=== PATIENT | female | born 1970 | race Caucasian/White ===

== ENCOUNTER 2018-11-15 11:38 | Inpatient (IN) | payer MEDICAID, MEDICARE ==
[~2018-11-15] VITALS: Ht 177.8 cm; Wt 65.3 kg
[~2018-11-15 11:38] MED LIST: DILANTIN100 MG PO; DURAGESIC1 EAC1 TOP; GABAPENTIN100 MG PO; IMITREX6 MG/0.51 INJ; INDERAL LA120 M1; INDERAL LA120 MG PO; NEXIUM40 MG PO; REMICADE100 MG/VIA; SULFASALAZINE500 MG PO; SUMATRIPTAN SQ; XANAX0.5 MG PO; Z.0.DILANTIN100 MG; Z.0.GABAPENTIN100 MG PO; Z.0.NEXIUM40 MG PO; Z.0.NORCO 10-325 T1 PO; Z.0.OMNICEF300 MG PO; Z.0.XANAX0.5 MG PO
--- OUTSIDE RECORDS SUMMARY | 2018-11-15 11:44 | XMS REPORT ---
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 Allergies, Adverse Reactions, Alerts Allergy Name Allergy Type Status Severity Reaction(s) Onset Date Inactive Date Treating Clinician Comments No Known Drug Allergies DA Active 2018-05-04 00:00:00 meperidine DA Active AR 2018-05-02 00:00:00 meperidine DA Active AR 2018-05-01 00:00:00 meperidine DA Active AR 2018-03-08 00:00:00 meperidine DA Active AR 2016-12-05 00:00:00 Medications This patient has no known medications. Encounters Start Date/Time End Date/Time Encounter Type Admission Type Attending [facility] Care Department Encounter ID 2017-04-04 00:00:00 2017-04-04 00:00:00 Outpatient [facility] [id number] 2016-09-01 00:00:00 2016-09-01 00:00:00 Outpatient [facility] [id number] 2016-08-25 00:00:00 2016-08-25 00:00:00 Outpatient [facility] [id number] 2016-08-24 00:00:00 2016-08-24 00:00:00 Outpatient [facility] [id number] 2016-08-23 00:00:00 2016-08-23 00:00:00 Outpatient [facility] [id number] 2016-08-19 14:09:46 2016-08-19 14:09:46 Outpatient [facility] [id number] 2016-08-09 14:14:11 2016-08-09 14:14:11 Outpatient [facility] [id number] 2016-08-09 13:17:53 2016-08-09 13:17:53 Outpatient [facility] [id number] 2016-08-09 00:00:00 2016-08-09 00:00:00 Outpatient [facility] [id number] 2016-07-28 00:00:00 2016-07-28 00:00:00 Outpatient [facility] [id number] 2016-07-22 13:44:29 2016-07-22 13:44:29 Outpatient [facility] [id number] Results Test Description Test Time Test Comments Text Results Atomic Results Result Comments - XR ABDOMEN AP 1 V 2018-09-07 08:04:00 FAX: Brady Rodriguez MD [phone] Byars: St: [facility] FAX: Dima Lorenzo [phone] FAX: Fernando Beatty [phone] Name: DAVIE CORADO [facility] : 1970 Age/S: 47[facility] [id number] Loc: V.[address] [place] [address] Phys: Fernando Beatty MD Acct: [id number] Dis Date: Status: ADM IN PHONE #: [phone] Exam Date: 09/07/2018726 FAX #: [phone] Reason: ILEUS EXAMS: CPT CODE: [id number] XR ABDOMEN AP 1 V 50359 HISTORY: ILEUS TECHNIQUE: AP abdomen x-ray COMPARISON: Previous day FINDINGS: Nonobstructive bowel gas pattern. Gaseous distention of the distal colon. No intra-abdominal mass effect. No abnormal calcifications are observed. Left epigastric and cholecystectomy clips. Visualized osseous structures are intact. IMPRESSION: Nonobstructive bowel gas pattern. Gaseous di stention of the distal colon. at 0804 Reported and signed by: Karly Peacock D.O. CC: Brady Rodriguez MD; Dima Samaniego; Fernando Beatty MD Technologist: PETRONA CARROLL JR Trnscrd Date/Time/By: 09/07/2018 (0804) : By: [email or web address] Orig Print D/T: S: 09/07/2018 (6607) PAGE 1 Signed Report BASIC METABOLIC PANEL 2018-09-07 05:45:00 SODIUM (test code=NA) 137 mmol/L 136-145 POTASSIUM (test code=K) 4.4 mmol/L 3.5-5.1 CHLORIDE (test code=CL) 104.0 mmol/L 98-107 CARBON DIOXIDE (test code=CO2) 25.0 mmol/L 21-32 ANION GAP (test code=GAP) 12.4 10-20 GLUCOSE (test code=GLU) 134 mg/dL 74-106 BLOOD UREA NITROGEN (test code=BUN) 11 mg/dL 7-18 GLOMERULAR FILTRATION RATE (test code=GFR) > 60 mL/min >=60 Estimated GFR by using Modified MDRD formula.Chronic kidney disease is defined as either kidney damageor GFR <60 mL/min/1.73 m2 for >3 months. CREATININE (test code=CREAT) 0.60 mg/dL 0.55-1.02 Note change in reference range due to change in reagent. BUN/CREATININE RATIO (test code=BUN/CREA) 17.2 10-20 CALCIUM (test code=CA) 9.9 mg/dL 8.5-10.1 CBC W/O [id number] 05:04:00* Test Item Value Reference Range Comments WHITE BLOOD CELL (test code=WBC) 11.5 K/mm3 4.5-12.5 RED BLOOD CELL (test code=RBC) 4.49 mill/mm3 3.7-5.2 HEMOGLOBIN (test code=HGB) 9.8 gram/dL 11.5-15.5 HEMATOCRIT (test code=HCT) 34.5 % 36.0-46.0 MEAN CELL VOLUME (test code=MCV) 76.8 fL 80-98 MEAN CELL HGB (test code=MCH) 21.8 picogram 27.0-33.0 MEAN CELL HGB CONCETRATION (test code=MCHC) 28.4 gram/dL 33.0-36.0 RED CELL DISTRIBUTION WIDTH (test code=RDW) 18.6 % 11.6-16.2 PLATELET COUNT (test code=PLT) 401 K/mm3 150-450 MEAN PLATELET VOLUME (test code=MPV) 10.7 fL 6.7-11.0 - XR ABDOMEN AP 1 [id number] 09:17:00 FAX: Brady Rodriguez MD [phone] Byars: St: ADM FAX: Dima Lorenzo [phone] FAX: Treasure Espinosa [phone] Name: DAVIE CORADO [facility] : 1970 Age/S: 47/F [address] Unit #: [id number] Loc: V.3030 [place] [address] Phys: Treasure Espinosa Acct: [id number] Dis Date: Status: ADM IN [facility] #: [phone] Exam Date: 09/06/2018 08 FAX #: [phone] Reason: sbo vs ileus EXAMS: CPT CODE: [id number] XR ABDOMEN AP 1 V 87863 HISTORY: Small bowel obstruction versus ileus. COMPARISON: CT scan from September 04, 2018. Moderate amount of air noted throughout the colon. No signi ficant small bowel distention is noted. Multiple surgical clips in the lef t upper quadrant. These findings suggest ileus. Continued follow-up. Patient is post cholecystectomy. Phleboliths. IMPRESSION: Extensive colonic gas without significant small bowel obstruction may suggest ileus. This does not suggest an obstructive pattern at this time. at 0917 Reported and signed by: Giovanny Wakefield M.D. CC: Brady Rodriguez MD; Dima Samaniego; Treasure Espinosa Technologist: DONNY KELLY) Trnscrd Eugenio e/Time/By: 09/06/2018 (916) : By: [email or web address] Orig Print D/T: S: 2018 (8220) PAGE 1 Signed Report BASIC METABOLIC [id number] 06:33:00* Test Item Value Reference Range Comments SODIUM (test code=NA) 141 mmol/L 136-145 POTASSIUM (test code=K) 4.6 mmol/L 3.5-5.1 CHLORIDE (test code=CL) 109.0 mmol/L 98-107 CARBON DIOXIDE (test code=CO2) 21.0 mmol/L 21-32 ANION GAP (test code=GAP) 15.6 10-20 GLUCOSE (test code=GLU) 100 mg/dL 74-106 BLOOD UREA NITROGEN (test code=BUN) 5 mg/dL 7-18 GLOMERULAR FILTRATION RATE (test code=GFR) > 60 mL/min >=60 Estimated GFR by using Modified MDRD formula.Chronic kidney disease is defined as either kidney damageor GFR <60 mL/min/1.73 m2 for >3 months. CREATININE (test code=CREAT) 0.60 mg/dL 0.55-1.02 Note change in reference range due to change in reagent. BUN/CREATININE RATIO (test code=BUN/CREA) 8.9 10-20 CALCIUM (test code=CA) 9.6 mg/dL 8.5-10.1 BASIC METABOLIC [id number] 06:22:00* Test Item Value Reference Range Comments SODIUM (test code=NA) 141 mmol/L 136-145 POTASSIUM (test code=K) 4.6 mmol/L 3.5-5.1 CHLORIDE (test code=CL) 109.0 mmol/L 98-107 CARBON DIOXIDE (test code=CO2) mmol/L 21-32 ANION GAP (test code=GAP) 10-20 GLUCOSE (test code=GLU) mg/dL 74-106 BLOOD UREA NITROGEN (test code=BUN) mg/dL 7-18 GLOMERULAR FILTRATION RATE (test code=GFR) mL/min >=60 CREATININE (test code=CREAT) mg/dL 0.55-1.02 BUN/CREATININE RATIO (test code=BUN/CREA) 10-20 CALCIUM (test code=CA) mg/dL 8.5-10.1 CBC W/O [id number] 05:50:00* Test Item Value Reference Range Comments WHITE BLOOD CELL (test code=WBC) 8.7 K/mm3 4.5-12.5 RED BLOOD CELL (test code=RBC) 4.74 mill/mm3 3.7-5.2 HEMOGLOBIN (test code=HGB) 10.1 gram/dL 11.5-15.5 HEMATOCRIT (test code=HCT) 36.0 % 36.0-46.0 MEAN CELL VOLUME (test code=MCV) 75.9 fL 80-98 MEAN CELL HGB (test code=MCH) 21.3 picogram 27.0-33.0 MEAN CELL HGB CONCETRATION (test code=MCHC) 28.1 gram/dL 33.0-36.0 RED CELL DISTRIBUTION WIDTH (test code=RDW) 18.5 % 11.6-16.2 PLATELET COUNT (test code=PLT) 398 K/mm3 150-450 MEAN PLATELET VOLUME (test code=MPV) 10.2 fL 6.7-11.0 CBC W/O [id number] 05:47:00* Test Item Value Reference Range Comments WHITE BLOOD CELL (test code=WBC) K/mm3 4.5-12.5 RED BLOOD CELL (test code=RBC) mill/mm3 3.7-5.2 HEMOGLOBIN (test code=HGB) gram/dL 11.5-15.5 HEMATOCRIT (test code=HCT) 36.0 % 36.0-46.0 MEAN CELL VOLUME (test code=MCV) fL 80-98 MEAN CELL HGB (test code=MCH) picogram 27.0-33.0 MEAN CELL HGB CONCETRATION (test code=MCHC) gram/dL 33.0-36.0 RED CELL DISTRIBUTION WIDTH (test code=RDW) % 11.6-16.2 PLATELET COUNT (test code=PLT) K/mm3 150-450 MEAN PLATELET VOLUME (test code=MPV) fL 6.7-11.0 BASIC METABOLIC [id number] 06:46:00* Test Item Value Reference Range Comments SODIUM (test code=NA) 138 mmol/L 136-145 POTASSIUM (test code=K) 3.8 mmol/L 3.5-5.1 CHLORIDE (test code=CL) 106.0 mmol/L 98-107 CARBON DIOXIDE (test code=CO2) 26.0 mmol/L 21-32 ANION GAP (test code=GAP) 9.8 10-20 GLUCOSE (test code=GLU) 96 mg/dL 74-106 BLOOD UREA NITROGEN (test code=BUN) 8 mg/dL 7-18 GLOMERULAR FILTRATION RATE (test code=GFR) > 60 mL/min >=60 Estimated GFR by using Modified MDRD formula.Chronic kidney disease is defined as either kidney damageor GFR <60 mL/min/1.73 m2 for >3 months. CREATININE (test code=CREAT) 0.70 mg/dL 0.55-1.02 Note change in reference range due to change in reagent. BUN/CREATININE RATIO (test code=BUN/CREA) 12.1 10-20 CALCIUM (test code=CA) 9.6 mg/dL 8.5-10.1 BASIC METABOLIC [id number] 06:45:00* Test Item Value Reference Range Comments SODIUM (test code=NA) 138 mmol/L 136-145 POTASSIUM (test code=K) 3.8 mmol/L 3.5-5.1 CHLORIDE (test code=CL) 106.0 mmol/L 98-107 CARBON DIOXIDE (test code=CO2) mmol/L 21-32 ANION GAP (test code=GAP) 10-20 GLUCOSE (test code=GLU) mg/dL 74-106 BLOOD UREA NITROGEN (test code=BUN) mg/dL 7-18 GLOMERULAR FILTRATION RATE (test code=GFR) mL/min >=60 CREATININE (test code=CREAT) mg/dL 0.55-1.02 BUN/CREATININE RATIO (test code=BUN/CREA) 10-20 CALCIUM (test code=CA) 9.6 mg/dL 8.5-10.1 CBC W/O [id number] 06:15:00* Test Item Value Reference Range Comments WHITE BLOOD CELL (test code=WBC) 6.5 K/mm3 4.5-12.5 RED BLOOD CELL (test code=RBC) 4.75 mill/mm3 3.7-5.2 HEMOGLOBIN (test code=HGB) 10.3 gram/dL 11.5-15.5 HEMATOCRIT (test code=HCT) 34.7 % 36.0-46.0 MEAN CELL VOLUME (test code=MCV) 73.1 fL 80-98 MEAN CELL HGB (test code=MCH) 21.7 picogram 27.0-33.0 MEAN CELL HGB CONCETRATION (test code=MCHC) 29.7 gram/dL 33.0-36.0 RED CELL DISTRIBUTION WIDTH (test code=RDW) 18.6 % 11.6-16.2 PLATELET COUNT (test code=PLT) 435 K/mm3 150-450 RESULT VERIFIED BY REPEAT ANALYSIS MEAN PLATELET VOLUME (test code=MPV) 10.0 fL 6.7-11.0 URINALYSIS [id number] 16:41:00* Test Item Value Reference Range Comments UA COLOR (test code=COLU) Light-Yellow YELLOW UA APPEARANCE (test code=APPU) Cloudy CLEAR UA GLUCOSE DIPSTICK (test code=DGLUU) NEGATIVE mg/dL NEGATIVE UA BILIRUBIN DIPSTICK (test code=BILU) NEGATIVE mg/dL NEGATIVE UA KETONE DIPSTICK (test code=KETU) NEGATIVE mg/dL NEGATIVE UA SPECIFIC GRAVITY (test code=SGU) 1.024 1.001-1.035 UA BLOOD DIPSTICK (test code=WILBER) Negative mg/dL NEGATIVE UA PH DIPSTICK (test code=MARCELLO) 8.0 5.0-8.0 UA PROTEIN DIPSTICK (test code=PROU) NEGATIVE mg/dL NEGATIVE UA UROBILINIOGEN DIPSTICK (test code=URO) Normal mg/dL NEGATIVE UA NITRITE DIPSTICK (test code=LANDON) NEGATIVE NEGATIVE UA LEUKOCYTE ESTERASE W REFLEX (test code=LEUUR) 75 Sergio/uL (1+) Sergio/uL NEGATIVE UA WBC (test code=WBCU) 0-5 per HPF 0-5 UA RBC (test code=RBCU) 6-10 #/HPF 0-5 UA EPITHELIAL CELLS (test code=EPIU) MOD per HPF FEW UA BACTERIA (test code=BACU) FEW #/HPF NONE UA MUCUS (test code=MUCU) FEW #/LPF FEW UA YEAST (test code=YEASTU) FEW #/HPF NONE Urine Source? Clean CatchDRUGS OF ABUSE SCREEN [id number] 16:41:00* Test Item Value Reference Range Comments URN COCAINE (test code=COCAURN) NEGATIVE <300 ng/mL URN CANNABINOIDS (test code=CANNABURN) NEGATIVE <50 ng/mL URN AMPHETAMINE (test code=AMPHETURN) POSITIVE <1000 ng/mL This test provides only a preliminary test result. A morespecific alternate chemical method must be used in order toobtain a confirmed analytical result. Gas chromatography/mass spectrometry (GC/MS) is thepreferred confirmatory method. Other chemical confirmationmethods are available. Clinical consideration and professional judgment should be applied to any drug of abusetest result, particularly when preliminary positive resultsare used.Unconfirmed screening results must not be used fornon-medical purposes (e.g., employment testing, legaltesting). URN BARBITURATE (test code=BARBITURN) NEGATIVE <200 ng/mL URN BENZODIAZEPINE (test code=BENZOURN) NEGATIVE <200 ng/mL URN OPIATES (test code=OPIATURN) POSITIVE <300 ng/mL This test provides only a preliminary test result. A morespecific alternate chemical method must be used in order toobtain a confirmed analytical result. Gas chromatography/mass spectrometry (GC/MS) is thepreferred confirmatory method. Other chemical confirmationmethods are available. Clinical consideration and professional judgment should be applied to any drug of abusetest result, particularly when preliminary positive resultsare used.Unconfirmed screening results must not be used fornon-medical purposes (e.g., employment testing, legaltesting). URN PHENCYCLIDINE (PCP) (test code=PHENCURN) NEGATIVE <25 ng/mL URN METHADONE (test code=METHAURN) NEGATIVE <300 ng/mL Urine Source? Clean CatchURINALYSIS [id number] 16:30:00* Test Item Value Reference Range Comments UA COLOR (test code=COLU) YELLOW UA APPEARANCE (test code=APPU) CLEAR UA BILIRUBIN DIPSTICK (test code=BILU) NEGATIVE UA SPECIFIC GRAVITY (test code=SGU) 1.001-1.035 UA PH DIPSTICK (test code=MARCELLO) 5.0-8.0 UA UROBILINIOGEN DIPSTICK (test code=URO) mg/dL 0.0-0.2 UA NITRITE DIPSTICK (test code=LANDON) NEGATIVE UA LEUKOCYTE ESTERASE W REFLEX (test code=LEUUR) NEGATIVE UA WBC (test code=WBCU) per HPF 0-5 UA RBC (test code=RBCU) per HPF 0-5 UA EPITHELIAL CELLS (test code=EPIU) per HPF Few UA BACTERIA (test code=BACU) per HPF NONE Urine Source? Clean CatchDRUGS OF ABUSE SCREEN [id number] 16:30:00* Test Item Value Reference Range Comments URN COCAINE (test code=COCAURN) NEGATIVE <300 ng/mL URN CANNABINOIDS (test code=CANNABURN) NEGATIVE <50 ng/mL URN AMPHETAMINE (test code=AMPHETURN) POSITIVE <1000 ng/mL This test provides only a preliminary test result. A morespecific alternate chemical method must be used in order toobtain a confirmed analytical result. Gas chromatography/mass spectrometry (GC/MS) is thepreferred confirmatory method. Other chemical confirmationmethods are available. Clinical consideration and professional judgment should be applied to any drug of abusetest result, particularly when preliminary positive resultsare used.Unconfirmed screening results must not be used fornon-medical purposes (e.g., employment testing, legaltesting). URN BARBITURATE (test code=BARBITURN) NEGATIVE <200 ng/mL URN BENZODIAZEPINE (test code=BENZOURN) NEGATIVE <200 ng/mL URN OPIATES (test code=OPIATURN) POSITIVE <300 ng/mL This test provides only a preliminary test result. A morespecific alternate chemical method must be used in order toobtain a confirmed analytical result. Gas chromatography/mass spectrometry (GC/MS) is thepreferred confirmatory method. Other chemical confirmationmethods are available. Clinical consideration and professional judgment should be applied to any drug of abusetest result, particularly when preliminary positive resultsare used.Unconfirmed screening results must not be used fornon-medical purposes (e.g., employment testing, legaltesting). URN PHENCYCLIDINE (PCP) (test code=PHENCURN) NEGATIVE <25 ng/mL URN METHADONE (test code=METHAURN) NEGATIVE <300 ng/mL Urine Source? Clean Catch- CT ABD PELVIS [id number] 14:39:00 Name: DAVIE CORADO [facility] : 1970 Age/S: 47 / F [address] Unit #: [id number] Loc: [place] [address] Phys: Walker Lock MD Acct: [id number] Di s Date: Status: REG ER PHONE #: [phone] Exam Date: 09/04/2018 1420 FAX #: [phone] Reason: seizure EXAMS: CPT CODE: [id number] CT ABD PELVIS W/CONT 58375 REASON FOR EXAM: seizure EXAM ORDER DATE: 09/04/2018 11:19 AM Ordering M.D.: William Lock MD PROCEDURE: - CT ABD PELVIS W/CONT contrast- enhanced axial CT images were acquired through the abdomen/pelvis at 5 mm intervals. Sagittal and coronal reformatted images were generated. Autom ated exposure control was utilized for this reduction. Phase s of contrast: Venous COMPARISON: CT of the abdomen and pelvis Apr FINDINGS: Images are slightly degraded by motion from patient respiration Visualized thorax: Normal Hepatobiliary system: Hepatomegaly and cholecystectomy are unchanged from the previous exam. Pancreas: Grossly normal. Spleen: Upper limits of normal in size. No focal lesions. Adrenal glands: Normal Genitourinary system: Normal Gastrointestinal tract and appendix: Postsurgical changes involving the stomach appear to be from gastric bypass. There are a few loops of small bowel in the left hemiabdomen that are distended up to 3.9 m in diameter. Postsurgical jenkins es involving the small bowel the left abdomen () are also likely relat ed to gastric bypass. There is a short segment of small bowel with mural thickening in the midline of the abdomen (). These with distention of the bowel proximally and normal caliber of the bowel distally which may represent a stricture from the patient's Crohn's disease as reported in the history. There is stool and gas seen throughout the colon. A bdominal vascular structures: Scattered atherosclerotic disease in the abd ominal aorta and iliac arteries. PAGE 1 Rosy d Report (CONTINUED) Name: DAVIE CORADO [facility] : 1970 Age/S: 47 / F [address] Unit #: [id number] Loc: [facility] [place] [address] Phys: Linda Lock MD Acct: [id number] Dis Date: Status: REG ER PHONE #: [phone] Exam Date: 09/04/2018 1420 FAX #: [phone] Reason: seizure EXAMS: CPT CODE: [id number] CT ABD PELVIS W/CONT 59283 <Continued> Peritoneum and retroperitoneum: No free fluid or free air. No omental or mesenteric masses. No abnormal lymph nodes. Musculoskeletal structures and abdominal wall: There is disc degeneration at L5-S1. IMPRESSION: Distention of the proximal small bowel with decompression of the distal small bowel may represent localized ileus versus partial small bowel obstruction. There is also a focal segment of mural thickening as described in the body of this report which may represent a stricture from the patient's Crohn's disease. Surgical changes involving the stomach and small bowel are suspected be from a gastric bypass. at 143 Reported and signed by: Hector Middleton MD CC: Dima Samaniego; Linda Lock MD Technologist:Radha Coreas,RT(R),CT CTDI: DLP: Trnscb Date/Time: 09/04/2018 (4666) [email or web address].RR31 Orig Print D/T: S: 09/04/2018 (8173) PAGE 2 Signed Report - CT HEAD/BRAIN W/O [id number] 14:29:00 Name: DAVIE CORADO [facility] : 1970 Age/S: 47 / F [address] Unit #: [id number] Loc: [place] [address] Phys: Walker Lock MD Acct: [id number] Di s Date: Status: REG ER PHONE #: Exam Date: 09/04/2018 1420 FAX #: Reason: LLQ ttp, h/o crohn dz EXAMS: CPT CODE: [id number] CT HEAD/BRAIN W/O CONT 47349 HISTORY: LLQ ttp, h/o cr ohn dz TECHNIQUE: Noncontrast 2.[address] of the head. Examina tion acquired within 24 hours of arrival. Automated exposure control for dose reduction. COMPARISON: Noncontrast CT brain November 28, 2016 FINDINGS: No acute hemorrhage. No intracranial mass, mass effect, or midline shift. No CT evidence of acute infarct. Aragon -white matter differentiation is preserved. No hydrocephalus. No extra-axi al fluid collection. Visualized paranasal sinuses are clear . Mastoid air cells and middle ear cavities are clear. There is cerumen in the bilateral external auditory canals. Orbital contents are unremarkable. Calvarium and skull base are intact. IMPRESSION: Negative CT head. at 1429 Reported and signed by: Hector Middleton MD CC: Dima Samaniego Jessica D MD Technologist:RT Shelly(R),CT CTDI: DLP: Trnscb Date/Time: 09/04/2018 (4642) [email or web address].RR31 Orig Print D/T: S: 09/04/2018 (8192) PAGE 1 Signed Report BASIC METABOLIC [id number] 13:46:00* Test Item Value Reference Range Comments SODIUM (test code=NA) 137 mmol/L 136-145 POTASSIUM (test code=K) 3.8 mmol/L 3.5-5.1 CHLORIDE (test code=CL) 102.0 mmol/L 98-107 CARBON DIOXIDE (test code=CO2) 28.0 mmol/L 21-32 ANION GAP (test code=GAP) 10.8 10-20 GLUCOSE (test code=GLU) 104 mg/dL 74-106 BLOOD UREA NITROGEN (test code=BUN) 7 mg/dL 7-18 GLOMERULAR FILTRATION RATE (test code=GFR) > 60 mL/min >=60 Estimated GFR by using Modified MDRD formula.Chronic kidney disease is defined as either kidney damageor GFR <60 mL/min/1.73 m2 for >3 months. CREATININE (test code=CREAT) 0.70 mg/dL 0.55-1.02 Note change in reference range due to change in reagent. BUN/CREATININE RATIO (test code=BUN/CREA) 10.1 10-20 CALCIUM (test code=CA) 11.1 mg/dL 8.5-10.1 HEPATIC FUNCTION [id number] 13:46:00* Test Item Value Reference Range Comments TOTAL PROTEIN (test code=PROT) 10.6 gram/dL 6.4-8.2 ALBUMIN (test code=ALB) 4.2 g/dL 3.4-5.0 GLOBULIN (test code=GLOB) 6.4 gram/dL 2.7-4.2 ALBUMIN/GLOBULIN RATIO (test code=A/G) 0.7 0.75-1.50 BILIRUBIN TOTAL (test code=BILT) 0.60 mg/dL 0.0-1.0 BILIRUBIN DIRECT (test code=BILD) 0.17 mg/dL 0.0-0.20 SGOT/AST (test code=AST) 30 IUnit/L 15-37 SGPT/ALT (test code=ALT) 30 IUnit/L 12-78 ALKALINE PHOSPHATASE TOTAL (test code=ALKP) 231 IUnit/L 45-117 Note change in reference range due to change in reagent. CREATINE KINASE (CK)2018-09-04 13:46:00* Test Item Value Reference Range Comments CREATINE KINASE (CK) (test code=CK) 25 IUnit/L 26-208 [id number] 13:46:00* Test Item Value Reference Range Comments LIPASE (test code=LIP) 287 U/L 73.0-393.0 HCG SERUM [id number] 13:46:00* Test Item Value Reference Range Comments HCG SERUM QUAL (test code=HCGQL) NEGATIVE NEGATIVE This HCGQL test is NOT applicable for MALE patients.Check with nurse about probable order error.If Tumor Marker Test needed, nurse should order test "HCGTU"(Test #550.89339) DILANTIN (PHENYTOIN)2018-09-04 13:46:00* Test Item Value Reference Range Comments DILANTIN (PHENYTOIN) (test code=DIL) 1.0 ug/mL 10.0-20.0 [id number] 13:46:00* Test Item Value Reference Range Comments ALCOHOL (test code=ALC) < 3 mg/dL 0.0-3.0 INTERPRETIVE DATA NOTE: POSITIVE SCREENING RESULTS SHOULD BE CONSIDERED PRESUMPTIVE.WHEN COLLECTED FOR MEDICAL PURPOSES ONLY. SPECIMEN WILL NOTBE COLLECTED BY CHAIN OF CUSTODY.IF A CONFIRMATION OF POSITIVE RESULTS IS DESIRED, ACONFIRMATION TEST MUST BE REQUESTED BY THE PHYSICIAN AT ANADDITIONAL CHARGE TO THE PATIENT. PROTHROMBIN [id number] 13:37:00* Test Item Value Reference Range Comments PROTHROMBIN TIME PATIENT (test code=PTP) 12.6 seconds 9.0-14.0 INTERNATIONAL NORMAL RATIO (test code=INR) 1.1 0.8-1.2 The therapeutic range for oral anticoagulant therapy formost indications is an international normalized ratio (INR)of between 2.0 and 3.0. The recommended therapeutic INRrange for various clinical situations is listed below: Clinical Situation INR range Pulmonary e mbolism treatment (2.0-3.0)Venous thrombosis treatmentVenous thrombosis prophylaxis (high risk surgery)Prevention of systemic embolism from: Acute myocardial infarction Valvular heart disease Atrial fibrillation Mechanical prosthetic heart valves (2.5-3.5) IS PATIENT ON ANTICOAGULANTS? NTHROMBOPLASTIN TIME [id number] 13:37:00* Test Item Value Reference Range Comments THROMBOPLASTIN TIME PARTIAL (test code=PTT) 41.7 seconds 25.0-36.5 IS PATIENT ON ANTICOAGULANTS? NBASIC METABOLIC [id number] 13:28:00* Test Item Value Reference Range Comments SODIUM (test code=NA) 137 mmol/L 136-145 POTASSIUM (test code=K) 3.8 mmol/L 3.5-5.1 CHLORIDE (test code=CL) 102.0 mmol/L 98-107 CARBON DIOXIDE (test code=CO2) mmol/L 21-32 ANION GAP (test code=GAP) 10-20 GLUCOSE (test code=GLU) mg/dL 74-106 BLOOD UREA NITROGEN (test code=BUN) mg/dL 7-18 GLOMERULAR FILTRATION RATE (test code=GFR) mL/min >=60 CREATININE (test code=CREAT) mg/dL 0.55-1.02 BUN/CREATININE RATIO (test code=BUN/CREA) 10-20 CALCIUM (test code=CA) mg/dL 8.5-10.1 HEPATIC FUNCTION [id number] 13:28:00* Test Item Value Reference Range Comments TOTAL PROTEIN (test code=PROT) gram/dL 6.4-8.2 ALBUMIN (test code=ALB) g/dL 3.4-5.0 GLOBULIN (test code=GLOB) gram/dL 2.7-4.2 ALBUMIN/GLOBULIN RATIO (test code=A/G) 0.75-1.50 BILIRUBIN TOTAL (test code=BILT) mg/dL 0.0-1.0 BILIRUBIN DIRECT (test code=BILD) mg/dL 0.0-0.20 SGOT/AST (test code=AST) IUnit/L 15-37 SGPT/ALT (test code=ALT) IUnit/L 12-78 ALKALINE PHOSPHATASE TOTAL (test code=ALKP) IUnit/L 45-117 CREATINE KINASE (CK)2018-09-04 13:28:00* Test Item Value Reference Range Comments CREATINE KINASE (CK) (test code=CK) IUnit/L 26-208 [id number] 13:28:00* Test Item Value Reference Range Comments LIPASE (test code=LIP) U/L 73.0-393.0 HCG SERUM [id number] 13:28:00* Test Item Value Reference Range Comments HCG SERUM QUAL (test code=HCGQL) NEGATIVE DILANTIN (PHENYTOIN)2018-09-04 13:28:00* Test Item Value Reference Range Comments DILANTIN (PHENYTOIN) (test code=DIL) ug/mL 10.0-20.0 [id number] 13:28:00* Test Item Value Reference Range Comments ALCOHOL (test code=ALC) mg/dL 0-3 BASIC METABOLIC [id number] 13:28:00* Test Item Value Reference Range Comments SODIUM (test code=NA) 137 mmol/L 136-145 POTASSIUM (test code=K) 3.8 mmol/L 3.5-5.1 CHLORIDE (test code=CL) 102.0 mmol/L 98-107 CARBON DIOXIDE (test code=CO2) mmol/L 21-32 ANION GAP (test code=GAP) 10-20 GLUCOSE (test code=GLU) mg/dL 74-106 BLOOD UREA NITROGEN (test code=BUN) mg/dL 7-18 GLOMERULAR FILTRATION RATE (test code=GFR) mL/min >=60 CREATININE (test code=CREAT) mg/dL 0.55-1.02 BUN/CREATININE RATIO (test code=BUN/CREA) 10-20 CALCIUM (test code=CA) mg/dL 8.5-10.1 HEPATIC FUNCTION [id number] 13:28:00* Test Item Value Reference Range Comments TOTAL PROTEIN (test code=PROT) gram/dL 6.4-8.2 ALBUMIN (test code=ALB) g/dL 3.4-5.0 GLOBULIN (test code=GLOB) gram/dL 2.7-4.2 ALBUMIN/GLOBULIN RATIO (test code=A/G) 0.75-1.50 BILIRUBIN TOTAL (test code=BILT) mg/dL 0.0-1.0 BILIRUBIN DIRECT (test code=BILD) mg/dL 0.0-0.20 SGOT/AST (test code=AST) IUnit/L 15-37 SGPT/ALT (test code=ALT) IUnit/L 12-78 ALKALINE PHOSPHATASE TOTAL (test code=ALKP) IUnit/L 45-117 CREATINE KINASE (CK)2018-09-04 13:28:00* Test Item Value Reference Range Comments CREATINE KINASE (CK) (test code=CK) IUnit/L 26-208 [id number] 13:28:00* Test Item Value Reference Range Comments LIPASE (test code=LIP) U/L 73.0-393.0 HCG SERUM [id number] 13:28:00* Test Item Value Reference Range Comments HCG SERUM QUAL (test code=HCGQL) NEGATIVE NEGATIVE This HCGQL test is NOT applicable for MALE patients.Check with nurse about probable order error.If Tumor Marker Test needed, nurse should order test "HCGTU"(Test #550.91860) DILANTIN (PHENYTOIN)2018-09-04 13:28:00* Test Item Value Reference Range Comments DILANTIN (PHENYTOIN) (test code=DIL) ug/mL 10.0-20.0 [id number] 13:28:00* Test Item Value Reference Range Comments ALCOHOL (test code=ALC) mg/dL 0-3 LACTIC [id number] 13:25:00* Test Item Value Reference Range Comments LACTIC ACID (test code=LACT) 1.9 mmol/L 0.4-1.9 CBC W/O [id number] 13:24:00* Test Item Value Reference Range Comments WHITE BLOOD CELL (test code=WBC) 11.1 K/mm3 4.5-12.5 RED BLOOD CELL (test code=RBC) 5.39 mill/mm3 3.7-5.2 HEMOGLOBIN (test code=HGB) 11.7 gram/dL 11.5-15.5 HEMATOCRIT (test code=HCT) 38.7 % 36.0-46.0 MEAN CELL VOLUME (test code=MCV) 71.8 fL 80-98 MEAN CELL HGB (test code=MCH) 21.7 picogram 27.0-33.0 MEAN CELL HGB CONCETRATION (test code=MCHC) 30.2 gram/dL 33.0-36.0 RED CELL DISTRIBUTION WIDTH (test code=RDW) 18.7 % 11.6-16.2 PLATELET COUNT (test code=PLT) 595 K/mm3 150-450 MEAN PLATELET VOLUME (test code=MPV) 9.4 fL 6.7-11.0 CBC W/O [id number] 13:20:00* Test Item Value Reference Range Comments WHITE BLOOD CELL (test code=WBC) K/mm3 4.5-12.5 RED BLOOD CELL (test code=RBC) mill/mm3 3.7-5.2 HEMOGLOBIN (test code=HGB) 11.7 gram/dL 11.5-15.5 HEMATOCRIT (test code=HCT) 38.7 % 36.0-46.0 MEAN CELL VOLUME (test code=MCV) fL 80-98 MEAN CELL HGB (test code=MCH) picogram 27.0-33.0 MEAN CELL HGB CONCETRATION (test code=MCHC) gram/dL 33.0-36.0 RED CELL DISTRIBUTION WIDTH (test code=RDW) % 11.6-16.2 PLATELET COUNT (test code=PLT) K/mm3 150-450 MEAN PLATELET VOLUME (test code=MPV) fL 6.7-11.0 GASTRIC,[id number] 14:35:00 RUN DATE: 05/10/18 [facility] PAGE 1 RUN TIME: 1435 Specimen Inqui ry RUN USER: INTERFACE PATIENT: DAVIE CORADO ACCT #: [id number] LOC: V.3SOBS U #: [id number] AGE/SX: 47/F ROOM: [facility] RE05/05/18KIT DR: Liliana Barry : 66 BED: A DIS: 05/10/18 STATUS: DIS IN TLOC: SPEC #: [id number] RECD: 05/09/18 STATUS: CAMILO HALL #: [id number] ANA: 05/09/18- SUBM DR: Christine Laureano MD ENTERED: 05/09/18-125 SP TYPE: GASTRIC BX OTHR DR: James Baxter i, MD, Maurice S MD [place], Milton E DOORDERED: GROSS COPIES TO: James Rivera MD [address] [place] [address] Theron Eden MD [address] [place] [address] Dima Samaniego DO [address] [place] [address] Christine Laureano MD [address] [place] [address] PROCEDURES: GROSS (05/10-1143) TISSUES: 1. GASTRIC CORPUS - BX 2. RIGHT COLON - BX 3. LEFT COLON - BX CLINICAL HISTORY COLLECTION DATE: 05/10/19 ANEMIA, BLOODY DIARRHEA, CROHN'S POST-OP DIAGNOSIS: KELLY ESOPHAGIT IS, GASTRITIS, ANASTOMOSIS FROM PREVIOUS GI SURGERY, POOR PREP, POSSIBLE COLIT IS CONTINUED ON NEXT PAGE R UN DATE: 05/10/18 [place] - Lab PAGE 2 RUN TIME: 1435 Specimen Inquiry RUN USER: INTERFACE SPEC #: [id number] PATIENT: DAVIE CORADO #[id number] (Continued) FINAL DIAGNOSIS Gastric biopsy: PATCHY MILD CHRONIC INFLAMMATION, GASTRIC MUCOSA NO INTEST INAL METAPLASIA SEEN NEGATIVE FOR HELICOBACTER PYLORI NEGATIVE FOR MALIGNANCY Right colon, biopsy: COLONIC MUCOSA, NO PATHOLOGIC ALTERATION Left colon, biopsy: COLONIC MUCOSA, NO PATHOLOGIC AL TERATION ALEKSEYW/matt D [id number], [id number] MACROSCOPIC The first specimen is received in formalin, labeled with the patient's name, ident ified as "gastric bx", and consists of three portions of ravi-pink biopsy tissu e measuring 0.3, 0.4 and 0.5 cm, submitted as (1) for H E and Giemsa stains. The second specimen is received in formalin, labeled with the patient's nam e, identified as "right colon bx", and consists of two ravi-pink biopsy tissue measuring 0.4 and 0.6 cm, submitted as (2). The third specimen is receiv ed in formalin, labeled with the patient's name, identified as "left colon", a nd consists of multiple portions of ravi-pink biopsy tissue measuring 0.2 to 0. 5 cm, submitted as (3). GROSS PERFORMED AT [facility] [address], [place] [address] (p)[phone] MICROSCOPIC All of the stains, including any c ontrols performed, stain appropriately. MICROSCOPIC PERFORMED AT [facility] [address] [place] [address] CONTINUED ON NEXT PAGE --------- ---RUN DATE: 05/10/18 [facility] PAGE 3 RUN TIME: 1435 Specimen Inquiry RUN USER: INTERFACE SPEC #: [id number] PATIENT: DAVIE CORADO #[id number] (Continued) MICROSCOPIC (Continued) (P)[phone] PERFORMING SITE Diagnosis performed at: [facility], [place] [address] [place] [address] Signed SIGNATURE ON FILE Rylee Forrester MD 05/10/18 2060 END OF REPORT BASIC METABOLIC [id number] 10:19:00* Test Item Value Reference Range Comments SODIUM (test code=NA) 138 mmol/L 136-145 POTASSIUM (test code=K) 5.1 mmol/L 3.5-5.1 CHLORIDE (test code=CL) 101.0 mmol/L 98-107 CARBON DIOXIDE (test code=CO2) 26.0 mmol/L 21-32 ANION GAP (test code=GAP) 16.1 10-20 GLUCOSE (test code=GLU) 81 mg/dL 74-106 BLOOD UREA NITROGEN (test code=BUN) 14 mg/dL 7-18 GLOMERULAR FILTRATION RATE (test code=GFR) > 60 mL/min >=60 Estimated GFR by using Modified MDRD formula.Chronic kidney disease is defined as either kidney damageor GFR <60 mL/min/1.73 m2 for >3 months. CREATININE (test code=CREAT) 0.50 mg/dL 0.55-1.02 Note change in reference range due to change in reagent. BUN/CREATININE RATIO (test code=BUN/CREA) 28.0 10-20 CALCIUM (test code=CA) 8.4 mg/dL 8.5-10.1 1 [facility] [id number] 10:09:00* Test Item Value Reference Range Comments SODIUM (test code=NA) 138 mmol/L 136-145 POTASSIUM (test code=K) 5.1 mmol/L 3.5-5.1 CHLORIDE (test code=CL) 101.0 mmol/L 98-107 CARBON DIOXIDE (test code=CO2) mmol/L 21-32 ANION GAP (test code=GAP) 10-20 GLUCOSE (test code=GLU) mg/dL 74-106 BLOOD UREA NITROGEN (test code=BUN) mg/dL 7-18 GLOMERULAR FILTRATION RATE (test code=GFR) mL/min >=60 CREATININE (test code=CREAT) mg/dL 0.55-1.02 BUN/CREATININE RATIO (test code=BUN/CREA) 10-20 CALCIUM (test code=CA) mg/dL 8.5-10.1 1 05/09/18 0655CB W/O [id number] 08:47:00* Test Item Value Reference Range Comments WHITE BLOOD CELL (test code=WBC) 7.5 K/mm3 4.5-12.5 RED BLOOD CELL (test code=RBC) 4.70 mill/mm3 3.7-5.2 HEMOGLOBIN (test code=HGB) 9.6 gram/dL 11.5-15.5 HEMATOCRIT (test code=HCT) 36.0 % 36.0-46.0 MEAN CELL VOLUME (test code=MCV) 76.6 fL 80-98 MEAN CELL HGB (test code=MCH) 20.4 picogram 27.0-33.0 MEAN CELL HGB CONCETRATION (test code=MCHC) 26.7 gram/dL 33.0-36.0 RED CELL DISTRIBUTION WIDTH (test code=RDW) 19.4 % 11.6-16.2 PLATELET COUNT (test code=PLT) 245 K/mm3 150-450 RESULT VERIFIED BY REPEAT ANALYSIS MEAN PLATELET VOLUME (test code=MPV) 10.8 fL 6.7-11.0 SEE NOTE ;H101 V.LAB.SS1 05/09/18 0656CBC W/O [id number] 16:49:00* Test Item Value Reference Range Comments WHITE BLOOD CELL (test code=WBC) 9.1 K/mm3 4.5-12.5 RED BLOOD CELL (test code=RBC) 4.55 mill/mm3 3.7-5.2 HEMOGLOBIN (test code=HGB) 9.4 gram/dL 11.5-15.5 HEMATOCRIT (test code=HCT) 35.2 % 36.0-46.0 MEAN CELL VOLUME (test code=MCV) 77.4 fL 80-98 MEAN CELL HGB (test code=MCH) 20.7 picogram 27.0-33.0 MEAN CELL HGB CONCETRATION (test code=MCHC) 26.7 gram/dL 33.0-36.0 RED CELL DISTRIBUTION WIDTH (test code=RDW) 19.3 % 11.6-16.2 PLATELET COUNT (test code=PLT) 147 K/mm3 150-450 MEAN PLATELET VOLUME (test code=MPV) 10.4 fL 6.7-11.0 1 05/08/18 0848BASIC METABOLIC [id number] 04:56:00* Test Item Value Reference Range Comments SODIUM (test code=NA) 143 mmol/L 136-145 POTASSIUM (test code=K) 3.6 mmol/L 3.5-5.1 CHLORIDE (test code=CL) 107.0 mmol/L 98-107 CARBON DIOXIDE (test code=CO2) 30.0 mmol/L 21-32 ANION GAP (test code=GAP) 9.6 10-20 GLUCOSE (test code=GLU) 108 mg/dL 74-106 BLOOD UREA NITROGEN (test code=BUN) 3 mg/dL 7-18 GLOMERULAR FILTRATION RATE (test code=GFR) > 60 mL/min >=60 Estimated GFR by using Modified MDRD formula.Chronic kidney disease is defined as either kidney damageor GFR <60 mL/min/1.73 m2 for >3 months. CREATININE (test code=CREAT) 0.50 mg/dL 0.55-1.02 Note change in reference range due to change in reagent. BUN/CREATININE RATIO (test code=BUN/CREA) 6.0 10-20 CALCIUM (test code=CA) 8.6 mg/dL 8.5-10.1 CBC W/AUTO [id number] 04:48:00* Test Item Value Reference Range Comments WHITE BLOOD CELL (test code=WBC) 6.8 K/mm3 4.5-12.5 RED BLOOD CELL (test code=RBC) 4.33 mill/mm3 3.7-5.2 HEMOGLOBIN (test code=HGB) 9.1 gram/dL 11.5-15.5 HEMATOCRIT (test code=HCT) 33.1 % 36.0-46.0 MEAN CELL VOLUME (test code=MCV) 76.4 fL 80-98 MEAN CELL HGB (test code=MCH) 21.0 picogram 27.0-33.0 MEAN CELL HGB CONCETRATION (test code=MCHC) 27.5 gram/dL 33.0-36.0 RED CELL DISTRIBUTION WIDTH (test code=RDW) 19.2 % 11.6-16.2 RED CELL DISTRIBUTION WIDTH SD (test code=RDW-SD) 52.4 fL 37.0-51.0 PLATELET COUNT (test code=PLT) 338 K/mm3 150-450 MEAN PLATELET VOLUME (test code=MPV) 10.2 fL 6.7-11.0 NEUTROPHIL % (test code=NT%) 75.7 % 39.0-69.0 IMMATURE GRANULOCYTE % (test code=IG%) 0.7 % 0.0-5.0 LYMPHOCYTE % (test code=LY%) 17.4 % 25.0-55.0 MONOCYTE % (test code=MO%) 5.9 % 0.0-10.0 EOSINOPHIL % (test code=EO%) 0.0 % 0.0-5.0 BASOPHIL % (test code=BA%) 0.3 % 0.0-1.0 NUCLEATED RBC % (test code=NRBC%) 0.0 % 0-0 NEUTROPHIL # (test code=NT#) 5.12 K/mm3 1.8-7.7 IMMATURE GRANULOCYTE # (test code=IG#) 0.05 x10 3/uL 0-0.03 LYMPHOCYTE # (test code=LY#) 1.18 K/mm3 1.0-5.0 MONOCYTE # (test code=MO#) 0.40 K/mm3 0-0.8 EOSINOPHIL # (test code=EO#) 0.00 K/mm3 0.0-0.5 BASOPHIL # (test code=BA#) 0.02 K/mm3 0.0-0.2 NUCLEATED RBC # (test code=NRBC#) 0.00 K/mm3 0.0-0.1 MANUAL DIFF REQUIRED (test code=MDIFF) NO, ONLY SCAN NEEDED DIFFERENTIAL [id number] 04:48:00* Test Item Value Reference Range Comments STAIN ACCEPTABILITY (test code=STN ACCEPTABLE) STAIN ACCEPTABLE POIKILOCYTOSIS (test code=POIK) 1+ PLATELET ESTIMATE (test code=PLTEST) ADEQUATE PLATELET MORPHOLOGY (test code=PLTMORPH) NORMAL BASIC METABOLIC [id number] 04:41:00* Test Item Value Reference Range Comments SODIUM (test code=NA) 143 mmol/L 136-145 POTASSIUM (test code=K) 3.6 mmol/L 3.5-5.1 CHLORIDE (test code=CL) 107.0 mmol/L 98-107 CARBON DIOXIDE (test code=CO2) mmol/L 21-32 ANION GAP (test code=GAP) 10-20 GLUCOSE (test code=GLU) mg/dL 74-106 BLOOD UREA NITROGEN (test code=BUN) mg/dL 7-18 GLOMERULAR FILTRATION RATE (test code=GFR) mL/min >=60 CREATININE (test code=CREAT) mg/dL 0.55-1.02 BUN/CREATININE RATIO (test code=BUN/CREA) 10-20 CALCIUM (test code=CA) mg/dL 8.5-10.1 CBC W/AUTO [id number] 04:35:00* Test Item Value Reference Range Comments WHITE BLOOD CELL (test code=WBC) 6.8 K/mm3 4.5-12.5 RED BLOOD CELL (test code=RBC) 4.33 mill/mm3 3.7-5.2 HEMOGLOBIN (test code=HGB) 9.1 gram/dL 11.5-15.5 HEMATOCRIT (test code=HCT) 33.1 % 36.0-46.0 MEAN CELL VOLUME (test code=MCV) 76.4 fL 80-98 MEAN CELL HGB (test code=MCH) 21.0 picogram 27.0-33.0 MEAN CELL HGB CONCETRATION (test code=MCHC) 27.5 gram/dL 33.0-36.0 RED CELL DISTRIBUTION WIDTH (test code=RDW) 19.2 % 11.6-16.2 RED CELL DISTRIBUTION WIDTH SD (test code=RDW-SD) 52.4 fL 37.0-51.0 PLATELET COUNT (test code=PLT) 338 K/mm3 150-450 MEAN PLATELET VOLUME (test code=MPV) 10.2 fL 6.7-11.0 NEUTROPHIL % (test code=NT%) 75.7 % 39.0-69.0 IMMATURE GRANULOCYTE % (test code=IG%) 0.7 % 0.0-5.0 LYMPHOCYTE % (test code=LY%) 17.4 % 25.0-55.0 MONOCYTE % (test code=MO%) 5.9 % 0.0-10.0 EOSINOPHIL % (test code=EO%) 0.0 % 0.0-5.0 BASOPHIL % (test code=BA%) 0.3 % 0.0-1.0 NUCLEATED RBC % (test code=NRBC%) 0.0 % 0-0 NEUTROPHIL # (test code=NT#) 5.12 K/mm3 1.8-7.7 IMMATURE GRANULOCYTE # (test code=IG#) 0.05 x10 3/uL 0-0.03 LYMPHOCYTE # (test code=LY#) 1.18 K/mm3 1.0-5.0 MONOCYTE # (test code=MO#) 0.40 K/mm3 0-0.8 EOSINOPHIL # (test code=EO#) 0.00 K/mm3 0.0-0.5 BASOPHIL # (test code=BA#) 0.02 K/mm3 0.0-0.2 NUCLEATED RBC # (test code=NRBC#) 0.00 K/mm3 0.0-0.1 MANUAL DIFF REQUIRED (test code=MDIFF) NO, ONLY SCAN NEEDED DIFFERENTIAL [id number] 04:35:00* Test Item Value Reference Range Comments STAIN ACCEPTABILITY (test code=STN ACCEPTABLE) CABOT RINGS (test code=CAB) MORPHOLOGY COMMENT (test code=MOC) PLATELET ESTIMATE (test code=PLTEST) PLATELET MORPHOLOGY (test code=PLTMORPH) CBC W/AUTO [id number] 04:35:00* Test Item Value Reference Range Comments WHITE BLOOD CELL (test code=WBC) 6.8 K/mm3 4.5-12.5 RED BLOOD CELL (test code=RBC) 4.33 mill/mm3 3.7-5.2 HEMOGLOBIN (test code=HGB) 9.1 gram/dL 11.5-15.5 HEMATOCRIT (test code=HCT) 33.1 % 36.0-46.0 MEAN CELL VOLUME (test code=MCV) 76.4 fL 80-98 MEAN CELL HGB (test code=MCH) 21.0 picogram 27.0-33.0 MEAN CELL HGB CONCETRATION (test code=MCHC) 27.5 gram/dL 33.0-36.0 RED CELL DISTRIBUTION WIDTH (test code=RDW) 19.2 % 11.6-16.2 RED CELL DISTRIBUTION WIDTH SD (test code=RDW-SD) 52.4 fL 37.0-51.0 PLATELET COUNT (test code=PLT) 338 K/mm3 150-450 MEAN PLATELET VOLUME (test code=MPV) 10.2 fL 6.7-11.0 NEUTROPHIL % (test code=NT%) 75.7 % 39.0-69.0 IMMATURE GRANULOCYTE % (test code=IG%) 0.7 % 0.0-5.0 LYMPHOCYTE % (test code=LY%) 17.4 % 25.0-55.0 MONOCYTE % (test code=MO%) 5.9 % 0.0-10.0 EOSINOPHIL % (test code=EO%) 0.0 % 0.0-5.0 BASOPHIL % (test code=BA%) 0.3 % 0.0-1.0 NUCLEATED RBC % (test code=NRBC%) 0.0 % 0-0 NEUTROPHIL # (test code=NT#) 5.12 K/mm3 1.8-7.7 IMMATURE GRANULOCYTE # (test code=IG#) 0.05 x10 3/uL 0-0.03 LYMPHOCYTE # (test code=LY#) 1.18 K/mm3 1.0-5.0 MONOCYTE # (test code=MO#) 0.40 K/mm3 0-0.8 EOSINOPHIL # (test code=EO#) 0.00 K/mm3 0.0-0.5 BASOPHIL # (test code=BA#) 0.02 K/mm3 0.0-0.2 NUCLEATED RBC # (test code=NRBC#) 0.00 K/mm3 0.0-0.1 MANUAL DIFF REQUIRED (test code=MDIFF) NO, ONLY SCAN NEEDED DIFFERENTIAL [id number] 04:35:00* Test Item Value Reference Range Comments STAIN ACCEPTABILITY (test code=STN ACCEPTABLE) MORPHOLOGY COMMENT (test code=MOC) PLATELET ESTIMATE (test code=PLTEST) PLATELET MORPHOLOGY (test code=PLTMORPH) CBC W/AUTO [id number] 04:34:00* Test Item Value Reference Range Comments WHITE BLOOD CELL (test code=WBC) 6.8 K/mm3 4.5-12.5 RED BLOOD CELL (test code=RBC) 4.33 mill/mm3 3.7-5.2 HEMOGLOBIN (test code=HGB) 9.1 gram/dL 11.5-15.5 HEMATOCRIT (test code=HCT) 33.1 % 36.0-46.0 MEAN CELL VOLUME (test code=MCV) 76.4 fL 80-98 MEAN CELL HGB (test code=MCH) 21.0 picogram 27.0-33.0 MEAN CELL HGB CONCETRATION (test code=MCHC) 27.5 gram/dL 33.0-36.0 RED CELL DISTRIBUTION WIDTH (test code=RDW) 19.2 % 11.6-16.2 RED CELL DISTRIBUTION WIDTH SD (test code=RDW-SD) 52.4 fL 37.0-51.0 PLATELET COUNT (test code=PLT) 338 K/mm3 150-450 MEAN PLATELET VOLUME (test code=MPV) 10.2 fL 6.7-11.0 NEUTROPHIL % (test code=NT%) 75.7 % 39.0-69.0 IMMATURE GRANULOCYTE % (test code=IG%) 0.7 % 0.0-5.0 LYMPHOCYTE % (test code=LY%) 17.4 % 25.0-55.0 MONOCYTE % (test code=MO%) 5.9 % 0.0-10.0 EOSINOPHIL % (test code=EO%) 0.0 % 0.0-5.0 BASOPHIL % (test code=BA%) 0.3 % 0.0-1.0 NUCLEATED RBC % (test code=NRBC%) 0.0 % 0-0 NEUTROPHIL # (test code=NT#) 5.12 K/mm3 1.8-7.7 IMMATURE GRANULOCYTE # (test code=IG#) 0.05 x10 3/uL 0-0.03 LYMPHOCYTE # (test code=LY#) 1.18 K/mm3 1.0-5.0 MONOCYTE # (test code=MO#) 0.40 K/mm3 0-0.8 EOSINOPHIL # (test code=EO#) 0.00 K/mm3 0.0-0.5 BASOPHIL # (test code=BA#) 0.02 K/mm3 0.0-0.2 NUCLEATED RBC # (test code=NRBC#) 0.00 K/mm3 0.0-0.1 MANUAL DIFF REQUIRED (test code=MDIFF) NO, ONLY SCAN NEEDED DIFFERENTIAL [id number] 04:34:00* Test Item Value Reference Range Comments STAIN ACCEPTABILITY (test code=STN ACCEPTABLE) CABOT RINGS (test code=CAB) MORPHOLOGY COMMENT (test code=MOC) PLATELET ESTIMATE (test code=PLTEST) PLATELET MORPHOLOGY (test code=PLTMORPH) CBC W/AUTO [id number] 04:34:00* Test Item Value Reference Range Comments WHITE BLOOD CELL (test code=WBC) 6.8 K/mm3 4.5-12.5 RED BLOOD CELL (test code=RBC) 4.33 mill/mm3 3.7-5.2 HEMOGLOBIN (test code=HGB) 9.1 gram/dL 11.5-15.5 HEMATOCRIT (test code=HCT) 33.1 % 36.0-46.0 MEAN CELL VOLUME (test code=MCV) 76.4 fL 80-98 MEAN CELL HGB (test code=MCH) 21.0 picogram 27.0-33.0 MEAN CELL HGB CONCETRATION (test code=MCHC) 27.5 gram/dL 33.0-36.0 RED CELL DISTRIBUTION WIDTH (test code=RDW) 19.2 % 11.6-16.2 RED CELL DISTRIBUTION WIDTH SD (test code=RDW-SD) 52.4 fL 37.0-51.0 PLATELET COUNT (test code=PLT) 338 K/mm3 150-450 MEAN PLATELET VOLUME (test code=MPV) 10.2 fL 6.7-11.0 NEUTROPHIL % (test code=NT%) 75.7 % 39.0-69.0 IMMATURE GRANULOCYTE % (test code=IG%) 0.7 % 0.0-5.0 LYMPHOCYTE % (test code=LY%) 17.4 % 25.0-55.0 MONOCYTE % (test code=MO%) 5.9 % 0.0-10.0 EOSINOPHIL % (test code=EO%) 0.0 % 0.0-5.0 BASOPHIL % (test code=BA%) 0.3 % 0.0-1.0 NUCLEATED RBC % (test code=NRBC%) 0.0 % 0-0 NEUTROPHIL # (test code=NT#) 5.12 K/mm3 1.8-7.7 IMMATURE GRANULOCYTE # (test code=IG#) 0.05 x10 3/uL 0-0.03 LYMPHOCYTE # (test code=LY#) 1.18 K/mm3 1.0-5.0 MONOCYTE # (test code=MO#) 0.40 K/mm3 0-0.8 EOSINOPHIL # (test code=EO#) 0.00 K/mm3 0.0-0.5 BASOPHIL # (test code=BA#) 0.02 K/mm3 0.0-0.2 NUCLEATED RBC # (test code=NRBC#) 0.00 K/mm3 0.0-0.1 MANUAL DIFF REQUIRED (test code=MDIFF) NO, ONLY SCAN NEEDED DIFFERENTIAL [id number] 04:34:00* Test Item Value Reference Range Comments STAIN ACCEPTABILITY (test code=STN ACCEPTABLE) CABOT RINGS (test code=CAB) MORPHOLOGY COMMENT (test code=MOC) PLATELET ESTIMATE (test code=PLTEST) PLATELET MORPHOLOGY (test code=PLTMORPH) CBC W/AUTO [id number] 16:22:00* Test Item Value Reference Range Comments WHITE BLOOD CELL (test code=WBC) 7.0 K/mm3 4.5-12.5 RED BLOOD CELL (test code=RBC) 4.23 mill/mm3 3.7-5.2 HEMOGLOBIN (test code=HGB) 9.0 gram/dL 11.5-15.5 HEMATOCRIT (test code=HCT) 31.2 % 36.0-46.0 MEAN CELL VOLUME (test code=MCV) 73.8 fL 80-98 MEAN CELL HGB (test code=MCH) 21.3 picogram 27.0-33.0 MEAN CELL HGB CONCETRATION (test code=MCHC) 28.8 gram/dL 33.0-36.0 RED CELL DISTRIBUTION WIDTH (test code=RDW) 19.1 % 11.6-16.2 RED CELL DISTRIBUTION WIDTH SD (test code=RDW-SD) 49.5 fL 37.0-51.0 PLATELET COUNT (test code=PLT) 371 K/mm3 150-450 MEAN PLATELET VOLUME (test code=MPV) 9.8 fL 6.7-11.0 NEUTROPHIL % (test code=NT%) 75.6 % 39.0-69.0 IMMATURE GRANULOCYTE % (test code=IG%) 0.7 % 0.0-5.0 LYMPHOCYTE % (test code=LY%) 15.9 % 25.0-55.0 MONOCYTE % (test code=MO%) 7.7 % 0.0-10.0 EOSINOPHIL % (test code=EO%) 0.0 % 0.0-5.0 BASOPHIL % (test code=BA%) 0.1 % 0.0-1.0 NUCLEATED RBC % (test code=NRBC%) 0.0 % 0-0 NEUTROPHIL # (test code=NT#) 5.26 K/mm3 1.8-7.7 IMMATURE GRANULOCYTE # (test code=IG#) 0.05 x10 3/uL 0-0.03 LYMPHOCYTE # (test code=LY#) 1.11 K/mm3 1.0-5.0 MONOCYTE # (test code=MO#) 0.54 K/mm3 0-0.8 EOSINOPHIL # (test code=EO#) 0.00 K/mm3 0.0-0.5 BASOPHIL # (test code=BA#) 0.01 K/mm3 0.0-0.2 NUCLEATED RBC # (test code=NRBC#) 0.00 K/mm3 0.0-0.1 MANUAL DIFF REQUIRED (test code=MDIFF) NO, ONLY SCAN NEEDED CLOTTED.REDRAWDIFFERENTIAL [id number] 16:22:00* Test Item Value Reference Range Comments STAIN ACCEPTABILITY (test code=STN ACCEPTABLE) STAIN ACCEPTABLE POLYCHROMASIA (test code=POLC) 1+ PLATELET ESTIMATE (test code=PLTEST) ADEQUATE PLATELET MORPHOLOGY (test code=PLTMORPH) NORMAL CLOTTED.REDRAWCBC W/AUTO [id number] 15:26:00* Test Item Value Reference Range Comments WHITE BLOOD CELL (test code=WBC) 7.0 K/mm3 4.5-12.5 RED BLOOD CELL (test code=RBC) 4.23 mill/mm3 3.7-5.2 HEMOGLOBIN (test code=HGB) 9.0 gram/dL 11.5-15.5 HEMATOCRIT (test code=HCT) 31.2 % 36.0-46.0 MEAN CELL VOLUME (test code=MCV) 73.8 fL 80-98 MEAN CELL HGB (test code=MCH) 21.3 picogram 27.0-33.0 MEAN CELL HGB CONCETRATION (test code=MCHC) 28.8 gram/dL 33.0-36.0 RED CELL DISTRIBUTION WIDTH (test code=RDW) 19.1 % 11.6-16.2 RED CELL DISTRIBUTION WIDTH SD (test code=RDW-SD) 49.5 fL 37.0-51.0 PLATELET COUNT (test code=PLT) 371 K/mm3 150-450 MEAN PLATELET VOLUME (test code=MPV) 9.8 fL 6.7-11.0 NEUTROPHIL % (test code=NT%) 75.6 % 39.0-69.0 IMMATURE GRANULOCYTE % (test code=IG%) 0.7 % 0.0-5.0 LYMPHOCYTE % (test code=LY%) 15.9 % 25.0-55.0 MONOCYTE % (test code=MO%) 7.7 % 0.0-10.0 EOSINOPHIL % (test code=EO%) 0.0 % 0.0-5.0 BASOPHIL % (test code=BA%) 0.1 % 0.0-1.0 NUCLEATED RBC % (test code=NRBC%) 0.0 % 0-0 NEUTROPHIL # (test code=NT#) 5.26 K/mm3 1.8-7.7 IMMATURE GRANULOCYTE # (test code=IG#) 0.05 x10 3/uL 0-0.03 LYMPHOCYTE # (test code=LY#) 1.11 K/mm3 1.0-5.0 MONOCYTE # (test code=MO#) 0.54 K/mm3 0-0.8 EOSINOPHIL # (test code=EO#) 0.00 K/mm3 0.0-0.5 BASOPHIL # (test code=BA#) 0.01 K/mm3 0.0-0.2 NUCLEATED RBC # (test code=NRBC#) 0.00 K/mm3 0.0-0.1 MANUAL DIFF REQUIRED (test code=MDIFF) NO, ONLY SCAN NEEDED CLOTTED.REDRAWDIFFERENTIAL [id number] 15:26:00* Test Item Value Reference Range Comments STAIN ACCEPTABILITY (test code=STN ACCEPTABLE) CABOT RINGS (test code=CAB) MORPHOLOGY COMMENT (test code=MOC) PLATELET ESTIMATE (test code=PLTEST) PLATELET MORPHOLOGY (test code=PLTMORPH) CLOTTED.REDRAWCBC W/AUTO [id number] 15:26:00* Test Item Value Reference Range Comments WHITE BLOOD CELL (test code=WBC) 7.0 K/mm3 4.5-12.5 RED BLOOD CELL (test code=RBC) 4.23 mill/mm3 3.7-5.2 HEMOGLOBIN (test code=HGB) 9.0 gram/dL 11.5-15.5 HEMATOCRIT (test code=HCT) 31.2 % 36.0-46.0 MEAN CELL VOLUME (test code=MCV) 73.8 fL 80-98 MEAN CELL HGB (test code=MCH) 21.3 picogram 27.0-33.0 MEAN CELL HGB CONCETRATION (test code=MCHC) 28.8 gram/dL 33.0-36.0 RED CELL DISTRIBUTION WIDTH (test code=RDW) 19.1 % 11.6-16.2 RED CELL DISTRIBUTION WIDTH SD (test code=RDW-SD) 49.5 fL 37.0-51.0 PLATELET COUNT (test code=PLT) 371 K/mm3 150-450 MEAN PLATELET VOLUME (test code=MPV) 9.8 fL 6.7-11.0 NEUTROPHIL % (test code=NT%) 75.6 % 39.0-69.0 IMMATURE GRANULOCYTE % (test code=IG%) 0.7 % 0.0-5.0 LYMPHOCYTE % (test code=LY%) 15.9 % 25.0-55.0 MONOCYTE % (test code=MO%) 7.7 % 0.0-10.0 EOSINOPHIL % (test code=EO%) 0.0 % 0.0-5.0 BASOPHIL % (test code=BA%) 0.1 % 0.0-1.0 NUCLEATED RBC % (test code=NRBC%) 0.0 % 0-0 NEUTROPHIL # (test code=NT#) 5.26 K/mm3 1.8-7.7 IMMATURE GRANULOCYTE # (test code=IG#) 0.05 x10 3/uL 0-0.03 LYMPHOCYTE # (test code=LY#) 1.11 K/mm3 1.0-5.0 MONOCYTE # (test code=MO#) 0.54 K/mm3 0-0.8 EOSINOPHIL # (test code=EO#) 0.00 K/mm3 0.0-0.5 BASOPHIL # (test code=BA#) 0.01 K/mm3 0.0-0.2 NUCLEATED RBC # (test code=NRBC#) 0.00 K/mm3 0.0-0.1 MANUAL DIFF REQUIRED (test code=MDIFF) NO, ONLY SCAN NEEDED CLOTTED.REDRAWDIFFERENTIAL [id number] 15:26:00* Test Item Value Reference Range Comments STAIN ACCEPTABILITY (test code=STN ACCEPTABLE) MORPHOLOGY COMMENT (test code=MOC) PLATELET ESTIMATE (test code=PLTEST) PLATELET MORPHOLOGY (test code=PLTMORPH) CLOTTED.REDRAWCBC W/AUTO [id number] 15:25:00* Test Item Value Reference Range Comments WHITE BLOOD CELL (test code=WBC) 7.0 K/mm3 4.5-12.5 RED BLOOD CELL (test code=RBC) 4.23 mill/mm3 3.7-5.2 HEMOGLOBIN (test code=HGB) 9.0 gram/dL 11.5-15.5 HEMATOCRIT (test code=HCT) 31.2 % 36.0-46.0 MEAN CELL VOLUME (test code=MCV) 73.8 fL 80-98 MEAN CELL HGB (test code=MCH) 21.3 picogram 27.0-33.0 MEAN CELL HGB CONCETRATION (test code=MCHC) 28.8 gram/dL 33.0-36.0 RED CELL DISTRIBUTION WIDTH (test code=RDW) 19.1 % 11.6-16.2 RED CELL DISTRIBUTION WIDTH SD (test code=RDW-SD) 49.5 fL 37.0-51.0 PLATELET COUNT (test code=PLT) 371 K/mm3 150-450 MEAN PLATELET VOLUME (test code=MPV) 9.8 fL 6.7-11.0 NEUTROPHIL % (test code=NT%) 75.6 % 39.0-69.0 IMMATURE GRANULOCYTE % (test code=IG%) 0.7 % 0.0-5.0 LYMPHOCYTE % (test code=LY%) 15.9 % 25.0-55.0 MONOCYTE % (test code=MO%) 7.7 % 0.0-10.0 EOSINOPHIL % (test code=EO%) 0.0 % 0.0-5.0 BASOPHIL % (test code=BA%) 0.1 % 0.0-1.0 NUCLEATED RBC % (test code=NRBC%) 0.0 % 0-0 NEUTROPHIL # (test code=NT#) 5.26 K/mm3 1.8-7.7 IMMATURE GRANULOCYTE # (test code=IG#) 0.05 x10 3/uL 0-0.03 LYMPHOCYTE # (test code=LY#) 1.11 K/mm3 1.0-5.0 MONOCYTE # (test code=MO#) 0.54 K/mm3 0-0.8 EOSINOPHIL # (test code=EO#) 0.00 K/mm3 0.0-0.5 BASOPHIL # (test code=BA#) 0.01 K/mm3 0.0-0.2 NUCLEATED RBC # (test code=NRBC#) 0.00 K/mm3 0.0-0.1 MANUAL DIFF REQUIRED (test code=MDIFF) NO, ONLY SCAN NEEDED CLOTTED.REDRAWDIFFERENTIAL [id number] 15:25:00* Test Item Value Reference Range Comments STAIN ACCEPTABILITY (test code=STN ACCEPTABLE) CABOT RINGS (test code=CAB) MORPHOLOGY COMMENT (test code=MOC) PLATELET ESTIMATE (test code=PLTEST) PLATELET MORPHOLOGY (test code=PLTMORPH) CLOTTED.REDRAWCBC W/AUTO [id number] 15:25:00* Test Item Value Reference Range Comments WHITE BLOOD CELL (test code=WBC) 7.0 K/mm3 4.5-12.5 RED BLOOD CELL (test code=RBC) 4.23 mill/mm3 3.7-5.2 HEMOGLOBIN (test code=HGB) 9.0 gram/dL 11.5-15.5 HEMATOCRIT (test code=HCT) 31.2 % 36.0-46.0 MEAN CELL VOLUME (test code=MCV) 73.8 fL 80-98 MEAN CELL HGB (test code=MCH) 21.3 picogram 27.0-33.0 MEAN CELL HGB CONCETRATION (test code=MCHC) 28.8 gram/dL 33.0-36.0 RED CELL DISTRIBUTION WIDTH (test code=RDW) 19.1 % 11.6-16.2 RED CELL DISTRIBUTION WIDTH SD (test code=RDW-SD) 49.5 fL 37.0-51.0 PLATELET COUNT (test code=PLT) 371 K/mm3 150-450 MEAN PLATELET VOLUME (test code=MPV) 9.8 fL 6.7-11.0 NEUTROPHIL % (test code=NT%) 75.6 % 39.0-69.0 IMMATURE GRANULOCYTE % (test code=IG%) 0.7 % 0.0-5.0 LYMPHOCYTE % (test code=LY%) 15.9 % 25.0-55.0 MONOCYTE % (test code=MO%) 7.7 % 0.0-10.0 EOSINOPHIL % (test code=EO%) 0.0 % 0.0-5.0 BASOPHIL % (test code=BA%) 0.1 % 0.0-1.0 NUCLEATED RBC % (test code=NRBC%) 0.0 % 0-0 NEUTROPHIL # (test code=NT#) 5.26 K/mm3 1.8-7.7 IMMATURE GRANULOCYTE # (test code=IG#) 0.05 x10 3/uL 0-0.03 LYMPHOCYTE # (test code=LY#) 1.11 K/mm3 1.0-5.0 MONOCYTE # (test code=MO#) 0.54 K/mm3 0-0.8 EOSINOPHIL # (test code=EO#) 0.00 K/mm3 0.0-0.5 BASOPHIL # (test code=BA#) 0.01 K/mm3 0.0-0.2 NUCLEATED RBC # (test code=NRBC#) 0.00 K/mm3 0.0-0.1 MANUAL DIFF REQUIRED (test code=MDIFF) NO, ONLY SCAN NEEDED CLOTTED.REDRAWDIFFERENTIAL [id number] 15:25:00* Test Item Value Reference Range Comments STAIN ACCEPTABILITY (test code=STN ACCEPTABLE) CABOT RINGS (test code=CAB) MORPHOLOGY COMMENT (test code=MOC) PLATELET ESTIMATE (test code=PLTEST) PLATELET MORPHOLOGY (test code=PLTMORPH) CLOTTED.REDRAWURINALYSIS [id number] 03:17:00* Test Item Value Reference Range Comments UA COLOR (test code=COLU) LIGHT YELLOW YELLOW UA APPEARANCE (test code=APPU) CLEAR CLEAR UA GLUCOSE DIPSTICK (test code=DGLUU) NEGATIVE mg/dL NEGATIVE UA BILIRUBIN DIPSTICK (test code=BILU) NEGATIVE mg/dL NEGATIVE UA KETONE DIPSTICK (test code=KETU) Negative mg/dL NEGATIVE UA SPECIFIC GRAVITY (test code=SGU) 1.011 1.001-1.035 UA BLOOD DIPSTICK (test code=WILBER) Negative NEGATIVE UA PH DIPSTICK (test code=MARCELLO) 6.0 5.0-8.0 UA PROTEIN DIPSTICK (test code=PROU) Negative mg/dL NEGATIVE UA UROBILINIOGEN DIPSTICK (test code=URO) NEGATIVE mg/dL NEGATIVE UA NITRITE DIPSTICK (test code=LANDON) NEGATIVE NEGATIVE UA LEUKOCYTE ESTERASE W REFLEX (test code=LEUUR) TRACE NEGATIVE UA WBC (test code=WBCU) 6-10 #/HPF 0-5 UA RBC (test code=RBCU) 0-2 #/HPF 0-5 UA EPITHELIAL CELLS (test code=EPIU) FEW per HPF FEW UA BACTERIA (test code=BACU) FEW #/HPF NONE UA MUCUS (test code=MUCU) FEW #/LPF FEW Urine Source? Clean CatchBASIC METABOLIC [id number] 01:35:00* Test Item Value Reference Range Comments SODIUM (test code=NA) 139 mmol/L 136-145 POTASSIUM (test code=K) 3.0 mmol/L 3.5-5.1 CHLORIDE (test code=CL) 107.0 mmol/L 98-107 CARBON DIOXIDE (test code=CO2) 25.0 mmol/L 21-32 ANION GAP (test code=GAP) 10.0 10-20 GLUCOSE (test code=GLU) 109 mg/dL 74-106 BLOOD UREA NITROGEN (test code=BUN) 13 mg/dL 7-18 GLOMERULAR FILTRATION RATE (test code=GFR) > 60 mL/min >=60 Estimated GFR by using Modified MDRD formula.Chronic kidney disease is defined as either kidney damageor GFR <60 mL/min/1.73 m2 for >3 months. CREATININE (test code=CREAT) 0.60 mg/dL 0.55-1.02 Note change in reference range due to change in reagent. BUN/CREATININE RATIO (test code=BUN/CREA) 23.6 10-20 CALCIUM (test code=CA) 8.7 mg/dL 8.5-10.1 HEPATIC FUNCTION [id number] 01:35:00* Test Item Value Reference Range Comments TOTAL PROTEIN (test code=PROT) 7.6 gram/dL 6.4-8.2 ALBUMIN (test code=ALB) 3.4 g/dL 3.4-5.0 GLOBULIN (test code=GLOB) 4.2 gram/dL 2.7-4.2 ALBUMIN/GLOBULIN RATIO (test code=A/G) 0.8 0.75-1.50 BILIRUBIN TOTAL (test code=BILT) 0.30 mg/dL 0.0-1.0 BILIRUBIN DIRECT (test code=BILD) 0.06 mg/dL 0.0-0.20 SGOT/AST (test code=AST) 66 IUnit/L 15-37 SGPT/ALT (test code=ALT) 86 IUnit/L 12-78 ALKALINE PHOSPHATASE TOTAL (test code=ALKP) 200 IUnit/L 45-117 Note change in reference range due to change in reagent. [id number] 01:35:00* Test Item Value Reference Range Comments LIPASE (test code=LIP) 389 U/L 73.0-393.0 HCG SERUM [id number] 01:35:00* Test Item Value Reference Range Comments HCG SERUM QUAL (test code=HCGQL) NEGATIVE NEGATIVE This HCGQL test is NOT applicable for MALE patients.Check with nurse about probable order error.If Tumor Marker Test needed, nurse should order test "HCGTU"(Test #550.15799) BASIC METABOLIC [id number] 01:26:00* Test Item Value Reference Range Comments SODIUM (test code=NA) 139 mmol/L 136-145 POTASSIUM (test code=K) 3.0 mmol/L 3.5-5.1 CHLORIDE (test code=CL) 107.0 mmol/L 98-107 CARBON DIOXIDE (test code=CO2) mmol/L 21-32 ANION GAP (test code=GAP) 10-20 GLUCOSE (test code=GLU) mg/dL 74-106 BLOOD UREA NITROGEN (test code=BUN) mg/dL 7-18 GLOMERULAR FILTRATION RATE (test code=GFR) mL/min >=60 CREATININE (test code=CREAT) mg/dL 0.55-1.02 BUN/CREATININE RATIO (test code=BUN/CREA) 10-20 CALCIUM (test code=CA) mg/dL 8.5-10.1 HEPATIC FUNCTION [id number] 01:26:00* Test Item Value Reference Range Comments TOTAL PROTEIN (test code=PROT) gram/dL 6.4-8.2 ALBUMIN (test code=ALB) g/dL 3.4-5.0 GLOBULIN (test code=GLOB) gram/dL 2.7-4.2 ALBUMIN/GLOBULIN RATIO (test code=A/G) 0.75-1.50 BILIRUBIN TOTAL (test code=BILT) mg/dL 0.0-1.0 BILIRUBIN DIRECT (test code=BILD) mg/dL 0.0-0.20 SGOT/AST (test code=AST) IUnit/L 15-37 SGPT/ALT (test code=ALT) IUnit/L 12-78 ALKALINE PHOSPHATASE TOTAL (test code=ALKP) IUnit/L 45-117 [id number] 01:26:00* Test Item Value Reference Range Comments LIPASE (test code=LIP) U/L 73.0-393.0 HCG SERUM [id number] 01:26:00* Test Item Value Reference Range Comments HCG SERUM QUAL (test code=HCGQL) NEGATIVE NEGATIVE This HCGQL test is NOT applicable for MALE patients.Check with nurse about probable order error.If Tumor Marker Test needed, nurse should order test "HCGTU"(Test #550.50576) BASIC METABOLIC [id number] 01:24:00* Test Item Value Reference Range Comments SODIUM (test code=NA) 139 mmol/L 136-145 POTASSIUM (test code=K) 3.0 mmol/L 3.5-5.1 CHLORIDE (test code=CL) 107.0 mmol/L 98-107 CARBON DIOXIDE (test code=CO2) mmol/L 21-32 ANION GAP (test code=GAP) 10-20 GLUCOSE (test code=GLU) mg/dL 74-106 BLOOD UREA NITROGEN (test code=BUN) mg/dL 7-18 GLOMERULAR FILTRATION RATE (test code=GFR) mL/min >=60 CREATININE (test code=CREAT) mg/dL 0.55-1.02 BUN/CREATININE RATIO (test code=BUN/CREA) 10-20 CALCIUM (test code=CA) mg/dL 8.5-10.1 HEPATIC FUNCTION [id number] 01:24:00* Test Item Value Reference Range Comments TOTAL PROTEIN (test code=PROT) gram/dL 6.4-8.2 ALBUMIN (test code=ALB) g/dL 3.4-5.0 GLOBULIN (test code=GLOB) gram/dL 2.7-4.2 ALBUMIN/GLOBULIN RATIO (test code=A/G) 0.75-1.50 BILIRUBIN TOTAL (test code=BILT) mg/dL 0.0-1.0 BILIRUBIN DIRECT (test code=BILD) mg/dL 0.0-0.20 SGOT/AST (test code=AST) IUnit/L 15-37 SGPT/ALT (test code=ALT) IUnit/L 12-78 ALKALINE PHOSPHATASE TOTAL (test code=ALKP) IUnit/L 45-117 [id number] 01:24:00* Test Item Value Reference Range Comments LIPASE (test code=LIP) U/L 73.0-393.0 HCG SERUM [id number] 01:24:00* Test Item Value Reference Range Comments HCG SERUM QUAL (test code=HCGQL) NEGATIVE CBC W/O [id number] 01:18:00* Test Item Value Reference Range Comments WHITE BLOOD CELL (test code=WBC) 8.4 K/mm3 4.5-12.5 RED BLOOD CELL (test code=RBC) 4.60 mill/mm3 3.7-5.2 HEMOGLOBIN (test code=HGB) 9.7 gram/dL 11.5-15.5 HEMATOCRIT (test code=HCT) 34.6 % 36.0-46.0 MEAN CELL VOLUME (test code=MCV) 75.2 fL 80-98 MEAN CELL HGB (test code=MCH) 21.1 picogram 27.0-33.0 MEAN CELL HGB CONCETRATION (test code=MCHC) 28.0 gram/dL 33.0-36.0 RED CELL DISTRIBUTION WIDTH (test code=RDW) 20.0 % 11.6-16.2 PLATELET COUNT (test code=PLT) 389 K/mm3 150-450 RESULT VERIFIED BY REPEAT ANALYSIS MEAN PLATELET VOLUME (test code=MPV) 9.5 fL 6.7-11.0 DILANTIN (PHENYTOIN)2018-05-02 19:20:00* Test Item Value Reference Range Comments DILANTIN (PHENYTOIN) (test code=DIL) 0.5 ug/mL 10.0-20.0 C REACTIVE [id number] 18:57:00* Test Item Value Reference Range Comments C REACTIVE PROTEIN (test code=CRP) <0.29 mg/dL 0-0.3 BASIC METABOLIC [id number] 18:57:00* Test Item Value Reference Range Comments SODIUM (test code=NA) 141 mmol/L 136-145 POTASSIUM (test code=K) 3.3 mmol/L 3.5-5.1 CHLORIDE (test code=CL) 105.0 mmol/L 98-107 CARBON DIOXIDE (test code=CO2) 24.0 mmol/L 21-32 ANION GAP (test code=GAP) 15.3 10-20 GLUCOSE (test code=GLU) 95 mg/dL 74-106 BLOOD UREA NITROGEN (test code=BUN) 11 mg/dL 7-18 GLOMERULAR FILTRATION RATE (test code=GFR) > 60 mL/min >=60 Estimated GFR by using Modified MDRD formula.Chronic kidney disease is defined as either kidney damageor GFR <60 mL/min/1.73 m2 for >3 months. CREATININE (test code=CREAT) 0.70 mg/dL 0.55-1.02 Note change in reference range due to change in reagent. BUN/CREATININE RATIO (test code=BUN/CREA) 16.7 10-20 CALCIUM (test code=CA) 8.5 mg/dL 8.5-10.1 HEPATIC FUNCTION [id number] 18:57:00* Test Item Value Reference Range Comments TOTAL PROTEIN (test code=PROT) 7.2 gram/dL 6.4-8.2 ALBUMIN (test code=ALB) 3.6 g/dL 3.4-5.0 GLOBULIN (test code=GLOB) 3.6 gram/dL 2.7-4.2 ALBUMIN/GLOBULIN RATIO (test code=A/G) 1.0 0.75-1.50 BILIRUBIN TOTAL (test code=BILT) 0.30 mg/dL 0.0-1.0 BILIRUBIN DIRECT (test code=BILD) 0.08 mg/dL 0.0-0.20 SGOT/AST (test code=AST) 56 IUnit/L 15-37 SGPT/ALT (test code=ALT) 85 IUnit/L 12-78 ALKALINE PHOSPHATASE TOTAL (test code=ALKP) 210 IUnit/L 45-117 Note change in reference range due to change in reagent. [id number] 18:57:00* Test Item Value Reference Range Comments LIPASE (test code=LIP) 318 U/L 73.0-393.0 HCG SERUM [id number] 18:57:00* Test Item Value Reference Range Comments HCG SERUM QUAL (test code=HCGQL) NEGATIVE NEGATIVE This HCGQL test is NOT applicable for MALE patients.Check with nurse about probable order error.If Tumor Marker Test needed, nurse should order test "HCGTU"(Test #550.11802) [id number] 18:57:00* Test Item Value Reference Range Comments TROPONIN-I (test code=TROPI) <0.015 ng/mL 0-0.045 BASIC METABOLIC [id number] 18:38:00* Test Item Value Reference Range Comments SODIUM (test code=NA) mmol/L 136-145 POTASSIUM (test code=K) mmol/L 3.5-5.1 CHLORIDE (test code=CL) mmol/L 98-107 CARBON DIOXIDE (test code=CO2) mmol/L 21-32 ANION GAP (test code=GAP) 10-20 GLUCOSE (test code=GLU) mg/dL 74-106 BLOOD UREA NITROGEN (test code=BUN) mg/dL 7-18 GLOMERULAR FILTRATION RATE (test code=GFR) mL/min >=60 CREATININE (test code=CREAT) mg/dL 0.55-1.02 BUN/CREATININE RATIO (test code=BUN/CREA) 10-20 CALCIUM (test code=CA) mg/dL 8.5-10.1 HEPATIC FUNCTION [id number] 18:38:00* Test Item Value Reference Range Comments TOTAL PROTEIN (test code=PROT) gram/dL 6.4-8.2 ALBUMIN (test code=ALB) g/dL 3.4-5.0 GLOBULIN (test code=GLOB) gram/dL 2.7-4.2 ALBUMIN/GLOBULIN RATIO (test code=A/G) 0.75-1.50 BILIRUBIN TOTAL (test code=BILT) mg/dL 0.0-1.0 BILIRUBIN DIRECT (test code=BILD) mg/dL 0.0-0.20 SGOT/AST (test code=AST) IUnit/L 15-37 SGPT/ALT (test code=ALT) IUnit/L 12-78 ALKALINE PHOSPHATASE TOTAL (test code=ALKP) IUnit/L 45-117 [id number] 18:38:00* Test Item Value Reference Range Comments LIPASE (test code=LIP) U/L 73.0-393.0 HCG SERUM [id number] 18:38:00* Test Item Value Reference Range Comments HCG SERUM QUAL (test code=HCGQL) NEGATIVE NEGATIVE This HCGQL test is NOT applicable for MALE patients.Check with nurse about probable order error.If Tumor Marker Test needed, nurse should order test "HCGTU"(Test #550.05379) [id number] 18:38:00* Test Item Value Reference Range Comments TROPONIN-I (test code=TROPI) ng/mL 0-0.045 BASIC METABOLIC [id number] 18:38:00* Test Item Value Reference Range Comments SODIUM (test code=NA) 141 mmol/L 136-145 POTASSIUM (test code=K) 3.3 mmol/L 3.5-5.1 CHLORIDE (test code=CL) 105.0 mmol/L 98-107 CARBON DIOXIDE (test code=CO2) mmol/L 21-32 ANION GAP (test code=GAP) 10-20 GLUCOSE (test code=GLU) mg/dL 74-106 BLOOD UREA NITROGEN (test code=BUN) mg/dL 7-18 GLOMERULAR FILTRATION RATE (test code=GFR) mL/min >=60 CREATININE (test code=CREAT) mg/dL 0.55-1.02 BUN/CREATININE RATIO (test code=BUN/CREA) 10-20 CALCIUM (test code=CA) mg/dL 8.5-10.1 HEPATIC FUNCTION [id number] 18:38:00* Test Item Value Reference Range Comments TOTAL PROTEIN (test code=PROT) gram/dL 6.4-8.2 ALBUMIN (test code=ALB) g/dL 3.4-5.0 GLOBULIN (test code=GLOB) gram/dL 2.7-4.2 ALBUMIN/GLOBULIN RATIO (test code=A/G) 0.75-1.50 BILIRUBIN TOTAL (test code=BILT) mg/dL 0.0-1.0 BILIRUBIN DIRECT (test code=BILD) mg/dL 0.0-0.20 SGOT/AST (test code=AST) IUnit/L 15-37 SGPT/ALT (test code=ALT) IUnit/L 12-78 ALKALINE PHOSPHATASE TOTAL (test code=ALKP) IUnit/L 45-117 [id number] 18:38:00* Test Item Value Reference Range Comments LIPASE (test code=LIP) U/L 73.0-393.0 HCG SERUM [id number] 18:38:00* Test Item Value Reference Range Comments HCG SERUM QUAL (test code=HCGQL) NEGATIVE NEGATIVE This HCGQL test is NOT applicable for MALE patients.Check with nurse about probable order error.If Tumor Marker Test needed, nurse should order test "HCGTU"(Test #550.47436) [id number] 18:38:00* Test Item Value Reference Range Comments TROPONIN-I (test code=TROPI) ng/mL 0-0.045 CBC W/O [id number] 17:54:00* Test Item Value Reference Range Comments WHITE BLOOD CELL (test code=WBC) 9.4 K/mm3 4.5-12.5 RED BLOOD CELL (test code=RBC) 4.76 mill/mm3 3.7-5.2 HEMOGLOBIN (test code=HGB) 10.1 gram/dL 11.5-15.5 HEMATOCRIT (test code=HCT) 34.6 % 36.0-46.0 MEAN CELL VOLUME (test code=MCV) 72.7 fL 80-98 MEAN CELL HGB (test code=MCH) 21.2 picogram 27.0-33.0 MEAN CELL HGB CONCETRATION (test code=MCHC) 29.2 gram/dL 33.0-36.0 RED CELL DISTRIBUTION WIDTH (test code=RDW) 20.4 % 11.6-16.2 PLATELET COUNT (test code=PLT) 275 K/mm3 150-450 RESULT VERIFIED BY REPEAT ANALYSIS MEAN PLATELET VOLUME (test code=MPV) 9.8 fL 6.7-11.0 - CT ABD PELVIS [id number] 15:09:00 Name: DAVIE CORADO [facility] : 1970 Age/S: 47 / F [address] Unit #: [id number] Loc: [place] [address] Phys: CASANDRA COLORADO MD Acct: [id number] Dis Date: Status: REG ER PHONE #: [phone] Exam Date: 05/01/2018 1420 FAX #: [phone] Reason: abdominal pain, crohn's disease EXAMS: CPT CODE: [id number] CT ABD PELVIS W/CONT 37540 EXAM: CT of the abdomen and pelvis with contrast; INFORMATION: Abdominal pain, history of Crohn's disease; TECHNIQUE: CT dose reduction protocol; 5 mm cuts were obtained through the abdomen and pelvis during and after intravenous infusion of contrast material. FINDINGS: The liver is enlarged but shows homogeneous parenchyma enhancement; no focal lesions. Spleen and pancreas are of normal size and shape; they show homogeneous enhancement without focal lesions. Status post cholecystectomy; no biliary dilatation. Adrenal glands and kidneys are unremarkable; no e vidence of adenopathy; No evidence of appendicitis or other acute burke wel abnormalities. A surgical staple line is seen in the left mid abdomina l region consistent with partial status post small bowel resection. No pelvic mass lesions. No abnormal fluid collections. There is stra nding within subcutaneous tissues of the right lower anterior abdominal wa ll, probably secondary to subcutaneous injections. Scans through the lung bases are clear except for minimal dependent atelectasis on the righ t. IMPRESSION: 1. No evidence of acute abdominal or pelvic abnormalities. 2. No evidence of active Crohn's dis ease. 3. Hepatomegaly. Electronically Sig andra by Geraldine Franz on 05/01/2018 at 1502 Reported and signed by: Ralf Franz M.D. PAGE 1 Signed Report (CONTINU ED) Name: DAVIE CORADO [facility] : 1970 Age/S: 47 / F [address] Unit #: [id number] Loc: [facility] [place] [address] Phys: CASANDRA COLORADO MD Acct: [id number] Dis Date: Status: REG ER PHONE #: [phone] Exam Date: 05/01/2018 1420 FAX #: [phone] Reason: abdominal pain, crohn's disease EXAMS: CPT CODE: [id number] CT ABD PE LVIS W/CONT 17201 <Continued> CC: Dima Samaniego; CASANDRA COLORADO MD Technologist:Umu Jordan RT(R),CT; CTDI: DLP: Trnscb Date/Time: 05/01/2018 (150) Shakira Orig Print D/T: S: 05/01/2018 (0370) CTDI: DLP: PAGE 2 Signed Report BASIC METABOLIC [id number] 11:09:00* Test Item Value Reference Range Comments SODIUM (test code=NA) 138 mmol/L 136-145 POTASSIUM (test code=K) 3.1 mmol/L 3.5-5.1 CHLORIDE (test code=CL) 102.0 mmol/L 98-107 CARBON DIOXIDE (test code=CO2) 28.0 mmol/L 21-32 ANION GAP (test code=GAP) 11.1 10-20 GLUCOSE (test code=GLU) 121 mg/dL 74-106 BLOOD UREA NITROGEN (test code=BUN) 9 mg/dL 7-18 GLOMERULAR FILTRATION RATE (test code=GFR) > 60 mL/min >=60 Estimated GFR by using Modified MDRD formula.Chronic kidney disease is defined as either kidney damageor GFR <60 mL/min/1.73 m2 for >3 months. CREATININE (test code=CREAT) 0.50 mg/dL 0.55-1.02 Note change in reference range due to change in reagent. BUN/CREATININE RATIO (test code=BUN/CREA) 16.6 10-20 CALCIUM (test code=CA) 9.7 mg/dL 8.5-10.1 HEPATIC FUNCTION [id number] 11:09:00* Test Item Value Reference Range Comments TOTAL PROTEIN (test code=PROT) 8.6 gram/dL 6.4-8.2 ALBUMIN (test code=ALB) 4.2 g/dL 3.4-5.0 GLOBULIN (test code=GLOB) 4.4 gram/dL 2.7-4.2 ALBUMIN/GLOBULIN RATIO (test code=A/G) 1.0 0.75-1.50 BILIRUBIN TOTAL (test code=BILT) 0.40 mg/dL 0.0-1.0 BILIRUBIN DIRECT (test code=BILD) 0.09 mg/dL 0.0-0.20 SGOT/AST (test code=AST) 76 IUnit/L 15-37 SGPT/ALT (test code=ALT) 106 IUnit/L 12-78 ALKALINE PHOSPHATASE TOTAL (test code=ALKP) 286 IUnit/L 45-117 Note change in reference range due to change in reagent. [id number] 11:09:00* Test Item Value Reference Range Comments LIPASE (test code=LIP) 389 U/L 73.0-393.0 HCG SERUM [id number] 11:09:00* Test Item Value Reference Range Comments HCG SERUM QUAL (test code=HCGQL) NEGATIVE NEGATIVE This HCGQL test is NOT applicable for MALE patients.Check with nurse about probable order error.If Tumor Marker Test needed, nurse should order test "HCGTU"(Test #[id number]) BASIC METABOLIC [id number] 11:06:00* Test Item Value Reference Range Comments SODIUM (test code=NA) 138 mmol/L 136-145 POTASSIUM (test code=K) 3.1 mmol/L 3.5-5.1 CHLORIDE (test code=CL) 102.0 mmol/L 98-107 CARBON DIOXIDE (test code=CO2) 28.0 mmol/L 21-32 ANION GAP (test code=GAP) 11.1 10-20 GLUCOSE (test code=GLU) 121 mg/dL 74-106 BLOOD UREA NITROGEN (test code=BUN) 9 mg/dL 7-18 GLOMERULAR FILTRATION RATE (test code=GFR) > 60 mL/min >=60 Estimated GFR by using Modified MDRD formula.Chronic kidney disease is defined as either kidney damageor GFR <60 mL/min/1.73 m2 for >3 months. CREATININE (test code=CREAT) 0.50 mg/dL 0.55-1.02 Note change in reference range due to change in reagent. BUN/CREATININE RATIO (test code=BUN/CREA) 16.6 10-20 CALCIUM (test code=CA) 9.7 mg/dL 8.5-10.1 HEPATIC FUNCTION [id number] 11:06:00* Test Item Value Reference Range Comments TOTAL PROTEIN (test code=PROT) 8.6 gram/dL 6.4-8.2 ALBUMIN (test code=ALB) 4.2 g/dL 3.4-5.0 GLOBULIN (test code=GLOB) 4.4 gram/dL 2.7-4.2 ALBUMIN/GLOBULIN RATIO (test code=A/G) 1.0 0.75-1.50 BILIRUBIN TOTAL (test code=BILT) 0.40 mg/dL 0.0-1.0 BILIRUBIN DIRECT (test code=BILD) 0.09 mg/dL 0.0-0.20 SGOT/AST (test code=AST) 76 IUnit/L 15-37 SGPT/ALT (test code=ALT) 106 IUnit/L 12-78 ALKALINE PHOSPHATASE TOTAL (test code=ALKP) 286 IUnit/L 45-117 Note change in reference range due to change in reagent. [id number] 11:06:00* Test Item Value Reference Range Comments LIPASE (test code=LIP) 389 U/L 73.0-393.0 HCG SERUM [id number] 11:06:00* Test Item Value Reference Range Comments HCG SERUM QUAL (test code=HCGQL) NEGATIVE [id number] 11:06:00* Test Item Value Reference Range Comments TROPONIN-I (test code=TROPI) <0.015 ng/mL 0-0.045 C REACTIVE [id number] 11:06:00* Test Item Value Reference Range Comments C REACTIVE PROTEIN (test code=CRP) <0.29 mg/dL 0-0.3 BASIC METABOLIC [id number] 10:59:00* Test Item Value Reference Range Comments SODIUM (test code=NA) 138 mmol/L 136-145 POTASSIUM (test code=K) 3.1 mmol/L 3.5-5.1 CHLORIDE (test code=CL) 102.0 mmol/L 98-107 CARBON DIOXIDE (test code=CO2) mmol/L 21-32 ANION GAP (test code=GAP) 10-20 GLUCOSE (test code=GLU) mg/dL 74-106 BLOOD UREA NITROGEN (test code=BUN) mg/dL 7-18 GLOMERULAR FILTRATION RATE (test code=GFR) mL/min >=60 CREATININE (test code=CREAT) mg/dL 0.55-1.02 BUN/CREATININE RATIO (test code=BUN/CREA) 10-20 CALCIUM (test code=CA) mg/dL 8.5-10.1 HEPATIC FUNCTION [id number] 10:59:00* Test Item Value Reference Range Comments TOTAL PROTEIN (test code=PROT) gram/dL 6.4-8.2 ALBUMIN (test code=ALB) g/dL 3.4-5.0 GLOBULIN (test code=GLOB) gram/dL 2.7-4.2 ALBUMIN/GLOBULIN RATIO (test code=A/G) 0.75-1.50 BILIRUBIN TOTAL (test code=BILT) mg/dL 0.0-1.0 BILIRUBIN DIRECT (test code=BILD) mg/dL 0.0-0.20 SGOT/AST (test code=AST) IUnit/L 15-37 SGPT/ALT (test code=ALT) IUnit/L 12-78 ALKALINE PHOSPHATASE TOTAL (test code=ALKP) IUnit/L 45-117 [id number] 10:59:00* Test Item Value Reference Range Comments LIPASE (test code=LIP) U/L 73.0-393.0 HCG SERUM [id number] 10:59:00* Test Item Value Reference Range Comments HCG SERUM QUAL (test code=HCGQL) NEGATIVE CBC W/O [id number] 10:38:00* Test Item Value Reference Range Comments WHITE BLOOD CELL (test code=WBC) K/mm3 4.5-12.5 RED BLOOD CELL (test code=RBC) mill/mm3 3.7-5.2 HEMOGLOBIN (test code=HGB) 11.5 gram/dL 11.5-15.5 HEMATOCRIT (test code=HCT) 41.1 % 36.0-46.0 MEAN CELL VOLUME (test code=MCV) fL 80-98 MEAN CELL HGB (test code=MCH) picogram 27.0-33.0 MEAN CELL HGB CONCETRATION (test code=MCHC) gram/dL 33.0-36.0 RED CELL DISTRIBUTION WIDTH (test code=RDW) % 11.6-16.2 PLATELET COUNT (test code=PLT) K/mm3 150-450 MEAN PLATELET VOLUME (test code=MPV) fL 6.7-11.0 CBC W/O [id number] 10:38:00* Test Item Value Reference Range Comments WHITE BLOOD CELL (test code=WBC) 9.9 K/mm3 4.5-12.5 RED BLOOD CELL (test code=RBC) 5.59 mill/mm3 3.7-5.2 HEMOGLOBIN (test code=HGB) 11.5 gram/dL 11.5-15.5 HEMATOCRIT (test code=HCT) 41.1 % 36.0-46.0 MEAN CELL VOLUME (test code=MCV) 73.5 fL 80-98 MEAN CELL HGB (test code=MCH) 20.6 picogram 27.0-33.0 MEAN CELL HGB CONCETRATION (test code=MCHC) 28.0 gram/dL 33.0-36.0 RED CELL DISTRIBUTION WIDTH (test code=RDW) 20.9 % 11.6-16.2 PLATELET COUNT (test code=PLT) 492 K/mm3 150-450 MEAN PLATELET VOLUME (test code=MPV) 9.2 fL 6.7-11.0 CBC W/O [id number] 16:18:00* Test Item Value Reference Range Comments WHITE BLOOD CELL (test code=WBC) 11.1 K/mm3 4.5-12.5 RED BLOOD CELL (test code=RBC) 4.23 mill/mm3 3.7-5.2 HEMOGLOBIN (test code=HGB) 8.5 gram/dL 11.5-15.5 HEMATOCRIT (test code=HCT) 31.2 % 36.0-46.0 MEAN CELL VOLUME (test code=MCV) 73.8 fL 80-98 MEAN CELL HGB (test code=MCH) 20.1 picogram 27.0-33.0 MEAN CELL HGB CONCETRATION (test code=MCHC) 27.2 gram/dL 33.0-36.0 RED CELL DISTRIBUTION WIDTH (test code=RDW) 18.4 % 11.6-16.2 PLATELET COUNT (test code=PLT) 339 K/mm3 150-450 MEAN PLATELET VOLUME (test code=MPV) 8.9 fL 6.7-11.0 1511- CT ABD PELVIS [id number] 15:38:00 Name: MAKDAVIEAndrade JAIME [facility] : 1970 Age/S: 47 / F [address] Unit #: [id number] Loc: [place] [address] Phys: Shiloh Mendez MD Acct: [id number] Dis Date: Status: REG ER PHONE #: [phone] Exam Date: 03/08/2018 5563 FAX #: [phone] Reason: abd pain, crohns EXAMS: CPT CODE: [id number] CT ABD PELVIS W/CONT [id number] EXAM: CT of the abdomen and pelvis with contrast; INFORMATION: Abdominal pain, history of Crohn's disease; TECHNIQUE AND FINDINGS: CT dose reduction protocol; 5 mm cuts through the abdomen and pelvis during and after intravenous infusion of contrast material. Liver and spleen are moderately enlarged but show homogeneous enhancement; no focal lesions. Prominent but widely patent portal vein. Status post cholecystectomy; that the prominent extrahepatic bile ducts without evidence of obstructing lesion. The pancreas is unremarkable. Normal adrenal glands; kidneys are of normal size and shape; normal parenchymal enhancement. There is evidence of status post bowel surgery but there is no evidence of inflammatory c hanges, bowel obstruction or other acute bowel abnormalities. No pel silvia mass lesions. Scans through the lower chest show mild dependent atelec tasis in both lower lobes. IMPRESSION: 1. No evid ence of acute abdominal or pelvic abnormalities. No evidence of active Crohn's disease. 2. Mild hepatosplenomegaly. Elect ronically Signed by Geraldine Franz on 03/08/19 19 at 1538 Reported and signed by: Ralf lu M.D. CC: Shiloh Mendez MD; Dima Samaniego Technologist:EVITA GRANT RT(R) CTDI: DLP: Trnscb Date/Time: 03/08/2018 (1538) [email or web address] Orig Print D/T: S: 03/08/2018 (9165) CTDI: DLP: PAGE 1 Signed Report BASIC METABOLIC [id number] 13:31:00* Test Item Value Reference Range Comments SODIUM (test code=NA) 134 mmol/L 136-145 POTASSIUM (test code=K) 4.0 mmol/L 3.5-5.1 CHLORIDE (test code=CL) 100.0 mmol/L 98-107 CARBON DIOXIDE (test code=CO2) 27.0 mmol/L 21-32 ANION GAP (test code=GAP) 11.0 10-20 GLUCOSE (test code=GLU) 109 mg/dL 74-106 BLOOD UREA NITROGEN (test code=BUN) 10 mg/dL 7-18 GLOMERULAR FILTRATION RATE (test code=GFR) > 60 mL/min >=60 Estimated GFR by using Modified MDRD formula.Chronic kidney disease is defined as either kidney damageor GFR <60 mL/min/1.73 m2 for >3 months. CREATININE (test code=CREAT) 0.60 mg/dL 0.55-1.02 Note change in reference range due to change in reagent. BUN/CREATININE RATIO (test code=BUN/CREA) 16.5 10-20 CALCIUM (test code=CA) 9.6 mg/dL 8.5-10.1 HEPATIC FUNCTION [id number] 13:31:00* Test Item Value Reference Range Comments TOTAL PROTEIN (test code=PROT) 9.0 gram/dL 6.4-8.2 ALBUMIN (test code=ALB) 3.4 g/dL 3.4-5.0 GLOBULIN (test code=GLOB) 5.6 gram/dL 2.7-4.2 ALBUMIN/GLOBULIN RATIO (test code=A/G) 0.6 0.75-1.50 BILIRUBIN TOTAL (test code=BILT) 0.40 mg/dL 0.0-1.0 BILIRUBIN DIRECT (test code=BILD) 0.06 mg/dL 0.0-0.20 SGOT/AST (test code=AST) 132 IUnit/L 15-37 SGPT/ALT (test code=ALT) 186 IUnit/L 12-78 ALKALINE PHOSPHATASE TOTAL (test code=ALKP) 522 IUnit/L 45-117 Note change in reference range due to change in reagent. [id number] 13:31:00* Test Item Value Reference Range Comments LIPASE (test code=LIP) 94 U/L 73.0-393.0 HCG SERUM [id number] 13:31:00* Test Item Value Reference Range Comments HCG SERUM QUAL (test code=HCGQL) NEGATIVE NEGATIVE This HCGQL test is NOT applicable for MALE patients.Check with nurse about probable order error.If Tumor Marker Test needed, nurse should order test "HCGTU"(Test #[id number]) BASIC METABOLIC [id number] 13:26:00* Test Item Value Reference Range Comments SODIUM (test code=NA) 134 mmol/L 136-145 POTASSIUM (test code=K) 4.0 mmol/L 3.5-5.1 CHLORIDE (test code=CL) 100.0 mmol/L 98-107 CARBON DIOXIDE (test code=CO2) mmol/L 21-32 ANION GAP (test code=GAP) 10-20 GLUCOSE (test code=GLU) mg/dL 74-106 BLOOD UREA NITROGEN (test code=BUN) mg/dL 7-18 GLOMERULAR FILTRATION RATE (test code=GFR) mL/min >=60 CREATININE (test code=CREAT) mg/dL 0.55-1.02 BUN/CREATININE RATIO (test code=BUN/CREA) 10-20 CALCIUM (test code=CA) mg/dL 8.5-10.1 HEPATIC FUNCTION [id number] 13:26:00* Test Item Value Reference Range Comments TOTAL PROTEIN (test code=PROT) gram/dL 6.4-8.2 ALBUMIN (test code=ALB) g/dL 3.4-5.0 GLOBULIN (test code=GLOB) gram/dL 2.7-4.2 ALBUMIN/GLOBULIN RATIO (test code=A/G) 0.75-1.50 BILIRUBIN TOTAL (test code=BILT) mg/dL 0.0-1.0 BILIRUBIN DIRECT (test code=BILD) mg/dL 0.0-0.20 SGOT/AST (test code=AST) IUnit/L 15-37 SGPT/ALT (test code=ALT) IUnit/L 12-78 ALKALINE PHOSPHATASE TOTAL (test code=ALKP) IUnit/L 45-117 [id number] 13:26:00* Test Item Value Reference Range Comments LIPASE (test code=LIP) U/L 73.0-393.0 HCG SERUM [id number] 13:26:00* Test Item Value Reference Range Comments HCG SERUM QUAL (test code=HCGQL) NEGATIVE NEGATIVE This HCGQL test is NOT applicable for MALE patients.Check with nurse about probable order error.If Tumor Marker Test needed, nurse should order test "HCGTU"(Test #[id number]) BASIC METABOLIC [id number] 13:21:00* Test Item Value Reference Range Comments SODIUM (test code=NA) 134 mmol/L 136-145 POTASSIUM (test code=K) 4.0 mmol/L 3.5-5.1 CHLORIDE (test code=CL) 100.0 mmol/L 98-107 CARBON DIOXIDE (test code=CO2) mmol/L 21-32 ANION GAP (test code=GAP) 10-20 GLUCOSE (test code=GLU) mg/dL 74-106 BLOOD UREA NITROGEN (test code=BUN) mg/dL 7-18 GLOMERULAR FILTRATION RATE (test code=GFR) mL/min >=60 CREATININE (test code=CREAT) mg/dL 0.55-1.02 BUN/CREATININE RATIO (test code=BUN/CREA) 10-20 CALCIUM (test code=CA) mg/dL 8.5-10.1 HEPATIC FUNCTION [id number] 13:21:00* Test Item Value Reference Range Comments TOTAL PROTEIN (test code=PROT) gram/dL 6.4-8.2 ALBUMIN (test code=ALB) g/dL 3.4-5.0 GLOBULIN (test code=GLOB) gram/dL 2.7-4.2 ALBUMIN/GLOBULIN RATIO (test code=A/G) 0.75-1.50 BILIRUBIN TOTAL (test code=BILT) mg/dL 0.0-1.0 BILIRUBIN DIRECT (test code=BILD) mg/dL 0.0-0.20 SGOT/AST (test code=AST) IUnit/L 15-37 SGPT/ALT (test code=ALT) IUnit/L 12-78 ALKALINE PHOSPHATASE TOTAL (test code=ALKP) IUnit/L 45-117 [id number] 13:21:00* Test Item Value Reference Range Comments LIPASE (test code=LIP) U/L 73.0-393.0 HCG SERUM [id number] 13:21:00* Test Item Value Reference Range Comments HCG SERUM QUAL (test code=HCGQL) NEGATIVE
[2018-11-15] MEDS ORDERED: SODIUM CHLORIDE 0.9% 1000ML 1,000 ML IV STA (11:45)
[2018-11-15] MEDS ORDERED: ONDANSETRON HCL INJ 2MG/ML 2ML 2 MG/ML VIAL IV ONE (12:00)
[2018-11-15 12:20] LABS: BILIRUBIN,URINE NEGATIVE (NEGATIVE); CLARITY,URINE CLEAR (CLEAR); COLOR,URINE YELLOW (YELLOW); KETONES,URINE NEGATIVE (NEGATIVE); LEUKOCYTE ESTERASE ,URINE SMALL (NEGATIVE); NITRITE,URINE POSITIVE (NEGATIVE); PROTEIN,URINE DIPSTICK NEGATIVE (NEGATIVE); URINE UROBILINOGEN 0.2 mg/dL (0.2 - 1)
[2018-11-15] MEDS ORDERED: PIPER-TAZ 3.375 GM 50 ML IV ONE (12:30)
[2018-11-15] MEDS ORDERED: VANCOMYCIN 1GM/NS 250 ML 250 ML IV ONE (12:30)
[2018-11-15] MEDS ORDERED: MORPHINE SULFATE INJ 4 MG/ML INJ 1ML IV ONE (12:30)
[2018-11-15 12:38] LABS: BACTERIA,URINE FEW /HPF; EPITHELIAL CELLS,URINE FEW /LPF
[2018-11-15 13:02] LABS: BASOPHILS % 0.2 % (0.0-1.0); EOSINOPHILS # (AUTO) 0.1 (0.0-0.4); EOSINOPHILS % 0.8 % (0.0-6.0); HEMATOCRIT 29.6 % (34.2-44.1); HEMOGLOBIN 8.8 g/dL (12.0-16.0); LYMPHOCYTES # (AUTO) 1.9 (1.0-3.2); LYMPHOCYTES % 11.9 % (18.0-39.1); MEAN CORPUSCULAR HEMOGLOBIN 20.9 pg (28-32); MEAN CORPUSCULAR HGB CONC 29.7 g/dL (31-35); MEAN CORPUSCULAR VOLUME 70.3 fL (81-99); MONOCYTES # (AUTO) 0.9 (0.2-0.8); MONOCYTES % 5.8 % (4.4-11.3); NEUTROPHILS # (AUTO) 12.9 (2.1-6.9); NEUTROPHILS % 80.7 % (38.7-80.0); PLATELET COUNT 451 x10e3/uL (140-360); RED BLOOD COUNT 4.21 x10e6/uL (3.6-5.1); RED CELL DISTRIBUTION WIDTH 17.3 % (11.7-14.4)
[2018-11-15 13:12] LABS: INR 0.88; PROTHROMBIN TIME 12.4 seconds (11.9-14.5)
[2018-11-15 13:13] LABS: PARTIAL THROMBOPLASTIN TIME 41.3 seconds (23.8-35.5)
--- NOTE | 2018-11-15 13:13 | NUR ---
INFORMED SCOTT DEVINE THAT PT IS C/O EXCRUTINATING PAIN "MORE THAN A 10, STATES I'M DYING", RECEVIED VERBAL ORDERS FOR 1MG DILAUDID IVP ONCE NOW. WILL MEDICATE AND WILL CONTINUE TO MONITOR PT.
[2018-11-15 13:27] LABS: ALANINE AMINOTRANSFERASE 92 IU/L (0-55); ALBUMIN 2.9 g/dL (3.5-5.0); ALBUMIN/GLOBULIN RATIO 0.7 (0.8-2.0); ALKALINE PHOSPHATASE 322 IU/L (40-150); AMYLASE 12 U/L (25-125); ANION GAP 11.9 mmol/L (8-16); BLOOD UREA NITROGEN 12 mg/dL (7-26); BUN/CREATININE RATIO 22 (6-25); CALCIUM 10.4 mg/dL (8.4-10.2); CARBON DIOXIDE 28 mmol/L (22-29); CHLORIDE 97 mmol/L (98-107); CREATININE, SERUM 0.55 mg/dL (0.57-1.11); EST GLOMERULAR FILTRATION RATE > 60 ML/MIN (60-); GLUCOSE 92 mg/dL (74-118); LIPASE 10 U/L (8-78); POTASSIUM 3.9 mmol/L (3.5-5.1); SODIUM 133 mmol/L (136-145)
[2018-11-15] MEDS ORDERED: HYDROMORPHONE 1MG/1ML INJ IV ONE (13:30)
[2018-11-15] MEDS ORDERED: IOPAMIDOL 370 MG/ML 200 ML INFUS..BTL INJ ONE (14:51)
[2018-11-15] MEDS ORDERED: SODIUM CHLORIDE 0.9% 50ML 50 ML ONE (14:51)
[2018-11-15] MEDS ORDERED: HYDROMORPHONE 1MG/1ML INJ IV STA (15:02)
--- NOTE | 2018-11-15 15:08 | NUR ---
PT SCREAMING "NURSE, NURSE, "I'M IN PAIN", INFORMED OF PENDING ORDERS AND INTENT TO MEDICATE IF SAFE, VERBALIZED UNDERSTANDING.
--- NOTE | 2018-11-15 15:12 | Diagnostic Imaging Report ---
CT of the abdomen and pelvis, with contrast, 11/15/2018. History: Abdominal pain, history of Crohn's. Comparison: None available. Technique: Multidetector CT scanning of the abdomen and pelvis was performed from the level of the lung bases to the inferior pubic rami after intravenous administration of contrast. Coronal and sagittal multiplanar reformations were obtained. RADIATION DOSE: Total DLP: 313 mGy*cm Dose modulation, iterative reconstruction, and/or weight based adjustment of the mA/kV was utilized to reduce the radiation dose to as low as reasonably achievable. Discussion: LUNG BASES: There is bibasilar atelectasis. ABDOMEN: Cholecystectomy clips are present. The liver is enlarged measuring over 20 cm in length, without focal hepatic abnormality. The spleen is enlarged measuring over 14 cm in length. The main portal vein is dilated measuring seen mm in diameter. The hepatic vein, portal vein, and splenic vein are patent. The pancreas, adrenal glands, and kidneys are normal. The abdominal aorta is within normal limits for size. Post surgical changes are present involving the stomach and proximal small bowel. There is no bowel dilatation. Bowel is underdistended, limiting evaluation. There is no evidence of adenopathy or free fluid. Soft tissue stranding is present throughout the anterior abdominal wall with a small focus of air in the left upper quadrant, possibly secondary to subcutaneous injection. PELVIS: The bladder, uterus, and adnexa are unremarkable. There is no evidence of free fluid or adenopathy. Calcified phleboliths are present bilaterally. BONES AND SOFT TISSUES: Degenerative changes are present throughout the lumbar spine without evidence of lytic or sclerotic lesion. IMPRESSION: 1. Hepatosplenomegaly with portal vein enlargement, but no focal hepatic abnormality or ascites. 2. Status post post cholecystectomy and probable gastric bypass surgery. Otherwise unremarkable CT of the abdomen and pelvis. Signed by: Dilshad Carpenter on 11/15/2018 3:08 PM
--- NOTE | 2018-11-15 15:24 | NUR ---
PT VERY ANXIOUS AND IN PAIN, ASKING FOR PAIN MEDICATIONS BUT PT IS HYPOTENSIVE, INFORMED THAT IT IS NOT SAFE TO MEDICATE AT THIS TIME HER BP IS 97/35; INFORMED DR. JOHNS.
--- NOTE | 2018-11-15 16:07 | NUR ---
AT BEDSIDE WITH CHARGE NURSE CINDY KELLER AND DR. JOHNS TO DISCUSS CONCERNS FOR PT SAFETY BEFORE MEDICATING WITH NARCOTICS PT CURRENTLY HYPOTENSIVE; PT AND MOTHER VERBALIZED UNDERSTANDING OF APPROPRIATE PARAMATERS FOR BLOOD PRESSURE TO RECEIVE PAIN MEDICATION. UPDATED ON CURRENT PLAN OF CARE BY DR. JOHNS. PT ANXIOUS AND FAMILY CONCERNED, MOTHER IS VERBALLY AGRESSIVE AND ARGUMENTATIVE TOWARDS STAFF, ER MD MADE AWARE.
[2018-11-15] MEDS: SODIUM CHLORIDE 0.9% 1000ML 1,000 ML IV SCH ×2 (16:24→23:15)
[2018-11-15] MEDS: ONDANSETRON HCL INJ 2MG/ML 2ML 2 MG/ML VIAL IV PRN (19:32)
[2018-11-15] MEDS: HYDROMORPHONE 1MG/1ML INJ IV PRN (19:34)
[2018-11-15] MEDS ORDERED: PIPER-TAZ 3.375 GM 50 ML IV SCH (22:00)
--- NOTE | 2018-11-15 23:00 | NUR ---
Patient received via stretcher accompanied by sister from ER. Patient had no complaints of pain. Respirations even and non-labored. Admission history obtained. Initial physical assessment performed. Left side of the abdomen erythematous with an opening in the skin . Patient oriented to room, call light and plan of care. Fall precautions implemented. IVF infusing at 125 cc / hr. Patient instructed to call for assistance when needed. Call light within reach.
[2018-11-16] VITALS (7 sets, daily range): BP systolic 92–118; BP diastolic 62–76
[2018-11-16] MEDS: HYDROMORPHONE 1MG/1ML INJ IV PRN ×2 (00:20→04:14)
--- NOTE | 2018-11-16 00:30 | NUR ---
Patient complained that her pain medication Dilaudid 1 mg was not potent enough. Patient stated Dilaudid 2 mg works better for her pain. Rayna Vann (RINKMAN) for Dr. Oritz notified . Rayna stated that patient's dosage would not be changed from 1 mg.
[2018-11-16] MEDS ORDERED: PANTOPRAZOLE SO40 MG PO (05:04)
[2018-11-16 05:35] LABS: BASOPHILS % 0.2 % (0.0-1.0); EOSINOPHILS # (AUTO) 0.2 (0.0-0.4); EOSINOPHILS % 1.4 % (0.0-6.0); HEMATOCRIT 28.5 % (34.2-44.1); HEMOGLOBIN 8.2 g/dL (12.0-16.0); LYMPHOCYTES # (AUTO) 1.7 (1.0-3.2); LYMPHOCYTES % 14.3 % (18.0-39.1); MEAN CORPUSCULAR HEMOGLOBIN 20.3 pg (28-32); MEAN CORPUSCULAR HGB CONC 28.8 g/dL (31-35); MEAN CORPUSCULAR VOLUME 70.7 fL (81-99); MONOCYTES # (AUTO) 0.6 (0.2-0.8); NEUTROPHILS # (AUTO) 9.5 (2.1-6.9); NEUTROPHILS % 78.3 % (38.7-80.0); PLATELET COUNT 437 x10e3/uL (140-360); RED BLOOD COUNT 4.03 x10e6/uL (3.6-5.1); RED CELL DISTRIBUTION WIDTH 17.2 % (11.7-14.4)
[2018-11-16] MEDS ORDERED: HYDROMORPHONE 1MG/1ML INJ IV ONE (05:45)
[2018-11-16 05:46] LABS: ALANINE AMINOTRANSFERASE 63 IU/L (0-55); ALBUMIN 2.6 g/dL (3.5-5.0); ALBUMIN/GLOBULIN RATIO 0.7 (0.8-2.0); ALKALINE PHOSPHATASE 269 IU/L (40-150); ANION GAP 12.5 mmol/L (8-16); BLOOD UREA NITROGEN 8 mg/dL (7-26); BUN/CREATININE RATIO 15 (6-25); CALCIUM 9.7 mg/dL (8.4-10.2); CARBON DIOXIDE 27 mmol/L (22-29); CHLORIDE 101 mmol/L (98-107); CREATININE, SERUM 0.55 mg/dL (0.57-1.11); EST GLOMERULAR FILTRATION RATE > 60 ML/MIN (60-); GLUCOSE 93 mg/dL (74-118); POTASSIUM 3.5 mmol/L (3.5-5.1); SODIUM 137 mmol/L (136-145)
[2018-11-16] MEDS ORDERED: CIPROFLOXACIN 400 MG/D5W 200ML 200 ML IV SCH (06:00)
[2018-11-16] MEDS: METRONIDAZOLE 500MG/NS 100ML 100 ML IV SCH ×3 (06:17→22:15)
--- NOTE | 2018-11-16 06:37 | NUR ---
New order received from Hany CASTELLANOS) for PICC line placement. Reason: Difficulty obtaining peripheral IV.
--- NOTE | 2018-11-16 07:00 | NUR ---
RCD PT AT BED PT IS ALERT AND ORIENTED AND PT RESTING ON BED NO IV ACCESS FOR THE PATENT FAMILY AT BED SIDE BED LOW AND LOCKED CALL LIGHT IN REACH
--- NOTE | 2018-11-16 07:10 | NUR ---
GOT THE REPORT FROM NIGHT PT C/O PAIN 08/22 AND NO IV ACCESS THERE IS AN ORDER FOR PICC LINE PLACEMENT
[2018-11-16] MEDS: PANTOPRAZOLE SOD 40 MG TABEC PO SCH ×2 (07:30→13:00)
--- NOTE | 2018-11-16 07:30 | NUR ---
GOT THE CONSENT FOR PICC LINE FROM PT AND NOTIFIED TO THE RADIOLOGY THEY SAID THEY WILL INFORM PICC TEAM
--- NOTE | 2018-11-16 08:00 | NUR ---
NOTIFIED THE CHARGE NURSE PT HAVE NO IV ACCESS AND SHE REQUESTING PAIN MEDS SHE SAID SHE WILL TRY THE IV LINE
--- NOTE | 2018-11-16 08:30 | NUR ---
ATTEMPTED IV START UNSUCCESSFUL, PATIENT VERY ANXIOUS THAT SHE IS NOT ABLE TO GET PAIN MED
[2018-11-16] MEDS ORDERED: PANTOPRAZOLE SOD 40 MG TABEC PO SCH (09:00)
[2018-11-16] MEDS ORDERED: VANCOMYCIN 1GM/NS 250 ML 250 ML IV SCH (09:00)
--- NOTE | 2018-11-16 09:30 | NUR ---
DR MORGAN CAME TO SEE THE PATIENT AND ORDERED PAIN MEDS AND ALSO PAIN PATCH FENTANYL 50
--- NOTE | 2018-11-16 09:30 | NUR ---
PT TALKED THE MANAGER [employer] AND CHARGE NURSE REGARDING PICC LINE
[2018-11-16 09:36] LABS: ANISOCYTOSIS SLIGHT; HYPOCHROMASIA SLIGHT; MICROCYTOSIS SLIGHT; PLATELET ESTIMATE SLIGHTLY INCREASED; PLATELET MORPHOLOGY COMMENT NORMAL; RBC MORPHOLOGY COMMENT NORMAL
[2018-11-16 10:19] LABS: FERRITIN 98.24 ng/mL (4.63-204.00)
[2018-11-16 10:39] LABS: FOLATE 14.6 ng/mL (7.0-15.4)
[2018-11-16] MEDS: FENTANYL 50 MCG/HR PATCH TOP SCH (11:00)
--- NOTE | 2018-11-16 11:00 | NUR ---
APPLIED PAIN PATCH FENTANYL 50 ON THE LEFT UPPER SHOULDER
--- NOTE | 2018-11-16 11:08 | NUR ---
ATTEMPTED TO PERFORM NEW PT ASSESSMENT, PT SAYS IN PAIN, PLEASE RETURN LATER
--- NOTE | 2018-11-16 11:30 | NUR ---
ER NURSE CAME AND STARTED IV LINE AFTER I GAVE IV DILAUDID 2 MG IV
[2018-11-16] MEDS: ONDANSETRON HCL INJ 2MG/ML 2ML 2 MG/ML VIAL IV PRN ×2 (12:00→17:00)
[2018-11-16] MEDS: SODIUM CHLORIDE 0.9% 1000ML 1,000 ML IV SCH ×3 (12:00→23:19)
[2018-11-16] MEDS: HYDROMORPHONE 2MG/ML 2 MG/ML ML IV PRN ×2 (12:00→17:00)
[2018-11-16] MEDS: PIPER-TAZ 3.375 GM 50 ML IV SCH ×2 (12:00→18:00)
--- NOTE | 2018-11-16 12:00 | NUR ---
AFTER PAIN MEDS CONNECTED IV FLUIDS AND IV ANTIBIOTICS
--- NOTE | 2018-11-16 12:00 | NUR ---
ER STAFF SUCCESSFUL IN STARTING IV AND NURSE ADMINISTERED MEDICATION, PATIENT IN BED SITTING UP AND EATING STATED SHE "FINALLY RECEIVED SOME RELIEF" AT THAT TIME
[2018-11-16] MEDS ORDERED: HYDROMORPHONE 1MG/1ML INJ IV PRN (12:15)
--- NOTE | 2018-11-16 12:16 | NUR ---
PT REQUESTED TO EAT SOMETHING PAGED DR HARDIN TO NOTIFY THAT
[2018-11-16] MEDS: ALPRAZOLAM 0.5 MG TAB PO SCH ×2 (13:00→17:00)
[2018-11-16] MEDS: SULFASALAZINE 500 MG TAB PO SCH ×3 (13:00→21:29)
[2018-11-16] MEDS: PHENYTOIN SODIUM EXT REL 100 MG CAP PO SCH (13:00)
[2018-11-16] MEDS: PROPRANOLOL HCL 60 MG ER CAP PO SCH (13:00)
[2018-11-16] MEDS: CEFEPIME 1GM/NS 0.9% 50 ML 50 ML IV SCH ×2 (13:54→21:28)
[2018-11-16] MEDS: METHYLPREDNISOLONE SOD SUCC 40 MG/ML VIAL 1ML IV SCH ×2 (13:55→21:28)
--- NOTE | 2018-11-16 14:16 | Consultation ---
DATE OF CONSULTATION: 11/16/2018 HISTORY OF PRESENT ILLNESS: The patient is a 48-year-old female with history of Crohn's disease, admitted to the hospital with complaints of abdominal pain with drainage from her abscess in the left upper abdomen. She says she developed sore over the last few days and started to have drainage yesterday. She has had some associated nausea. She has not had any fever. Apparently, she has had fistulas in the past and this was consistent with a fistula. She complains of diffuse abdominal pain. She has some nausea. She is having diarrhea. The patient has had several surgeries for Crohn disease with partial gastrectomy and also resection of small bowel and large bowel, although not for some time. PAST MEDICAL HISTORY: Significant for anxiety disorder, seizure disorders, migraine headaches, hypertension, as well as Crohn disease. PAST SURGICAL HISTORY: As stated above. Other surgeries include back surgery and surgery on her left arm. ALLERGIES: DEMEROL AND ULTRAM. FAMILY HISTORY: Noncontributory. SOCIAL HISTORY: The patient does not smoke cigarettes or drink alcohol. REVIEW OF SYSTEMS: As stated above. She has not had any fever. No chest pain. No shortness of breath. No weight loss. PHYSICAL EXAMINATION: GENERAL: The patient is awake and alert. VITAL SIGNS: Normal. She is not tachycardic. She is afebrile. HEENT: Reveals no scleral icterus. NECK: Has no masses. LUNGS: Equal breath sounds. Clear bilaterally. CARDIAC: Regular rate and rhythm. ABDOMEN: No distention. There is a healed midline wound in the left upper quadrant. There is erythema. The central area with purulent drainage. There are some other areas in the abdominal wall with some erythema and mild induration. No drainage. There is no mass palpable. EXTREMITIES: No edema. NEUROLOGIC: Intact. LABORATORY DATA: White blood cell count is 12.1 with 16,000 on admission, hemoglobin 8, hematocrit 28.5. Chemistries reveal a mildly abnormal liver function tests. Normal bilirubin. CT of the abdomen and pelvis was done, which does not reveal any abnormalities of the bowel. ASSESSMENT: A 48-year-old female with abdominal wall abscesses draining spontaneously with concern for fistula. There are no findings that would warrant surgical intervention at this time. I will defer to Gastroenterology as far as management of her underlying Crohn disease. There are no signs of acute surgical abdomen. Thank you for asking me to see Ms. Henry. MD PAIGE Davis/DODIE /[id number]
--- NOTE | 2018-11-16 14:30 | NUR ---
SHE C/O IV INFILTRATION STOPPED IV FLIUD AND NOTIFIED THE CHARGE NURSE
--- NOTE | 2018-11-16 16:49 | NUR ---
RADIOLOGY NURSE ATTEMPTED IV SUCCESSFULLY WITH ULTRASOUND, THE PATIENT IS WAITING FOR PICC LINE
--- NOTE | 2018-11-16 17:00 | NUR ---
STARTED NEW IV LINE AND PAIN MEDICATION GIVEN
--- NOTE | 2018-11-16 17:04 | NUR ---
PATIENT RECEIVED DILAUDID 2MG VIA IV STARTED BY RADIOLOGY NURSE 15 MINUTES PRIOR, IV INFILTRATED, PATIENT STATED SHE HAS NOT FELT RELIEF
--- NOTE | 2018-11-16 17:15 | NUR ---
PT C/O HER IV SITE IS NOT GOOD THEN STOPPED IV AND NOTIFIED THE CHARGE NURSE SHE TALKED AGAIN TO THE RADIOLOGY REGARDING PICC LINE
--- NOTE | 2018-11-16 18:00 | NUR ---
INSERTED PICC LINE AFTER THAT SHE SAID SHE NEED ANOTHER DOSE IF IV DILAUDID ITS ONLY ONE HR ,PAGED AND TALKED DR MORGAN HE SAID NO MORE IV MEDS NOW HE STARTED METHADONE 10 MG BID I TALKED TO THE PT REGARDING PO PAIN MED SHE SAID SHE NEED TO TALK THE CHARGE NURSE
--- NOTE | 2018-11-16 18:07 | NUR ---
PT REQUESTED ONE MORE DOSE OF PAIN MED PAGED AND NOTIFIED DR MORGAN HE SAID NO GOT THE ORDER TO METHADONE PO
--- NOTE | 2018-11-16 18:12 | Diagnostic Imaging Report ---
EXAMINATION: CHEST XRAY LINE PLACEMENT INDICATION: LINE PLACEMENT COMPARISON: None FINDINGS: TUBES and LINES: Right upper extremity PICC with distal tip projected on the cavoatrial junction. LUNGS: Lungs are well inflated. There are bibasilar atelectasis. There is no evidence of pneumonia or pulmonary edema. PLEURA: No pleural effusion or pneumothorax. HEART AND MEDIASTINUM: The cardiomediastinal silhouette is unremarkable. BONES AND SOFT TISSUES: No acute osseous lesion. Soft tissues are unremarkable. UPPER ABDOMEN: No free air under the diaphragm. IMPRESSION: Right upper extremity PICC with distal tip projected on the cavoatrial junction. Signed by: Dr. Leslie Madrigal M.D. on 11/16/2018 6:09 PM
--- NOTE | 2018-11-16 18:50 | NUR ---
SPOKE WITH DR. MORGAN ABOUT THE PATIENT AND HER PAIN. THIS IS THE SECOND CALL TO HIM REGARDING THE PATIENTS PAIN. THE PATIENT IS ADAMANT THAT SHE HAS HAD NO PAIN RELIEF ALL SINCE MIDNIGHT AND ASKED ME TO EXPLAIN THIS TO THE DOCTOR. I RELAYED THIS TO THE DOCTOR AND HE STATED THAT HE DOES NOT WANT HER TO GET ANY IV PAIN MEDICATION ANY LONGER AND ORDERED PO DILAUDID. THE PATIENT WAS INFORMED OF THE DOCTORS DECISION AND SHE APPEARED TO UNDERSTAND WHILE ROCKING BACK AND FORTH ON THE DAYBED. WHEN THIS PATIENT ASKED ME TO TALK TO HER AND BEGAN TO STATE " I HAVE BEEN PATIENT ALL DAY LETTING YALL DO WHAT YOU HAD TO DO. I COULD HAVE CALLED MY MOTHER , MY SISTER, MY DOCTOR UNCLE, TO SEE IF THEY THOUGHT THIS WAS THE RIGHT PLACE FOR ME OR SHOULD I BE TRANSFERRED TO ANOTHER PLACE,BUT I DIDNT, I LET YOU GUYS DO YOUR JOB." AT THIS POINT I DID SAY TO THE PATIENT THAT I WILL CALL DR. MORGAN AND EXPLAIN EXACTLY WHAT SHE TOLD ME, WHICH I DID. THE PATIENT IS NOW ON PO DILAUDID AND METHADONE.
[2018-11-16] MEDS: HYDROMORPHONE HCL 2 MG TAB PO PRN (19:21)
--- NOTE | 2018-11-16 19:21 | NUR ---
RECEIVED PT RESTING IN BED.PT C/O PAIN 11/22 TO ABDOMEN.REQUESTED PAIN MEDICATION.PRN PAIN MEDICATION DILAUDID PO ADMINISTERED PER APR.PT REQUESTED SNACK AND SOMETHING TO DRINK.SNACKS AND JUICE PROVIDED.INSTRUCTED PT TO CALL FOR ASSISTANCE NEEDED BY PRESSING CALL LIGHT.PT VERBALIZED UNDERSTANDING.CALL LIGHT WITHIN EASY REACH.
--- NOTE | 2018-11-16 19:25 | NUR ---
PT RESTING ON BED BED SIDE REPORT GIVEN TO ONCOMING NURSE
--- NOTE | 2018-11-16 20:19 | Consultation ---
DATE OF CONSULTATION: REASON FOR CONSULTATION: Flare-up of Crohn's disease. HISTORY OF PRESENT ILLNESS: This patient, who is a very pleasant, unfortunate 48-year-old, has history of Crohn's disease since age 35, followed by Dr. Theron Eden, comes in with a flare up. She did have several surgeries before, she lost part of her intestine and part of her stomach and colon. According to her, multiple surgeries. She is coming with fever, chills, drainage. She also had skin rash. The patient is admitted. Infectious Disease was asked to see the patient. The patient is currently on Zosyn, metronidazole, and I was asked to see her. LABORATORY DATA: White count is 16.0. Her sodium is 137, potassium 3.5, and creatinine 0.55. PHYSICAL EXAMINATION: GENERAL: She is currently alert, oriented, does not seem to be in acute distress. VITAL SIGNS: Stable. Currently afebrile. HEENT: She is not icteric. NECK: Supple. CHEST: Few crackles. COR: S1 and S2. No S3, S4, or murmur. ABDOMEN: Soft. She has induration and redness with some drainage noted on the left upper quadrant of her abdomen. Remaining of the abdomen is soft. DIAGNOSTIC DATA: She had a CT of the abdomen and pelvis showed hepatosplenomegaly with portal vein enlargement, status post cholecystectomy, probable gastric bypass surgery, otherwise unremarkable CT. IMPRESSION AND PLAN: Fever, chills, drainage from the abdomen. We will put her on cefepime and Flagyl. We will put her on steroid. We will consult Dr. Eden. We will follow with you. MD JOHN Graves/DODIE /[id number]
[2018-11-16] MEDS: METHADONE HCL 10 MG TAB PO SCH (21:29)
--- NOTE | 2018-11-16 22:25 | NUR ---
PT RESTING IN BED WITH NO S/S OF DISTRESS.RESPIRATIONS EVEN/NON LABORED.PT'S SISTER AT THE BEDSIDE.BED IN LOWEST/LOCKED POSITION.CALL LIGHT WITHIN EASY REACH.
[2018-11-17] VITALS (8 sets, daily range): BP systolic 101–135; BP diastolic 60–86
[2018-11-17] MEDS: PIPER-TAZ 3.375 GM 50 ML IV SCH ×2 (00:45→05:55)
--- NOTE | 2018-11-17 01:20 | NUR ---
DR Eliot PRADO IN UNIT SAW PT.N/O'S NOTED.
[2018-11-17] MEDS: CEFEPIME 1GM/NS 0.9% 50 ML 50 ML IV SCH ×3 (05:02→21:00)
[2018-11-17] MEDS: HYDROMORPHONE HCL 2 MG TAB PO PRN ×4 (05:02→22:44)
[2018-11-17 05:49] LABS: BASOPHILS % 0.1 % (0.0-1.0); HEMATOCRIT 25.4 % (34.2-44.1); HEMOGLOBIN 7.4 g/dL (12.0-16.0); LYMPHOCYTES # (AUTO) 0.9 (1.0-3.2); LYMPHOCYTES % 9.2 % (18.0-39.1); MEAN CORPUSCULAR HEMOGLOBIN 20.8 pg (28-32); MEAN CORPUSCULAR HGB CONC 29.1 g/dL (31-35); MEAN CORPUSCULAR VOLUME 71.3 fL (81-99); MONOCYTES # (AUTO) 0.2 (0.2-0.8); MONOCYTES % 1.6 % (4.4-11.3); NEUTROPHILS # (AUTO) 8.4 (2.1-6.9); NEUTROPHILS % 86.4 % (38.7-80.0); PLATELET COUNT 415 x10e3/uL (140-360); RED BLOOD COUNT 3.56 x10e6/uL (3.6-5.1); RED CELL DISTRIBUTION WIDTH 17.1 % (11.7-14.4)
[2018-11-17 06:04] LABS: ALANINE AMINOTRANSFERASE 46 IU/L (0-55); ALBUMIN 2.7 g/dL (3.5-5.0); ALKALINE PHOSPHATASE 219 IU/L (40-150); ANION GAP 12.4 mmol/L (8-16); BILIRUBIN,DIRECT 0.1 mg/dL (0.0-0.5); BLOOD UREA NITROGEN 7 mg/dL (7-26); BUN/CREATININE RATIO 13 (6-25); CARBON DIOXIDE 29 mmol/L (22-29); CHLORIDE 104 mmol/L (98-107); CREATININE, SERUM 0.56 mg/dL (0.57-1.11); EST GLOMERULAR FILTRATION RATE > 60 ML/MIN (60-); GLUCOSE 127 mg/dL (74-118); POTASSIUM 4.4 mmol/L (3.5-5.1); SODIUM 141 mmol/L (136-145)
[2018-11-17] MEDS: METRONIDAZOLE 500MG/NS 100ML 100 ML IV SCH ×3 (06:30→21:30)
--- NOTE | 2018-11-17 06:59 | NUR ---
BEDSIDE SHIFT REPORT GIVEN TO ONCOMING NURSE.PT RESTING IN BED WITH NO S/S OF DISTRESS.
--- NOTE | 2018-11-17 07:05 | NUR ---
RCD PT AT BED PT IS ALERT AND ORIENTED AND PT RESTING ON BED IV PATENT BY SALINE FLUSH PATENT BED LOW AND LOCKED CALL LIGHT IN REACH
[2018-11-17] MEDS ORDERED: HYDROMORPHONE 2MG/ML 2 MG/ML ML IV STA (07:21)
[2018-11-17] MEDS: PANTOPRAZOLE SOD 40 MG TABEC PO SCH (07:30)
[2018-11-17] MEDS: IRON SUCROSE 100 MG in SODIUM CHLORIDE 0.9% 100 ML 100 ML IV SCH (08:00)
[2018-11-17 08:09] LABS: ANISOCYTOSIS SLIG; HYPOCHROMASIA MODERATE; MICROCYTOSIS MODE; POIKILOCYTOSIS SLIGHT; SCHISTOCYTES FEW
[2018-11-17 08:11] LABS: PLATELET ESTIMATE SLIGHTLY INCREASED; PLATELET MORPHOLOGY COMMENT NORMAL
--- NOTE | 2018-11-17 08:15 | NUR ---
PAGED DR AREVALO TO NOTIFY THE MRSA ON THE WOUND
[2018-11-17] MEDS: PROPRANOLOL HCL 60 MG ER CAP PO SCH (09:00)
[2018-11-17] MEDS: ALPRAZOLAM 0.5 MG TAB PO SCH ×2 (09:00→17:00)
[2018-11-17] MEDS: SULFASALAZINE 500 MG TAB PO SCH ×3 (09:00→20:47)
[2018-11-17] MEDS: METHYLPREDNISOLONE SOD SUCC 40 MG/ML VIAL 1ML IV SCH ×2 (09:00→20:47)
[2018-11-17] MEDS: PHENYTOIN SODIUM EXT REL 100 MG CAP PO SCH (09:00)
[2018-11-17] MEDS: METHADONE HCL 10 MG TAB PO SCH ×2 (09:00→20:48)
[2018-11-17] MEDS: VANCOMYCIN 1GM/NS 250 ML 250 ML IV SCH ×2 (10:00→22:44)
--- NOTE | 2018-11-17 10:00 | NUR ---
PT IS COMFORTABLE RESTING ON BED FAMILY AT BED SIDE
[2018-11-17 10:49] LABS: THYROID STIMULATING HORMONE 0.174 uIU/mL (0.350-4.940)
--- NOTE | 2018-11-17 16:25 | NUR ---
Nutrition Screen Note RD Recommendation for Physician: 1.Recommend continue with current diet as ordered 2.Recommend addition of Ensure Enlive TID for additional nutrition Plan of Care: RD following, monitoring for tolerance and adequacy Nutrition reason for involvement: Nutrition Risk Trigger Primary Diagnose(s): Crohns Flare up and infections PMH:Crohns disease, anxiety, HTN Ht: 70in Wt: 144lbs BMI: 20.65kg/m2 IBW:150lbs +/- 10% RD Assessment: (11/17) Chart reviewed. Labs and meds reviewed. 48 y/o F with history of Crohns disease admitted for recent flare up. Patient reports not feeling well during time of visit and provided short history due to patient current medical status. Per pt, has a history of multiple surgeries to her GI tract, currently following a diet as tolerated. Reported ongoing nausea and vomiting with last episode of vomiting being yesterday. Intake and appetite have been fair, reported mostly having 1 good meal a day. Possible weight loss due to chronic disease, reports loosing ~10 lbs over past 6 months with a UBW of 150lbs. PTC showed 25-75% meal intake. Pt agreeable to ONS and requested strawberry and vanilla Ensure to help with additional caloric and nutritional intake. Will continue to monitor and follow as needed. Current Diet: Regular Diet Malnutrition Evaluation (11/17) The patient does not meet criteria for a specified degree of malnutrition at this time. Will re-evaluate at follow-up as appropriate. Diet Education Needs Assessment: Diet education not indicated. Nutrition Care Level: MODERATE Signed: Anisa Courtney, MS, RDN, LD
--- NOTE | 2018-11-17 18:39 | NUR ---
PT RESTING ON BED BED SIDE REPORT GIVEN TO ONCOMING NURSE
[2018-11-17] MEDS: ONDANSETRON HCL INJ 2MG/ML 2ML 2 MG/ML VIAL IV PRN (19:17)
[2018-11-18] VITALS (7 sets, daily range): BP systolic 90–121; BP diastolic 57–75
--- NOTE | 2018-11-18 00:54 | NUR ---
DR Eliot PRADO IN UNIT SAW PT,N/O'S RECEIVED AND ENTERED.
[2018-11-18] MEDS: HYDROMORPHONE HCL 2 MG TAB PO PRN ×4 (02:44→18:14)
[2018-11-18 04:44] LABS: BASOPHILS % 0.3 % (0.0-1.0); EOSINOPHILS % 0.1 % (0.0-6.0); HEMATOCRIT 25.2 % (34.2-44.1); HEMOGLOBIN 7.4 g/dL (12.0-16.0); LYMPHOCYTES # (AUTO) 1.4 (1.0-3.2); LYMPHOCYTES % 12.3 % (18.0-39.1); MEAN CORPUSCULAR HEMOGLOBIN 20.9 pg (28-32); MEAN CORPUSCULAR HGB CONC 29.4 g/dL (31-35); MEAN CORPUSCULAR VOLUME 71.2 fL (81-99); MONOCYTES # (AUTO) 0.7 (0.2-0.8); MONOCYTES % 5.9 % (4.4-11.3); NEUTROPHILS # (AUTO) 8.3 (2.1-6.9); NEUTROPHILS % 71.8 % (38.7-80.0); PLATELET COUNT 412 x10e3/uL (140-360); RED BLOOD COUNT 3.54 x10e6/uL (3.6-5.1); RED CELL DISTRIBUTION WIDTH 17.2 % (11.7-14.4)
[2018-11-18] MEDS: METOCLOPRAMIDE HCL 10 MG/2ML VIAL IV SCH ×3 (05:09→17:15)
[2018-11-18] MEDS: CEFEPIME 1GM/NS 0.9% 50 ML 50 ML IV SCH ×3 (05:10→21:00)
[2018-11-18 05:11] LABS: ANION GAP 14.3 mmol/L (8-16); BLOOD UREA NITROGEN 8 mg/dL (7-26); BUN/CREATININE RATIO 15 (6-25); CALCIUM 9.9 mg/dL (8.4-10.2); CARBON DIOXIDE 32 mmol/L (22-29); CHLORIDE 98 mmol/L (98-107); CREATININE, SERUM 0.53 mg/dL (0.57-1.11); EST GLOMERULAR FILTRATION RATE > 60 ML/MIN (60-); GLUCOSE 109 mg/dL (74-118); POTASSIUM 4.3 mmol/L (3.5-5.1); SODIUM 140 mmol/L (136-145)
[2018-11-18] MEDS: METRONIDAZOLE 500MG/NS 100ML 100 ML IV SCH ×3 (06:19→21:30)
[2018-11-18] MEDS ORDERED: HYDROMORPHONE 1MG/1ML INJ IV ONE (06:40)
--- NOTE | 2018-11-18 07:15 | NUR ---
BEDSIDE SHIFT REPORT GIVEN TO ONCOMING NURSE.PT RESTING IN BED WITH NO S/S OF DISTRESS.
[2018-11-18] MEDS: PANTOPRAZOLE SOD 40 MG TABEC PO SCH ×2 (07:30→12:04)
--- NOTE | 2018-11-18 07:30 | NUR ---
RCD PT AT BED PT IS ALERT AND ORIENTED AND PT RESTING ON BED NO IV ACCESS FOR THE PATENT FAMILY AT BED SIDE BED LOW AND LOCKED CALL LIGHT IN REACH Addendum: 11/18/18 at 1535 by Gale Garrett RN WRONG PT
[2018-11-18] MEDS ORDERED: BISACODYL 10 MG SUPP PR ONE (08:00)
[2018-11-18] MEDS: IRON SUCROSE 100 MG in SODIUM CHLORIDE 0.9% 100 ML 100 ML IV SCH (08:00)
--- NOTE | 2018-11-18 08:00 | NUR ---
PT REFUSED HALF AMOUNT OF IRON TRANSFUSION
[2018-11-18] MEDS: METHADONE HCL 10 MG TAB PO SCH ×2 (09:00→20:25)
[2018-11-18] MEDS: METHYLPREDNISOLONE SOD SUCC 40 MG/ML VIAL 1ML IV SCH ×2 (09:00→20:25)
[2018-11-18] MEDS: SULFASALAZINE 500 MG TAB PO SCH ×3 (09:00→20:25)
[2018-11-18] MEDS: ALPRAZOLAM 0.5 MG TAB PO SCH ×2 (09:00→17:00)
[2018-11-18] MEDS: PHENYTOIN SODIUM EXT REL 100 MG CAP PO SCH (09:00)
[2018-11-18] MEDS: PROPRANOLOL HCL 60 MG ER CAP PO SCH (09:00)
[2018-11-18] MEDS: VANCOMYCIN 1GM/NS 250 ML 250 ML IV SCH ×2 (10:00→22:57)
--- NOTE | 2018-11-18 11:30 | NUR ---
PT C/O SEVER PAIN ON ABDOMEN 11/[address] MORGAN GOT NEW ORDERS
[2018-11-18] MEDS: HYDROMORPHONE 1MG/1ML INJ IV PRN ×3 (11:50→23:02)
[2018-11-18] MEDS: FENTANYL 50 MCG/HR PATCH TOP SCH (13:00)
--- NOTE | 2018-11-18 19:15 | NUR ---
PT RESTING ON BED BED SIDE REPORT GIVEN TO ONCOMING NURSE
--- NOTE | 2018-11-18 23:05 | NUR ---
PT C/O PAIN TO ABDOMEN,PT REFUSED DILAUDID 2 MG PO TAB,PT REQUESTED DILAUDID 1 MG IV,PRN DILAUDID 1 MG IV GIVEN PER APR.RETURNED DILAUDID 2 MG TABLET WITH FABIOLA WHITE.
[2018-11-19] MEDS: METOCLOPRAMIDE HCL 10 MG/2ML VIAL IV SCH ×3 (00:26→12:48)
[2018-11-19 00:30] VITALS: BP 92/61
--- NOTE | 2018-11-19 00:38 | NUR ---
DR Eliot PRADO IN UNIT SAW PT.N/O RECEIVED TO CHANGE PT'S DIET TO FULL LIQUIDS.
[2018-11-19] MEDS: HYDROMORPHONE 1MG/1ML INJ IV PRN ×2 (03:24→07:40)
[2018-11-19 03:37] LABS: BASOPHILS % 0.2 % (0.0-1.0); EOSINOPHILS % 0.1 % (0.0-6.0); HEMATOCRIT 29.5 % (34.2-44.1); HEMOGLOBIN 8.7 g/dL (12.0-16.0); LYMPHOCYTES # (AUTO) 1.8 (1.0-3.2); MEAN CORPUSCULAR HEMOGLOBIN 20.9 pg (28-32); MEAN CORPUSCULAR HGB CONC 29.5 g/dL (31-35); MEAN CORPUSCULAR VOLUME 70.9 fL (81-99); MONOCYTES # (AUTO) 0.7 (0.2-0.8); MONOCYTES % 5.4 % (4.4-11.3); NEUTROPHILS # (AUTO) 8.8 (2.1-6.9); NEUTROPHILS % 69.8 % (38.7-80.0); PLATELET COUNT 452 x10e3/uL (140-360); RED BLOOD COUNT 4.16 x10e6/uL (3.6-5.1); RED CELL DISTRIBUTION WIDTH 17.5 % (11.7-14.4)
[2018-11-19 03:45] VITALS: BP 98/70
[2018-11-19 03:52] LABS: ANION GAP 13.3 mmol/L (8-16); BLOOD UREA NITROGEN 12 mg/dL (7-26); BUN/CREATININE RATIO 20 (6-25); CALCIUM 9.9 mg/dL (8.4-10.2); CARBON DIOXIDE 33 mmol/L (22-29); CHLORIDE 96 mmol/L (98-107); CREATININE, SERUM 0.61 mg/dL (0.57-1.11); EST GLOMERULAR FILTRATION RATE > 60 ML/MIN (60-); GLUCOSE 106 mg/dL (74-118); POTASSIUM 4.3 mmol/L (3.5-5.1); SODIUM 138 mmol/L (136-145)
[2018-11-19] MEDS: CEFEPIME 1GM/NS 0.9% 50 ML 50 ML IV SCH (05:33)
[2018-11-19] MEDS: METRONIDAZOLE 500MG/NS 100ML 100 ML IV SCH (06:25)
[2018-11-19 06:56] LABS: RBC MORPHOLOGY COMMENT NORMAL
--- NOTE | 2018-11-19 07:17 | NUR ---
REPORT GIVEN TO ONCOMING NURSE.WALKING ROUNDS MADE.PT RESTING IN BED WITH NO S/S OF DISTRESS.
[2018-11-19] MEDS: SULFASALAZINE 500 MG TAB PO SCH (08:42)
[2018-11-19] MEDS: METHADONE HCL 10 MG TAB PO SCH (08:42)
[2018-11-19] MEDS: METHYLPREDNISOLONE SOD SUCC 40 MG/ML VIAL 1ML IV SCH (08:42)
[2018-11-19] MEDS: PHENYTOIN SODIUM EXT REL 100 MG CAP PO SCH (08:42)
[2018-11-19] MEDS: PROPRANOLOL HCL 60 MG ER CAP PO SCH (08:42)
[2018-11-19] MEDS: ALPRAZOLAM 0.5 MG TAB PO SCH (08:43)
[2018-11-19 08:45] VITALS: BP 102/60
[2018-11-19 09:00] VITALS: BP 102/60
[2018-11-19] MEDS: VANCOMYCIN 1GM/NS 250 ML 250 ML IV SCH (10:20)
[2018-11-19 12:25] VITALS: BP 109/74
[2018-11-19] MEDS: IRON SUCROSE 100 MG in SODIUM CHLORIDE 0.9% 100 ML 100 ML IV SCH (12:30)
--- NOTE | 2018-11-19 14:15 | NUR ---
Rayna Vann, GERMÁN called and said she spoke to GI doctor and they have no additional plan at this time for the patient and is OK For patient to dc and f/u outpatient with PCP, pain management doc, and GI. Prescription for PO antibiotics are on the chart for discharge, written by ID.
--- NOTE | 2018-11-19 15:35 | NUR ---
manager test to the floor to give dc instructions and prescriptions to the patient and PICC line was removed.
--- NOTE | 2018-11-19 18:13 | NUR ---
Patient left the floor , she is discharged home
== END 2018-11-19 18:09 | disposition home or self-care (01) | DRG 387 ==
LOC: ER 11:38 → ERHOLD 15:37 → MED/SURG2 23:41
PROVIDERS: ADMIT Internal Medicine; ATTEND Internal Medicine
PROC: 02HV33Z Insertion of Infusion Device into Superior Vena Cava, Percutaneous Approach (ICD-10-PCS; principal; 2018-11-16)
DX: K50.913 Crohn's disease, unspecified, with fistula (principal); I48.91 Unspecified atrial fibrillation; Z79.01 Long term (current) use of anticoagulants; K21.9 Gastro-esophageal reflux disease without esophagitis; F41.9 Anxiety disorder, unspecified; F32.9 Major depressive disorder, single episode, unspecified; G40.909 Epilepsy, unspecified, not intractable, without status epilepticus
CPT/HCPCS: 36415; 36569; 71045; 74177; 80048; 80053; 80076; 80202; 81001; 82105; 82150; 82607; 82728; 82746; 83036; 83540; 83690; 84443; 84466; 85025; 85045; 85610; 85651; 85730; 86039; 86140; 86256; 86671; 86850; 86900; 87040; 87071; 87086; 87186; 87205; 93005; 99284; J0692; J1170; J1756; J2270; J2405; J2543; J2765; J2920; J3370; J7030; Q9967

== ENCOUNTER 2019-04-22 19:36 | Inpatient (IN) | payer SELFPAY ==
[~2019-04-22] VITALS: Ht 177.8 cm; Wt 65.3 kg
[~2019-04-22 19:36] MED LIST changes: +PANTOPRAZOLE SO40 MG PO
--- NOTE | 2019-04-22 22:12 | Diagnostic Imaging Report ---
Exam: Left hand radiographs-3 views History: Infection. Comparison: None. Findings/Impression: No evidence of acute fracture or malalignment. Soft tissue edema in the hand, most pronounced in the thenar eminence and index finger. No radiographic evidence of osteomyelitis. Signed by: Dr. Jessica Griffith MD on 04/22/2019 10:09 PM
[2019-04-22] MEDS ORDERED: VANCOMYCIN 1GM/NS 250 ML 250 ML IV STA (23:08)
[2019-04-22] MEDS ORDERED: ONDANSETRON HCL INJ 2MG/ML 2ML 2 MG/ML VIAL IV STA (23:08)
[2019-04-22] MEDS ORDERED: MORPHINE SULFATE INJ 4 MG/ML INJ 1ML IV ONE (23:15)
[2019-04-22 23:19] LABS: BASOPHILS % 0.3 % (0.0-1.0); EOSINOPHILS # (AUTO) 0.1 (0.0-0.4); EOSINOPHILS % 0.8 % (0.0-6.0); HEMATOCRIT 33.4 % (34.2-44.1); HEMOGLOBIN 10.4 g/dL (12.0-16.0); LYMPHOCYTES # (AUTO) 1.4 (1.0-3.2); LYMPHOCYTES % 11.4 % (18.0-39.1); MEAN CORPUSCULAR HEMOGLOBIN 23.5 pg (28-32); MEAN CORPUSCULAR HGB CONC 31.1 g/dL (31-35); MEAN CORPUSCULAR VOLUME 75.4 fL (81-99); MONOCYTES # (AUTO) 0.7 (0.2-0.8); MONOCYTES % 5.9 % (4.4-11.3); NEUTROPHILS # (AUTO) 9.5 (2.1-6.9); NEUTROPHILS % 80.3 % (38.7-80.0); PLATELET COUNT 397 x10e3/uL (140-360); RED BLOOD COUNT 4.43 x10e6/uL (3.6-5.1); RED CELL DISTRIBUTION WIDTH 17.5 % (11.7-14.4)
[2019-04-22] MEDS ORDERED: MORPHINE SULFATE 2 MG/ML SYR 1ML ONE (23:24)
[2019-04-22] MEDS ORDERED: MORPHINE SULFATE INJ 4 MG/ML INJ 1ML ONE (23:24)
[2019-04-22] MEDS ORDERED: CEFEPIME 1GM/NS 0.9% 50 ML 50 ML IV ONE (23:25)
[2019-04-22 23:33] LABS: ALANINE AMINOTRANSFERASE 50 IU/L (0-55); ALBUMIN/GLOBULIN RATIO 0.7 (0.8-2.0); ALKALINE PHOSPHATASE 184 IU/L (40-150); ANION GAP 12.5 mmol/L (8-16); BLOOD UREA NITROGEN 13 mg/dL (7-26); BUN/CREATININE RATIO 25 (6-25); CALCIUM 9.6 mg/dL (8.4-10.2); CARBON DIOXIDE 29 mmol/L (22-29); CHLORIDE 99 mmol/L (98-107); CREATININE, SERUM 0.53 mg/dL (0.57-1.11); EST GLOMERULAR FILTRATION RATE > 60 ML/MIN (60-); GLUCOSE 100 mg/dL (74-118); POTASSIUM 3.5 mmol/L (3.5-5.1); SODIUM 137 mmol/L (136-145)
[2019-04-23] MEDS: CEFEPIME 1GM/ SOD CHL 50 ML BAG IV SCH ×3 (00:30→22:40)
[2019-04-23 03:43] LABS: AMPHETAMINES SCREEN,URINE NEGATIVE (NEGATIVE); BENZODIAZEPINES SCREEN,URINE NEGATIVE (NEGATIVE); PHENCYCLIDINE SCREEN,URINE NEGATIVE (NEGATIVE)
[2019-04-23] MEDS ORDERED: ONDANSETRON HCL INJ 2MG/ML 2ML 2 MG/ML VIAL IV STA (03:59)
[2019-04-23] MEDS ORDERED: MORPHINE SULFATE INJ 4 MG/ML INJ 1ML IV PRN (04:00)
[2019-04-23] MEDS ORDERED: MORPHINE SULFATE INJ 4 MG/ML INJ 1ML ONE (04:07)
[2019-04-23] MEDS ORDERED: ONDANSETRON HCL INJ 2MG/ML 2ML 2 MG/ML VIAL ONE (04:08)
[2019-04-23] MEDS ORDERED: ACETAMINOPHEN 325 MG TAB ONE (04:12)
[2019-04-23] MEDS ORDERED: ACETAMINOPHEN 325 MG TAB PO PRN (04:15)
[2019-04-23] MEDS ORDERED: HYDROCODONE/APAP 7.5MG-325MG 1 EA TAB PO PRN (07:30)
--- NOTE | 2019-04-23 08:39 | NUR ---
Pt lying in bed comfortably. RR even and unlabored. NAD noted at the present time.Pt remains on NIBP and pulse ox. Bed locked in lowest position. Call light remains in reach. Will continue to monitor.
[2019-04-23] MEDS: MORPHINE SULFATE 2 MG/ML SYR 1ML IV PRN ×2 (10:36→13:55)
--- NOTE | 2019-04-23 12:08 | NUR ---
Report and care hand off given to CINDY Martinez.
--- NOTE | 2019-04-23 14:20 | NUR ---
patient arrived to unit. complains of pain 10/10 to finger. attending physician paged.
[2019-04-23] MEDS ORDERED: HYDRALAZINE HCL 20 MG/ML VIAL IV PRN (14:45)
[2019-04-23] MEDS ORDERED: ONDANSETRON HCL INJ 2MG/ML 2ML 2 MG/ML VIAL IV PRN (14:45)
[2019-04-23] MEDS ORDERED: KCL 20MEQ/.9 SOD CHL 1,000 ML IV ONE (15:45)
[2019-04-23] MEDS: HYDROMORPHONE 1MG/1ML INJ IV PRN (15:54)
--- NOTE | 2019-04-23 15:54 | NUR ---
.5 mg of dialudid given to patient, as ordered. patient immediately stating that she will need more dialudid to get relief. dr. yury DUNLAP paged.
--- NOTE | 2019-04-23 16:00 | NUR ---
LAB NURSE for Dr. Saab on unit. Explained ordered pain regimen and he will see the patient and adjust if appropriate.
--- NOTE | 2019-04-23 16:20 | NUR ---
GERMÁN Cornell returned page. No changes to ordered pain medication. He stated to utilize all ordered oral medications.
[2019-04-23] MEDS ORDERED: FAMOTIDINE 20 MG TAB PO SCH (16:30)
[2019-04-23] MEDS: DOCUSATE SODIUM 100 MG CAP PO SCH (17:00)
--- NOTE | 2019-04-23 17:15 | Diagnostic Imaging Report ---
EXAMINATION: CHEST SINGLE (PORTABLE) COMPARISON: Chest x-ray 11/16/2018 INDICATION: ^20 pack yr hx smoking, visit baseline, +hx RLL PNA ^[id number] ^1645 ^Y DISCUSSION: Frontal view of the chest obtained at 1648 hours. HEART AND MEDIASTINUM: The cardiomediastinal silhouette is unremarkable. LINES: None. LUNGS: Mild eventration of the right diaphragm is stable. The lungs are well-inflated. No pneumonia or pulmonary edema. PLEURA: No pleural effusion or pneumothorax. BONES AND SOFT TISSUES: No focal osseous lesion. The soft tissues are normal. IMPRESSION: No acute cardiopulmonary disease. Signed by: Dr. Porfirio Luong MD on 04/23/2019 5:12 PM
[2019-04-23] MEDS: ACETAMINOPHEN/CODEINE 300MG - 30MG TAB PO PRN ×2 (17:28→21:40)
[2019-04-23] MEDS: MAGNESIUM OXIDE 400 MG TAB PO SCH (17:29)
[2019-04-23] MEDS: ASCORBIC ACID 500 MG TAB PO SCH (17:30)
[2019-04-23] MEDS: ZINC SULFATE 220 MG CAP PO SCH (17:30)
[2019-04-23] MEDS: PANTOPRAZOLE SOD 40 MG TABEC PO SCH (18:00)
[2019-04-23] MEDS: HYDROCODONE/APAP 10MG-325MG TAB PO PRN (18:28)
[2019-04-23] MEDS: ALPRAZOLAM 0.5 MG TAB PO SCH (18:53)
--- NOTE | 2019-04-23 19:00 | NUR ---
Home dose of norco, tylenol 3 and ordered dialudid given to patient through out shift with times that all medications are available again, if needed, are on her whiteboard. patient aware that no changes were ordered to her pain regimen by buyer liaison NURSE STAFF [facility].
--- NOTE | 2019-04-23 19:20 | NUR ---
BEDSIDE SHIFT REPORT RECEIVED. PATIENT IS RESTING IN BED, RESP EVEN AND UNLABORED. NO ACUTE DISTRESS NOTED. LEFT INDEX FINGER CELLULITIS NOTED, OPEN TO AIR. EDUCATED PT ABOUT FALL PRECAUTIONS. PT VERBALIZED UNDERSTANDING. CALL LIGHT WITH IN EASY REACH. INSTRUCTED PT TO USE CALL LIGHT FOR ALL THE NEEDS. BED IS LOW AND LOCKED. SIDE RAILS X2. PT DENIES NEEDS AT THIS TIME. CONTINUE TO MONITOR CLOSELY
[2019-04-23 20:00] VITALS: BP 117/77
--- NOTE | 2019-04-23 20:30 | NUR ---
PROVIDED PATIENT HS SNACK AND JUICE.
[2019-04-23] MEDS: SULFASALAZINE 500 MG TAB PO SCH ×2 (21:00→21:37)
[2019-04-23 21:26] VITALS: BP 117/77
[2019-04-23] MEDS: OYST-CAL-D 500MG TABLET PO SCH (21:37)
[2019-04-23] MEDS: VANCOMYCIN 1GM/NS 250 ML 250 ML IV SCH (21:37)
[2019-04-23] MEDS: MUPIROCIN 2% OINT 22 GM TUBE TOP SCH (21:44)
[2019-04-24] VITALS (7 sets, daily range): BP systolic 109–141; BP diastolic 65–80
[2019-04-24] MEDS: HYDROCODONE/APAP 10MG-325MG TAB PO PRN ×3 (03:53→16:38)
[2019-04-24] MEDS: HYDROMORPHONE 1MG/1ML INJ IV PRN ×5 (06:20→20:00)
[2019-04-24 07:12] LABS: BASOPHILS % 0.3 % (0.0-1.0); EOSINOPHILS # (AUTO) 0.1 (0.0-0.4); EOSINOPHILS % 0.7 % (0.0-6.0); HEMATOCRIT 30.1 % (34.2-44.1); HEMOGLOBIN 9.2 g/dL (12.0-16.0); LYMPHOCYTES # (AUTO) 1.7 (1.0-3.2); LYMPHOCYTES % 17.3 % (18.0-39.1); MEAN CORPUSCULAR HEMOGLOBIN 23.2 pg (28-32); MEAN CORPUSCULAR HGB CONC 30.6 g/dL (31-35); MEAN CORPUSCULAR VOLUME 75.8 fL (81-99); MONOCYTES # (AUTO) 0.6 (0.2-0.8); MONOCYTES % 5.7 % (4.4-11.3); NEUTROPHILS # (AUTO) 7.2 (2.1-6.9); NEUTROPHILS % 73.7 % (38.7-80.0); PLATELET COUNT 352 x10e3/uL (140-360); RED BLOOD COUNT 3.97 x10e6/uL (3.6-5.1); RED CELL DISTRIBUTION WIDTH 17.6 % (11.7-14.4)
[2019-04-24 07:31] LABS: ANION GAP 6.7 mmol/L (8-16); BLOOD UREA NITROGEN 9 mg/dL (7-26); BUN/CREATININE RATIO 17 (6-25); CALCIUM 9.1 mg/dL (8.4-10.2); CARBON DIOXIDE 30 mmol/L (22-29); CHLORIDE 108 mmol/L (98-107); CREATININE, SERUM 0.52 mg/dL (0.57-1.11); EST GLOMERULAR FILTRATION RATE > 60 ML/MIN (60-); GLUCOSE 113 mg/dL (74-118); MAGNESIUM 1.9 MG/DL (1.3-2.1); PHOSPHORUS 2.4 MG/DL (2.3-4.7); POTASSIUM 3.7 mmol/L (3.5-5.1); SODIUM 141 mmol/L (136-145)
[2019-04-24] MEDS: PANTOPRAZOLE SOD 40 MG TABEC PO SCH ×2 (08:08→16:38)
[2019-04-24] MEDS: SULFASALAZINE 500 MG TAB PO SCH ×3 (08:08→19:53)
[2019-04-24] MEDS: DOCUSATE SODIUM 100 MG CAP PO SCH ×2 (08:08→16:38)
[2019-04-24] MEDS: PHENYTOIN SODIUM EXT REL 100 MG CAP PO SCH (08:08)
[2019-04-24] MEDS: ALPRAZOLAM 0.5 MG TAB PO SCH ×2 (08:09→19:53)
[2019-04-24] MEDS: ZINC SULFATE 220 MG CAP PO SCH ×2 (08:09→16:38)
[2019-04-24] MEDS: MAGNESIUM OXIDE 400 MG TAB PO SCH ×2 (08:09→16:38)
[2019-04-24] MEDS: PROPRANOLOL HCL 60 MG ER CAP PO SCH (08:09)
[2019-04-24] MEDS: MULTIVITAMINS/MINERALS TAB PO SCH (08:09)
[2019-04-24] MEDS: OYST-CAL-D 500MG TABLET PO SCH ×3 (08:09→19:53)
[2019-04-24] MEDS: ASCORBIC ACID 500 MG TAB PO SCH ×2 (08:09→16:38)
[2019-04-24] MEDS: ACETAMINOPHEN/CODEINE 300MG - 30MG TAB PO PRN ×2 (08:10→13:09)
[2019-04-24] MEDS: MUPIROCIN 2% OINT 22 GM TUBE TOP SCH ×2 (08:10→19:53)
[2019-04-24] MEDS ORDERED: PROPRANOLOL HCL 120 MG PO SCH (09:00)
[2019-04-24] MEDS ORDERED: HYDROMORPHONE 20MG/ NS 100ML IV PRN (09:45)
[2019-04-24 09:55] LABS: EOSINOPHILS % (MANUAL) 2 % (0-7); LYMPHOCYTES % (MANUAL) 22 % (19-48); MONOCYTES % (MANUAL) 7 % (3.4-9.0); NEUTROPHILS % (MANUAL) 69 % (40-74); PLATELET ESTIMATE ADEQUATE; PLATELET MORPHOLOGY COMMENT NORMAL; RBC MORPHOLOGY COMMENT NORMAL
[2019-04-24] MEDS ORDERED: HYDROMORPHONE 1MG/1ML INJ IV PRN (10:30)
[2019-04-24] MEDS ORDERED: ONDANSETRON HCL 4 MG ORAL DISINTEGRATING TAB PO PRN (10:30)
[2019-04-24] MEDS: CEFEPIME 1GM/ SOD CHL 50 ML BAG IV SCH (11:32)
--- NOTE | 2019-04-24 15:18 | NUR ---
Nutrition Screen Note RD Recommendation for Physician: -Continue current diet per MD. Plan of Care: RD following, monitoring for tolerance and adequacy Nutrition reason for involvement: MST-3 Primary Diagnose(s): Cellulitis PMH: Hypertension Seizure Disorder Migraines Anxiety GERD Crohn's Ht: 70 in Wt: 144lb BMI: 20.7 kg/m2 IBW [address] Assessment: (04/23) 48 YOF admitted for cellulitis with PMH listed above. The pt was seen resting in bed, she reports her appetite is good and she denied any recent weight loss. She reported a little N/V. Denied C/chewing or swallowing issues as well as any food allergies. She did state some diarrhea (LBM: 04/23) Pt had no other questions or concerns. Chart reviewed. Labs and meds reviewed. Pt has been consuming 100% of her meals so far. Per EMR, pt was 144 lbs in Nov 2018 suggesting no weight loss. Will continue to monitor. Current Diet: cardiac diet Malnutrition Evaluation (04/23) The patient does not meet criteria for a specified degree of malnutrition at this time. Will re-evaluate at follow-up as appropriate. Diet Education Needs Assessment: Diet education not indicated at this time. Diet Adequacy: Meeting calorie needs, Meeting protein needs Nutrition Care Level: low Signed: Melvi Robbins RD, LD
[2019-04-24] MEDS ORDERED: HYDROCODONE/APAP 10MG-325MG TAB PO PRN (19:00)
[2019-04-24] MEDS ORDERED: SODIUM HYPOCHLORITE 0.25% 480 ML SOLN IR ONE (19:30)
[2019-04-24] MEDS: VANCOMYCIN 1GM/NS 250 ML 250 ML IV SCH (19:53)
[2019-04-24] MEDS: FLUCONAZOLE 100 MG TAB PO SCH (19:53)
[2019-04-25] VITALS (7 sets, daily range): BP systolic 100–119; BP diastolic 53–84
--- NOTE | 2019-04-25 01:00 | Consultation ---
DATE OF CONSULTATION: 04/24/2019 Wound Consultation HISTORY OF PRESENT ILLNESS: A 48-year-old female patient with history of Crohn's, admitted with multiple ulcers to the extremities, face, ear. Wound consult was called. The patient has been constantly scratching. She has chronic paronychia with scratching and ulcers to both left index and 3rd fingers and multiple impetigo seen to the extremities. PAST MEDICAL HISTORY: Crohn disease, migraine, seizure disorder, hypertension, and hemiplegic migraine. SOCIAL HISTORY: Smoked 2-pack a day for 10 years. PHYSICAL EXAMINATION: VITAL SIGNS: Blood pressure 115/65, height 5 feet 10 inches, pulse is 86, temperature is 96.5, weight 144 pounds. HEENT: The patient has multiple sores to the forehead, right ear from chronic scratching. LUNGS: Clear. CVS: Normal. ABDOMEN: Soft. Bowel sounds normal. EXTREMITIES: Lower extremities, no edema. SKIN: The patient has impetigo lesions to the extremities and factitious dermatitis of the face. 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 PLAN: We will treat the impetigo and also put on diflucan for paronychia of the left index finger and wound care. Clean wound with Dakin's. The patient also applying peroxide, which could further worsen the ulcer, advised to avoid peroxide. Thank you for consultation. We will follow up. MD MIGUEL Fernandez/DODIE /[id number]
[2019-04-25] MEDS: HYDROMORPHONE 1MG/1ML INJ IV PRN ×3 (01:44→10:53)
[2019-04-25] MEDS: CEFEPIME 1GM/ SOD CHL 50 ML BAG IV SCH ×2 (01:49→10:53)
--- NOTE | 2019-04-25 04:50 | Consultation ---
DATE OF CONSULTATION: 04/24/2019 HISTORY OF PRESENT ILLNESS: Ms. Henry who is 48-year-old, who has history of Crohn disease, diffuse dermatitis, chronic pain. She said every time she gets the flare up of Crohn's, she gets skin lesion all over. She had skin lesion on her finger. She put hydrogen peroxide. She woke up the next day, it was a lot worse, the patient came here. The patient is currently lying in bed comfortably. PAST MEDICAL HISTORY: As above. PAST SURGICAL HISTORY: As above. PHYSICAL EXAMINATION: SKIN: Multiple skin lesions noted all over. Ulcers are superficial. The finger seems to be swollen and red. IMPRESSION: Multiple skin ulcers, dermatitis, probably infected. She grew strep. RECOMMENDATIONS: Clindamycin 600 mg IV piggyback q.8. I am concerned that there is a component of dermatitis, allergic from using peroxide for 3 days or so. Discussed with Internal Medicine. MD JOHN Graves/DODIE /[id number]
--- NOTE | 2019-04-25 07:05 | NUR ---
RCD PT AT BED PT IS ALERT AND ORIENTED PT RESTING ON BED IV PATENT BY SALINE FLUSH BED LOW AND LOCKED CALL LIGHT IN REACH
[2019-04-25] MEDS: PANTOPRAZOLE SOD 40 MG TABEC PO SCH ×2 (07:30→16:30)
[2019-04-25] MEDS: DOCUSATE SODIUM 100 MG CAP PO SCH ×2 (09:00→17:00)
[2019-04-25] MEDS: MUPIROCIN 2% OINT 22 GM TUBE TOP SCH (09:00)
[2019-04-25] MEDS: OYST-CAL-D 500MG TABLET PO SCH ×2 (09:00→15:00)
[2019-04-25] MEDS: ASCORBIC ACID 500 MG TAB PO SCH ×2 (09:00→17:00)
[2019-04-25] MEDS: ZINC SULFATE 220 MG CAP PO SCH ×2 (09:00→17:00)
[2019-04-25] MEDS: PROPRANOLOL HCL 60 MG ER CAP PO SCH (09:00)
[2019-04-25] MEDS: MAGNESIUM OXIDE 400 MG TAB PO SCH ×2 (09:00→17:00)
[2019-04-25] MEDS: MULTIVITAMINS/MINERALS TAB PO SCH (09:00)
[2019-04-25] MEDS: ALPRAZOLAM 0.5 MG TAB PO SCH (09:00)
[2019-04-25] MEDS: PHENYTOIN SODIUM EXT REL 100 MG CAP PO SCH (09:00)
[2019-04-25] MEDS: FLUCONAZOLE 100 MG TAB PO SCH (09:00)
[2019-04-25] MEDS: SULFASALAZINE 500 MG TAB PO SCH ×2 (09:00→15:00)
--- NOTE | 2019-04-25 10:49 | NUR ---
WOUND CARE CONSULT FOR BREAST FOLD IRRITATION PATIENT USING REMEDY ANTIFUNGAL AND LINEN BARRIER BETWEEN SKIN FOLD REPORTS HEALING AND COMFORT Addendum: 04/25/19 at 1050 by Tano Barbosa RN Amended: Links added.
[2019-04-25 11:33] LABS: BASOPHILS % 0.3 % (0.0-1.0); EOSINOPHILS # (AUTO) 0.1 (0.0-0.4); EOSINOPHILS % 1.3 % (0.0-6.0); HEMATOCRIT 30.4 % (34.2-44.1); HEMOGLOBIN 9.2 g/dL (12.0-16.0); LYMPHOCYTES # (AUTO) 1.6 (1.0-3.2); LYMPHOCYTES % 23.2 % (18.0-39.1); MEAN CORPUSCULAR HEMOGLOBIN 23.4 pg (28-32); MEAN CORPUSCULAR HGB CONC 30.3 g/dL (31-35); MEAN CORPUSCULAR VOLUME 77.4 fL (81-99); MONOCYTES # (AUTO) 0.4 (0.2-0.8); MONOCYTES % 5.8 % (4.4-11.3); NEUTROPHILS # (AUTO) 4.4 (2.1-6.9); NEUTROPHILS % 65.8 % (38.7-80.0); PLATELET COUNT 304 x10e3/uL (140-360); RED BLOOD COUNT 3.93 x10e6/uL (3.6-5.1); RED CELL DISTRIBUTION WIDTH 17.4 % (11.7-14.4)
[2019-04-25 11:56] LABS: ANION GAP 9.9 mmol/L (8-16); BLOOD UREA NITROGEN 6 mg/dL (7-26); BUN/CREATININE RATIO 12 (6-25); CALCIUM 9.3 mg/dL (8.4-10.2); CARBON DIOXIDE 29 mmol/L (22-29); CHLORIDE 105 mmol/L (98-107); EST GLOMERULAR FILTRATION RATE > 60 ML/MIN (60-); GLUCOSE 88 mg/dL (74-118); POTASSIUM 3.9 mmol/L (3.5-5.1); SODIUM 140 mmol/L (136-145)
--- NOTE | 2019-04-25 12:00 | NUR ---
PAGED AND NOTIFIED DR AREVALO THE PT IN MRSA POSITIVE HE SAID ITS OK PT CAN GO HOME WITH DOXYCYCLINE
--- NOTE | 2019-04-25 12:02 | NUR ---
GAVE PACKET OF INFORMATION WITH [facility] FOR ASSISTANCE WITH LOW TO NO INCOME TO PATIENT. RESOURCES THAT PATIENT MAY BE ABLE TO FOLLOW UP UPON DISCHARGE. PT EDUCATED ON EACH RESOURCE AND UNDERSTANDING HOW TO FOLLOW UP TO SEE IF QUALIFIED FOR EACH RESOURCE.
--- NOTE | 2019-04-25 12:15 | NUR ---
AC TO DR AREVALO PT CAN GO HOME WITH PO ANTIBIOTIC PAGED DR ZALDIVAR AND LEFT THE MESSAGE
--- NOTE | 2019-04-25 14:30 | NUR ---
WENT TO THE ROOM TO DRESSING CHANGE BEFORE THE ONE TIME RUTID SHE REFUSED SHE SAD NOT NOW
[2019-04-25] MEDS ORDERED: HYDROMORPHONE 1MG/1ML INJ IV STA (14:40)
--- NOTE | 2019-04-25 17:00 | NUR ---
AGAIN WENT TO THE PTS ROOM TO DO THE DRESSING SHE REFUSED
[2019-04-25] MEDS ORDERED: ASCORBIC ACID500 MG PO (17:52)
[2019-04-25] MEDS ORDERED: Calcium Carbonate PO (17:52)
[2019-04-25] MEDS ORDERED: DIFLUCAN100 MG PO (17:52)
[2019-04-25] MEDS ORDERED: Multivitamins/Minerals PO (17:52)
[2019-04-25] MEDS ORDERED: ZINC SULFATE220 M1 PO (17:52)
[2019-04-25] MEDS ORDERED: MAG-OXIDE400 MG PO (17:52)
--- NOTE | 2019-04-25 17:54 | NUR ---
PT ASKING ONE MOER DOSE OF IV PAIN MEDS PAGED GIORGI ANESTHESIOLOGIST PHYSICIAN TO NOTIFY THAT
[2019-04-25] MEDS ORDERED: DOXYCYCLINE HY100 MG PO (18:15)
[2019-04-25] MEDS ORDERED: DAKIN'S480 ML TOP (18:31)
--- NOTE | 2019-04-25 18:58 | NUR ---
PT WENT HOME IN SAFE CONDITION WITH HER MOTHER SHE REFUSED WHEEL CHAIR WHILE DISCHARGE
--- NOTE | 2019-04-26 08:46 | Discharge Summary ---
CHIEF COMPLAINT: Left index finger wound. PRIMARY CARE PHYSICIAN: Johny Samaniego DO. NEUROLOGIST: Aj Rivero MD. OUTPATIENT MACHINING MANAGER: Dr. Henao. HISTORY OF PRESENT ILLNESS: Ms. Henry is a 48-year-old female admitted to the emergency department with complaints of open wound to the left index finger for two days prior to admission with swelling and sloughing began the night prior to admission after applying hydrogen peroxide to the affected area. The patient reported fever of 101.1 at home. She took one Tylenol No.4 tablet. She stated that she saw a brown recluse spider the week prior to admission when she was cleaning her house. She was seen in the emergency department by the physician and I subsequently saw her in room #206. PAST MEDICAL HISTORY: Crohn disease, hemiplegic migraine with seizure disorder that was diagnosed by Neurology prior to admission, hypertension, stroke with right-sided hemiparesis, right lower lobe pneumonia, and hepatosplenomegaly with portal vein enlargement. PAST SURGICAL HISTORY: Cholecystectomy, 04/16 stomach removed for Crohn's, and two C-sections. FAMILY HISTORY: Father has hypertension and Crohn disease. Maternal grandfather had hypertension, Crohn disease. Mother had hypertension and grandparents had hypertension. SOCIAL HISTORY: The patient smoked two pack per day for 10 years for a total of 20-pack years. She quit 10 years ago. She denies use of alcohol or illicit drugs. ALLERGIES: ALLERGIC TO DEMEROL AND TRAMADOL. ADMITTING DIAGNOSES: 1. Cellulitis of the left index finger, possible brown recluse spider bite. 2. Crohn's flare with abdominal pain, nausea, vomiting with multiple open wounds. 3. Controlled hypertension. 4. History of smoking 20-pack years, history of right lower lobe pneumonia. 5. Mild acute hypokalemia. 6. Possible drug-seeking behavior per request, for Dilaudid 6 mg IV. 7. Transaminitis. DISCHARGE DIAGNOSES: 1. Chronic paronychia of the left index finger with acute cellulitis infection with Streptococcus pyogenes, group A and contact dermatitis caused by hydrogen peroxide, leukocytosis (all POA, present on arrival). 2. Multiple impetigo lesions (from scratching) at face, left ear, abdomen, groin, arms, legs, (all POA, present on arrival). 3. Crohn's flare with abdominal pain, nausea, and vomiting. 4. Controlled hypertension. 5. Addiction to prescription pain medications. 6. Mild acute hypokalemia, improved. 7. History of smoking 20-pack years, history of right lower lobe pneumonia. 8. Methicillin-resistant Staphylococcus aureus of the nares. 9. History of stroke with right-sided hemiparesis. 10. Transaminitis. HOSPITAL COURSE: On admission WBCs 11.8, hemoglobin 10.4, hematocrit 33.4, and platelets 397. Potassium 3.5, BUN 13, and creatinine 0.53. EGFR greater than 60. Total bilirubin 0.2, AST 47, ALT 50, alkaline phosphatase 184, total protein 7.3, and albumin 3.0. On April 22, urine drug screen was positive for urine opiates. Blood cultures x2 were collected on April 21 and showed no growth after 48 hours. The left index finger Gram stain, culture and sensitivity collected on April 22 showed Streptococcus pyogenes group A, colony count was many. MRSA screen of the nares was positive for MRSA. X-ray of the left hand, 3-view showed no evidence of acute fracture or malalignment. Soft tissue edema noted in hand, most pronounced in the thenar eminence and index finger. No radiographic evidence of osteomyelitis. Chest x-ray was done on April 22, no acute cardiopulmonary disease. Consultations included Dr. Ledy Pompa, Dr. See with Pain Management, and Dr. Sierra with Wound Care. Per consultation note with Dr. Sierra, Kash[place]irl[place]an recommended for paronychia of the left index finger and wound care. Clean wound with Dakin's. It was advised to the patient that hydrogen peroxide could worsen the ulcer and was advised to avoid hydrogen peroxide. Per Dr. Pompa's note, he was concerned that there was a component of allergic dermatitis from using peroxide for three days or so prior to arrival. The skin lesions noted in various areas of the body are superficial. The patient is to follow up with the wound care physician. Continue topical Dakin solution. Her nausea and vomiting improved during her stay. Initially, she had requested 6 mg of Dilaudid, which is an excessive amount. She was put on Dilaudid 0.5 mg IV q.6 hours for pain level 7 to 10, [place] 2 tablets q.6 hours p.r.n. for pain level 4 to 6, and Tylenol No.3 one tablet q.4 hours p.r.n. for pain level 1 to 3. This was later changed to Dilaudid 1 mg IV q.4 hours for pain level 7 to 10, [place] 1 tablet p.o. q.6 hours p.r.n. for pain level 4 to 6, and the Tylenol 3 was continued. The patient was seen by Pain Management today April 24 and per the consultation note by ABIGAIL [facility]-certified [facility], verification showed no controlled substances or prescribed since 2018. However, the patient is known to see painting contractor on an outpatient basis already and takes Dilaudid 4 mg orally every 6 hours as needed as well as [place] 10/325 mg p.o. one tablet every 4 hours p.r.n. at home. She has a followup appointment with her outpatient painting contractor, Dr. Henao on April 28. The case was discussed further with Kandi, who spoke directly with Dr. See, her supervising physician. Prescription was sent for outpatient use for [place] 10 mg p.o. one tablet every 6 hours p.r.n. for pain for 5 days per pharmacy. I went to the bedside and spoke with the patient and her mother in the room with Marielle, and with Case Management. The patient was upset, emotional, and crying, wanting to stay another night. I agreed to give her one additional dose of IV Dilaudid 1 mg once, which was administered by our nurse, Gale. The patient understood that she could not be discharged immediately after the Dilaudid. Thus, after the Dilaudid was administered, there were several hours that passed and the patient was discharged and actually left around 7 p.m. in the evening. The patient is to remain on cardiac diet. Activity level as tolerated. Vital signs today; temperature 96.1, heart rate 83, blood pressure 110/82, respirations 22, and oxygen saturation 98%. On April 23, sodium 141, potassium 3.7, chloride 108, CO2 of 30, BUN 9, and creatinine 0.52. EGFR greater than 60. WBCs 9.77, hemoglobin 9.2, hematocrit 30.1, and platelets 352. She has been afebrile for 48 hours. The patient was instructed to follow up with wound care MD as directed. Follow up with PCP, Dr. Johny Samaniego in 1-2 weeks. Follow up with her painting contractor as soon as possible. The patient was seen by wound care during her stay. Dictated by Kraig Peres NP Fernando Ortiz MD HWP/MODL /[id number]
== END 2019-04-25 18:58 | disposition home or self-care (01) | DRG 603 ==
LOC: ER 19:36 → ERHOLD 04-23 03:54 → MED/SURG2 04-23 13:36
PROVIDERS: ADMIT Internal Medicine; ATTEND Internal Medicine
DX: L03.012 Cellulitis of left finger (principal); K50.918 Crohn's disease, unspecified, with other complication; F68.10 Factitious disorder imposed on self, unspecified; F11.20 Opioid dependence, uncomplicated; T63.331A Toxic effect of venom of brown recluse spider, accidental (unintentional), initial encounter; I10 Essential (primary) hypertension; F17.200 Nicotine dependence, unspecified, uncomplicated; E87.6 Hypokalemia; Z76.5 Malingerer [conscious simulation]; L01.09 Other impetigo; L29.8 Other pruritus; L98.1 Factitial dermatitis; G89.29 Other chronic pain; B95.0 Streptococcus, group A, as the cause of diseases classified elsewhere; L98.499 Non-pressure chronic ulcer of skin of other sites with unspecified severity; D50.9 Iron deficiency anemia, unspecified
CPT/HCPCS: 36415; 71045; 80048; 80053; 80307; 83735; 84100; 85025; 87040; 87071; 87081; 87186; 87205; 96365; 99284; J0692; J1170; J2270; J2405; J3370

== ENCOUNTER 2019-12-30 17:34 | Inpatient (IN) | payer SELFPAY ==
[~2019-12-30] VITALS: Ht 177.8 cm; Wt 65.3 kg
[~2019-12-30 17:34] MED LIST changes: +ASCORBIC ACID500 MG PO; +Calcium Carbonate PO; +DAKIN'S480 ML TOP; +DIFLUCAN100 MG PO; +DOXYCYCLINE HY100 MG PO; +MAG-OXIDE400 MG PO; +Multivitamins/Minerals PO; +ZINC SULFATE220 M1 PO
[2019-12-30] MEDS ORDERED: VANCOMYCIN 1GM/NS 250 ML 250 ML IV ONE (17:45)
[2019-12-30] MEDS ORDERED: PIPER-TAZ 3.375 GM 50 ML IV ONE (17:45)
[2019-12-30] MEDS ORDERED: SODIUM CHLORIDE 0.9% 1000ML 1,000 ML IV STA (17:45)
--- OUTSIDE RECORDS SUMMARY | 2019-12-30 18:15 | XMS REPORT | Clinical Summary ---
Author Author [facility] Organization [facility] Address Unknown Phone Unavailable Care Team Providers Care Demand Planning Manager Name Role Phone PCP Unavailable Allergies Comments Active Allergy Reactions Severity Noted Date Meperidine (Pf) Rash, Runny 07/22/2016 Nose, Hallucination s, Palpitations Medications End Date Status Medication Sig Dispensed Refills Start Date Active lisinopril (PRINIVIL, Take 1 tablet 90 tablet 3 ZESTRIL) 40 mg by mouth 7 tabletIndications: daily. Medication refill, HTN, goal below 140/90 Active phenytoin sodium Take 1 270 capsule 3 (DILANTIN) 100 mg capsule by 7 extended release mouth 3 times capsuleIndications: daily. Medication refill, Seizure Active SUMAtriptan (IMITREX) 6 Inject 0.5 mL 4 mL 5 mg/0.5 mL under the 7 injectionIndications: skin daily as Medication refill, needed for Complicated migraine Other (migraine MALIK) Max one over 24 hours. Active sucralfate (CARAFATE) 100 Take 10 mL by 420 mL 3 mg/mL oral mouth 4 times 7 suspensionIndications: daily (before Crohn's disease with meals and other complication nightly). Active hydrOXYzine (ATARAX) 25 Take 1 tablet 60 tablet 3 mg tabletIndications: by mouth 7 PTSD (post-traumatic every 6 hours stress disorder) as needed for Anxiety. Active sertraline (ZOLOFT) 50 mg Take 1 tablet 90 tablet 3 tabletIndications: PTSD by mouth 7 (post-traumatic stress daily. disorder) Active HYDROcodone-acetaminophen Take 1 tablet 60 tablet 0 (NORCO) 10-325 mg by mouth 7 tabletIndications: every 6 hours Medication refill, as needed for Crohn's disease with abdominal other complication Pain Active SUMAtriptan (IMITREX Inject 0.5 mL 4 mL 5 STATDOSE) 6 mg/0.5 mL under the 7 syringe skin daily as needed for Other (migraine MALIK) Max one ml over 24 hours. Active propranolol (INDERAL) 60 Take 1 tablet 180 tablet 3 mg tabletIndications: by mouth 2 7 Medication refill, times daily. Complicated migraine Active dexlansoprazole Take 1 90 capsule 3 (DEXILANT) 60 mg delayed capsule by 7 release mouth daily. capsuleIndications: Medication refill, Crohn's disease with other complication Active Problems Problem Noted Date HTN, goal below 140/90 07/22/2016 Complicated migraine 07/22/2016 Seizure 07/22/2016 Crohn's disease 07/22/2016 PTSD (post-traumatic stress disorder) 07/22/2016 H/O: CVA (cerebrovascular accident) 07/22/2016 Chronic Pain 01/18/2006 Immunizations Name Administration Dates Next Due Tdap Tetanus, diphtheria, 08/19/2016 (Deferred: Tuyet ent Refused) acellular pertussis Vaccine Family History Medical History Relation Name Comments Other Brother Heart Maternal Grandfather Hypertension Maternal Grandmother Hypertension Mother Other Sister Relation Name Status Comments Brother Father Maternal Grandfather Maternal Grandmother Alive Mother Alive Sister Social History Date Tobacco Use Types Packs/Day Years Used Never Smoker Smokeless Tobacco: Never Used Drinks/Week oz/Week Comments Alcohol Use No Food Insecurity Answer Date Recorded Within the past 12 months, you worried that your Often venkata e 07/22/2016 food would run out before you got money to buy more. Within the past 12 months, the food you bought Sometimes t rue 07/22/2016 just didn't last and you didn't have mo louis to get more. Sex Assigned at Date Recorded Not on file Industry Job Start Date Occupation Not on file Not on file Not on file Travel End Travel History Travel Start No recent travel history available. Last Filed Vital Signs Not on file Plan of Treatment Health Maintenance Due Date Last Done Comments HPV Cervical Cancer Scrn 1998 Breast Cancer Scrn 2008 (Yearly) Colorectal Cancer Scrn 2018 Annual (FIT/FOBT) Age 50 to 75 IMM Influenza Seasonal 11/14/2019Nov to April (>/= 19 yrs) Pap Cervical Cancer Scrn 07/22/2020 07/23/2015 (Previously completed - External) Results Not on fileafter 12/29/2018
--- OUTSIDE RECORDS SUMMARY | 2019-12-30 18:16 | XMS REPORT | Continuity of Care Document ---
Author Author [facility] t Organization [facility] Address [address] [place] [address] Phone Unavailable Care Team Providers Care Back Filler Operator Name Role Phone Roberta SAMANIEGO DO PCP ANGELICA ZALDIVAR Atttruongs Unavailable ANGELICA ZALDIVAR Admjud Unavailable Payers Payer Name Policy Type Policy Number Effective Date Expiration Date S [facility] [place] Pending [facility] Problems Condition Name Condition Details Condition Category Status Onset Date Resolution Date Last Treatment Date Treating Clinician Comments Source HTN, goal below 140/90 HTN, goal below 140/90 Disease Active 2016-07-22 00:00:00 [facility] Complicated migraine Complicated migraine Disease Active 00:00:00 [facility] Seizure Seizure Disease Active 2016-07-22 00:00:00 [facility] Crohn's disease Crohn's disease Disease Active 2016-07-22 00:00:00 [facility] PTSD (post-traumatic stress disorder) PTSD (post-traumatic s tress disorder) Disease Active 2016-07-22 00:00:00 [facility] H/O: CVA (cerebrovascular accident) H/O: CVA (cerebrovascular ac cident) Disease Active 2016-07-22 00:00:00 [facility] Chronic Pain Chronic Pain Disease Active 2006-01-18 00:00:00 [facility] Cellulitis Cellulitis Problem Active C [facility] Allergies, Adverse Reactions, Alerts Allergy Name Allergy Type Status Severity Reaction(s) Onset Date Inacti ve Date Treating Clinician Comments Source meperidine DA Active U 2019-10-23 00:00:00 [facility] meperidine DA Active U 2019-06-22 00:00:00 [facility] meperidine DA Active U 2019-02-25 00:00:00 [facility] No Known Drug Allergies DA Active U 2018-05-04 00:00:00 [facility] meperidine DA Active [place] 2018-05-02 00:00:00 [facility] meperidine DA Active [place] 2018-05-01 00:00:00 [facility] meperidine DA Active [place] 2018-03-08 00:00:00 [facility] meperidine DA Active [place] 2016-12-05 00:00:00 [facility] Meperidine (Pf) Propensity to adverse reactions to drug Active Rash, Runny Nose, Hallucinations, Palpitations 2016-07-22 00:00:00 [facility] Meperidine Allergy to Substance Active Mild 2015-10-02 00:00:00 [facility] Tramadol Allergy to Substance Active 2013-09-09 00:00:00 [facility] Family History Family Member Diagnosis Comments Start Date Stop Date Source Natural brother Other Marcell Pimentel al[facility] Maternal grandfather [facility] Maternal grandmother Hypertension [facility] Natural mother Hypertension Marcell Alarcon [facility] Natural sister Other Marcell Mckeon [facility] Social History Social Habit Start Date Stop Date Quantity Comments Source Sex Assigned At [facility] Alcohol intake 2018-07-18 00:00:00 2018-07-18 00:00:00 Current non-drinker of alcohol (finding) [facility] SDOH Food Worry 2016-07-22 00:00:00 2016-07-22 00:00:00 3 [facility] SDOH Food Scarcity 2016-07-22 00:00:00 2016-07-22 00:00:00 2 [facility] Smoking Status Start Date Stop Date Source Never smoker [facility] Medications Ordered Medication Name Filled Medication Name Start Date Stop Da te Current Medication? Ordering Clinician Indication Dosage Frequency Signature (SIG) Comments Components Source Ascorbic Acid 500 Mg Tablet Ascorbic Acid 500 Mg Tablet 2019-04-25 00:00:00 Yes Giorgi [employer]res [employer] 500 Twice A Day [facility] Calcium Carbonate 500 Mg Tab Calcium Carbonate 500 Mg Tab 2019-04-14 2 00:00:00 Yes Giorgi Peres [employer] 500 Three Times A Day [facility] Doxycycline Hyclate 100 Mg Capsule Doxycycline Hyclate 100 M g Capsule 2019-04-25 00:00:00 Yes Giorgi Peres [employer] 100 Every 12 Hours [facility] Fluconazole (Diflucan) 100 Mg Tablet Fluconazole (Diflucan) 100 Mg Tablet 2019-04-25 00:00:00 Yes Giorgi Peres [employer] 100 Daily [facility] Magnesium Oxide (Mag-Oxide) 400 Mg Tablet Magnesium Ox chris (Mag-Oxide) 400 Mg Tablet 2019-04-25 00:00:00 Yes Giorgi Caldwelle [employer] 400 Twice A Day [facility] Multivitamins/Minerals 1 Tab Multivitamins/Minerals 1 Tab 2019-04-14 2 00:00:00 Yes Giorgi Patterson Ja [employer] 1 Daily [facility] Sodium Hypochlorite (Dakin's) 480 Ml Soln Sodium Hypoc hlorite (Dakin's) 480 Ml Soln 2019-04-25 00:00:00 Yes Giorgi Caldwelle [employer] 1 Twice A Day [facility] Zinc Sulfate 220 Mg Capsule Zinc Sulfate 220 Mg Capsule 2019-04-25 00:00:00 Yes Giorgi Peres [employer] 220 Twice A Day [facility] propranolol (INDERAL) 60 mg tablet 2016-08-18 00:00:00 Yes Complicated migraine 60mg Q.5D Take 1 tablet by mouth 2 times daily. [facility] dexlansoprazole (DEXILANT) 60 mg delayed release capsule 2016-08-18 00:00:00 Yes Crohn's disease with other complication 60mg QD Take 1 capsule by mouth daily. [facility] SUMAtriptan (IMITREX STATDOSE) 6 mg/0.5 mL syringe 2016-07 00:00:00 Yes Inject 0.5 mL un bari the skin daily as needed for Other (migraine DICKSON) Max one ml over 24 hours. [facility] HYDROcodone-acetaminophen (NORCO) 10-325 mg tablet 2016-07 00:00:00 Yes Crohn's disease with other complication 1{tbl} Take 1 tablet by mouth every 6 hours as needed for abdominal Pain [facility] lisinopril (PRINIVIL, ZESTRIL) 40 mg tablet 2016-07-22 00:00 :00 Yes HTN, goal below 140/90 40mg QD Take 1 tablet by mouth daily. [facility] phenytoin sodium (DILANTIN) 100 mg extended release capsule 2016-07-22 00:00:00 Yes Seizure 100mg Take 1 capsule by mouth 3 ti mes daily. [facility] SUMAtriptan (IMITREX) 6 mg/0.5 mL injection 2016-07-22 00:00 :00 Yes Complicated migraine 6mg Inject 0.5 mL under the skin daily as needed for Other (migraine DICKSON) Max one over 24 hours. [facility] sucralfate (CARAFATE) 100 mg/mL oral suspension 2016-07-22 0 0:00:00 Yes Crohn's disease with other complication 1000mg Take 10 mL by mouth 4 times daily (before meals and nightly). [facility] hydrOXYzine (ATARAX) 25 mg tablet 2016-07-22 00:00:00 Yes PTSD (post- traumatic stress disorder) 25mg Take 1 tablet by mouth every 6 hours as needed for Anxiety. [facility] sertraline (ZOLOFT) 50 mg tablet 2016-07-22 00:00:00 Yes PTSD (post- traumatic stress disorder) 50mg QD Take 1 tablet by mouth daily. [facility] Alprazolam (Xanax) 0.5 Mg Tablet Alprazolam (Xanax) 0.5 Mg Tablet Yes .5 Twice A Day [facility] Esomeprazole Magnesium (Nexium) 40 Mg Capsule.dr Guerra prazole Magnesium (Nexium) 40 Mg Capsule.dr Wei 40 Twice A Day [facility] Hydrocodone Bit/Acetaminophen ([place] 10-325 Tablet) 1 Each Tablet Hydrocodone Bit/Acetaminophen ([place] 10-325 Tablet) 1 Each Tablet Yes 2 Every 6 Hours as needed for Abdominal Pain [facility] Pantoprazole Sodium (Protonix) 40 Mg Tablet. Pantopr azole Sodium (Protonix) 40 Mg Tablet.dr Wei 40 Twice A Day [facility] Phenytoin Sodium Extended (Dilantin) 100 Mg Capsule Ph enytoin Sodium Extended (Dilantin) 100 Mg Capsule Yes 300 Daily [facility] Propranolol Hcl (Inderal La) 120 Mg Cap.sa.24h Propran olol Hcl (Inderal La) 120 Mg Cap.sa.24h Yes 120 Daily [facility] Sulfasalazine 500 Mg Tab Sulfasalazine 500 Mg Tab Yes 500 Three Times A Day [facility] Sumatriptan Succinate (Imitrex) 6 Mg/0.5 Ml Inj, 6 Mg Injection Sumatriptan Succinate (Imitrex) 6 Mg/0.5 Ml Inj, 6 Mg Injection 2018-11-16 00:0 0:00 No 6 As Needed for Migraine [facility] Alprazolam (Xanax) 0.5 Mg Tablet, 0.5 Mg Oral Alprazol am (Xanax) 0.5 Mg Tablet, 0.5 Mg Oral 2016-01-06 00:00:00 No .5 Twice A Day [facility] Esomeprazole Mag Trihydrate (Nexium) 40 Mg Capsule., 40 Mg Oral Esomeprazole Mag Trihydrate (Nexium) 40 Mg Capsule., 40 Mg Oral 2016-01-06 00: 00:00 No 40 Daily [facility] Hydrocodone Bit/Acetaminophen ([place] 10-325 Tablet) 1 Each Tablet, 1 Each Oral Hydrocodone Bit/Acetaminophen ([place] 10-325 Tablet) 1 Each Tablet, 1 Each Oral 2016-01-06 00:00:00 No 1 As Needed [facility] Infliximab (Remicade) 100 Mg/Vial Vial, Infliximab (Remicade ) 100 Mg/Vial Vial, 2016-01-06 00:00:00 No Every 6 Weeks [facility] Phenytoin Sodium Extended (Dilantin) 100 Mg Capsule, P henytoin Sodium Extended (Dilantin) 100 Mg Capsule, 2016-01-06 00:00:00 No [facility] Propranolol Hcl (Inderal La) 120 Mg Cap.sa.24h, Mg Pr opranolol Hcl (Inderal La) 120 Mg Cap.sa.24h, Mg 2016-01-06 00:00:00 No D aily as needed [facility] Sumatriptan Succinate (Imitrex) 6 Mg/0.5 Ml Pen.ij.kit , 6 Mg Sub-Q Sumatriptan Succinate (Imitrex) 6 Mg/0.5 Ml Pen.ij.kit, 6 Mg Sub-Q 2015-12-16 3 00:00:00 No 6 As Needed [facility] Cefdinir (Omnicef) 300 Mg Capsule, 300 Mg Oral Cefdini r (Omnicef) 300 Mg Capsule, 300 Mg Oral 2015-10-02 00:00:00 No 300 Twi ce A Day [facility] Fentanyl (Duragesic) 1 Each Patch.td72, 1 Patch Topica lly Fentanyl (Duragesic) 1 Each Patch.td72, 1 Patch Topically 2015-10-02 00:00:00 No 1 Q48hrs Prn 100MCG [facility] Gabapentin 100 Mg Capsule, 100 Mg Oral Gabapentin 100 Mg Capsule , 100 Mg Oral 2015-10-02 00:00:00 No 100 Three Times A Day [facility] Gabapentin 100 Mg Capsule, 100 Mg Oral Gabapentin 100 Mg Capsule , 100 Mg Oral 2015-10-02 00:00:00 No 100 Every Evening [facility] Procedures Procedure Date / Time Performed Performing Clinician [facility] e INSERTION OF INFUSION DEV INTO SUP VENA CAVA, PERC APPROACH 2018-11-16 00:00:00 DANN MADRIGAL [facility] Computed tomography of abdomen and pelvis with contrast 2018 00:00:00 NILSON ARMENTA [facility] Plan of Care Planned Activity Planned Date Details Comments Source Future Scheduled Test 2020-07-22 00:00:00 Screening for charity gnant neoplasm of cervix (procedure) [code = 247098809] [facility] Scheduled Test 2019-11-14 00:00:00 IMM Influenza Seas onal Nov to April (>/= 19 yrs) [code = IMM Influenza Seasonal Nov to April (>/= 19 yrs)] [facility] Scheduled Test 2018 00:00:00 Screening for charity gnant neoplasm of colon (procedure) [code = 870937715] [facility] Scheduled Test 2008 00:00:00 Breast Cancer Scrn (Yearly) [code = Breast Cancer Scrn (Yearly)] [facility] Scheduled Test 1998 00:00:00 Screening for charity gnant neoplasm of cervix (procedure) [code = 888117784] [facility] Encounters Start Date/Time End Date/Time Encounter Type Admission Type [facility] Care Department Encounter ID Source 2019-04-23 03:54:00 2019-04-25 18:58:00 Discharged Inpatient 1 ANGELICA ZALDIVAR [facility] [id number] [facility] 2018-11-15 15:37:00 2018-11-19 18:09:00 Discharged Inpatient 1 ANGELICA ZALDIVAR [facility] [id number] [facility] 2017-04-04 00:00:00 2017-04-04 00:00:00 Outpatient [facility] [id number] [facility] 2016-09-01 00:00:00 2016-09-01 00:00:00 Outpatient [facility] [id number] [facility] 2016-08-25 00:00:00 2016-08-25 00:00:00 Outpatient [facility] [id number] [facility] 2016-08-24 00:00:00 2016-08-24 00:00:00 Outpatient [facility] [id number] [facility] 2016-08-23 00:00:00 2016-08-23 00:00:00 Outpatient [facility] [id number] [facility] 2016-08-19 14:09:46 2016-08-19 14:09:46 Outpatient [facility] [id number] [facility] 2016-08-09 14:14:11 2016-08-09 14:14:11 Outpatient [facility] [id number] [facility] 2016-08-09 13:17:53 2016-08-09 13:17:53 Outpatient [facility] [id number] [facility] 2016-08-09 00:00:00 2016-08-09 00:00:00 Outpatient [facility] [id number] [facility] 2016-07-28 00:00:00 2016-07-28 00:00:00 Outpatient [facility] [id number] [facility] 2016-07-22 13:44:29 2016-07-22 13:44:29 Outpatient [facility] [id number] [facility] Results Test Description Test Time Test Comments Results Result Comments Source BASIC METABOLIC PANEL 2019-12-06 16:41:00 Test Item SODIUM (test code = NA) 139 mmol/L 136-145 N POTASSIUM (test code = K) 4.2 mmol/L 3.5-5.1 N CHLORIDE (test code = CL) 102.0 mmol/L 98-107 N CARBON DIOXIDE (test code = CO2) 33.0 mmol/L 21-32 H ANION GAP (test code = GAP) 8.2 10-20 L GLUCOSE (test code = GLU) 92 mg/dL 74-106 N BLOOD UREA NITROGEN (test code = BUN) 12 mg/dL 7-18 N GLOMERULAR FILTRATION RATE (test code = GFR) > 60 mL/min >=60 Estimated GFR by using Modified MDRD formula.Chronic kidney disease is defined as either kidney damageor GFR <60 mL/min/1.73 m2 for >3 months. CREATININE (test code = CREAT) 0.40 mg/dL 0.55-1.02 L Note change in reference range due to change in reagent. BUN/CREATININE RATIO (test code = BUN/CREA) 30.0 10-20 H CALCIUM (test code = CA) 9.1 mg/dL 8.5-10.1 N HEPATIC FUNCTION [id number] 16:41:00* Test Item Value Reference Range Interpretation Comments TOTAL PROTEIN (test code = PROT) 7.5 gram/dL 6.4-8.2 N ALBUMIN (test code = ALB) 2.8 g/dL 3.4-5.0 L GLOBULIN (test code = GLOB) 4.7 gram/dL 2.7-4.2 H ALBUMIN/GLOBULIN RATIO (test code = A/G) 0.6 0.75-1.50 L BILIRUBIN TOTAL (test code = BILT) 0.10 mg/dL 0.0-1.0 N BILIRUBIN DIRECT (test code = BILD) < 0.05 mg/dL 0.0-0.20 N SGOT/AST (test code = AST) 49 IUnit/L 15-37 H SGPT/ALT (test code = ALT) 56 IUnit/L 12-78 N ALKALINE PHOSPHATASE TOTAL (test code = ALKP) 219 IUnit/L 45-117 H Note change in reference range due to change in reagent. [id number] 16:41:00* Test Item Value Reference Range Interpretation Comments LIPASE (test code = LIP) 43 U/L 73.0-393.0 L HCG SERUM [id number] 16:41:00* Test Item Value Reference Range Interpretation Comments HCG SERUM QUAL (test code = HCGQL) NEGATIVE NEGATIVE This HCGQL test is NOT applicable for MALE patients.Check with nurse about probable order error.If Tumor Marker Test needed, nurse should order test "HCGTU"(Test #550.37945) BASIC METABOLIC [id number] 16:22:00* Test Item Value Reference Range Interpretation Comments SODIUM (test code = NA) 139 mmol/L 136-145 N POTASSIUM (test code = K) 4.2 mmol/L 3.5-5.1 N CHLORIDE (test code = CL) 102.0 mmol/L 98-107 N CARBON DIOXIDE (test code = CO2) mmol/L 21-32 ANION GAP (test code = GAP) 10-20 GLUCOSE (test code = GLU) mg/dL 74-106 BLOOD UREA NITROGEN (test code = BUN) mg/dL 7-18 GLOMERULAR FILTRATION RATE (test code = GFR) mL/min >=60 CREATININE (test code = CREAT) mg/dL 0.55-1.02 BUN/CREATININE RATIO (test code = BUN/CREA) 10-20 CALCIUM (test code = CA) mg/dL 8.5-10.1 HEPATIC FUNCTION [id number] 16:22:00* Test Item Value Reference Range Interpretation Comments TOTAL PROTEIN (test code = PROT) gram/dL 6.4-8.2 ALBUMIN (test code = ALB) g/dL 3.4-5.0 GLOBULIN (test code = GLOB) gram/dL 2.7-4.2 ALBUMIN/GLOBULIN RATIO (test code = A/G) 0.75-1.50 BILIRUBIN TOTAL (test code = BILT) mg/dL 0.0-1.0 BILIRUBIN DIRECT (test code = BILD) mg/dL 0.0-0.20 SGOT/AST (test code = AST) IUnit/L 15-37 SGPT/ALT (test code = ALT) IUnit/L 12-78 ALKALINE PHOSPHATASE TOTAL (test code = ALKP) IUnit/L 45-117 [id number] 16:22:00* Test Item Value Reference Range Interpretation Comments LIPASE (test code = LIP) U/L 73.0-393.0 HCG SERUM [id number] 16:22:00* Test Item Value Reference Range Interpretation Comments HCG SERUM QUAL (test code = HCGQL) NEGATIVE NEGATIVE This HCGQL test is NOT applicable for MALE patients.Check with nurse about probable order error.If Tumor Marker Test needed, nurse should order test "HCGTU"(Test #550.33931) BASIC METABOLIC [id number] 16:20:00* Test Item Value Reference Range Interpretation Comments SODIUM (test code = NA) 139 mmol/L 136-145 N POTASSIUM (test code = K) 4.2 mmol/L 3.5-5.1 N CHLORIDE (test code = CL) 102.0 mmol/L 98-107 N CARBON DIOXIDE (test code = CO2) mmol/L 21-32 ANION GAP (test code = GAP) 10-20 GLUCOSE (test code = GLU) mg/dL 74-106 BLOOD UREA NITROGEN (test code = BUN) mg/dL 7-18 GLOMERULAR FILTRATION RATE (test code = GFR) mL/min >=60 CREATININE (test code = CREAT) mg/dL 0.55-1.02 BUN/CREATININE RATIO (test code = BUN/CREA) 10-20 CALCIUM (test code = CA) mg/dL 8.5-10.1 HEPATIC FUNCTION [id number] 16:20:00* Test Item Value Reference Range Interpretation Comments TOTAL PROTEIN (test code = PROT) gram/dL 6.4-8.2 ALBUMIN (test code = ALB) g/dL 3.4-5.0 GLOBULIN (test code = GLOB) gram/dL 2.7-4.2 ALBUMIN/GLOBULIN RATIO (test code = A/G) 0.75-1.50 BILIRUBIN TOTAL (test code = BILT) mg/dL 0.0-1.0 BILIRUBIN DIRECT (test code = BILD) mg/dL 0.0-0.20 SGOT/AST (test code = AST) IUnit/L 15-37 SGPT/ALT (test code = ALT) IUnit/L 12-78 ALKALINE PHOSPHATASE TOTAL (test code = ALKP) IUnit/L 45-117 [id number] 16:20:00* Test Item Value Reference Range Interpretation Comments LIPASE (test code = LIP) U/L 73.0-393.0 HCG SERUM [id number] 16:20:00* Test Item Value Reference Range Interpretation Comments HCG SERUM QUAL (test code = HCGQL) NEGATIVE CBC W/O [id number] 16:12:00* Test Item Value Reference Range Interpretation Comments WHITE BLOOD CELL (test code = WBC) 11.0 K/mm3 4.5-12.5 N RED BLOOD CELL (test code = RBC) 4.20 mill/mm3 3.7-5.2 N HEMOGLOBIN (test code = HGB) 9.9 gram/dL 11.5-15.5 L HEMATOCRIT (test code = HCT) 33.1 % 36.0-46.0 L MEAN CELL VOLUME (test code = MCV) 78.8 fL 80-98 L MEAN CELL HGB (test code = MCH) 23.6 picogram 27.0-33.0 L MEAN CELL HGB CONCETRATION (test code = MCHC) 29.9 gram/dL 33.0-36. 0 L RED CELL DISTRIBUTION WIDTH (test code = RDW) 18.1 % 11.6-16. 2 H PLATELET COUNT (test code = PLT) 293 K/mm3 150-450 N MEAN PLATELET VOLUME (test code = MPV) 9.5 fL 6.7-11.0 N BASIC METABOLIC [id number] 05:29:00* Test Item Value Reference Range Interpretation Comments SODIUM (test code = NA) 140 mmol/L 136-145 N POTASSIUM (test code = K) 4.1 mmol/L 3.5-5.1 N CHLORIDE (test code = CL) 107.0 mmol/L 98-107 N CARBON DIOXIDE (test code = CO2) 28.0 mmol/L 21-32 N ANION GAP (test code = GAP) 9.1 10-20 L GLUCOSE (test code = GLU) 107 mg/dL 74-106 H BLOOD UREA NITROGEN (test code = BUN) 4 mg/dL 7-18 L GLOMERULAR FILTRATION RATE (test code = GFR) > 60 mL/min >=60 Estimated GFR by using Modified MDRD formula.Chronic kidney disease is defined as either kidney damageor GFR <60 mL/min/1.73 m2 for >3 months. CREATININE (test code = CREAT) 0.50 mg/dL 0.55-1.02 L Note change in reference range due to change in reagent. BUN/CREATININE RATIO (test code = BUN/CREA) 8.0 10-20 L CALCIUM (test code = CA) 8.9 mg/dL 8.5-10.1 N BASIC METABOLIC [id number] 05:25:00* Test Item Value Reference Range Interpretation Comments SODIUM (test code = NA) 140 mmol/L 136-145 N POTASSIUM (test code = K) 4.1 mmol/L 3.5-5.1 N CHLORIDE (test code = CL) 107.0 mmol/L 98-107 N CARBON DIOXIDE (test code = CO2) mmol/L 21-32 ANION GAP (test code = GAP) 10-20 GLUCOSE (test code = GLU) mg/dL 74-106 BLOOD UREA NITROGEN (test code = BUN) mg/dL 7-18 GLOMERULAR FILTRATION RATE (test code = GFR) mL/min >=60 CREATININE (test code = CREAT) mg/dL 0.55-1.02 BUN/CREATININE RATIO (test code = BUN/CREA) 10-20 CALCIUM (test code = CA) 8.9 mg/dL 8.5-10.1 N CBC W/AUTO [id number] 05:23:00* Test Item Value Reference Range Interpretation Comments WHITE BLOOD CELL (test code = WBC) 7.3 K/mm3 4.5-12.5 N RED BLOOD CELL (test code = RBC) 4.11 mill/mm3 3.7-5.2 N HEMOGLOBIN (test code = HGB) 9.3 gram/dL 11.5-15.5 L HEMATOCRIT (test code = HCT) 31.4 % 36.0-46.0 L MEAN CELL VOLUME (test code = MCV) 76.4 fL 80-98 L MEAN CELL HGB (test code = MCH) 22.6 picogram 27.0-33.0 L MEAN CELL HGB CONCETRATION (test code = MCHC) 29.6 gram/dL 33.0-36. 0 L RED CELL DISTRIBUTION WIDTH (test code = RDW) 17.6 % 11.6-16. 2 H RED CELL DISTRIBUTION WIDTH SD (test code = RDW-SD) 47.5 fL 37 .0-51.0 N PLATELET COUNT (test code = PLT) 332 K/mm3 150-450 N MEAN PLATELET VOLUME (test code = MPV) 9.6 fL 6.7-11.0 N NEUTROPHIL % (test code = NT%) 64.4 % 39.0-69.0 N IMMATURE GRANULOCYTE % (test code = IG%) 1.0 % 0.0-5.0 N LYMPHOCYTE % (test code = LY%) 23.3 % 25.0-55.0 L MONOCYTE % (test code = MO%) 8.1 % 0.0-10.0 N EOSINOPHIL % (test code = EO%) 2.8 % 0.0-5.0 N BASOPHIL % (test code = BA%) 0.4 % 0.0-1.0 N NUCLEATED RBC % (test code = NRBC%) 0.0 % 0-0 N NEUTROPHIL # (test code = NT#) 4.67 K/mm3 1.8-7.7 N IMMATURE GRANULOCYTE # (test code = IG#) 0.07 x10 3/uL 0-0.03 H LYMPHOCYTE # (test code = LY#) 1.69 K/mm3 1.0-5.0 N MONOCYTE # (test code = MO#) 0.59 K/mm3 0-0.8 N EOSINOPHIL # (test code = EO#) 0.20 K/mm3 0.0-0.5 N BASOPHIL # (test code = BA#) 0.03 K/mm3 0.0-0.2 N NUCLEATED RBC # (test code = NRBC#) 0.00 K/mm3 0.0-0.1 N MANUAL DIFF REQUIRED (test code = MDIFF) NO, ONLY SCAN NEEDED DIFFERENTIAL [id number] 05:23:00* Test Item Value Reference Range Interpretation Comments STAIN ACCEPTABILITY (test code = STN ACCEPTABLE) STAIN ACCEPTABLE POLYCHROMASIA (test code = POLC) 1+ POIKILOCYTOSIS (test code = POIK) 1+ ANISOCYTOSIS (test code = ANISO) 1+ MICROCYTOSIS (test code = MICR) 1+ OVALOCYTES (test code = OVAL) 1+ MORPHOLOGY COMMENT (test code = MOC) TEST NOT PERFORMED PLATELET ESTIMATE (test code = PLTEST) ADEQUATE PLATELET MORPHOLOGY (test code = PLTMORPH) NORMAL CBC W/AUTO [id number] 04:56:00* Test Item Value Reference Range Interpretation Comments WHITE BLOOD CELL (test code = WBC) 7.3 K/mm3 4.5-12.5 N RED BLOOD CELL (test code = RBC) 4.11 mill/mm3 3.7-5.2 N HEMOGLOBIN (test code = HGB) 9.3 gram/dL 11.5-15.5 L HEMATOCRIT (test code = HCT) 31.4 % 36.0-46.0 L MEAN CELL VOLUME (test code = MCV) 76.4 fL 80-98 L MEAN CELL HGB (test code = MCH) 22.6 picogram 27.0-33.0 L MEAN CELL HGB CONCETRATION (test code = MCHC) 29.6 gram/dL 33.0-36. 0 L RED CELL DISTRIBUTION WIDTH (test code = RDW) 17.6 % 11.6-16. 2 H RED CELL DISTRIBUTION WIDTH SD (test code = RDW-SD) 47.5 fL 37 .0-51.0 N PLATELET COUNT (test code = PLT) 332 K/mm3 150-450 N MEAN PLATELET VOLUME (test code = MPV) 9.6 fL 6.7-11.0 N NEUTROPHIL % (test code = NT%) 64.4 % 39.0-69.0 N IMMATURE GRANULOCYTE % (test code = IG%) 1.0 % 0.0-5.0 N LYMPHOCYTE % (test code = LY%) 23.3 % 25.0-55.0 L MONOCYTE % (test code = MO%) 8.1 % 0.0-10.0 N EOSINOPHIL % (test code = EO%) 2.8 % 0.0-5.0 N BASOPHIL % (test code = BA%) 0.4 % 0.0-1.0 N NUCLEATED RBC % (test code = NRBC%) 0.0 % 0-0 N NEUTROPHIL # (test code = NT#) 4.67 K/mm3 1.8-7.7 N IMMATURE GRANULOCYTE # (test code = IG#) 0.07 x10 3/uL 0-0.03 H LYMPHOCYTE # (test code = LY#) 1.69 K/mm3 1.0-5.0 N MONOCYTE # (test code = MO#) 0.59 K/mm3 0-0.8 N EOSINOPHIL # (test code = EO#) 0.20 K/mm3 0.0-0.5 N BASOPHIL # (test code = BA#) 0.03 K/mm3 0.0-0.2 N NUCLEATED RBC # (test code = NRBC#) 0.00 K/mm3 0.0-0.1 N MANUAL DIFF REQUIRED (test code = MDIFF) NO, ONLY SCAN NEEDED DIFFERENTIAL [id number] 04:56:00* Test Item Value Reference Range Interpretation Comments STAIN ACCEPTABILITY (test code = STN ACCEPTABLE) CABOT RINGS (test code = CAB) MORPHOLOGY COMMENT (test code = MOC) PLATELET ESTIMATE (test code = PLTEST) PLATELET MORPHOLOGY (test code = PLTMORPH) CBC W/AUTO [id number] 04:56:00* Test Item Value Reference Range Interpretation Comments WHITE BLOOD CELL (test code = WBC) 7.3 K/mm3 4.5-12.5 N RED BLOOD CELL (test code = RBC) 4.11 mill/mm3 3.7-5.2 N HEMOGLOBIN (test code = HGB) 9.3 gram/dL 11.5-15.5 L HEMATOCRIT (test code = HCT) 31.4 % 36.0-46.0 L MEAN CELL VOLUME (test code = MCV) 76.4 fL 80-98 L MEAN CELL HGB (test code = MCH) 22.6 picogram 27.0-33.0 L MEAN CELL HGB CONCETRATION (test code = MCHC) 29.6 gram/dL 33.0-36. 0 L RED CELL DISTRIBUTION WIDTH (test code = RDW) 17.6 % 11.6-16. 2 H RED CELL DISTRIBUTION WIDTH SD (test code = RDW-SD) 47.5 fL 37 .0-51.0 N PLATELET COUNT (test code = PLT) 332 K/mm3 150-450 N MEAN PLATELET VOLUME (test code = MPV) 9.6 fL 6.7-11.0 N NEUTROPHIL % (test code = NT%) 64.4 % 39.0-69.0 N IMMATURE GRANULOCYTE % (test code = IG%) 1.0 % 0.0-5.0 N LYMPHOCYTE % (test code = LY%) 23.3 % 25.0-55.0 L MONOCYTE % (test code = MO%) 8.1 % 0.0-10.0 N EOSINOPHIL % (test code = EO%) 2.8 % 0.0-5.0 N BASOPHIL % (test code = BA%) 0.4 % 0.0-1.0 N NUCLEATED RBC % (test code = NRBC%) 0.0 % 0-0 N NEUTROPHIL # (test code = NT#) 4.67 K/mm3 1.8-7.7 N IMMATURE GRANULOCYTE # (test code = IG#) 0.07 x10 3/uL 0-0.03 H LYMPHOCYTE # (test code = LY#) 1.69 K/mm3 1.0-5.0 N MONOCYTE # (test code = MO#) 0.59 K/mm3 0-0.8 N EOSINOPHIL # (test code = EO#) 0.20 K/mm3 0.0-0.5 N BASOPHIL # (test code = BA#) 0.03 K/mm3 0.0-0.2 N NUCLEATED RBC # (test code = NRBC#) 0.00 K/mm3 0.0-0.1 N MANUAL DIFF REQUIRED (test code = MDIFF) NO, ONLY SCAN NEEDED DIFFERENTIAL [id number] 04:56:00* Test Item Value Reference Range Interpretation Comments STAIN ACCEPTABILITY (test code = STN ACCEPTABLE) MORPHOLOGY COMMENT (test code = MOC) PLATELET ESTIMATE (test code = PLTEST) PLATELET MORPHOLOGY (test code = PLTMORPH) CBC W/AUTO [id number] 04:55:00* Test Item Value Reference Range Interpretation Comments WHITE BLOOD CELL (test code = WBC) 7.3 K/mm3 4.5-12.5 N RED BLOOD CELL (test code = RBC) 4.11 mill/mm3 3.7-5.2 N HEMOGLOBIN (test code = HGB) 9.3 gram/dL 11.5-15.5 L HEMATOCRIT (test code = HCT) 31.4 % 36.0-46.0 L MEAN CELL VOLUME (test code = MCV) 76.4 fL 80-98 L MEAN CELL HGB (test code = MCH) 22.6 picogram 27.0-33.0 L MEAN CELL HGB CONCETRATION (test code = MCHC) 29.6 gram/dL 33.0-36. 0 L RED CELL DISTRIBUTION WIDTH (test code = RDW) 17.6 % 11.6-16. 2 H RED CELL DISTRIBUTION WIDTH SD (test code = RDW-SD) 47.5 fL 37 .0-51.0 N PLATELET COUNT (test code = PLT) 332 K/mm3 150-450 N MEAN PLATELET VOLUME (test code = MPV) 9.6 fL 6.7-11.0 N NEUTROPHIL % (test code = NT%) 64.4 % 39.0-69.0 N IMMATURE GRANULOCYTE % (test code = IG%) 1.0 % 0.0-5.0 N LYMPHOCYTE % (test code = LY%) 23.3 % 25.0-55.0 L MONOCYTE % (test code = MO%) 8.1 % 0.0-10.0 N EOSINOPHIL % (test code = EO%) 2.8 % 0.0-5.0 N BASOPHIL % (test code = BA%) 0.4 % 0.0-1.0 N NUCLEATED RBC % (test code = NRBC%) 0.0 % 0-0 N NEUTROPHIL # (test code = NT#) 4.67 K/mm3 1.8-7.7 N IMMATURE GRANULOCYTE # (test code = IG#) 0.07 x10 3/uL 0-0.03 H LYMPHOCYTE # (test code = LY#) 1.69 K/mm3 1.0-5.0 N MONOCYTE # (test code = MO#) 0.59 K/mm3 0-0.8 N EOSINOPHIL # (test code = EO#) 0.20 K/mm3 0.0-0.5 N BASOPHIL # (test code = BA#) 0.03 K/mm3 0.0-0.2 N NUCLEATED RBC # (test code = NRBC#) 0.00 K/mm3 0.0-0.1 N MANUAL DIFF REQUIRED (test code = MDIFF) NO, ONLY SCAN NEEDED DIFFERENTIAL [id number] 04:55:00* Test Item Value Reference Range Interpretation Comments STAIN ACCEPTABILITY (test code = STN ACCEPTABLE) CABOT RINGS (test code = CAB) MORPHOLOGY COMMENT (test code = MOC) PLATELET ESTIMATE (test code = PLTEST) PLATELET MORPHOLOGY (test code = PLTMORPH) CBC W/AUTO [id number] 04:55:00* Test Item Value Reference Range Interpretation Comments WHITE BLOOD CELL (test code = WBC) 7.3 K/mm3 4.5-12.5 N RED BLOOD CELL (test code = RBC) 4.11 mill/mm3 3.7-5.2 N HEMOGLOBIN (test code = HGB) 9.3 gram/dL 11.5-15.5 L HEMATOCRIT (test code = HCT) 31.4 % 36.0-46.0 L MEAN CELL VOLUME (test code = MCV) 76.4 fL 80-98 L MEAN CELL HGB (test code = MCH) 22.6 picogram 27.0-33.0 L MEAN CELL HGB CONCETRATION (test code = MCHC) 29.6 gram/dL 33.0-36. 0 L RED CELL DISTRIBUTION WIDTH (test code = RDW) 17.6 % 11.6-16. 2 H RED CELL DISTRIBUTION WIDTH SD (test code = RDW-SD) 47.5 fL 37 .0-51.0 N PLATELET COUNT (test code = PLT) 332 K/mm3 150-450 N MEAN PLATELET VOLUME (test code = MPV) 9.6 fL 6.7-11.0 N NEUTROPHIL % (test code = NT%) 64.4 % 39.0-69.0 N IMMATURE GRANULOCYTE % (test code = IG%) 1.0 % 0.0-5.0 N LYMPHOCYTE % (test code = LY%) 23.3 % 25.0-55.0 L MONOCYTE % (test code = MO%) 8.1 % 0.0-10.0 N EOSINOPHIL % (test code = EO%) 2.8 % 0.0-5.0 N BASOPHIL % (test code = BA%) 0.4 % 0.0-1.0 N NUCLEATED RBC % (test code = NRBC%) 0.0 % 0-0 N NEUTROPHIL # (test code = NT#) 4.67 K/mm3 1.8-7.7 N IMMATURE GRANULOCYTE # (test code = IG#) 0.07 x10 3/uL 0-0.03 H LYMPHOCYTE # (test code = LY#) 1.69 K/mm3 1.0-5.0 N MONOCYTE # (test code = MO#) 0.59 K/mm3 0-0.8 N EOSINOPHIL # (test code = EO#) 0.20 K/mm3 0.0-0.5 N BASOPHIL # (test code = BA#) 0.03 K/mm3 0.0-0.2 N NUCLEATED RBC # (test code = NRBC#) 0.00 K/mm3 0.0-0.1 N MANUAL DIFF REQUIRED (test code = MDIFF) NO, ONLY SCAN NEEDED DIFFERENTIAL [id number] 04:55:00* Test Item Value Reference Range Interpretation Comments STAIN ACCEPTABILITY (test code = STN ACCEPTABLE) CABOT RINGS (test code = CAB) MORPHOLOGY COMMENT (test code = MOC) PLATELET ESTIMATE (test code = PLTEST) PLATELET MORPHOLOGY (test code = PLTMORPH) FE W/TOTAL IRON BINDING CAP.2019-10-27 14:08:00* Test Item Value Reference Range Interpretation Comments SERUM IRON (test code = IRON) 34 ug/dL 50-175 L TOTAL IRON BINDING CAPACITY (test code = TIBC) 419 mcg/dL 250-450 N IRON SATURATION (test code = FESAT) 8.11 % 13-45 L [id number] 14:08:00* Test Item Value Reference Range Interpretation Comments TRANSFERRRIN (test code = TRANSF) 322 mg/dL 192-364 Performed At: [facility] [id number] Eduardo MD Ph:[phone] DILANTIN (PHENYTOIN)2019-10-27 05:42:00* Test Item Value Reference Range Interpretation Comments DILANTIN (PHENYTOIN) (test code = DIL) 8.2 ug/mL 10.0-20.0 L C REACTIVE [id number] 05:40:00* Test Item Value Reference Range Interpretation Comments C REACTIVE PROTEIN (test code = CRP) <0.29 mg/dL 0-0.3 N BASIC METABOLIC [id number] 05:56:00* Test Item Value Reference Range Interpretation Comments SODIUM (test code = NA) 139 mmol/L 136-145 N POTASSIUM (test code = K) 3.7 mmol/L 3.5-5.1 N CHLORIDE (test code = CL) 110.0 mmol/L 98-107 H CARBON DIOXIDE (test code = CO2) 22.0 mmol/L 21-32 N ANION GAP (test code = GAP) 10.7 10-20 N GLUCOSE (test code = GLU) 92 mg/dL 74-106 N BLOOD UREA NITROGEN (test code = BUN) < 1 mg/dL 7-18 L GLOMERULAR FILTRATION RATE (test code = GFR) > 60 mL/min >=60 Estimated GFR by using Modified MDRD formula.Chronic kidney disease is defined as either kidney damageor GFR <60 mL/min/1.73 m2 for >3 months. CREATININE (test code = CREAT) 0.50 mg/dL 0.55-1.02 L Note change in reference range due to change in reagent. BUN/CREATININE RATIO (test code = BUN/CREA) 2.0 10-20 L CALCIUM (test code = CA) 8.6 mg/dL 8.5-10.1 N DILANTIN (PHENYTOIN)2019-10-26 05:56:00* Test Item Value Reference Range Interpretation Comments DILANTIN (PHENYTOIN) (test code = DIL) 5.7 ug/mL 10.0-20.0 L BASIC METABOLIC [id number] 05:45:00* Test Item Value Reference Range Interpretation Comments SODIUM (test code = NA) 139 mmol/L 136-145 N POTASSIUM (test code = K) 3.7 mmol/L 3.5-5.1 N CHLORIDE (test code = CL) 110.0 mmol/L 98-107 H CARBON DIOXIDE (test code = CO2) mmol/L 21-32 ANION GAP (test code = GAP) 10-20 GLUCOSE (test code = GLU) mg/dL 74-106 BLOOD UREA NITROGEN (test code = BUN) mg/dL 7-18 GLOMERULAR FILTRATION RATE (test code = GFR) mL/min >=60 CREATININE (test code = CREAT) mg/dL 0.55-1.02 BUN/CREATININE RATIO (test code = BUN/CREA) 10-20 CALCIUM (test code = CA) mg/dL 8.5-10.1 DILANTIN (PHENYTOIN)2019-10-26 05:45:00* Test Item Value Reference Range Interpretation Comments DILANTIN (PHENYTOIN) (test code = DIL) ug/mL 10.0-20.0 VITAMIN [id number] 07:21:00* Test Item Value Reference Range Interpretation Comments VITAMIN B12 (test code = VITB12) 341 pg/mL 193-986 N FOLIC [id number] 07:21:00* Test Item Value Reference Range Interpretation Comments FOLIC ACID (test code = FOL) 12.6 ng/mL 3.10-17.50 N FE W/TOTAL IRON BINDING CAP.2019-10-25 05:35:00* Test Item Value Reference Range Interpretation Comments SERUM IRON (test code = IRON) 34 ug/dL 50-175 L TOTAL IRON BINDING CAPACITY (test code = TIBC) 419 mcg/dL 250-450 N IRON SATURATION (test code = FESAT) 8.11 % 13-45 L [id number] 05:35:00* Test Item Value Reference Range Interpretation Comments TRANSFERRRIN (test code = TRANSF) mg/dL 200-370 BASIC METABOLIC [id number] 05:34:00* Test Item Value Reference Range Interpretation Comments SODIUM (test code = NA) 142 mmol/L 136-145 N POTASSIUM (test code = K) 3.3 mmol/L 3.5-5.1 L CHLORIDE (test code = CL) 107.0 mmol/L 98-107 N CARBON DIOXIDE (test code = CO2) 28.0 mmol/L 21-32 N ANION GAP (test code = GAP) 10.3 10-20 N GLUCOSE (test code = GLU) 107 mg/dL 74-106 H BLOOD UREA NITROGEN (test code = BUN) 1 mg/dL 7-18 L GLOMERULAR FILTRATION RATE (test code = GFR) > 60 mL/min >=60 Estimated GFR by using Modified MDRD formula.Chronic kidney disease is defined as either kidney damageor GFR <60 mL/min/1.73 m2 for >3 months. CREATININE (test code = CREAT) 0.50 mg/dL 0.55-1.02 L Note change in reference range due to change in reagent. BUN/CREATININE RATIO (test code = BUN/CREA) 2.2 10-20 L CALCIUM (test code = CA) 8.9 mg/dL 8.5-10.1 N DILANTIN (PHENYTOIN)2019-10-25 05:34:00* Test Item Value Reference Range Interpretation Comments DILANTIN (PHENYTOIN) (test code = DIL) 5.3 ug/mL 10.0-20.0 L RETICULOCYTE [id number] 04:29:00* Test Item Value Reference Range Interpretation Comments RETICULOCYTE COUNT (test code = RETICT) 2.12 % 0.5-2.0 H RETIC COUNT ABSOLUTE (test code = RET#) 0.089 mill/mm3 0.016-0.095 N IMMATURE RETICULOCYTE FRACTION (test code = IRF) 19.6 % 3.0-1 5.9 H Values above normal range indicate an increase in RBCcellular response from bone marrow. RETICULOCYTE HGB EQUIVALENT (test code = RETHE) 24.0 pg 28.2-3 5.7 L RET-He is a direct estimate of recent functionalavailability of iron in the cell, therefore, decreasedRET-He is indicative of iron deficiency. CBC W/AUTO [id number] 06:51:00* Test Item Value Reference Range Interpretation Comments WHITE BLOOD CELL (test code = WBC) 8.2 K/mm3 4.5-12.5 N RED BLOOD CELL (test code = RBC) 4.24 mill/mm3 3.7-5.2 N HEMOGLOBIN (test code = HGB) 9.5 gram/dL 11.5-15.5 L HEMATOCRIT (test code = HCT) 32.3 % 36.0-46.0 L MEAN CELL VOLUME (test code = MCV) 76.2 fL 80-98 L MEAN CELL HGB (test code = MCH) 22.4 picogram 27.0-33.0 L MEAN CELL HGB CONCETRATION (test code = MCHC) 29.4 gram/dL 33.0-36. 0 L RED CELL DISTRIBUTION WIDTH (test code = RDW) 17.3 % 11.6-16. 2 H RED CELL DISTRIBUTION WIDTH SD (test code = RDW-SD) 47.4 fL 37 .0-51.0 N PLATELET COUNT (test code = PLT) 354 K/mm3 150-450 N MEAN PLATELET VOLUME (test code = MPV) 10.1 fL 6.7-11.0 N NEUTROPHIL % (test code = NT%) 71.0 % 39.0-69.0 H IMMATURE GRANULOCYTE % (test code = IG%) 0.6 % 0.0-5.0 N LYMPHOCYTE % (test code = LY%) 22.0 % 25.0-55.0 L MONOCYTE % (test code = MO%) 6.0 % 0.0-10.0 N EOSINOPHIL % (test code = EO%) 0.0 % 0.0-5.0 N BASOPHIL % (test code = BA%) 0.4 % 0.0-1.0 N NUCLEATED RBC % (test code = NRBC%) 0.0 % 0-0 N NEUTROPHIL # (test code = NT#) 5.83 K/mm3 1.8-7.7 N IMMATURE GRANULOCYTE # (test code = IG#) 0.05 x10 3/uL 0-0.03 H LYMPHOCYTE # (test code = LY#) 1.81 K/mm3 1.0-5.0 N MONOCYTE # (test code = MO#) 0.49 K/mm3 0-0.8 N EOSINOPHIL # (test code = EO#) 0.00 K/mm3 0.0-0.5 N BASOPHIL # (test code = BA#) 0.03 K/mm3 0.0-0.2 N NUCLEATED RBC # (test code = NRBC#) 0.00 K/mm3 0.0-0.1 N MANUAL DIFF REQUIRED (test code = MDIFF) NO, ONLY SCAN NEEDED DIFFERENTIAL [id number] 06:51:00* Test Item Value Reference Range Interpretation Comments STAIN ACCEPTABILITY (test code = STN ACCEPTABLE) STAIN ACCEPTABLE POLYCHROMASIA (test code = POLC) 1+ POIKILOCYTOSIS (test code = POIK) 2+ ANISOCYTOSIS (test code = ANISO) 2+ SONIA CELLS (test code = SONIA) 1+ NONE OVALOCYTES (test code = OVAL) 1+ MORPHOLOGY COMMENT (test code = MOC) TEST NOT PERFORMED PLATELET ESTIMATE (test code = PLTEST) ADEQUATE PLATELET MORPHOLOGY (test code = PLTMORPH) NORMAL BASIC METABOLIC [id number] 06:07:00* Test Item Value Reference Range Interpretation Comments SODIUM (test code = NA) 142 mmol/L 136-145 N POTASSIUM (test code = K) 3.6 mmol/L 3.5-5.1 N CHLORIDE (test code = CL) 109.0 mmol/L 98-107 H CARBON DIOXIDE (test code = CO2) 25.0 mmol/L 21-32 N ANION GAP (test code = GAP) 11.6 10-20 N GLUCOSE (test code = GLU) 94 mg/dL 74-106 N BLOOD UREA NITROGEN (test code = BUN) 5 mg/dL 7-18 L GLOMERULAR FILTRATION RATE (test code = GFR) > 60 mL/min >=60 Estimated GFR by using Modified MDRD formula.Chronic kidney disease is defined as either kidney damageor GFR <60 mL/min/1.73 m2 for >3 months. CREATININE (test code = CREAT) 0.50 mg/dL 0.55-1.02 L Note change in reference range due to change in reagent. BUN/CREATININE RATIO (test code = BUN/CREA) 10.9 10-20 N CALCIUM (test code = CA) 9.1 mg/dL 8.5-10.1 N DILANTIN (PHENYTOIN)2019-10-24 06:07:00* Test Item Value Reference Range Interpretation Comments DILANTIN (PHENYTOIN) (test code = DIL) 4.8 ug/mL 10.0-20.0 L CBC W/AUTO [id number] 05:51:00* Test Item Value Reference Range Interpretation Comments WHITE BLOOD CELL (test code = WBC) 8.2 K/mm3 4.5-12.5 N RED BLOOD CELL (test code = RBC) 4.24 mill/mm3 3.7-5.2 N HEMOGLOBIN (test code = HGB) 9.5 gram/dL 11.5-15.5 L HEMATOCRIT (test code = HCT) 32.3 % 36.0-46.0 L MEAN CELL VOLUME (test code = MCV) 76.2 fL 80-98 L MEAN CELL HGB (test code = MCH) 22.4 picogram 27.0-33.0 L MEAN CELL HGB CONCETRATION (test code = MCHC) 29.4 gram/dL 33.0-36. 0 L RED CELL DISTRIBUTION WIDTH (test code = RDW) 17.3 % 11.6-16. 2 H RED CELL DISTRIBUTION WIDTH SD (test code = RDW-SD) 47.4 fL 37 .0-51.0 N PLATELET COUNT (test code = PLT) 354 K/mm3 150-450 N MEAN PLATELET VOLUME (test code = MPV) 10.1 fL 6.7-11.0 N NEUTROPHIL % (test code = NT%) 71.0 % 39.0-69.0 H IMMATURE GRANULOCYTE % (test code = IG%) 0.6 % 0.0-5.0 N LYMPHOCYTE % (test code = LY%) 22.0 % 25.0-55.0 L MONOCYTE % (test code = MO%) 6.0 % 0.0-10.0 N EOSINOPHIL % (test code = EO%) 0.0 % 0.0-5.0 N BASOPHIL % (test code = BA%) 0.4 % 0.0-1.0 N NUCLEATED RBC % (test code = NRBC%) 0.0 % 0-0 N NEUTROPHIL # (test code = NT#) 5.83 K/mm3 1.8-7.7 N IMMATURE GRANULOCYTE # (test code = IG#) 0.05 x10 3/uL 0-0.03 H LYMPHOCYTE # (test code = LY#) 1.81 K/mm3 1.0-5.0 N MONOCYTE # (test code = MO#) 0.49 K/mm3 0-0.8 N EOSINOPHIL # (test code = EO#) 0.00 K/mm3 0.0-0.5 N BASOPHIL # (test code = BA#) 0.03 K/mm3 0.0-0.2 N NUCLEATED RBC # (test code = NRBC#) 0.00 K/mm3 0.0-0.1 N MANUAL DIFF REQUIRED (test code = MDIFF) NO, ONLY SCAN NEEDED DIFFERENTIAL [id number] 05:51:00* Test Item Value Reference Range Interpretation Comments STAIN ACCEPTABILITY (test code = STN ACCEPTABLE) CABOT RINGS (test code = CAB) MORPHOLOGY COMMENT (test code = MOC) PLATELET ESTIMATE (test code = PLTEST) PLATELET MORPHOLOGY (test code = PLTMORPH) CBC W/AUTO [id number] 05:51:00* Test Item Value Reference Range Interpretation Comments WHITE BLOOD CELL (test code = WBC) 8.2 K/mm3 4.5-12.5 N RED BLOOD CELL (test code = RBC) 4.24 mill/mm3 3.7-5.2 N HEMOGLOBIN (test code = HGB) 9.5 gram/dL 11.5-15.5 L HEMATOCRIT (test code = HCT) 32.3 % 36.0-46.0 L MEAN CELL VOLUME (test code = MCV) 76.2 fL 80-98 L MEAN CELL HGB (test code = MCH) 22.4 picogram 27.0-33.0 L MEAN CELL HGB CONCETRATION (test code = MCHC) 29.4 gram/dL 33.0-36. 0 L RED CELL DISTRIBUTION WIDTH (test code = RDW) 17.3 % 11.6-16. 2 H RED CELL DISTRIBUTION WIDTH SD (test code = RDW-SD) 47.4 fL 37 .0-51.0 N PLATELET COUNT (test code = PLT) 354 K/mm3 150-450 N MEAN PLATELET VOLUME (test code = MPV) 10.1 fL 6.7-11.0 N NEUTROPHIL % (test code = NT%) 71.0 % 39.0-69.0 H IMMATURE GRANULOCYTE % (test code = IG%) 0.6 % 0.0-5.0 N LYMPHOCYTE % (test code = LY%) 22.0 % 25.0-55.0 L MONOCYTE % (test code = MO%) 6.0 % 0.0-10.0 N EOSINOPHIL % (test code = EO%) 0.0 % 0.0-5.0 N BASOPHIL % (test code = BA%) 0.4 % 0.0-1.0 N NUCLEATED RBC % (test code = NRBC%) 0.0 % 0-0 N NEUTROPHIL # (test code = NT#) 5.83 K/mm3 1.8-7.7 N IMMATURE GRANULOCYTE # (test code = IG#) 0.05 x10 3/uL 0-0.03 H LYMPHOCYTE # (test code = LY#) 1.81 K/mm3 1.0-5.0 N MONOCYTE # (test code = MO#) 0.49 K/mm3 0-0.8 N EOSINOPHIL # (test code = EO#) 0.00 K/mm3 0.0-0.5 N BASOPHIL # (test code = BA#) 0.03 K/mm3 0.0-0.2 N NUCLEATED RBC # (test code = NRBC#) 0.00 K/mm3 0.0-0.1 N MANUAL DIFF REQUIRED (test code = MDIFF) NO, ONLY SCAN NEEDED DIFFERENTIAL [id number] 05:51:00* Test Item Value Reference Range Interpretation Comments STAIN ACCEPTABILITY (test code = STN ACCEPTABLE) CABOT RINGS (test code = CAB) MORPHOLOGY COMMENT (test code = MOC) PLATELET ESTIMATE (test code = PLTEST) PLATELET MORPHOLOGY (test code = PLTMORPH) CBC W/AUTO [id number] 05:51:00* Test Item Value Reference Range Interpretation Comments WHITE BLOOD CELL (test code = WBC) 8.2 K/mm3 4.5-12.5 N RED BLOOD CELL (test code = RBC) 4.24 mill/mm3 3.7-5.2 N HEMOGLOBIN (test code = HGB) 9.5 gram/dL 11.5-15.5 L HEMATOCRIT (test code = HCT) 32.3 % 36.0-46.0 L MEAN CELL VOLUME (test code = MCV) 76.2 fL 80-98 L MEAN CELL HGB (test code = MCH) 22.4 picogram 27.0-33.0 L MEAN CELL HGB CONCETRATION (test code = MCHC) 29.4 gram/dL 33.0-36. 0 L RED CELL DISTRIBUTION WIDTH (test code = RDW) 17.3 % 11.6-16. 2 H RED CELL DISTRIBUTION WIDTH SD (test code = RDW-SD) 47.4 fL 37 .0-51.0 N PLATELET COUNT (test code = PLT) 354 K/mm3 150-450 N MEAN PLATELET VOLUME (test code = MPV) 10.1 fL 6.7-11.0 N NEUTROPHIL % (test code = NT%) 71.0 % 39.0-69.0 H IMMATURE GRANULOCYTE % (test code = IG%) 0.6 % 0.0-5.0 N LYMPHOCYTE % (test code = LY%) 22.0 % 25.0-55.0 L MONOCYTE % (test code = MO%) 6.0 % 0.0-10.0 N EOSINOPHIL % (test code = EO%) 0.0 % 0.0-5.0 N BASOPHIL % (test code = BA%) 0.4 % 0.0-1.0 N NUCLEATED RBC % (test code = NRBC%) 0.0 % 0-0 N NEUTROPHIL # (test code = NT#) 5.83 K/mm3 1.8-7.7 N IMMATURE GRANULOCYTE # (test code = IG#) 0.05 x10 3/uL 0-0.03 H LYMPHOCYTE # (test code = LY#) 1.81 K/mm3 1.0-5.0 N MONOCYTE # (test code = MO#) 0.49 K/mm3 0-0.8 N EOSINOPHIL # (test code = EO#) 0.00 K/mm3 0.0-0.5 N BASOPHIL # (test code = BA#) 0.03 K/mm3 0.0-0.2 N NUCLEATED RBC # (test code = NRBC#) 0.00 K/mm3 0.0-0.1 N MANUAL DIFF REQUIRED (test code = MDIFF) NO, ONLY SCAN NEEDED DIFFERENTIAL [id number] 05:51:00* Test Item Value Reference Range Interpretation Comments STAIN ACCEPTABILITY (test code = STN ACCEPTABLE) MORPHOLOGY COMMENT (test code = MOC) PLATELET ESTIMATE (test code = PLTEST) PLATELET MORPHOLOGY (test code = PLTMORPH) CBC W/AUTO [id number] 05:51:00* Test Item Value Reference Range Interpretation Comments WHITE BLOOD CELL (test code = WBC) 8.2 K/mm3 4.5-12.5 N RED BLOOD CELL (test code = RBC) 4.24 mill/mm3 3.7-5.2 N HEMOGLOBIN (test code = HGB) 9.5 gram/dL 11.5-15.5 L HEMATOCRIT (test code = HCT) 32.3 % 36.0-46.0 L MEAN CELL VOLUME (test code = MCV) 76.2 fL 80-98 L MEAN CELL HGB (test code = MCH) 22.4 picogram 27.0-33.0 L MEAN CELL HGB CONCETRATION (test code = MCHC) 29.4 gram/dL 33.0-36. 0 L RED CELL DISTRIBUTION WIDTH (test code = RDW) 17.3 % 11.6-16. 2 H RED CELL DISTRIBUTION WIDTH SD (test code = RDW-SD) 47.4 fL 37 .0-51.0 N PLATELET COUNT (test code = PLT) 354 K/mm3 150-450 N MEAN PLATELET VOLUME (test code = MPV) 10.1 fL 6.7-11.0 N NEUTROPHIL % (test code = NT%) 71.0 % 39.0-69.0 H IMMATURE GRANULOCYTE % (test code = IG%) 0.6 % 0.0-5.0 N LYMPHOCYTE % (test code = LY%) 22.0 % 25.0-55.0 L MONOCYTE % (test code = MO%) 6.0 % 0.0-10.0 N EOSINOPHIL % (test code = EO%) 0.0 % 0.0-5.0 N BASOPHIL % (test code = BA%) 0.4 % 0.0-1.0 N NUCLEATED RBC % (test code = NRBC%) 0.0 % 0-0 N NEUTROPHIL # (test code = NT#) 5.83 K/mm3 1.8-7.7 N IMMATURE GRANULOCYTE # (test code = IG#) 0.05 x10 3/uL 0-0.03 H LYMPHOCYTE # (test code = LY#) 1.81 K/mm3 1.0-5.0 N MONOCYTE # (test code = MO#) 0.49 K/mm3 0-0.8 N EOSINOPHIL # (test code = EO#) 0.00 K/mm3 0.0-0.5 N BASOPHIL # (test code = BA#) 0.03 K/mm3 0.0-0.2 N NUCLEATED RBC # (test code = NRBC#) 0.00 K/mm3 0.0-0.1 N MANUAL DIFF REQUIRED (test code = MDIFF) NO, ONLY SCAN NEEDED DIFFERENTIAL [id number] 05:51:00* Test Item Value Reference Range Interpretation Comments STAIN ACCEPTABILITY (test code = STN ACCEPTABLE) CABOT RINGS (test code = CAB) MORPHOLOGY COMMENT (test code = MOC) PLATELET ESTIMATE (test code = PLTEST) PLATELET MORPHOLOGY (test code = PLTMORPH) BASIC METABOLIC [id number] 05:47:00* Test Item Value Reference Range Interpretation Comments SODIUM (test code = NA) 142 mmol/L 136-145 N POTASSIUM (test code = K) 3.6 mmol/L 3.5-5.1 N CHLORIDE (test code = CL) 109.0 mmol/L 98-107 H CARBON DIOXIDE (test code = CO2) mmol/L 21-32 ANION GAP (test code = GAP) 10-20 GLUCOSE (test code = GLU) mg/dL 74-106 BLOOD UREA NITROGEN (test code = BUN) mg/dL 7-18 GLOMERULAR FILTRATION RATE (test code = GFR) mL/min >=60 CREATININE (test code = CREAT) mg/dL 0.55-1.02 BUN/CREATININE RATIO (test code = BUN/CREA) 10-20 CALCIUM (test code = CA) mg/dL 8.5-10.1 DILANTIN (PHENYTOIN)2019-10-24 05:47:00* Test Item Value Reference Range Interpretation Comments DILANTIN (PHENYTOIN) (test code = DIL) ug/mL 10.0-20.0 BASIC METABOLIC [id number] 05:30:00* Test Item Value Reference Range Interpretation Comments SODIUM (test code = NA) 142 mmol/L 136-145 N POTASSIUM (test code = K) 3.2 mmol/L 3.5-5.1 L CHLORIDE (test code = CL) 109.0 mmol/L 98-107 H CARBON DIOXIDE (test code = CO2) 27.0 mmol/L 21-32 N ANION GAP (test code = GAP) 9.2 10-20 L GLUCOSE (test code = GLU) 106 mg/dL 74-106 N BLOOD UREA NITROGEN (test code = BUN) 11 mg/dL 7-18 N GLOMERULAR FILTRATION RATE (test code = GFR) > 60 mL/min >=60 Estimated GFR by using Modified MDRD formula.Chronic kidney disease is defined as either kidney damageor GFR <60 mL/min/1.73 m2 for >3 months. CREATININE (test code = CREAT) 0.40 mg/dL 0.55-1.02 L Note change in reference range due to change in reagent. BUN/CREATININE RATIO (test code = BUN/CREA) 30.2 10-20 H CALCIUM (test code = CA) 9.2 mg/dL 8.5-10.1 N HEPATIC FUNCTION [id number] 05:30:00* Test Item Value Reference Range Interpretation Comments TOTAL PROTEIN (test code = PROT) 7.6 gram/dL 6.4-8.2 N ALBUMIN (test code = ALB) 3.0 g/dL 3.4-5.0 L GLOBULIN (test code = GLOB) 4.6 gram/dL 2.7-4.2 H ALBUMIN/GLOBULIN RATIO (test code = A/G) 0.7 0.75-1.50 L BILIRUBIN TOTAL (test code = BILT) 0.10 mg/dL 0.0-1.0 N BILIRUBIN DIRECT (test code = BILD) 0.06 mg/dL 0.0-0.20 N SGOT/AST (test code = AST) 53 IUnit/L 15-37 H SGPT/ALT (test code = ALT) 56 IUnit/L 12-78 N ALKALINE PHOSPHATASE TOTAL (test code = ALKP) 191 IUnit/L 45-117 H Note change in reference range due to change in reagent. [id number] 05:30:00* Test Item Value Reference Range Interpretation Comments LIPASE (test code = LIP) 222 U/L 73.0-393.0 N HCG SERUM [id number] 05:30:00* Test Item Value Reference Range Interpretation Comments HCG SERUM QUAL (test code = HCGQL) NEGATIVE NEGATIVE This HCGQL test is NOT applicable for MALE patients.Check with nurse about probable order error.If Tumor Marker Test needed, nurse should order test "HCGTU"(Test #[id number]) [id number] 05:30:00* Test Item Value Reference Range Interpretation Comments TROPONIN-I (test code = TROPI) <0.015 ng/mL 0-0.045 N DILANTIN (PHENYTOIN)2019-10-23 05:30:00* Test Item Value Reference Range Interpretation Comments DILANTIN (PHENYTOIN) (test code = DIL) 0.5 ug/mL 10.0-20.0 L [id number] 05:30:00* Test Item Value Reference Range Interpretation Comments ALCOHOL (test code = ALC) < 3 mg/dL 0-3 N IN TERPRETATION: ETHYL ALCOHOL VALUES 50 MG/DL - NOT INTOXICATED 100 MG/DL - INTOXICATED 350-450 MG/DL- SEVERELY INTOXICATED >= 550 MG/DL - FATAL INTOXICATION - CT ABD PELVIS W/O [id number] 05:17:00 Name: DAVIE CORADO Fuller Hospital : 1970 Age/S: 48 / F [address] Unit #: [id number] Loc: [facility] [place] [address] Phys: Linda Lock MD Acct: [id number] Dis Date: Status: REG ER PHONE #: [phone] Exam Date: 10/23/2019 0450 FAX #: [phone] Reason: abd pain, vomiting EXAMS: CPT CODE: [id number] CT ABD PELVIS W/O CONT 78771 CT abdomen and pelvis without IV contrast. Indication: Abdominal pain and vomiting Location: R16 Comparison: June 2019 Technique: CT images of the abdomen and pelvis were obtained from the diaphragm to the pubic symphysis without the administration of intravenous contrast contrast. Coronal reformats are provided. One or more of the following dose reduction techniques were used: Automated exposure control, adjustment of the mA and/or kV according to patient size, and/or utilization of iterative reconstruction technique. Findings: Lungs bases: Unremarkable. Upper GI: Nonspecific surgical changes are noted at the GE junction., Evaluation of which is very limited the absence of oral contrast. Liver: Noncontrast appearance is unremarkable. Gallbladder: The gallbladder is surgically absent. Pancreas: Noncontrast appearance is unremarkable. Spleen: Noncontrast appearance is unremarkable. Adrenal glands: Noncontrast appearance is unremarkable. Kidneys: Noncontrast appearance is unremarkable. Bowel: No bowel obstruction. The appendix is nonvisualized. Fluid-filled distention of the small bowel is noted with nonspecific colonic wall thickening seen to the level of the sigmoid Peritoneum: No ascites. No free air Additional findings as detailed above Skeletal: No acute fracture.. Nonspecific induration seen within the soft tissues of the anterior abdomen is significantly improved when compared to prior examination. Impression: Exam findings very limited the absence of oral and IV contrast severely limit evaluation of the patient's gastric surgery is limited. Fluid- filled distention of the small bowel is noted with nonspecific colonic wall thickening seen to the level of the sigmoid. These PAGE 1 Signed Report (CONTINUED) Name: DAVIE CORADO [facility] : 1970 Age/S: 48 / F [address] Unit #: [id number] Loc: [facility] [place] [address] Phys: Linda Lock MD Acct: [id number] Dis Date: Status: REG ER PHONE #: [phone] Exam Date: 10/23/2019 0450 FAX #: [phone] Reason: abd pain, vomiting EXAMS: CPT CODE: [id number] CT ABD PELVIS W/O CONT 65280 <Continued> findings could represent an possible enterocolitis. Interval improvement of previously seen anterior abdominal soft tissue densities at 0517 Reported and signed by: Sherri Peters M.D. CC: Linda Lock MD Technologist:ROLAND EARL RT CTDI: DLP: Trnscb Date/Time: 10/23/2019 (05) Alonzo.SR31 PAGE 2 Signed Report BASIC METABOLIC [id number] 04:33:00* Test Item Value Reference Range Interpretation Comments SODIUM (test code = NA) 142 mmol/L 136-145 N POTASSIUM (test code = K) 3.2 mmol/L 3.5-5.1 L CHLORIDE (test code = CL) 109.0 mmol/L 98-107 H CARBON DIOXIDE (test code = CO2) 27.0 mmol/L 21-32 N ANION GAP (test code = GAP) 9.2 10-20 L GLUCOSE (test code = GLU) 106 mg/dL 74-106 N BLOOD UREA NITROGEN (test code = BUN) 11 mg/dL 7-18 N GLOMERULAR FILTRATION RATE (test code = GFR) > 60 mL/min >=60 Estimated GFR by using Modified MDRD formula.Chronic kidney disease is defined as either kidney damageor GFR <60 mL/min/1.73 m2 for >3 months. CREATININE (test code = CREAT) 0.40 mg/dL 0.55-1.02 L Note change in reference range due to change in reagent. BUN/CREATININE RATIO (test code = BUN/CREA) 30.2 10-20 H CALCIUM (test code = CA) 9.2 mg/dL 8.5-10.1 N HEPATIC FUNCTION [id number] 04:33:00* Test Item Value Reference Range Interpretation Comments TOTAL PROTEIN (test code = PROT) 7.6 gram/dL 6.4-8.2 N ALBUMIN (test code = ALB) 3.0 g/dL 3.4-5.0 L GLOBULIN (test code = GLOB) 4.6 gram/dL 2.7-4.2 H ALBUMIN/GLOBULIN RATIO (test code = A/G) 0.7 0.75-1.50 L BILIRUBIN TOTAL (test code = BILT) 0.10 mg/dL 0.0-1.0 N BILIRUBIN DIRECT (test code = BILD) 0.06 mg/dL 0.0-0.20 N SGOT/AST (test code = AST) 53 IUnit/L 15-37 H SGPT/ALT (test code = ALT) 56 IUnit/L 12-78 N ALKALINE PHOSPHATASE TOTAL (test code = ALKP) 191 IUnit/L 45-117 H Note change in reference range due to change in reagent. [id number] 04:33:00* Test Item Value Reference Range Interpretation Comments LIPASE (test code = LIP) 222 U/L 73.0-393.0 N HCG SERUM [id number] 04:33:00* Test Item Value Reference Range Interpretation Comments HCG SERUM QUAL (test code = HCGQL) NEGATIVE NEGATIVE This HCGQL test is NOT applicable for MALE patients.Check with nurse about probable order error.If Tumor Marker Test needed, nurse should order test "HCGTU"(Test #550.16378) [id number] 04:33:00* Test Item Value Reference Range Interpretation Comments TROPONIN-I (test code = TROPI) <0.015 ng/mL 0-0.045 N DILANTIN (PHENYTOIN)2019-10-23 04:33:00* Test Item Value Reference Range Interpretation Comments DILANTIN (PHENYTOIN) (test code = DIL) 0.5 ug/mL 10.0-20.0 L [id number] 04:33:00* Test Item Value Reference Range Interpretation Comments ALCOHOL (test code = ALC) mg/dL 0-3 BASIC METABOLIC [id number] 04:31:00* Test Item Value Reference Range Interpretation Comments SODIUM (test code = NA) 142 mmol/L 136-145 N POTASSIUM (test code = K) 3.2 mmol/L 3.5-5.1 L CHLORIDE (test code = CL) 109.0 mmol/L 98-107 H CARBON DIOXIDE (test code = CO2) mmol/L 21-32 ANION GAP (test code = GAP) 10-20 GLUCOSE (test code = GLU) mg/dL 74-106 BLOOD UREA NITROGEN (test code = BUN) mg/dL 7-18 GLOMERULAR FILTRATION RATE (test code = GFR) mL/min >=60 CREATININE (test code = CREAT) mg/dL 0.55-1.02 BUN/CREATININE RATIO (test code = BUN/CREA) 10-20 CALCIUM (test code = CA) mg/dL 8.5-10.1 HEPATIC FUNCTION [id number] 04:31:00* Test Item Value Reference Range Interpretation Comments TOTAL PROTEIN (test code = PROT) gram/dL 6.4-8.2 ALBUMIN (test code = ALB) g/dL 3.4-5.0 GLOBULIN (test code = GLOB) gram/dL 2.7-4.2 ALBUMIN/GLOBULIN RATIO (test code = A/G) 0.75-1.50 BILIRUBIN TOTAL (test code = BILT) mg/dL 0.0-1.0 BILIRUBIN DIRECT (test code = BILD) mg/dL 0.0-0.20 SGOT/AST (test code = AST) IUnit/L 15-37 SGPT/ALT (test code = ALT) IUnit/L 12-78 ALKALINE PHOSPHATASE TOTAL (test code = ALKP) IUnit/L 45-117 [id number] 04:31:00* Test Item Value Reference Range Interpretation Comments LIPASE (test code = LIP) U/L 73.0-393.0 HCG SERUM [id number] 04:31:00* Test Item Value Reference Range Interpretation Comments HCG SERUM QUAL (test code = HCGQL) NEGATIVE NEGATIVE This HCGQL test is NOT applicable for MALE patients.Check with nurse about probable order error.If Tumor Marker Test needed, nurse should order test "HCGTU"(Test #550.98030) [id number] 04:31:00* Test Item Value Reference Range Interpretation Comments TROPONIN-I (test code = TROPI) ng/mL 0-0.045 DILANTIN (PHENYTOIN)2019-10-23 04:31:00* Test Item Value Reference Range Interpretation Comments DILANTIN (PHENYTOIN) (test code = DIL) ug/mL 10.0-20.0 [id number] 04:31:00* Test Item Value Reference Range Interpretation Comments ALCOHOL (test code = ALC) mg/dL 0-3 BASIC METABOLIC [id number] 04:22:00* Test Item Value Reference Range Interpretation Comments SODIUM (test code = NA) 142 mmol/L 136-145 N POTASSIUM (test code = K) 3.2 mmol/L 3.5-5.1 L CHLORIDE (test code = CL) 109.0 mmol/L 98-107 H CARBON DIOXIDE (test code = CO2) mmol/L 21-32 ANION GAP (test code = GAP) 10-20 GLUCOSE (test code = GLU) mg/dL 74-106 BLOOD UREA NITROGEN (test code = BUN) mg/dL 7-18 GLOMERULAR FILTRATION RATE (test code = GFR) mL/min >=60 CREATININE (test code = CREAT) mg/dL 0.55-1.02 BUN/CREATININE RATIO (test code = BUN/CREA) 10-20 CALCIUM (test code = CA) mg/dL 8.5-10.1 HEPATIC FUNCTION [id number] 04:22:00* Test Item Value Reference Range Interpretation Comments TOTAL PROTEIN (test code = PROT) gram/dL 6.4-8.2 ALBUMIN (test code = ALB) g/dL 3.4-5.0 GLOBULIN (test code = GLOB) gram/dL 2.7-4.2 ALBUMIN/GLOBULIN RATIO (test code = A/G) 0.75-1.50 BILIRUBIN TOTAL (test code = BILT) mg/dL 0.0-1.0 BILIRUBIN DIRECT (test code = BILD) mg/dL 0.0-0.20 SGOT/AST (test code = AST) IUnit/L 15-37 SGPT/ALT (test code = ALT) IUnit/L 12-78 ALKALINE PHOSPHATASE TOTAL (test code = ALKP) IUnit/L 45-117 [id number] 04:22:00* Test Item Value Reference Range Interpretation Comments LIPASE (test code = LIP) U/L 73.0-393.0 HCG SERUM [id number] 04:22:00* Test Item Value Reference Range Interpretation Comments HCG SERUM QUAL (test code = HCGQL) NEGATIVE [id number] 04:22:00* Test Item Value Reference Range Interpretation Comments TROPONIN-I (test code = TROPI) ng/mL 0-0.045 DILANTIN (PHENYTOIN)2019-10-23 04:22:00* Test Item Value Reference Range Interpretation Comments DILANTIN (PHENYTOIN) (test code = DIL) ug/mL 10.0-20.0 [id number] 04:22:00* Test Item Value Reference Range Interpretation Comments ALCOHOL (test code = ALC) mg/dL 0-3 CBC W/O [id number] 03:45:00* Test Item Value Reference Range Interpretation Comments WHITE BLOOD CELL (test code = WBC) 10.8 K/mm3 4.5-12.5 N RED BLOOD CELL (test code = RBC) 4.18 mill/mm3 3.7-5.2 N HEMOGLOBIN (test code = HGB) 9.4 gram/dL 11.5-15.5 L HEMATOCRIT (test code = HCT) 30.6 % 36.0-46.0 L MEAN CELL VOLUME (test code = MCV) 73.2 fL 80-98 L MEAN CELL HGB (test code = MCH) 22.5 picogram 27.0-33.0 L MEAN CELL HGB CONCETRATION (test code = MCHC) 30.7 gram/dL 33.0-36. 0 L RED CELL DISTRIBUTION WIDTH (test code = RDW) 16.9 % 11.6-16. 2 H PLATELET COUNT (test code = PLT) 341 K/mm3 150-450 N MEAN PLATELET VOLUME (test code = MPV) 9.9 fL 6.7-11.0 N - XR CHEST 1 [id number] 03:42:00 FAX: Linda Cao [phone] [place]: B St: REG Name: DAVIE CHOWDHURY [facility] : [birth year] Age/S: 48/F [address] [facility] Unit #: [id number] Loc: [place] [address] Phys: Linda Lock MD Acct: [id number] Dis Date: Status: REG ER PHONE #: [phone] Exam Date: 10/23/2019 0248 FAX #: [phone] Reason: Seizure EXAMS: CPT CODE: [id number] XR CHEST 1 V 06262 EXAM: - XR CHEST 1 V HISTORY: Seizure. COMPARISON: August 31, 2017. FINDI NGS: Single AP view of the chest is provided. Heart size and vascularity are within normal limits. There is no evidence of a focal co nsolidation. There is no pleural effusion or pneumothorax. There is no definite acute osseous abnormality. IMPRESSION: No radiographic evidence of acute cardiopulmonary process. Elect ronically Signed by Jareth Martinez MD on 10/23/2019 at 0342 Reported and signed by: Jareth Martinez MD CC: Linda Lock MD Technologist: ROLAND EARL, RT Trnscrd Date/Time/By: 10/23/2019 (034) : B y: [email or web address] Orig Print D/T: S: 10/23/2019 (7820) PAGE 1 Signed Report [id number] 03:11:00* Test Item Value Reference Range Interpretation Comments GLUBED (test code = GLUBED) 96 mg/dL 74-106 N Performed by certified chisel mortiser operator at [facility] CBC W/AUTO [id number] 05:48:00* Test Item Value Reference Range Interpretation Comments WHITE BLOOD CELL (test code = WBC) 12.0 K/mm3 4.5-12.5 N RED BLOOD CELL (test code = RBC) 3.99 mill/mm3 3.7-5.2 N HEMOGLOBIN (test code = HGB) 9.2 gram/dL 11.5-15.5 L HEMATOCRIT (test code = HCT) 30.0 % 36.0-46.0 L MEAN CELL VOLUME (test code = MCV) 75.2 fL 80-98 L MEAN CELL HGB (test code = MCH) 23.1 picogram 27.0-33.0 L MEAN CELL HGB CONCETRATION (test code = MCHC) 30.7 gram/dL 33.0-36. 0 L RED CELL DISTRIBUTION WIDTH (test code = RDW) 16.1 % 11.6-16. 2 N RED CELL DISTRIBUTION WIDTH SD (test code = RDW-SD) 44.0 fL 37 .0-51.0 N PLATELET COUNT (test code = PLT) 509 K/mm3 150-450 H RESULT VERIFIED BY REPEAT ANALYSIS MEAN PLATELET VOLUME (test code = MPV) 9.3 fL 6.7-11.0 N NEUTROPHIL % (test code = NT%) 75.9 % 39.0-69.0 H IMMATURE GRANULOCYTE % (test code = IG%) 2.8 % 0.0-5.0 N LYMPHOCYTE % (test code = LY%) 14.5 % 25.0-55.0 L MONOCYTE % (test code = MO%) 6.1 % 0.0-10.0 N EOSINOPHIL % (test code = EO%) 0.3 % 0.0-5.0 N BASOPHIL % (test code = BA%) 0.4 % 0.0-1.0 N NUCLEATED RBC % (test code = NRBC%) 0.0 % 0-0 N NEUTROPHIL # (test code = NT#) 9.12 K/mm3 1.8-7.7 H IMMATURE GRANULOCYTE # (test code = IG#) 0.34 x10 3/uL 0-0.03 H LYMPHOCYTE # (test code = LY#) 1.74 K/mm3 1.0-5.0 N MONOCYTE # (test code = MO#) 0.73 K/mm3 0-0.8 N EOSINOPHIL # (test code = EO#) 0.04 K/mm3 0.0-0.5 N BASOPHIL # (test code = BA#) 0.05 K/mm3 0.0-0.2 N NUCLEATED RBC # (test code = NRBC#) 0.00 K/mm3 0.0-0.1 N BASIC METABOLIC [id number] 05:47:00* Test Item Value Reference Range Interpretation Comments SODIUM (test code = NA) 142 mmol/L 136-145 RESU LT VERIFIED BY REPEAT ANALYSIS POTASSIUM (test code = K) 4.7 mmol/L 3.5-5.1 N CHLORIDE (test code = CL) 106.0 mmol/L 98-107 N CARBON DIOXIDE (test code = CO2) 29.0 mmol/L 21-32 N ANION GAP (test code = GAP) 11.7 10-20 N GLUCOSE (test code = GLU) 107 mg/dL 74-106 H BLOOD UREA NITROGEN (test code = BUN) 14 mg/dL 7-18 N GLOMERULAR FILTRATION RATE (test code = GFR) > 60 mL/min >=60 Estimated GFR by using Modified MDRD formula.Chronic kidney disease is defined as either kidney damageor GFR <60 mL/min/1.73 m2 for >3 months. CREATININE (test code = CREAT) 0.40 mg/dL 0.55-1.02 L Note change in reference range due to change in reagent. BUN/CREATININE RATIO (test code = BUN/CREA) 35.0 10-20 H CALCIUM (test code = CA) 9.1 mg/dL 8.5-10.[address] [facility] [id number] 07:36:00* Test Item Value Reference Range Interpretation Comments Coronavirus 2019 [facility] Bedside (test code = COVNONPUIBED) Negative CBC W/AUTO [id number] 07:24:00* Test Item Value Reference Range Interpretation Comments WHITE BLOOD CELL (test code = WBC) 15.5 K/mm3 4.5-12.5 H RED BLOOD CELL (test code = RBC) 3.96 mill/mm3 3.7-5.2 N HEMOGLOBIN (test code = HGB) 9.4 gram/dL 11.5-15.5 L HEMATOCRIT (test code = HCT) 29.5 % 36.0-46.0 L MEAN CELL VOLUME (test code = MCV) 74.5 fL 80-98 L MEAN CELL HGB (test code = MCH) 23.7 picogram 27.0-33.0 L MEAN CELL HGB CONCETRATION (test code = MCHC) 31.9 gram/dL 33.0-36. 0 L RED CELL DISTRIBUTION WIDTH (test code = RDW) 15.9 % 11.6-16. 2 N RED CELL DISTRIBUTION WIDTH SD (test code = RDW-SD) 42.9 fL 37 .0-51.0 N PLATELET COUNT (test code = PLT) 432 K/mm3 150-450 RESULT VERIFIED BY REPEAT ANALYSIS MEAN PLATELET VOLUME (test code = MPV) 9.3 fL 6.7-11.0 N NEUTROPHIL % (test code = NT%) 84.9 % 39.0-69.0 H IMMATURE GRANULOCYTE % (test code = IG%) 1.1 % 0.0-5.0 N LYMPHOCYTE % (test code = LY%) 9.5 % 25.0-55.0 L MONOCYTE % (test code = MO%) 3.6 % 0.0-10.0 N EOSINOPHIL % (test code = EO%) 0.6 % 0.0-5.0 N BASOPHIL % (test code = BA%) 0.3 % 0.0-1.0 N NUCLEATED RBC % (test code = NRBC%) 0.0 % 0-0 N NEUTROPHIL # (test code = NT#) 13.10 K/mm3 1.8-7.7 H IMMATURE GRANULOCYTE # (test code = IG#) 0.17 x10 3/uL 0-0.03 H LYMPHOCYTE # (test code = LY#) 1.47 K/mm3 1.0-5.0 N MONOCYTE # (test code = MO#) 0.56 K/mm3 0-0.8 N EOSINOPHIL # (test code = EO#) 0.10 K/mm3 0.0-0.5 N BASOPHIL # (test code = BA#) 0.05 K/mm3 0.0-0.2 N NUCLEATED RBC # (test code = NRBC#) 0.00 K/mm3 0.0-0.1 N MANUAL DIFF REQUIRED (test code = MDIFF) NO BASIC METABOLIC [id number] 07:24:00* Test Item Value Reference Range Interpretation Comments SODIUM (test code = NA) 136 mmol/L 136-145 N POTASSIUM (test code = K) 4.3 mmol/L 3.5-5.1 N CHLORIDE (test code = CL) 101.0 mmol/L 98-107 N CARBON DIOXIDE (test code = CO2) 25.0 mmol/L 21-32 N ANION GAP (test code = GAP) 14.3 10-20 N GLUCOSE (test code = GLU) 123 mg/dL 74-106 H BLOOD UREA NITROGEN (test code = BUN) 10 mg/dL 7-18 N GLOMERULAR FILTRATION RATE (test code = GFR) > 60 mL/min >=60 Estimated GFR by using Modified MDRD formula.Chronic kidney disease is defined as either kidney damageor GFR <60 mL/min/1.73 m2 for >3 months. CREATININE (test code = CREAT) 0.40 mg/dL 0.55-1.02 L Note change in reference range due to change in reagent. BUN/CREATININE RATIO (test code = BUN/CREA) 25.0 10-20 H CALCIUM (test code = CA) 9.0 mg/dL 8.5-10.1 N BASIC METABOLIC [id number] 07:17:00* Test Item Value Reference Range Interpretation Comments SODIUM (test code = NA) 136 mmol/L 136-145 N POTASSIUM (test code = K) 4.3 mmol/L 3.5-5.1 N CHLORIDE (test code = CL) 101.0 mmol/L 98-107 N CARBON DIOXIDE (test code = CO2) mmol/L 21-32 ANION GAP (test code = GAP) 10-20 GLUCOSE (test code = GLU) mg/dL 74-106 BLOOD UREA NITROGEN (test code = BUN) mg/dL 7-18 GLOMERULAR FILTRATION RATE (test code = GFR) mL/min >=60 CREATININE (test code = CREAT) mg/dL 0.55-1.02 BUN/CREATININE RATIO (test code = BUN/CREA) 10-20 CALCIUM (test code = CA) mg/dL 8.5-10.1 - CT ABD PELVIS [id number] 22:31:00 Name: DAVIE CORADO [facility] : 1970 Age/S: 48 / F [address] [facility] Unit #: [id number] Loc: [facility] [place] [address] Phys: Sindi Vieira NP Acct: [id number] Dis Date: Status: REG ER PHONE #: [phone] Exam Date: 06/22/2019 4266 FAX #: [phone] Reason: large abscess to lower abd wall extending to george EXAMS: CPT CODE: [id number] CT ABD PELVIS W/CONT 20855 HISTORY: large abscess to lower abd wall extending to suprapubic TECHNIQUE: Immediate and delayed [address] images were obtained through the abdomen and pelvis after IV administration of 100 mL of Isovue-370 contrast. Sagittal and coronal reformatted images were generated. Automated exposure reduction (Auto mA/Smart mA) was utilized in compliance with ACR [employer] with DLP of 840 mGy-cm. COMPARISON: 02/25/19 FINDINGS: THORACIC: Mild bibasilar subsegmental atelectasis. HEPATOBILIARY: Hepatomegaly. Cholecystectomy. Mild biliary dilation, not uncommon postoperatively. PANCREAS: Atrophic. SPLEEN: Enlarged. ADRENALS: Normal. GASTROINTESTINAL: Limited evaluation without oral contrast. Partial gastrectomy with gastrojejunostomy. Small and large bowel are grossly unremarkable. Appendix is nonvisualized. GENITOURINARY: Kidneys are normal. No hydronephrosis. Urinary bladder is collapsed and not well evaluated. Hysterectomy. VASCULAR: No evidence of aortic aneurysm or di ssection. LYMPHATICS: No enlarged lymph nodes by CT size criteria. PERITONEUM/OTHER: No intraperitoneal free air. No intraperitoneal free flu id. BONES/SOFT TISSUES: Left lower abdominal subcutaneous fluid ana ection, measuring 3.7 x 9.9 x 10.7 cm (AP x TV x CC). Associated skin thic kening and subcutaneous stranding. IMPRESSION: Left lower abdominal 10.7 cm subcutaneous fluid collection. No acute intra-abdominal process. L OCATION: LP PAGE 1 Signed Report (CONTINUED) Name: DAVIE CORADO [facility] : 1970 Age/S: 48 / F [address] [facility] Unit #: [id number] Loc: [place] [address] Phys: Sindi Vieira NP Acct: [id number] Dis Date: Status: REG ER PHONE #: [phone] Exam Date: 06/22/20192204 FAX #: [phone] Reason: large abscess to lower abd wall extending to george EXAMS: CPT CODE: [id number] CT ABD PELVIS W/CONT 58695 < Continued> at 2231 Reported and signed by: Karly Peacock D.O. CC: Sindi Vieira NP Technologist:Chaim Carver RT(R) CTDI: DLP: Trnscb Date/Time: 06/22/2019 (2230) OralLDP1 Orig Print D/T: S: 06/22/2019 (2360) PAGE 2 Signed Report LACTIC [id number] 22:00:00* Test Item Value Reference Range Interpretation Comments LACTIC ACID (test code = LACT) 0.8 mmol/L 0.4-1.9 N COMPREHENSIVE METABOLIC [id number] 21:46:00* Test Item Value Reference Range Interpretation Comments SODIUM (test code = NA) 134 mmol/L 136-145 L POTASSIUM (test code = K) 3.8 mmol/L 3.5-5.1 N CHLORIDE (test code = CL) 99.0 mmol/L 98-107 N CARBON DIOXIDE (test code = CO2) 30.0 mmol/L 21-32 N ANION GAP (test code = GAP) 8.8 10-20 L GLUCOSE (test code = GLU) 98 mg/dL 74-106 N BLOOD UREA NITROGEN (test code = BUN) 15 mg/dL 7-18 N GLOMERULAR FILTRATION RATE (test code = GFR) > 60 mL/min >=60 Estimated GFR by using Modified MDRD formula.Chronic kidney disease is defined as either kidney damageor GFR <60 mL/min/1.73 m2 for >3 months. CREATININE (test code = CREAT) 0.50 mg/dL 0.55-1.02 L Note change in reference range due to change in reagent. BUN/CREATININE RATIO (test code = BUN/CREA) 30.0 10-20 H TOTAL PROTEIN (test code = PROT) 9.2 gram/dL 6.4-8.2 H ALBUMIN (test code = ALB) 3.2 g/dL 3.4-5.0 L GLOBULIN (test code = GLOB) 6.0 gram/dL 2.7-4.2 H ALBUMIN/GLOBULIN RATIO (test code = A/G) 0.5 0.75-1.50 L CALCIUM (test code = CA) 10.2 mg/dL 8.5-10.1 H BILIRUBIN TOTAL (test code = BILT) 0.20 mg/dL 0.0-1.0 N SGOT/AST (test code = AST) 36 IUnit/L 15-37 N SGPT/ALT (test code = ALT) 58 IUnit/L 12-78 N ALKALINE PHOSPHATASE TOTAL (test code = ALKP) 290 IUnit/L 45-117 H Note change in reference range due to change in reagent. HCG SERUM [id number] 21:46:00* Test Item Value Reference Range Interpretation Comments HCG SERUM QUAL (test code = HCGQL) NEGATIVE NEGATIVE This HCGQL test is NOT applicable for MALE patients.Check with nurse about probable order error.If Tumor Marker Test needed, nurse should order test "HCGTU"(Test #550.80514) COMPREHENSIVE METABOLIC [id number] 21:38:00* Test Item Value Reference Range Interpretation Comments SODIUM (test code = NA) 134 mmol/L 136-145 L POTASSIUM (test code = K) 3.8 mmol/L 3.5-5.1 N CHLORIDE (test code = CL) 99.0 mmol/L 98-107 N CARBON DIOXIDE (test code = CO2) mmol/L 21-32 ANION GAP (test code = GAP) 10-20 GLUCOSE (test code = GLU) mg/dL 74-106 BLOOD UREA NITROGEN (test code = BUN) mg/dL 7-18 GLOMERULAR FILTRATION RATE (test code = GFR) mL/min >=60 CREATININE (test code = CREAT) mg/dL 0.55-1.02 BUN/CREATININE RATIO (test code = BUN/CREA) 10-20 TOTAL PROTEIN (test code = PROT) gram/dL 6.4-8.2 ALBUMIN (test code = ALB) g/dL 3.4-5.0 GLOBULIN (test code = GLOB) gram/dL 2.7-4.2 ALBUMIN/GLOBULIN RATIO (test code = A/G) 0.75-1.50 CALCIUM (test code = CA) mg/dL 8.5-10.1 BILIRUBIN TOTAL (test code = BILT) mg/dL 0.0-1.0 SGOT/AST (test code = AST) IUnit/L 15-37 SGPT/ALT (test code = ALT) IUnit/L 12-78 ALKALINE PHOSPHATASE TOTAL (test code = ALKP) IUnit/L 45-117 HCG SERUM [id number] 21:38:00* Test Item Value Reference Range Interpretation Comments HCG SERUM QUAL (test code = HCGQL) NEGATIVE NEGATIVE This HCGQL test is NOT applicable for MALE patients.Check with nurse about probable order error.If Tumor Marker Test needed, nurse should order test "HCGTU"(Test #[id number]) COMPREHENSIVE METABOLIC [id number] 21:37:00* Test Item Value Reference Range Interpretation Comments SODIUM (test code = NA) 134 mmol/L 136-145 L POTASSIUM (test code = K) 3.8 mmol/L 3.5-5.1 N CHLORIDE (test code = CL) 99.0 mmol/L 98-107 N CARBON DIOXIDE (test code = CO2) mmol/L 21-32 ANION GAP (test code = GAP) 10-20 GLUCOSE (test code = GLU) mg/dL 74-106 BLOOD UREA NITROGEN (test code = BUN) mg/dL 7-18 GLOMERULAR FILTRATION RATE (test code = GFR) mL/min >=60 CREATININE (test code = CREAT) mg/dL 0.55-1.02 BUN/CREATININE RATIO (test code = BUN/CREA) 10-20 TOTAL PROTEIN (test code = PROT) gram/dL 6.4-8.2 ALBUMIN (test code = ALB) g/dL 3.4-5.0 GLOBULIN (test code = GLOB) gram/dL 2.7-4.2 ALBUMIN/GLOBULIN RATIO (test code = A/G) 0.75-1.50 CALCIUM (test code = CA) mg/dL 8.5-10.1 BILIRUBIN TOTAL (test code = BILT) mg/dL 0.0-1.0 SGOT/AST (test code = AST) IUnit/L 15-37 SGPT/ALT (test code = ALT) IUnit/L 12-78 ALKALINE PHOSPHATASE TOTAL (test code = ALKP) IUnit/L 45-117 HCG SERUM [id number] 21:37:00* Test Item Value Reference Range Interpretation Comments HCG SERUM QUAL (test code = HCGQL) NEGATIVE CBC W/AUTO [id number] 21:27:00* Test Item Value Reference Range Interpretation Comments WHITE BLOOD CELL (test code = WBC) 18.8 K/mm3 4.5-12.5 H RED BLOOD CELL (test code = RBC) 4.76 mill/mm3 3.7-5.2 N HEMOGLOBIN (test code = HGB) 11.1 gram/dL 11.5-15.5 L HEMATOCRIT (test code = HCT) 36.2 % 36.0-46.0 N MEAN CELL VOLUME (test code = MCV) 76.1 fL 80-98 L MEAN CELL HGB (test code = MCH) 23.3 picogram 27.0-33.0 L MEAN CELL HGB CONCETRATION (test code = MCHC) 30.7 gram/dL 33.0-36. 0 L RED CELL DISTRIBUTION WIDTH (test code = RDW) 15.9 % 11.6-16. 2 N RED CELL DISTRIBUTION WIDTH SD (test code = RDW-SD) 44.1 fL 37 .0-51.0 N PLATELET COUNT (test code = PLT) 561 K/mm3 150-450 H MEAN PLATELET VOLUME (test code = MPV) 9.2 fL 6.7-11.0 N NEUTROPHIL % (test code = NT%) 87.2 % 39.0-69.0 H IMMATURE GRANULOCYTE % (test code = IG%) 0.9 % 0.0-5.0 N LYMPHOCYTE % (test code = LY%) 7.0 % 25.0-55.0 L MONOCYTE % (test code = MO%) 4.2 % 0.0-10.0 N EOSINOPHIL % (test code = EO%) 0.4 % 0.0-5.0 N BASOPHIL % (test code = BA%) 0.3 % 0.0-1.0 N NUCLEATED RBC % (test code = NRBC%) 0.0 % 0-0 N NEUTROPHIL # (test code = NT#) 16.43 K/mm3 1.8-7.7 H IMMATURE GRANULOCYTE # (test code = IG#) 0.17 x10 3/uL 0-0.03 H LYMPHOCYTE # (test code = LY#) 1.31 K/mm3 1.0-5.0 N MONOCYTE # (test code = MO#) 0.79 K/mm3 0-0.8 N EOSINOPHIL # (test code = EO#) 0.07 K/mm3 0.0-0.5 N BASOPHIL # (test code = BA#) 0.05 K/mm3 0.0-0.2 N NUCLEATED RBC # (test code = NRBC#) 0.00 K/mm3 0.0-0.1 N MANUAL DIFF REQUIRED (test code = MDIFF) NO CBC W/AUTO [id number] 21:26:00* Test Item Value Reference Range Interpretation Comments WHITE BLOOD CELL (test code = WBC) K/mm3 4.5-12.5 RED BLOOD CELL (test code = RBC) mill/mm3 3.7-5.2 HEMOGLOBIN (test code = HGB) gram/dL 11.5-15.5 HEMATOCRIT (test code = HCT) 36.2 % 36.0-46.0 N MEAN CELL VOLUME (test code = MCV) fL 80-98 MEAN CELL HGB (test code = MCH) picogram 27.0-33.0 MEAN CELL HGB CONCETRATION (test code = MCHC) gram/dL 33.0-36. 0 RED CELL DISTRIBUTION WIDTH (test code = RDW) % 11.6-16. 2 RED CELL DISTRIBUTION WIDTH SD (test code = RDW-SD) fL 37 .0-51.0 PLATELET COUNT (test code = PLT) K/mm3 150-450 MEAN PLATELET VOLUME (test code = MPV) fL 6.7-11.0 NEUTROPHIL % (test code = NT%) % 39.0-69.0 IMMATURE GRANULOCYTE % (test code = IG%) % 0.0-5.0 LYMPHOCYTE % (test code = LY%) % 25.0-55.0 MONOCYTE % (test code = MO%) % 0.0-10.0 EOSINOPHIL % (test code = EO%) % 0.0-5.0 BASOPHIL % (test code = BA%) % 0.0-1.0 NEUTROPHIL # (test code = NT#) K/mm3 1.8-7.7 LYMPHOCYTE # (test code = LY#) K/mm3 1.0-5.0 MONOCYTE # (test code = MO#) K/mm3 0-0.8 EOSINOPHIL # (test code = EO#) K/mm3 0.0-0.5 BASOPHIL # (test code = BA#) K/mm3 0.0-0.2 Sodium Beabb4160-15-62 11:57:00* Test Item Value Reference Range Interpretation Comments Sodium Level (test code = 2951-2) 140 136-145 [facility]assium Bgtqk8579-01-42 11:57:00* Test Item Value Reference Range Interpretation Comments Potassium Level (test code = 2823-3) 3.9 3.5-5.1 [facility] PasoChloride Mzpxv9989-20-62 11:57:00* Test Item Value Reference Range Interpretation Comments Chloride Level (test code = 2075-0) 105 98-107 [facility] PasoCarbon Dioxide Rhojm3216-67-46 11:57:00* Test Item Value Reference Range Interpretation Comments Carbon Dioxide Level (test code = 2028-9) 29 22-29 [facility] PasoAnion Suw6696-97-16 11:57:00* Test Item Value Reference Range Interpretation Comments Anion Gap (test code = 85783-6) 9.9 8-16 [facility] PasoBlood Urea Sizczzrt8709-42-57 11:57:00* Test Item Value Reference Range Interpretation Comments Blood Urea Nitrogen (test code = 3094-0) 6 7-26 L [facility] PasoCreatinine2020-03-12 11:57:00* Test Item Value Reference Range Interpretation Comments Creatinine (test code = 2160-0) 0.50 0.57-1.11 L [facility] PasoBUN/Creatinine Tlczj6767-07-56 11:57:00* Test Item Value Reference Range Interpretation Comments BUN/Creatinine Ratio (test code = 3097-3) 12 6-25 [facility] PasoEstimat Glomerular Filtration Rate 2019-04-25 11:57:00* Test Item Value Reference Range Interpretation Comments Estimat Glomerular Filtration Rate (test code = 184905814) > 60 >60 Ranges were taken from the National Kidney Disease Education Program and the [facility] Foundation literature.Reference ranges:60 or greater: Igkwgs38-67 ( for 3 consecutive months): Chronic kidney disease 15 or less: Kidney failureUniversity Medical Center of El PasoGlucose Higir7400-99-32 11:57:00* Test Item Value Reference Range Interpretation Comments Glucose Level (test code = VDR6684) 88 74-118 [facility] PasoCalcium Qgirf0856-67-85 11:57:00* Test Item Value Reference Range Interpretation Comments Calcium Level (test code = 30012-3) 9.3 8.4-10.2 [facility] PasoWhite Blood Zwzpj7690-56-28 11:34:00* Test Item Value Reference Range Interpretation Comments White Blood Count (test code = 6690-2) 6.71 4.8-10.8 [facility] PasoRed Blood Qjzkg5542-21-19 11:34:00* Test Item Value Reference Range Interpretation Comments Red Blood Count (test code = 789-8) 3.93 3.6-5.1 [facility] PasoHemoglobin2020-03-12 11:34:00* Test Item Value Reference Range Interpretation Comments Hemoglobin (test code = 32270-4) 9.2 12.0-16.0 L [facility] PasoHematocrit2020-03-12 11:34:00* Test Item Value Reference Range Interpretation Comments Hematocrit (test code = 4544-3) 30.4 34.2-44.1 L [facility] PasoMean Corpuscular Uhbezz6164-36-62 11:34:00* Test Item Value Reference Range Interpretation Comments Mean Corpuscular Volume (test code = 787-2) 77.4 81-99 L [facility] PasoMean Corpuscular Vkcfvzgfpe6420-26-10 11:34:00* Test Item Value Reference Range Interpretation Comments Mean Corpuscular Hemoglobin (test code = 785-6) 23.4 28-32 L [facility] PasoMe Corpuscular Hemoglobin Concent 2019-04-25 11:34:00* Test Item Value Reference Range Interpretation Comments Mean Corpuscular Hemoglobin Concent (test code = 786-4) 30.3 31-35 L [facility] PasoRed Cell Distribution Bemtl9991-84-40 11:34:00* Test Item Value Reference Range Interpretation Comments Red Cell Distribution Width (test code = 22212-8) 17.4 11.7 -14.4 H [facility] PasoPlatelet Hufrf9893-79-48 11:34:00* Test Item Value Reference Range Interpretation Comments Platelet Count (test code = 777-3) 304 140-360 [facility] PasoNeutrophils (%) (Auto)2019-04-25 11:34:00 * Test Item Value Reference Range Interpretation Comments Neutrophils (%) (Auto) (test code = 07295-9) 65.8 38.7-80.0 [facility] PasoLymphocytes (%) (Auto)2019-04-25 11:34:00 * Test Item Value Reference Range Interpretation Comments Lymphocytes (%) (Auto) (test code = 736-9) 23.2 18.0-39.1 [facility] PasoMonocytes (%) (Auto)2019-04-25 11:34:00* Test Item Value Reference Range Interpretation Comments Monocytes (%) (Auto) (test code = 5905-5) 5.8 4.4-11.3 [facility] PasoEosinophils (%) (Auto)2019-04-25 11:34:00 * Test Item Value Reference Range Interpretation Comments Eosinophils (%) (Auto) (test code = 713-8) 1.3 0.0-6.0 [facility] PasoBasophils (%) (Auto)2019-04-25 11:34:00* Test Item Value Reference Range Interpretation Comments Basophils (%) (Auto) (test code = 706-2) 0.3 0.0-1.0 [facility] PasoIM GRANULOCYTES %2019-04-25 11:34:00* Test Item Value Reference Range Interpretation Comments IM GRANULOCYTES % (test code = IM GRANULOCYTES %) 3.6 0.0- 1.0 H [facility] PasoNeutrophils # (Auto)2019-04-25 11:34:00* Test Item Value Reference Range Interpretation Comments Neutrophils # (Auto) (test code = 751-8) 4.4 2.1-6.9 [facility] PasoLymphocytes # (Auto)2019-04-25 11:34:00* Test Item Value Reference Range Interpretation Comments Lymphocytes # (Auto) (test code = 12018-3) 1.6 1.0-3.2 [facility] PasoMonocytes # (Auto)2019-04-25 11:34:00* Test Item Value Reference Range Interpretation Comments Monocytes # (Auto) (test code = 742-7) 0.4 0.2-0.8 [facility] PasoEosinophils # (Auto)2019-04-25 11:34:00* Test Item Value Reference Range Interpretation Comments Eosinophils # (Auto) (test code = 711-2) 0.1 0.0-0.4 [facility] PasoBasophils # (Auto)2019-04-25 11:34:00* Test Item Value Reference Range Interpretation Comments Basophils # (Auto) (test code = 704-7) 0.0 0.0-0.1 [facility] PasoAbsolute Immature Granulocyte (auto 2019-04-25 11:34:00* Test Item Value Reference Range Interpretation Comments Absolute Immature Granulocyte (auto (isabelle t code = Absolute Immature Granulocyte (auto) 0.24 0-0.1 H [facility] PasoMRSA Tonkdf9973-87-34 11:34:00* Test Item Value Reference Range Interpretation Comments MRSA Screen (test code = 75961-6) No Result Data Provided [facility] PasoWound Vggoxpt5849-61-44 09:54:00* Test Item Value Reference Range Interpretation Comments Wound Culture (test code = 6462-6) No Result Data Provided [facility] PasoBlood Yqjpudv9120-56-44 23:11:00* Test Item Value Reference Range Interpretation Comments Blood Culture (test code = 11775401) NO GROWTH AFTER 48 HOURS [facility] PasoDifferential Total Cells Counted 2019-04-24 09:55:00* Test Item Value Reference Range Interpretation Comments Differential Total Cells Counted (test code = Stephen scottdavid Total Cells Counted) 100 [facility] PasoNeutrophils % (Manual)2019-04-24 09:55:00 * Test Item Value Reference Range Interpretation Comments Neutrophils % (Manual) (test code = 71955-2) 69 40-74 [facility] PasoLymphocytes % (Manual)2019-04-24 09:55:00 * Test Item Value Reference Range Interpretation Comments Lymphocytes % (Manual) (test code = 737-7) 22 19-48 [facility] PasoMonocytes % (Manual)2019-04-24 09:55:00* Test Item Value Reference Range Interpretation Comments Monocytes % (Manual) (test code = 744-3) 7 3.4-9.0 [facility] PasoEosinophils % (Manual)2019-04-24 09:55:00 * Test Item Value Reference Range Interpretation Comments Eosinophils % (Manual) (test code = 714-6) 2 0-7 [facility] PasoPlatelet Zbcnsstj8430-86-89 09:55:00* Test Item Value Reference Range Interpretation Comments Platelet Estimate (test code = 45753-2) ADEQUATE [facility] PasoPlatelet Morphology Errykio2551-19-91 09:55:00* Test Item Value Reference Range Interpretation Comments Platelet Morphology Comment (test code = 90408-6) NORMAL [facility] PasoRed Cell Morphology Rxsyhai5103-05-05 09:55:00* Test Item Value Reference Range Interpretation Comments Red Cell Morphology Comment (test code = 6742-1) NORMAL [facility] PasoPhosphorus Hgbyp2386-47-04 07:49:00* Test Item Value Reference Range Interpretation Comments Phosphorus Level (test code = BPR8196) 2.4 2.3-4.7 [facility] PasoMagnesium Xylii2236-47-20 07:49:00* Test Item Value Reference Range Interpretation Comments Magnesium Level (test code = 93281-5) 1.9 1.3-2.1 [facility]CHE[facility]ING[facility] ([facility])2019-04-23 17:11:00 [facility] [address] [place] [address] Patient Name: DAVIE CORADO MR #: [id number] : 1970 Age/Sex: 48/F Req #: [id number] Adm Physician: ANGELICA ZALDIVAR MD Ordered by: GIORGI PERES CARPENTER FORM Report #: [id number] Location: MED/SURG2 Room/Bed: [facility] Procedure: [id number] DX/CHEST SINGLE (PORTABLE) Exam Date: 04/23/19 Exam Time: 1645 REPORT STATUS: Signed EXAMINATION: CHEST SINGLE (PORTABLE) COMPARISON: Chest x-ray 11/16/2018 INDICATION: 20 pack yr hx smoking, visit baseline, +hx RLL PNA 2 [id number] Y DISCUSSION: Frontal view of the chest obtained at 1648 hours. HEART AND MEDIASTINUM: The cardiomediastinal silhouette is unr emarkable. LINES: None. LUNGS: Mild eventration of the right diaph ragm is stable. The lungs are well-inflated. No pneumonia or pulmonary edema. PLEURA: No pleural effusion or pneumothorax. BONES AND SOFT TISSUES: No focal osseous lesion. The soft tissues are normal. IMPRESSION: No acute cardiopulmonary disease. Signed by: Dr. Porfirio Mcgowan MD on 04/13 5:12 PM Dictated By: PORFIRIO MCGOWAN MD [id number] Transcribed By: CHARLES on 04/23/19 17 12 COPY TO: GIORGI PERES CARPENTER FORM Urine Opiates Ncorwe7687-43-74 03:43:00* Test Item Value Reference Range Interpretation Comments Urine Opiates Screen (test code = 37510-1) POSITIVE NEGATIVE H This test provides only a screen. Positive results should be repeated by a confi rmatory test.[facility] PasoUrine Barbiturates Screen 2019-04-23 03:43:00* Test Item Value Reference Range Interpretation Comments Urine Barbiturates Screen (test code = 068746130) NEGATIVE NEGA TIVE [facility] PasoUrine Phencyclidine Nlenmk6938-70-62 03:43:00* Test Item Value Reference Range Interpretation Comments Urine Phencyclidine Screen (test code = 92842-5) NEGATIVE NEGAT CHANELL [facility] PasoUrine Amphetamines Rjgily9815-80-82 03:43:00* Test Item Value Reference Range Interpretation Comments Urine Amphetamines Screen (test code = 88475-5) NEGATIVE NEGATI VE [facility] PasoU[facility] Methamphetamines Hnqije1446-37-97 03:43:00* Test Item Value Reference Range Interpretation Comments Urine Methamphetamines Screen (test code = Urine Metha mphetamines Screen) NEGATIVE NEGATIVE [facility] PasoU[facility] Benzodiazepines Sbvina2762-33-25 03:43:00* Test Item Value Reference Range Interpretation Comments Urine Benzodiazepines Screen (test code = 05900-2) NEGATIVE NEG ATIVE [facility] PasoU[facility] Cocaine Jdkvgf3250-19-44 03:43:00* Test Item Value Reference Range Interpretation Comments Urine Cocaine Screen (test code = 3398-5) NEGATIVE NEGATIVE [facility] PasoUrine Cannabinoids Ljtzmm9440-23-19 03:43:00* Test Item Value Reference Range Interpretation Comments Urine Cannabinoids Screen (test code = 37921-1) NEGATIVE NEGATI VE THESE RESULTS ARE FOR MEDICAL TREATMENT ONLYTHIS REPORT CONTAINS UNCONFIR MED SCREENING RESULTS*POSITIVE RESULTS WILL BE CONFIRMED BY REFERENCE LAB UPON R EQUEST CUT-OFFDRUG CLASS CONCENTRATION ng/mLAmphetamines 1000Methamphetamines 1000Cocaine 300Opiate 300Phencyc lidine 25Cannabinoid 50Barbiturates 300Benzodiazepine 300Methadone 300[facility] PointeUrine Methadone Hzsjtp6640-06-06 03:43:00* Test Item Value Reference Range Interpretation Comments Urine Methadone Screen (test code = 97407-8) NEGATIVE NEGATIVE THESE RESULTS ARE FOR MEDICAL TREATMENT ONLYTHIS REPORT CONTAINS UNCONFIR MED SCREENING RESULTS*POSITIVE RESULTS WILL BE CONFIRMED BY REFERENCE LAB UPON R EQUEST CUT-OFFDRUG CLASS CONCENTRATION ng/mLAmphetamines 1000Methamphetamines 1000Cocaine Metabolite 300Opiate 300Phencyc lidine 25Cannabinoid 50Barbiturates 300Benzodiazepine 300Methadone 300[facility]inteTotal Bjfqjgohf0261-13-10 23:37:00* Test Item Value Reference Range Interpretation Comments Total Bilirubin (test code = 1975-2) 0.2 0.2-1.2 [facility] PasoAspartate Amino Transf (AST/SGOT) 2019-04-22 23:37:00* Test Item Value Reference Range Interpretation Comments Aspartate Amino Transf (AST/SGOT) (test code = Aspartate Amino Transf (AST/SGOT)) 47 5-34 H [facility] PasoAlanine Aminotransferase (ALT/SGPT) 2019-04-22 23:37:00* Test Item Value Reference Range Interpretation Comments Alanine Aminotransferase (ALT/SGPT) (test code = 1742-6) 50 0-55 [facility] PasoTotal Qgctspr4090-86-15 23:37:00* Test Item Value Reference Range Interpretation Comments Total Protein (test code = 2885-2) 7.3 6.5-8.1 [facility] PasoAlbumin2020-03-09 23:37:00* Test Item Value Reference Range Interpretation Comments Albumin (test code = 1751-7) 3.0 3.5-5.0 L [facility] PasoGlobulin2020-03-09 23:37:00* Test Item Value Reference Range Interpretation Comments Globulin (test code = 58333-7) 4.3 2.3-3.5 H [facility] PasoAlbumin/Globulin Whtxj0594-87-95 23:37:00 * Test Item Value Reference Range Interpretation Comments Albumin/Globulin Ratio (test code = 1759-0) 0.7 0.8-2.0 L [facility] PasoAlkaline Moazbrupdrf6656-64-18 23:37:00* Test Item Value Reference Range Interpretation Comments Alkaline Phosphatase (test code = 6768-6) 184 40-150 H [facility]inteHAND 3+ VIEWS AAAP8943-04-09 22:07:00 [facility] [address] [address] Patient Name: DAVIE CORADO MR #: [id number] : 1970 Age/Sex: 48/F Req #: [id number] Adm Physician: Ordered by: ELIOT MEADOWS DO Report #: [id number] Location: ER Room/Bed: Procedure: 85 DX/HAND 3+ VIEWS LEFT Exam Date: 04/22/19 Exam Ti me: 2135 REPORT STATUS: Signed Exam: Left hand radiographs-3 views History: Infection. Comparison: None. Findings/Impression: No evidence of acute fracture or malalignment. Soft tissue edema in the hand, most pronounced in the thenar eminence and ind ex finger. No radiographic evidence of osteomyelitis. Signed by: Dr. Elmer Anthony MD on 04/22/2019 10:09 PM Dictated By: MEHDI ANTHONY MD Electronicall y Signed By: MEHDI ANTHONY MD on 04/22/192208 Transcribed By: CHARLES on 04/22/192208 COPY TO: ELIOT MEADOWS DO DRUGS OF ABUSE SCREEN 2019-03-03 14:12:00* Test Item Value Reference Range Interpretation Comments UA PH DIPSTICK (test code = MARCELLO) 5.0 5.0-8.0 URN COCAINE (test code = COCAURN) NEGATIVE <300 ng/mL URN CANNABINOIDS (test code = CANNABURN) NEGATIVE <50 ng/mL URN AMPHETAMINE (test code = AMPHETURN) NEGATIVE <1000 ng/mL URN BARBITURATE (test code = BARBITURN) NEGATIVE <200 ng/mL URN BENZODIAZEPINE (test code = BENZOURN) NEGATIVE <200 ng/mL URN OPIATES (test code = OPIATURN) POSITIVE <300 ng/mL A This test provides only a preliminary test [...] employment testing, legaltesting). URN PHENCYCLIDINE (PCP) (test code = PHENCURN) NEGATIVE <25 ng/ mL URN METHADONE (test code = METHAURN) NEGATIVE <300 ng/mL SAMPLE TO BE COLLECTED BY NURSEDRUGS OF ABUSE SCREEN [id number] 13:43:00* Test Item Value Reference Range Interpretation Comments UA PH DIPSTICK (test code = MARCELLO) 5.0 5.0-8.0 URN COCAINE (test code = COCAURN) <300 ng/mL URN CANNABINOIDS (test code = CANNABURN) <50 ng/mL URN AMPHETAMINE (test code = AMPHETURN) <1000 ng/mL URN BARBITURATE (test code = BARBITURN) <200 ng/mL URN BENZODIAZEPINE (test code = BENZOURN) <200 ng/mL URN OPIATES (test code = OPIATURN) <300 ng/mL URN PHENCYCLIDINE (PCP) (test code = PHENCURN) <25 ng/ mL URN METHADONE (test code = METHAURN) <300 ng/mL SAMPLE TO BE COLLECTED BY NURSECBC W/AUTO [id number] 04:06:00* Test Item Value Reference Range Interpretation Comments WHITE BLOOD CELL (test code = WBC) 8.8 K/mm3 4.5-12.5 N RED BLOOD CELL (test code = RBC) 4.49 mill/mm3 3.7-5.2 N HEMOGLOBIN (test code = HGB) 10.2 gram/dL 11.5-15.5 L HEMATOCRIT (test code = HCT) 35.4 % 36.0-46.0 L MEAN CELL VOLUME (test code = MCV) 78.8 fL 80-98 L MEAN CELL HGB (test code = MCH) 22.7 picogram 27.0-33.0 L MEAN CELL HGB CONCETRATION (test code = MCHC) 28.8 gram/dL 33.0-36. 0 L RED CELL DISTRIBUTION WIDTH (test code = RDW) 18.4 % 11.6-16. 2 H RED CELL DISTRIBUTION WIDTH SD (test code = RDW-SD) 52.4 fL 37 .0-51.0 H PLATELET COUNT (test code = PLT) 326 K/mm3 150-450 N MEAN PLATELET VOLUME (test code = MPV) 9.4 fL 6.7-11.0 N NEUTROPHIL % (test code = NT%) 80.1 % 39.0-69.0 H IMMATURE GRANULOCYTE % (test code = IG%) 2.3 % 0.0-5.0 N LYMPHOCYTE % (test code = LY%) 11.8 % 25.0-55.0 L MONOCYTE % (test code = MO%) 5.6 % 0.0-10.0 N EOSINOPHIL % (test code = EO%) 0.0 % 0.0-5.0 N BASOPHIL % (test code = BA%) 0.2 % 0.0-1.0 N NUCLEATED RBC % (test code = NRBC%) 0.0 % 0-0 N NEUTROPHIL # (test code = NT#) 7.05 K/mm3 1.8-7.7 N IMMATURE GRANULOCYTE # (test code = IG#) 0.20 x10 3/uL 0-0.03 H LYMPHOCYTE # (test code = LY#) 1.04 K/mm3 1.0-5.0 N MONOCYTE # (test code = MO#) 0.49 K/mm3 0-0.8 N EOSINOPHIL # (test code = EO#) 0.00 K/mm3 0.0-0.5 N BASOPHIL # (test code = BA#) 0.02 K/mm3 0.0-0.2 N NUCLEATED RBC # (test code = NRBC#) 0.00 K/mm3 0.0-0.1 N MANUAL DIFF REQUIRED (test code = MDIFF) NO, ONLY SCAN NEEDED DIFFERENTIAL [id number] 04:06:00* Test Item Value Reference Range Interpretation Comments STAIN ACCEPTABILITY (test code = STN ACCEPTABLE) STAIN ACCEPTABLE POLYCHROMASIA (test code = POLC) 1+ POIKILOCYTOSIS (test code = POIK) 1+ ANISOCYTOSIS (test code = ANISO) 1+ MICROCYTOSIS (test code = MICR) 1+ TEAR DROP CELLS (test code = TEAR) 1+ OVALOCYTES (test code = OVAL) 1+ PLATELET ESTIMATE (test code = PLTEST) ADEQUATE PLATELET MORPHOLOGY (test code = PLTMORPH) NORMAL BASIC METABOLIC [id number] 03:58:00* Test Item Value Reference Range Interpretation Comments SODIUM (test code = NA) 140 mmol/L 136-145 N POTASSIUM (test code = K) 4.5 mmol/L 3.5-5.1 N CHLORIDE (test code = CL) 102.0 mmol/L 98-107 N CARBON DIOXIDE (test code = CO2) 31.0 mmol/L 21-32 N ANION GAP (test code = GAP) 11.5 10-20 N GLUCOSE (test code = GLU) 156 mg/dL 74-106 H BLOOD UREA NITROGEN (test code = BUN) 14 mg/dL 7-18 N GLOMERULAR FILTRATION RATE (test code = GFR) > 60 mL/min >=60 Estimated GFR by using Modified MDRD formula.Chronic kidney disease is defined as either kidney damageor GFR <60 mL/min/1.73 m2 for >3 months. CREATININE (test code = CREAT) 0.60 mg/dL 0.55-1.02 N Note change in reference range due to change in reagent. BUN/CREATININE RATIO (test code = BUN/CREA) 23.3 10-20 H CALCIUM (test code = CA) 9.3 mg/dL 8.5-10.1 N CBC W/AUTO [id number] 03:37:00* Test Item Value Reference Range Interpretation Comments WHITE BLOOD CELL (test code = WBC) 8.8 K/mm3 4.5-12.5 N RED BLOOD CELL (test code = RBC) 4.49 mill/mm3 3.7-5.2 N HEMOGLOBIN (test code = HGB) 10.2 gram/dL 11.5-15.5 L HEMATOCRIT (test code = HCT) 35.4 % 36.0-46.0 L MEAN CELL VOLUME (test code = MCV) 78.8 fL 80-98 L MEAN CELL HGB (test code = MCH) 22.7 picogram 27.0-33.0 L MEAN CELL HGB CONCETRATION (test code = MCHC) 28.8 gram/dL 33.0-36. 0 L RED CELL DISTRIBUTION WIDTH (test code = RDW) 18.4 % 11.6-16. 2 H RED CELL DISTRIBUTION WIDTH SD (test code = RDW-SD) 52.4 fL 37 .0-51.0 H PLATELET COUNT (test code = PLT) 326 K/mm3 150-450 N MEAN PLATELET VOLUME (test code = MPV) 9.4 fL 6.7-11.0 N NEUTROPHIL % (test code = NT%) 80.1 % 39.0-69.0 H IMMATURE GRANULOCYTE % (test code = IG%) 2.3 % 0.0-5.0 N LYMPHOCYTE % (test code = LY%) 11.8 % 25.0-55.0 L MONOCYTE % (test code = MO%) 5.6 % 0.0-10.0 N EOSINOPHIL % (test code = EO%) 0.0 % 0.0-5.0 N BASOPHIL % (test code = BA%) 0.2 % 0.0-1.0 N NUCLEATED RBC % (test code = NRBC%) 0.0 % 0-0 N NEUTROPHIL # (test code = NT#) 7.05 K/mm3 1.8-7.7 N IMMATURE GRANULOCYTE # (test code = IG#) 0.20 x10 3/uL 0-0.03 H LYMPHOCYTE # (test code = LY#) 1.04 K/mm3 1.0-5.0 N MONOCYTE # (test code = MO#) 0.49 K/mm3 0-0.8 N EOSINOPHIL # (test code = EO#) 0.00 K/mm3 0.0-0.5 N BASOPHIL # (test code = BA#) 0.02 K/mm3 0.0-0.2 N NUCLEATED RBC # (test code = NRBC#) 0.00 K/mm3 0.0-0.1 N MANUAL DIFF REQUIRED (test code = MDIFF) NO, ONLY SCAN NEEDED DIFFERENTIAL [id number] 03:37:00* Test Item Value Reference Range Interpretation Comments STAIN ACCEPTABILITY (test code = STN ACCEPTABLE) CABOT RINGS (test code = CAB) MORPHOLOGY COMMENT (test code = MOC) PLATELET ESTIMATE (test code = PLTEST) PLATELET MORPHOLOGY (test code = PLTMORPH) CBC W/AUTO [id number] 03:37:00* Test Item Value Reference Range Interpretation Comments WHITE BLOOD CELL (test code = WBC) 8.8 K/mm3 4.5-12.5 N RED BLOOD CELL (test code = RBC) 4.49 mill/mm3 3.7-5.2 N HEMOGLOBIN (test code = HGB) 10.2 gram/dL 11.5-15.5 L HEMATOCRIT (test code = HCT) 35.4 % 36.0-46.0 L MEAN CELL VOLUME (test code = MCV) 78.8 fL 80-98 L MEAN CELL HGB (test code = MCH) 22.7 picogram 27.0-33.0 L MEAN CELL HGB CONCETRATION (test code = MCHC) 28.8 gram/dL 33.0-36. 0 L RED CELL DISTRIBUTION WIDTH (test code = RDW) 18.4 % 11.6-16. 2 H RED CELL DISTRIBUTION WIDTH SD (test code = RDW-SD) 52.4 fL 37 .0-51.0 H PLATELET COUNT (test code = PLT) 326 K/mm3 150-450 N MEAN PLATELET VOLUME (test code = MPV) 9.4 fL 6.7-11.0 N NEUTROPHIL % (test code = NT%) 80.1 % 39.0-69.0 H IMMATURE GRANULOCYTE % (test code = IG%) 2.3 % 0.0-5.0 N LYMPHOCYTE % (test code = LY%) 11.8 % 25.0-55.0 L MONOCYTE % (test code = MO%) 5.6 % 0.0-10.0 N EOSINOPHIL % (test code = EO%) 0.0 % 0.0-5.0 N BASOPHIL % (test code = BA%) 0.2 % 0.0-1.0 N NUCLEATED RBC % (test code = NRBC%) 0.0 % 0-0 N NEUTROPHIL # (test code = NT#) 7.05 K/mm3 1.8-7.7 N IMMATURE GRANULOCYTE # (test code = IG#) 0.20 x10 3/uL 0-0.03 H LYMPHOCYTE # (test code = LY#) 1.04 K/mm3 1.0-5.0 N MONOCYTE # (test code = MO#) 0.49 K/mm3 0-0.8 N EOSINOPHIL # (test code = EO#) 0.00 K/mm3 0.0-0.5 N BASOPHIL # (test code = BA#) 0.02 K/mm3 0.0-0.2 N NUCLEATED RBC # (test code = NRBC#) 0.00 K/mm3 0.0-0.1 N MANUAL DIFF REQUIRED (test code = MDIFF) NO, ONLY SCAN NEEDED DIFFERENTIAL [id number] 03:37:00* Test Item Value Reference Range Interpretation Comments STAIN ACCEPTABILITY (test code = STN ACCEPTABLE) CABOT RINGS (test code = CAB) MORPHOLOGY COMMENT (test code = MOC) PLATELET ESTIMATE (test code = PLTEST) PLATELET MORPHOLOGY (test code = PLTMORPH) CBC W/AUTO [id number] 03:37:00* Test Item Value Reference Range Interpretation Comments WHITE BLOOD CELL (test code = WBC) 8.8 K/mm3 4.5-12.5 N RED BLOOD CELL (test code = RBC) 4.49 mill/mm3 3.7-5.2 N HEMOGLOBIN (test code = HGB) 10.2 gram/dL 11.5-15.5 L HEMATOCRIT (test code = HCT) 35.4 % 36.0-46.0 L MEAN CELL VOLUME (test code = MCV) 78.8 fL 80-98 L MEAN CELL HGB (test code = MCH) 22.7 picogram 27.0-33.0 L MEAN CELL HGB CONCETRATION (test code = MCHC) 28.8 gram/dL 33.0-36. 0 L RED CELL DISTRIBUTION WIDTH (test code = RDW) 18.4 % 11.6-16. 2 H RED CELL DISTRIBUTION WIDTH SD (test code = RDW-SD) 52.4 fL 37 .0-51.0 H PLATELET COUNT (test code = PLT) 326 K/mm3 150-450 N MEAN PLATELET VOLUME (test code = MPV) 9.4 fL 6.7-11.0 N NEUTROPHIL % (test code = NT%) 80.1 % 39.0-69.0 H IMMATURE GRANULOCYTE % (test code = IG%) 2.3 % 0.0-5.0 N LYMPHOCYTE % (test code = LY%) 11.8 % 25.0-55.0 L MONOCYTE % (test code = MO%) 5.6 % 0.0-10.0 N EOSINOPHIL % (test code = EO%) 0.0 % 0.0-5.0 N BASOPHIL % (test code = BA%) 0.2 % 0.0-1.0 N NUCLEATED RBC % (test code = NRBC%) 0.0 % 0-0 N NEUTROPHIL # (test code = NT#) 7.05 K/mm3 1.8-7.7 N IMMATURE GRANULOCYTE # (test code = IG#) 0.20 x10 3/uL 0-0.03 H LYMPHOCYTE # (test code = LY#) 1.04 K/mm3 1.0-5.0 N MONOCYTE # (test code = MO#) 0.49 K/mm3 0-0.8 N EOSINOPHIL # (test code = EO#) 0.00 K/mm3 0.0-0.5 N BASOPHIL # (test code = BA#) 0.02 K/mm3 0.0-0.2 N NUCLEATED RBC # (test code = NRBC#) 0.00 K/mm3 0.0-0.1 N MANUAL DIFF REQUIRED (test code = MDIFF) NO, ONLY SCAN NEEDED DIFFERENTIAL [id number] 03:37:00* Test Item Value Reference Range Interpretation Comments STAIN ACCEPTABILITY (test code = STN ACCEPTABLE) MORPHOLOGY COMMENT (test code = MOC) PLATELET ESTIMATE (test code = PLTEST) PLATELET MORPHOLOGY (test code = PLTMORPH) CBC W/AUTO [id number] 03:37:00* Test Item Value Reference Range Interpretation Comments WHITE BLOOD CELL (test code = WBC) 8.8 K/mm3 4.5-12.5 N RED BLOOD CELL (test code = RBC) 4.49 mill/mm3 3.7-5.2 N HEMOGLOBIN (test code = HGB) 10.2 gram/dL 11.5-15.5 L HEMATOCRIT (test code = HCT) 35.4 % 36.0-46.0 L MEAN CELL VOLUME (test code = MCV) 78.8 fL 80-98 L MEAN CELL HGB (test code = MCH) 22.7 picogram 27.0-33.0 L MEAN CELL HGB CONCETRATION (test code = MCHC) 28.8 gram/dL 33.0-36. 0 L RED CELL DISTRIBUTION WIDTH (test code = RDW) 18.4 % 11.6-16. 2 H RED CELL DISTRIBUTION WIDTH SD (test code = RDW-SD) 52.4 fL 37 .0-51.0 H PLATELET COUNT (test code = PLT) 326 K/mm3 150-450 N MEAN PLATELET VOLUME (test code = MPV) 9.4 fL 6.7-11.0 N NEUTROPHIL % (test code = NT%) 80.1 % 39.0-69.0 H IMMATURE GRANULOCYTE % (test code = IG%) 2.3 % 0.0-5.0 N LYMPHOCYTE % (test code = LY%) 11.8 % 25.0-55.0 L MONOCYTE % (test code = MO%) 5.6 % 0.0-10.0 N EOSINOPHIL % (test code = EO%) 0.0 % 0.0-5.0 N BASOPHIL % (test code = BA%) 0.2 % 0.0-1.0 N NUCLEATED RBC % (test code = NRBC%) 0.0 % 0-0 N NEUTROPHIL # (test code = NT#) 7.05 K/mm3 1.8-7.7 N IMMATURE GRANULOCYTE # (test code = IG#) 0.20 x10 3/uL 0-0.03 H LYMPHOCYTE # (test code = LY#) 1.04 K/mm3 1.0-5.0 N MONOCYTE # (test code = MO#) 0.49 K/mm3 0-0.8 N EOSINOPHIL # (test code = EO#) 0.00 K/mm3 0.0-0.5 N BASOPHIL # (test code = BA#) 0.02 K/mm3 0.0-0.2 N NUCLEATED RBC # (test code = NRBC#) 0.00 K/mm3 0.0-0.1 N MANUAL DIFF REQUIRED (test code = MDIFF) NO, ONLY SCAN NEEDED DIFFERENTIAL [id number] 03:37:00* Test Item Value Reference Range Interpretation Comments STAIN ACCEPTABILITY (test code = STN ACCEPTABLE) CABOT RINGS (test code = CAB) MORPHOLOGY COMMENT (test code = MOC) PLATELET ESTIMATE (test code = PLTEST) PLATELET MORPHOLOGY (test code = PLTMORPH) CBC W/AUTO [id number] 04:18:00* Test Item Value Reference Range Interpretation Comments WHITE BLOOD CELL (test code = WBC) 6.9 K/mm3 4.5-12.5 N RED BLOOD CELL (test code = RBC) 4.15 mill/mm3 3.7-5.2 N HEMOGLOBIN (test code = HGB) 9.5 gram/dL 11.5-15.5 L HEMATOCRIT (test code = HCT) 33.2 % 36.0-46.0 L MEAN CELL VOLUME (test code = MCV) 80.0 fL 80-98 N MEAN CELL HGB (test code = MCH) 22.9 picogram 27.0-33.0 L MEAN CELL HGB CONCETRATION (test code = MCHC) 28.6 gram/dL 33.0-36. 0 L RED CELL DISTRIBUTION WIDTH (test code = RDW) 18.3 % 11.6-16. 2 H RED CELL DISTRIBUTION WIDTH SD (test code = RDW-SD) 53.1 fL 37 .0-51.0 H PLATELET COUNT (test code = PLT) 230 K/mm3 150-450 N MEAN PLATELET VOLUME (test code = MPV) 11.1 fL 6.7-11.0 H NEUTROPHIL % (test code = NT%) 82.9 % 39.0-69.0 H IMMATURE GRANULOCYTE % (test code = IG%) 1.2 % 0.0-5.0 N LYMPHOCYTE % (test code = LY%) 11.1 % 25.0-55.0 L MONOCYTE % (test code = MO%) 4.5 % 0.0-10.0 N EOSINOPHIL % (test code = EO%) 0.0 % 0.0-5.0 N BASOPHIL % (test code = BA%) 0.3 % 0.0-1.0 N NUCLEATED RBC % (test code = NRBC%) 0.0 % 0-0 N NEUTROPHIL # (test code = NT#) 5.70 K/mm3 1.8-7.7 N IMMATURE GRANULOCYTE # (test code = IG#) 0.08 x10 3/uL 0-0.03 H LYMPHOCYTE # (test code = LY#) 0.76 K/mm3 1.0-5.0 L MONOCYTE # (test code = MO#) 0.31 K/mm3 0-0.8 N EOSINOPHIL # (test code = EO#) 0.00 K/mm3 0.0-0.5 N BASOPHIL # (test code = BA#) 0.02 K/mm3 0.0-0.2 N NUCLEATED RBC # (test code = NRBC#) 0.00 K/mm3 0.0-0.1 N MANUAL DIFF REQUIRED (test code = MDIFF) NO, ONLY SCAN NEEDED DIFFERENTIAL [id number] 04:18:00* Test Item Value Reference Range Interpretation Comments STAIN ACCEPTABILITY (test code = STN ACCEPTABLE) STAIN ACCEPTABLE POIKILOCYTOSIS (test code = POIK) 1+ ANISOCYTOSIS (test code = ANISO) 1+ MICROCYTOSIS (test code = MICR) 1+ ELLIPTOCYTES (test code = ELL) 1+ PLATELET ESTIMATE (test code = PLTEST) ADEQUATE PLATELET MORPHOLOGY (test code = PLTMORPH) NORMAL BASIC METABOLIC [id number] 03:39:00* Test Item Value Reference Range Interpretation Comments SODIUM (test code = NA) 141 mmol/L 136-145 N POTASSIUM (test code = K) 4.0 mmol/L 3.5-5.1 N CHLORIDE (test code = CL) 106.0 mmol/L 98-107 N CARBON DIOXIDE (test code = CO2) 27.0 mmol/L 21-32 N ANION GAP (test code = GAP) 12.0 10-20 N GLUCOSE (test code = GLU) 161 mg/dL 74-106 H BLOOD UREA NITROGEN (test code = BUN) 8 mg/dL 7-18 N GLOMERULAR FILTRATION RATE (test code = GFR) > 60 mL/min >=60 Estimated GFR by using Modified MDRD formula.Chronic kidney disease is defined as either kidney damageor GFR <60 mL/min/1.73 m2 for >3 months. CREATININE (test code = CREAT) 0.70 mg/dL 0.55-1.02 N Note change in reference range due to change in reagent. BUN/CREATININE RATIO (test code = BUN/CREA) 11.4 10-20 N CALCIUM (test code = CA) 9.2 mg/dL 8.5-10.1 N BASIC METABOLIC [id number] 03:34:00* Test Item Value Reference Range Interpretation Comments SODIUM (test code = NA) 141 mmol/L 136-145 N POTASSIUM (test code = K) 4.0 mmol/L 3.5-5.1 N CHLORIDE (test code = CL) 106.0 mmol/L 98-107 N CARBON DIOXIDE (test code = CO2) mmol/L 21-32 ANION GAP (test code = GAP) 10-20 GLUCOSE (test code = GLU) mg/dL 74-106 BLOOD UREA NITROGEN (test code = BUN) mg/dL 7-18 GLOMERULAR FILTRATION RATE (test code = GFR) mL/min >=60 CREATININE (test code = CREAT) mg/dL 0.55-1.02 BUN/CREATININE RATIO (test code = BUN/CREA) 10-20 CALCIUM (test code = CA) mg/dL 8.5-10.1 CBC W/AUTO [id number] 03:21:00* Test Item Value Reference Range Interpretation Comments WHITE BLOOD CELL (test code = WBC) 6.9 K/mm3 4.5-12.5 N RED BLOOD CELL (test code = RBC) 4.15 mill/mm3 3.7-5.2 N HEMOGLOBIN (test code = HGB) 9.5 gram/dL 11.5-15.5 L HEMATOCRIT (test code = HCT) 33.2 % 36.0-46.0 L MEAN CELL VOLUME (test code = MCV) 80.0 fL 80-98 N MEAN CELL HGB (test code = MCH) 22.9 picogram 27.0-33.0 L MEAN CELL HGB CONCETRATION (test code = MCHC) 28.6 gram/dL 33.0-36. 0 L RED CELL DISTRIBUTION WIDTH (test code = RDW) 18.3 % 11.6-16. 2 H RED CELL DISTRIBUTION WIDTH SD (test code = RDW-SD) 53.1 fL 37 .0-51.0 H PLATELET COUNT (test code = PLT) 230 K/mm3 150-450 N MEAN PLATELET VOLUME (test code = MPV) 11.1 fL 6.7-11.0 H NEUTROPHIL % (test code = NT%) 82.9 % 39.0-69.0 H IMMATURE GRANULOCYTE % (test code = IG%) 1.2 % 0.0-5.0 N LYMPHOCYTE % (test code = LY%) 11.1 % 25.0-55.0 L MONOCYTE % (test code = MO%) 4.5 % 0.0-10.0 N EOSINOPHIL % (test code = EO%) 0.0 % 0.0-5.0 N BASOPHIL % (test code = BA%) 0.3 % 0.0-1.0 N NUCLEATED RBC % (test code = NRBC%) 0.0 % 0-0 N NEUTROPHIL # (test code = NT#) 5.70 K/mm3 1.8-7.7 N IMMATURE GRANULOCYTE # (test code = IG#) 0.08 x10 3/uL 0-0.03 H LYMPHOCYTE # (test code = LY#) 0.76 K/mm3 1.0-5.0 L MONOCYTE # (test code = MO#) 0.31 K/mm3 0-0.8 N EOSINOPHIL # (test code = EO#) 0.00 K/mm3 0.0-0.5 N BASOPHIL # (test code = BA#) 0.02 K/mm3 0.0-0.2 N NUCLEATED RBC # (test code = NRBC#) 0.00 K/mm3 0.0-0.1 N MANUAL DIFF REQUIRED (test code = MDIFF) NO, ONLY SCAN NEEDED DIFFERENTIAL [id number] 03:21:00* Test Item Value Reference Range Interpretation Comments STAIN ACCEPTABILITY (test code = STN ACCEPTABLE) CABOT RINGS (test code = CAB) MORPHOLOGY COMMENT (test code = MOC) PLATELET ESTIMATE (test code = PLTEST) PLATELET MORPHOLOGY (test code = PLTMORPH) CBC W/AUTO [id number] 03:21:00* Test Item Value Reference Range Interpretation Comments WHITE BLOOD CELL (test code = WBC) 6.9 K/mm3 4.5-12.5 N RED BLOOD CELL (test code = RBC) 4.15 mill/mm3 3.7-5.2 N HEMOGLOBIN (test code = HGB) 9.5 gram/dL 11.5-15.5 L HEMATOCRIT (test code = HCT) 33.2 % 36.0-46.0 L MEAN CELL VOLUME (test code = MCV) 80.0 fL 80-98 N MEAN CELL HGB (test code = MCH) 22.9 picogram 27.0-33.0 L MEAN CELL HGB CONCETRATION (test code = MCHC) 28.6 gram/dL 33.0-36. 0 L RED CELL DISTRIBUTION WIDTH (test code = RDW) 18.3 % 11.6-16. 2 H RED CELL DISTRIBUTION WIDTH SD (test code = RDW-SD) 53.1 fL 37 .0-51.0 H PLATELET COUNT (test code = PLT) 230 K/mm3 150-450 N MEAN PLATELET VOLUME (test code = MPV) 11.1 fL 6.7-11.0 H NEUTROPHIL % (test code = NT%) 82.9 % 39.0-69.0 H IMMATURE GRANULOCYTE % (test code = IG%) 1.2 % 0.0-5.0 N LYMPHOCYTE % (test code = LY%) 11.1 % 25.0-55.0 L MONOCYTE % (test code = MO%) 4.5 % 0.0-10.0 N EOSINOPHIL % (test code = EO%) 0.0 % 0.0-5.0 N BASOPHIL % (test code = BA%) 0.3 % 0.0-1.0 N NUCLEATED RBC % (test code = NRBC%) 0.0 % 0-0 N NEUTROPHIL # (test code = NT#) 5.70 K/mm3 1.8-7.7 N IMMATURE GRANULOCYTE # (test code = IG#) 0.08 x10 3/uL 0-0.03 H LYMPHOCYTE # (test code = LY#) 0.76 K/mm3 1.0-5.0 L MONOCYTE # (test code = MO#) 0.31 K/mm3 0-0.8 N EOSINOPHIL # (test code = EO#) 0.00 K/mm3 0.0-0.5 N BASOPHIL # (test code = BA#) 0.02 K/mm3 0.0-0.2 N NUCLEATED RBC # (test code = NRBC#) 0.00 K/mm3 0.0-0.1 N MANUAL DIFF REQUIRED (test code = MDIFF) NO, ONLY SCAN NEEDED DIFFERENTIAL [id number] 03:21:00* Test Item Value Reference Range Interpretation Comments STAIN ACCEPTABILITY (test code = STN ACCEPTABLE) CABOT RINGS (test code = CAB) MORPHOLOGY COMMENT (test code = MOC) PLATELET ESTIMATE (test code = PLTEST) PLATELET MORPHOLOGY (test code = PLTMORPH) CBC W/AUTO [id number] 03:21:00* Test Item Value Reference Range Interpretation Comments WHITE BLOOD CELL (test code = WBC) 6.9 K/mm3 4.5-12.5 N RED BLOOD CELL (test code = RBC) 4.15 mill/mm3 3.7-5.2 N HEMOGLOBIN (test code = HGB) 9.5 gram/dL 11.5-15.5 L HEMATOCRIT (test code = HCT) 33.2 % 36.0-46.0 L MEAN CELL VOLUME (test code = MCV) 80.0 fL 80-98 N MEAN CELL HGB (test code = MCH) 22.9 picogram 27.0-33.0 L MEAN CELL HGB CONCETRATION (test code = MCHC) 28.6 gram/dL 33.0-36. 0 L RED CELL DISTRIBUTION WIDTH (test code = RDW) 18.3 % 11.6-16. 2 H RED CELL DISTRIBUTION WIDTH SD (test code = RDW-SD) 53.1 fL 37 .0-51.0 H PLATELET COUNT (test code = PLT) 230 K/mm3 150-450 N MEAN PLATELET VOLUME (test code = MPV) 11.1 fL 6.7-11.0 H NEUTROPHIL % (test code = NT%) 82.9 % 39.0-69.0 H IMMATURE GRANULOCYTE % (test code = IG%) 1.2 % 0.0-5.0 N LYMPHOCYTE % (test code = LY%) 11.1 % 25.0-55.0 L MONOCYTE % (test code = MO%) 4.5 % 0.0-10.0 N EOSINOPHIL % (test code = EO%) 0.0 % 0.0-5.0 N BASOPHIL % (test code = BA%) 0.3 % 0.0-1.0 N NUCLEATED RBC % (test code = NRBC%) 0.0 % 0-0 N NEUTROPHIL # (test code = NT#) 5.70 K/mm3 1.8-7.7 N IMMATURE GRANULOCYTE # (test code = IG#) 0.08 x10 3/uL 0-0.03 H LYMPHOCYTE # (test code = LY#) 0.76 K/mm3 1.0-5.0 L MONOCYTE # (test code = MO#) 0.31 K/mm3 0-0.8 N EOSINOPHIL # (test code = EO#) 0.00 K/mm3 0.0-0.5 N BASOPHIL # (test code = BA#) 0.02 K/mm3 0.0-0.2 N NUCLEATED RBC # (test code = NRBC#) 0.00 K/mm3 0.0-0.1 N MANUAL DIFF REQUIRED (test code = MDIFF) NO, ONLY SCAN NEEDED DIFFERENTIAL [id number] 03:21:00* Test Item Value Reference Range Interpretation Comments STAIN ACCEPTABILITY (test code = STN ACCEPTABLE) MORPHOLOGY COMMENT (test code = MOC) PLATELET ESTIMATE (test code = PLTEST) PLATELET MORPHOLOGY (test code = PLTMORPH) CBC W/AUTO [id number] 03:21:00* Test Item Value Reference Range Interpretation Comments WHITE BLOOD CELL (test code = WBC) 6.9 K/mm3 4.5-12.5 N RED BLOOD CELL (test code = RBC) 4.15 mill/mm3 3.7-5.2 N HEMOGLOBIN (test code = HGB) 9.5 gram/dL 11.5-15.5 L HEMATOCRIT (test code = HCT) 33.2 % 36.0-46.0 L MEAN CELL VOLUME (test code = MCV) 80.0 fL 80-98 N MEAN CELL HGB (test code = MCH) 22.9 picogram 27.0-33.0 L MEAN CELL HGB CONCETRATION (test code = MCHC) 28.6 gram/dL 33.0-36. 0 L RED CELL DISTRIBUTION WIDTH (test code = RDW) 18.3 % 11.6-16. 2 H RED CELL DISTRIBUTION WIDTH SD (test code = RDW-SD) 53.1 fL 37 .0-51.0 H PLATELET COUNT (test code = PLT) 230 K/mm3 150-450 N MEAN PLATELET VOLUME (test code = MPV) 11.1 fL 6.7-11.0 H NEUTROPHIL % (test code = NT%) 82.9 % 39.0-69.0 H IMMATURE GRANULOCYTE % (test code = IG%) 1.2 % 0.0-5.0 N LYMPHOCYTE % (test code = LY%) 11.1 % 25.0-55.0 L MONOCYTE % (test code = MO%) 4.5 % 0.0-10.0 N EOSINOPHIL % (test code = EO%) 0.0 % 0.0-5.0 N BASOPHIL % (test code = BA%) 0.3 % 0.0-1.0 N NUCLEATED RBC % (test code = NRBC%) 0.0 % 0-0 N NEUTROPHIL # (test code = NT#) 5.70 K/mm3 1.8-7.7 N IMMATURE GRANULOCYTE # (test code = IG#) 0.08 x10 3/uL 0-0.03 H LYMPHOCYTE # (test code = LY#) 0.76 K/mm3 1.0-5.0 L MONOCYTE # (test code = MO#) 0.31 K/mm3 0-0.8 N EOSINOPHIL # (test code = EO#) 0.00 K/mm3 0.0-0.5 N BASOPHIL # (test code = BA#) 0.02 K/mm3 0.0-0.2 N NUCLEATED RBC # (test code = NRBC#) 0.00 K/mm3 0.0-0.1 N MANUAL DIFF REQUIRED (test code = MDIFF) NO, ONLY SCAN NEEDED DIFFERENTIAL [id number] 03:21:00* Test Item Value Reference Range Interpretation Comments STAIN ACCEPTABILITY (test code = STN ACCEPTABLE) CABOT RINGS (test code = CAB) MORPHOLOGY COMMENT (test code = MOC) PLATELET ESTIMATE (test code = PLTEST) PLATELET MORPHOLOGY (test code = PLTMORPH) - XR ABDOMEN AP 1 [id number] 18:58:00 FAX: Lawrence Carvajal [phone] Isom: St: [facility] FAX: Dima Lorenzo [phone] FAX: Lorne Mejia [phone] Name: DAVIE CORADO [facility] : 1970 Age/S: 48/F [address] Unit #: [id number] Loc: V.[address] [place] [id number] Phys: Lorne Tinsley MD Acct: [id number] Dis Date: Status: ADM IN ONE #: [phone] Exam Date: 02/28/2019 1832 FAX #: [phone] Reason: constipation EXAMS: CPT CODE: [id number] XR ABDOMEN AP 1 V [id number] EXAM: Abdomen, 2 views; INFORMATION: Intractable vomiting, abdominal pain, Crohn 's exacerbation; constipation; FINDINGS: Unremarkable bowel gas pattern; no evidence of obstruction or other acute abnormalities . There is significant enlargement of the liver with the inferior edge of the liver extending to the level of S1. Clips in the esophagogastric region, the gallbladder fossa and also in the left mid abdominal region. Surgical suture line left upper quadrant. IMPRESSION: 1. No evidence of bowel obstruction or other acute abnormalities. 2. Significant hepatomegaly. Location code: [facility] at 1858 Reported and signed by: Ralf Franz M.D. CC: Lawrence Carvajal MD; Uriel Samaniego on E; Lorne Tinsley MD Technologist: MARYAM ANDERSON RT (R) Trnscrd Date/Time/By: 02/28/2019 (1857) : By: OralGRW Orig Print D/T: S: 02/28/2019 (1901) PAGE 1 Signed Report CBC W/AUTO [id number] 05:43:00* Test Item Value Reference Range Interpretation Comments WHITE BLOOD CELL (test code = WBC) 4.6 K/mm3 4.5-12.5 N RED BLOOD CELL (test code = RBC) 4.00 mill/mm3 3.7-5.2 N HEMOGLOBIN (test code = HGB) 9.1 gram/dL 11.5-15.5 L HEMATOCRIT (test code = HCT) 31.9 % 36.0-46.0 L MEAN CELL VOLUME (test code = MCV) 79.8 fL 80-98 L MEAN CELL HGB (test code = MCH) 22.8 picogram 27.0-33.0 L MEAN CELL HGB CONCETRATION (test code = MCHC) 28.5 gram/dL 33.0-36. 0 L RED CELL DISTRIBUTION WIDTH (test code = RDW) 18.2 % 11.6-16. 2 H RED CELL DISTRIBUTION WIDTH SD (test code = RDW-SD) 53.1 fL 37 .0-51.0 H PLATELET COUNT (test code = PLT) 197 K/mm3 150-450 N MEAN PLATELET VOLUME (test code = MPV) 10.6 fL 6.7-11.0 N NEUTROPHIL % (test code = NT%) 76.1 % 39.0-69.0 H IMMATURE GRANULOCYTE % (test code = IG%) 1.3 % 0.0-5.0 N LYMPHOCYTE % (test code = LY%) 17.0 % 25.0-55.0 L MONOCYTE % (test code = MO%) 5.4 % 0.0-10.0 N EOSINOPHIL % (test code = EO%) 0.0 % 0.0-5.0 N BASOPHIL % (test code = BA%) 0.2 % 0.0-1.0 N NUCLEATED RBC % (test code = NRBC%) 0.0 % 0-0 N NEUTROPHIL # (test code = NT#) 3.53 K/mm3 1.8-7.7 N IMMATURE GRANULOCYTE # (test code = IG#) 0.06 x10 3/uL 0-0.03 H LYMPHOCYTE # (test code = LY#) 0.79 K/mm3 1.0-5.0 L MONOCYTE # (test code = MO#) 0.25 K/mm3 0-0.8 N EOSINOPHIL # (test code = EO#) 0.00 K/mm3 0.0-0.5 N BASOPHIL # (test code = BA#) 0.01 K/mm3 0.0-0.2 N NUCLEATED RBC # (test code = NRBC#) 0.00 K/mm3 0.0-0.1 N MANUAL DIFF REQUIRED (test code = MDIFF) NO, ONLY SCAN NEEDED DIFFERENTIAL [id number] 05:43:00* Test Item Value Reference Range Interpretation Comments STAIN ACCEPTABILITY (test code = STN ACCEPTABLE) STAIN ACCEPTABLE HYPOCHROMIA (test code = HYPO) 1+ POIKILOCYTOSIS (test code = POIK) 2+ ANISOCYTOSIS (test code = ANISO) 1+ MICROCYTOSIS (test code = MICR) 1+ ELLIPTOCYTES (test code = ELL) 1+ CRENATED CELLS (test code = CREN) 1+ PLATELET ESTIMATE (test code = PLTEST) ADEQUATE PLATELET MORPHOLOGY (test code = PLTMORPH) NORMAL CBC W/AUTO [id number] 05:16:00* Test Item Value Reference Range Interpretation Comments WHITE BLOOD CELL (test code = WBC) 4.6 K/mm3 4.5-12.5 N RED BLOOD CELL (test code = RBC) 4.00 mill/mm3 3.7-5.2 N HEMOGLOBIN (test code = HGB) 9.1 gram/dL 11.5-15.5 L HEMATOCRIT (test code = HCT) 31.9 % 36.0-46.0 L MEAN CELL VOLUME (test code = MCV) 79.8 fL 80-98 L MEAN CELL HGB (test code = MCH) 22.8 picogram 27.0-33.0 L MEAN CELL HGB CONCETRATION (test code = MCHC) 28.5 gram/dL 33.0-36. 0 L RED CELL DISTRIBUTION WIDTH (test code = RDW) 18.2 % 11.6-16. 2 H RED CELL DISTRIBUTION WIDTH SD (test code = RDW-SD) 53.1 fL 37 .0-51.0 H PLATELET COUNT (test code = PLT) 197 K/mm3 150-450 N MEAN PLATELET VOLUME (test code = MPV) 10.6 fL 6.7-11.0 N NEUTROPHIL % (test code = NT%) 76.1 % 39.0-69.0 H IMMATURE GRANULOCYTE % (test code = IG%) 1.3 % 0.0-5.0 N LYMPHOCYTE % (test code = LY%) 17.0 % 25.0-55.0 L MONOCYTE % (test code = MO%) 5.4 % 0.0-10.0 N EOSINOPHIL % (test code = EO%) 0.0 % 0.0-5.0 N BASOPHIL % (test code = BA%) 0.2 % 0.0-1.0 N NUCLEATED RBC % (test code = NRBC%) 0.0 % 0-0 N NEUTROPHIL # (test code = NT#) 3.53 K/mm3 1.8-7.7 N IMMATURE GRANULOCYTE # (test code = IG#) 0.06 x10 3/uL 0-0.03 H LYMPHOCYTE # (test code = LY#) 0.79 K/mm3 1.0-5.0 L MONOCYTE # (test code = MO#) 0.25 K/mm3 0-0.8 N EOSINOPHIL # (test code = EO#) 0.00 K/mm3 0.0-0.5 N BASOPHIL # (test code = BA#) 0.01 K/mm3 0.0-0.2 N NUCLEATED RBC # (test code = NRBC#) 0.00 K/mm3 0.0-0.1 N MANUAL DIFF REQUIRED (test code = MDIFF) NO, ONLY SCAN NEEDED DIFFERENTIAL [id number] 05:16:00* Test Item Value Reference Range Interpretation Comments STAIN ACCEPTABILITY (test code = STN ACCEPTABLE) CABOT RINGS (test code = CAB) MORPHOLOGY COMMENT (test code = MOC) PLATELET ESTIMATE (test code = PLTEST) PLATELET MORPHOLOGY (test code = PLTMORPH) CBC W/AUTO [id number] 05:16:00* Test Item Value Reference Range Interpretation Comments WHITE BLOOD CELL (test code = WBC) 4.6 K/mm3 4.5-12.5 N RED BLOOD CELL (test code = RBC) 4.00 mill/mm3 3.7-5.2 N HEMOGLOBIN (test code = HGB) 9.1 gram/dL 11.5-15.5 L HEMATOCRIT (test code = HCT) 31.9 % 36.0-46.0 L MEAN CELL VOLUME (test code = MCV) 79.8 fL 80-98 L MEAN CELL HGB (test code = MCH) 22.8 picogram 27.0-33.0 L MEAN CELL HGB CONCETRATION (test code = MCHC) 28.5 gram/dL 33.0-36. 0 L RED CELL DISTRIBUTION WIDTH (test code = RDW) 18.2 % 11.6-16. 2 H RED CELL DISTRIBUTION WIDTH SD (test code = RDW-SD) 53.1 fL 37 .0-51.0 H PLATELET COUNT (test code = PLT) 197 K/mm3 150-450 N MEAN PLATELET VOLUME (test code = MPV) 10.6 fL 6.7-11.0 N NEUTROPHIL % (test code = NT%) 76.1 % 39.0-69.0 H IMMATURE GRANULOCYTE % (test code = IG%) 1.3 % 0.0-5.0 N LYMPHOCYTE % (test code = LY%) 17.0 % 25.0-55.0 L MONOCYTE % (test code = MO%) 5.4 % 0.0-10.0 N EOSINOPHIL % (test code = EO%) 0.0 % 0.0-5.0 N BASOPHIL % (test code = BA%) 0.2 % 0.0-1.0 N NUCLEATED RBC % (test code = NRBC%) 0.0 % 0-0 N NEUTROPHIL # (test code = NT#) 3.53 K/mm3 1.8-7.7 N IMMATURE GRANULOCYTE # (test code = IG#) 0.06 x10 3/uL 0-0.03 H LYMPHOCYTE # (test code = LY#) 0.79 K/mm3 1.0-5.0 L MONOCYTE # (test code = MO#) 0.25 K/mm3 0-0.8 N EOSINOPHIL # (test code = EO#) 0.00 K/mm3 0.0-0.5 N BASOPHIL # (test code = BA#) 0.01 K/mm3 0.0-0.2 N NUCLEATED RBC # (test code = NRBC#) 0.00 K/mm3 0.0-0.1 N MANUAL DIFF REQUIRED (test code = MDIFF) NO, ONLY SCAN NEEDED DIFFERENTIAL [id number] 05:16:00* Test Item Value Reference Range Interpretation Comments STAIN ACCEPTABILITY (test code = STN ACCEPTABLE) CABOT RINGS (test code = CAB) MORPHOLOGY COMMENT (test code = MOC) PLATELET ESTIMATE (test code = PLTEST) PLATELET MORPHOLOGY (test code = PLTMORPH) CBC W/AUTO [id number] 05:16:00* Test Item Value Reference Range Interpretation Comments WHITE BLOOD CELL (test code = WBC) 4.6 K/mm3 4.5-12.5 N RED BLOOD CELL (test code = RBC) 4.00 mill/mm3 3.7-5.2 N HEMOGLOBIN (test code = HGB) 9.1 gram/dL 11.5-15.5 L HEMATOCRIT (test code = HCT) 31.9 % 36.0-46.0 L MEAN CELL VOLUME (test code = MCV) 79.8 fL 80-98 L MEAN CELL HGB (test code = MCH) 22.8 picogram 27.0-33.0 L MEAN CELL HGB CONCETRATION (test code = MCHC) 28.5 gram/dL 33.0-36. 0 L RED CELL DISTRIBUTION WIDTH (test code = RDW) 18.2 % 11.6-16. 2 H RED CELL DISTRIBUTION WIDTH SD (test code = RDW-SD) 53.1 fL 37 .0-51.0 H PLATELET COUNT (test code = PLT) 197 K/mm3 150-450 N MEAN PLATELET VOLUME (test code = MPV) 10.6 fL 6.7-11.0 N NEUTROPHIL % (test code = NT%) 76.1 % 39.0-69.0 H IMMATURE GRANULOCYTE % (test code = IG%) 1.3 % 0.0-5.0 N LYMPHOCYTE % (test code = LY%) 17.0 % 25.0-55.0 L MONOCYTE % (test code = MO%) 5.4 % 0.0-10.0 N EOSINOPHIL % (test code = EO%) 0.0 % 0.0-5.0 N BASOPHIL % (test code = BA%) 0.2 % 0.0-1.0 N NUCLEATED RBC % (test code = NRBC%) 0.0 % 0-0 N NEUTROPHIL # (test code = NT#) 3.53 K/mm3 1.8-7.7 N IMMATURE GRANULOCYTE # (test code = IG#) 0.06 x10 3/uL 0-0.03 H LYMPHOCYTE # (test code = LY#) 0.79 K/mm3 1.0-5.0 L MONOCYTE # (test code = MO#) 0.25 K/mm3 0-0.8 N EOSINOPHIL # (test code = EO#) 0.00 K/mm3 0.0-0.5 N BASOPHIL # (test code = BA#) 0.01 K/mm3 0.0-0.2 N NUCLEATED RBC # (test code = NRBC#) 0.00 K/mm3 0.0-0.1 N MANUAL DIFF REQUIRED (test code = MDIFF) NO, ONLY SCAN NEEDED DIFFERENTIAL [id number] 05:16:00* Test Item Value Reference Range Interpretation Comments STAIN ACCEPTABILITY (test code = STN ACCEPTABLE) MORPHOLOGY COMMENT (test code = MOC) PLATELET ESTIMATE (test code = PLTEST) PLATELET MORPHOLOGY (test code = PLTMORPH) CBC W/AUTO [id number] 05:15:00* Test Item Value Reference Range Interpretation Comments WHITE BLOOD CELL (test code = WBC) 4.6 K/mm3 4.5-12.5 N RED BLOOD CELL (test code = RBC) 4.00 mill/mm3 3.7-5.2 N HEMOGLOBIN (test code = HGB) 9.1 gram/dL 11.5-15.5 L HEMATOCRIT (test code = HCT) 31.9 % 36.0-46.0 L MEAN CELL VOLUME (test code = MCV) 79.8 fL 80-98 L MEAN CELL HGB (test code = MCH) 22.8 picogram 27.0-33.0 L MEAN CELL HGB CONCETRATION (test code = MCHC) 28.5 gram/dL 33.0-36. 0 L RED CELL DISTRIBUTION WIDTH (test code = RDW) 18.2 % 11.6-16. 2 H RED CELL DISTRIBUTION WIDTH SD (test code = RDW-SD) 53.1 fL 37 .0-51.0 H PLATELET COUNT (test code = PLT) 197 K/mm3 150-450 N MEAN PLATELET VOLUME (test code = MPV) 10.6 fL 6.7-11.0 N NEUTROPHIL % (test code = NT%) 76.1 % 39.0-69.0 H IMMATURE GRANULOCYTE % (test code = IG%) 1.3 % 0.0-5.0 N LYMPHOCYTE % (test code = LY%) 17.0 % 25.0-55.0 L MONOCYTE % (test code = MO%) 5.4 % 0.0-10.0 N EOSINOPHIL % (test code = EO%) 0.0 % 0.0-5.0 N BASOPHIL % (test code = BA%) 0.2 % 0.0-1.0 N NUCLEATED RBC % (test code = NRBC%) 0.0 % 0-0 N NEUTROPHIL # (test code = NT#) 3.53 K/mm3 1.8-7.7 N IMMATURE GRANULOCYTE # (test code = IG#) 0.06 x10 3/uL 0-0.03 H LYMPHOCYTE # (test code = LY#) 0.79 K/mm3 1.0-5.0 L MONOCYTE # (test code = MO#) 0.25 K/mm3 0-0.8 N EOSINOPHIL # (test code = EO#) 0.00 K/mm3 0.0-0.5 N BASOPHIL # (test code = BA#) 0.01 K/mm3 0.0-0.2 N NUCLEATED RBC # (test code = NRBC#) 0.00 K/mm3 0.0-0.1 N MANUAL DIFF REQUIRED (test code = MDIFF) NO, ONLY SCAN NEEDED DIFFERENTIAL [id number] 05:15:00* Test Item Value Reference Range Interpretation Comments STAIN ACCEPTABILITY (test code = STN ACCEPTABLE) CABOT RINGS (test code = CAB) MORPHOLOGY COMMENT (test code = MOC) PLATELET ESTIMATE (test code = PLTEST) PLATELET MORPHOLOGY (test code = PLTMORPH) CBC W/MANUAL [id number] 07:51:00* Test Item Value Reference Range Interpretation Comments WHITE BLOOD CELL (test code = WBC) 5.3 K/mm3 4.5-12.5 N RED BLOOD CELL (test code = RBC) 3.75 mill/mm3 3.7-5.2 N HEMOGLOBIN (test code = HGB) 8.6 gram/dL 11.5-15.5 L HEMATOCRIT (test code = HCT) 29.9 % 36.0-46.0 L MEAN CELL VOLUME (test code = MCV) 79.7 fL 80-98 L MEAN CELL HGB (test code = MCH) 22.9 picogram 27.0-33.0 L MEAN CELL HGB CONCETRATION (test code = MCHC) 28.8 gram/dL 33.0-36. 0 L RED CELL DISTRIBUTION WIDTH (test code = RDW) 17.9 % 11.6-16. 2 H RED CELL DISTRIBUTION WIDTH SD (test code = RDW-SD) 51.6 fL 37 .0-51.0 H PLATELET COUNT (test code = PLT) 240 K/mm3 150-450 N MEAN PLATELET VOLUME (test code = MPV) 10.2 fL 6.7-11.0 N NEUTROPHIL % (test code = NT%) 83.2 % 39.0-69.0 H IMMATURE GRANULOCYTE % (test code = IG%) 0.8 % 0.0-5.0 N LYMPHOCYTE % (test code = LY%) 13.0 % 25.0-55.0 L MONOCYTE % (test code = MO%) 2.6 % 0.0-10.0 N EOSINOPHIL % (test code = EO%) 0.2 % 0.0-5.0 N BASOPHIL % (test code = BA%) 0.2 % 0.0-1.0 N NUCLEATED RBC % (test code = NRBC%) 0.0 % 0-0 N NEUTROPHIL # (test code = NT#) 4.43 K/mm3 1.8-7.7 N IMMATURE GRANULOCYTE # (test code = IG#) 0.04 x10 3/uL 0-0.03 H LYMPHOCYTE # (test code = LY#) 0.69 K/mm3 1.0-5.0 L MONOCYTE # (test code = MO#) 0.14 K/mm3 0-0.8 N EOSINOPHIL # (test code = EO#) 0.01 K/mm3 0.0-0.5 N BASOPHIL # (test code = BA#) 0.01 K/mm3 0.0-0.2 N NUCLEATED RBC # (test code = NRBC#) 0.00 K/mm3 0.0-0.1 N STAIN ACCEPTABILITY (test code = STN ACCEPTABLE) STAIN ACCEPTABLE TOTAL CELLS COUNTED (test code = TCC) 113 #CELLS SEGMENTED NEUTROPHILS (test code = SEG) 83.2 % 39-69 H BAND NEUTROPHIL (test code = BAND) 0 % 0-10 N LYMPHOCYTE (test code = LYMPH) 14.1 % 25-55 L REACTIVE LYMPH (test code = RELYMPH) 0 % MONOCYTE (test code = MON) 1.8 % 0-10 N EOSINOPHIL (test code = EOS) 0 % 0.0-5.0 N BASOPHIL (test code = BASO) 0.9 % 0-1.0 N METAMYELOCYTE (test code = META) 0 % 0-0 N MYELOCYTE (test code = MYELO) 0 % 0.0-0.0 N PROMYELOCYTE (test code = PROM) 0 % 0-0 N POIKILOCYTOSIS (test code = POIK) 1+ ANISOCYTOSIS (test code = ANISO) 1+ MICROCYTOSIS (test code = MICR) 1+ PLATELET ESTIMATE (test code = PLTEST) ADEQUATE PLATELET MORPHOLOGY (test code = PLTMORPH) NORMAL IMMATURE FORMS (test code = IMMAT) 0 % 0-0 N COMPREHENSIVE METABOLIC [id number] 07:37:00* Test Item Value Reference Range Interpretation Comments SODIUM (test code = NA) 142 mmol/L 136-145 N POTASSIUM (test code = K) 4.1 mmol/L 3.5-5.1 N CHLORIDE (test code = CL) 109.0 mmol/L 98-107 H CARBON DIOXIDE (test code = CO2) 26.0 mmol/L 21-32 N ANION GAP (test code = GAP) 11.1 10-20 N GLUCOSE (test code = GLU) 144 mg/dL 74-106 H BLOOD UREA NITROGEN (test code = BUN) 2 mg/dL 7-18 L GLOMERULAR FILTRATION RATE (test code = GFR) > 60 mL/min >=60 Estimated GFR by using Modified MDRD formula.Chronic kidney disease is defined as either kidney damageor GFR <60 mL/min/1.73 m2 for >3 months. CREATININE (test code = CREAT) 0.50 mg/dL 0.55-1.02 L Note change in reference range due to change in reagent. BUN/CREATININE RATIO (test code = BUN/CREA) 4.0 10-20 L TOTAL PROTEIN (test code = PROT) 7.1 gram/dL 6.4-8.2 N ALBUMIN (test code = ALB) 3.2 g/dL 3.4-5.0 L GLOBULIN (test code = GLOB) 3.9 gram/dL 2.7-4.2 N ALBUMIN/GLOBULIN RATIO (test code = A/G) 0.8 0.75-1.50 N CALCIUM (test code = CA) 9.4 mg/dL 8.5-10.1 N BILIRUBIN TOTAL (test code = BILT) 0.20 mg/dL 0.0-1.0 N SGOT/AST (test code = AST) 31 IUnit/L 15-37 N SGPT/ALT (test code = ALT) 33 IUnit/L 12-78 N ALKALINE PHOSPHATASE TOTAL (test code = ALKP) 176 IUnit/L 45-117 H Note change in reference range due to change in reagent. COMPREHENSIVE METABOLIC [id number] 07:28:00* Test Item Value Reference Range Interpretation Comments SODIUM (test code = NA) 142 mmol/L 136-145 N POTASSIUM (test code = K) 4.1 mmol/L 3.5-5.1 N CHLORIDE (test code = CL) 109.0 mmol/L 98-107 H CARBON DIOXIDE (test code = CO2) mmol/L 21-32 ANION GAP (test code = GAP) 10-20 GLUCOSE (test code = GLU) mg/dL 74-106 BLOOD UREA NITROGEN (test code = BUN) mg/dL 7-18 GLOMERULAR FILTRATION RATE (test code = GFR) mL/min >=60 CREATININE (test code = CREAT) mg/dL 0.55-1.02 BUN/CREATININE RATIO (test code = BUN/CREA) 10-20 TOTAL PROTEIN (test code = PROT) gram/dL 6.4-8.2 ALBUMIN (test code = ALB) g/dL 3.4-5.0 GLOBULIN (test code = GLOB) gram/dL 2.7-4.2 ALBUMIN/GLOBULIN RATIO (test code = A/G) 0.75-1.50 CALCIUM (test code = CA) mg/dL 8.5-10.1 BILIRUBIN TOTAL (test code = BILT) mg/dL 0.0-1.0 SGOT/AST (test code = AST) IUnit/L 15-37 SGPT/ALT (test code = ALT) IUnit/L 12-78 ALKALINE PHOSPHATASE TOTAL (test code = ALKP) IUnit/L 45-117 CBC W/MANUAL [id number] 07:11:00* Test Item Value Reference Range Interpretation Comments WHITE BLOOD CELL (test code = WBC) 5.3 K/mm3 4.5-12.5 N RED BLOOD CELL (test code = RBC) 3.75 mill/mm3 3.7-5.2 N HEMOGLOBIN (test code = HGB) 8.6 gram/dL 11.5-15.5 L HEMATOCRIT (test code = HCT) 29.9 % 36.0-46.0 L MEAN CELL VOLUME (test code = MCV) 79.7 fL 80-98 L MEAN CELL HGB (test code = MCH) 22.9 picogram 27.0-33.0 L MEAN CELL HGB CONCETRATION (test code = MCHC) 28.8 gram/dL 33.0-36. 0 L RED CELL DISTRIBUTION WIDTH (test code = RDW) 17.9 % 11.6-16. 2 H RED CELL DISTRIBUTION WIDTH SD (test code = RDW-SD) 51.6 fL 37 .0-51.0 H PLATELET COUNT (test code = PLT) 240 K/mm3 150-450 N MEAN PLATELET VOLUME (test code = MPV) 10.2 fL 6.7-11.0 N NEUTROPHIL % (test code = NT%) 83.2 % 39.0-69.0 H IMMATURE GRANULOCYTE % (test code = IG%) 0.8 % 0.0-5.0 N LYMPHOCYTE % (test code = LY%) 13.0 % 25.0-55.0 L MONOCYTE % (test code = MO%) 2.6 % 0.0-10.0 N EOSINOPHIL % (test code = EO%) 0.2 % 0.0-5.0 N BASOPHIL % (test code = BA%) 0.2 % 0.0-1.0 N NUCLEATED RBC % (test code = NRBC%) 0.0 % 0-0 N NEUTROPHIL # (test code = NT#) 4.43 K/mm3 1.8-7.7 N IMMATURE GRANULOCYTE # (test code = IG#) 0.04 x10 3/uL 0-0.03 H LYMPHOCYTE # (test code = LY#) 0.69 K/mm3 1.0-5.0 L MONOCYTE # (test code = MO#) 0.14 K/mm3 0-0.8 N EOSINOPHIL # (test code = EO#) 0.01 K/mm3 0.0-0.5 N BASOPHIL # (test code = BA#) 0.01 K/mm3 0.0-0.2 N NUCLEATED RBC # (test code = NRBC#) 0.00 K/mm3 0.0-0.1 N STAIN ACCEPTABILITY (test code = STN ACCEPTABLE) TOTAL CELLS COUNTED (test code = TCC) #CELLS SEGMENTED NEUTROPHILS (test code = SEG) % 39-69 LYMPHOCYTE (test code = LYMPH) % 25-55 MONOCYTE (test code = MON) % 0-10 MORPHOLOGY COMMENT (test code = MOC) PLATELET ESTIMATE (test code = PLTEST) PLATELET MORPHOLOGY (test code = PLTMORPH) COMPREHENSIVE METABOLIC [id number] 11:52:00* Test Item Value Reference Range Interpretation Comments SODIUM (test code = NA) 140 mmol/L 136-145 N POTASSIUM (test code = K) 4.2 mmol/L 3.5-5.1 N CHLORIDE (test code = CL) 109.0 mmol/L 98-107 H CARBON DIOXIDE (test code = CO2) 23.0 mmol/L 21-32 N ANION GAP (test code = GAP) 12.2 10-20 N GLUCOSE (test code = GLU) 123 mg/dL 74-106 H BLOOD UREA NITROGEN (test code = BUN) 7 mg/dL 7-18 N GLOMERULAR FILTRATION RATE (test code = GFR) > 60 mL/min >=60 Estimated GFR by using Modified MDRD formula.Chronic kidney disease is defined as either kidney damageor GFR <60 mL/min/1.73 m2 for >3 months. CREATININE (test code = CREAT) 0.60 mg/dL 0.55-1.02 N Note change in reference range due to change in reagent. BUN/CREATININE RATIO (test code = BUN/CREA) 11.7 10-20 N TOTAL PROTEIN (test code = PROT) 7.2 gram/dL 6.4-8.2 N ALBUMIN (test code = ALB) 3.1 g/dL 3.4-5.0 L GLOBULIN (test code = GLOB) 4.1 gram/dL 2.7-4.2 N ALBUMIN/GLOBULIN RATIO (test code = A/G) 0.8 0.75-1.50 N CALCIUM (test code = CA) 9.1 mg/dL 8.5-10.1 N BILIRUBIN TOTAL (test code = BILT) 0.20 mg/dL 0.0-1.0 N SGOT/AST (test code = AST) 42 IUnit/L 15-37 H SGPT/ALT (test code = ALT) 36 IUnit/L 12-78 N ALKALINE PHOSPHATASE TOTAL (test code = ALKP) 189 IUnit/L 45-117 H Note change in reference range due to change in reagent. LIPID PROFILE (CORONARY RISK)2019-02-26 11:52:00* Test Item Value Reference Range Interpretation Comments TRIGLYCERIDES (test code = TRIG) 103 mg/dL 20-150 N CHOLESTEROL (test code = CHOL) 168 mg/dL 0-200 N CHOLESTEROL/HDL RATIO (test code = CHOLHDL) 3.0 RATIO 0-4.9 N RISK ASSOCIATED WITH CHOL/HDL RATIOS: Risk Male Female1/2 AVERAGE 3.43 3.27AVERAGE 4.97 4.442X AVERAGE 9.55 7.053X AVERAGE 23.39 11.04 REFERENCE VALUE IS RELATED TO RISK LEVELS ASRECOMMENDED BY THE [facility]. HEART, LUNG, AND BLOOD INST. HDL CHOLESTEROL (test code = HDL) 45 mg/dL 40-60 N LIPOPROTEIN LDL (test code = LDL) 101 mg/dL 100-129 N RN PERSONNEL, CONTACT PHYSICIAN IMMEDIATELY IF THIS IS A STROKE, AMI OR CAROTID STENOSIS PATIENT WHEN THE LDL >100 (1ST OCCURENCE, THIS ADMISSION) Reference Interval: mg/dL mmol/L Optimal <100 <2.6Near/above optimal 100-129 2.6- 3.3Borderline High 130-159 3.4-4.1High 160-189 4.1-4.9Very High >=190 >=4.9========= This LDL result is a direct measurement.========= COMPREHENSIVE METABOLIC [id number] 11:35:00* Test Item Value Reference Range Interpretation Comments SODIUM (test code = NA) 140 mmol/L 136-145 N POTASSIUM (test code = K) 4.2 mmol/L 3.5-5.1 N CHLORIDE (test code = CL) 109.0 mmol/L 98-107 H CARBON DIOXIDE (test code = CO2) mmol/L 21-32 ANION GAP (test code = GAP) 10-20 GLUCOSE (test code = GLU) mg/dL 74-106 BLOOD UREA NITROGEN (test code = BUN) mg/dL 7-18 GLOMERULAR FILTRATION RATE (test code = GFR) mL/min >=60 CREATININE (test code = CREAT) mg/dL 0.55-1.02 BUN/CREATININE RATIO (test code = BUN/CREA) 10-20 TOTAL PROTEIN (test code = PROT) gram/dL 6.4-8.2 ALBUMIN (test code = ALB) g/dL 3.4-5.0 GLOBULIN (test code = GLOB) gram/dL 2.7-4.2 ALBUMIN/GLOBULIN RATIO (test code = A/G) 0.75-1.50 CALCIUM (test code = CA) mg/dL 8.5-10.1 BILIRUBIN TOTAL (test code = BILT) mg/dL 0.0-1.0 SGOT/AST (test code = AST) IUnit/L 15-37 SGPT/ALT (test code = ALT) IUnit/L 12-78 ALKALINE PHOSPHATASE TOTAL (test code = ALKP) IUnit/L 45-117 LIPID PROFILE (CORONARY RISK)2019-02-26 11:35:00* Test Item Value Reference Range Interpretation Comments TRIGLYCERIDES (test code = TRIG) mg/dL 20-150 CHOLESTEROL (test code = CHOL) mg/dL 0-200 CHOLESTEROL/HDL RATIO (test code = CHOLHDL) RATIO 0-4.9 HDL CHOLESTEROL (test code = HDL) mg/dL 40-60 LIPOPROTEIN LDL (test code = LDL) mg/dL 100-129 CBC W/AUTO [id number] 11:21:00* Test Item Value Reference Range Interpretation Comments WHITE BLOOD CELL (test code = WBC) 5.3 K/mm3 4.5-12.5 N RED BLOOD CELL (test code = RBC) 4.32 mill/mm3 3.7-5.2 N HEMOGLOBIN (test code = HGB) 9.8 gram/dL 11.5-15.5 L HEMATOCRIT (test code = HCT) 34.4 % 36.0-46.0 L MEAN CELL VOLUME (test code = MCV) 79.6 fL 80-98 L MEAN CELL HGB (test code = MCH) 22.7 picogram 27.0-33.0 L MEAN CELL HGB CONCETRATION (test code = MCHC) 28.5 gram/dL 33.0-36. 0 L RED CELL DISTRIBUTION WIDTH (test code = RDW) 17.9 % 11.6-16. 2 H RED CELL DISTRIBUTION WIDTH SD (test code = RDW-SD) 52.1 fL 37 .0-51.0 H PLATELET COUNT (test code = PLT) 208 K/mm3 150-450 MEAN PLATELET VOLUME (test code = MPV) 10.8 fL 6.7-11.0 N NEUTROPHIL % (test code = NT%) 76.6 % 39.0-69.0 H IMMATURE GRANULOCYTE % (test code = IG%) 0.4 % 0.0-5.0 N LYMPHOCYTE % (test code = LY%) 17.3 % 25.0-55.0 L MONOCYTE % (test code = MO%) 5.1 % 0.0-10.0 N EOSINOPHIL % (test code = EO%) 0.2 % 0.0-5.0 N BASOPHIL % (test code = BA%) 0.4 % 0.0-1.0 N NUCLEATED RBC % (test code = NRBC%) 0.0 % 0-0 N NEUTROPHIL # (test code = NT#) 4.08 K/mm3 1.8-7.7 N IMMATURE GRANULOCYTE # (test code = IG#) 0.02 x10 3/uL 0-0.03 N LYMPHOCYTE # (test code = LY#) 0.92 K/mm3 1.0-5.0 L MONOCYTE # (test code = MO#) 0.27 K/mm3 0-0.8 N EOSINOPHIL # (test code = EO#) 0.01 K/mm3 0.0-0.5 N BASOPHIL # (test code = BA#) 0.02 K/mm3 0.0-0.2 N NUCLEATED RBC # (test code = NRBC#) 0.00 K/mm3 0.0-0.1 N DRUGS OF ABUSE SCREEN [id number] 00:32:00* Test Item Value Reference Range Interpretation Comments UA PH DIPSTICK (test code = MARCELLO) 5.0 5.0-8.0 URN COCAINE (test code = COCAURN) NEGATIVE <300 ng/mL URN CANNABINOIDS (test code = CANNABURN) NEGATIVE <50 ng/mL URN AMPHETAMINE (test code = AMPHETURN) NEGATIVE <1000 ng/mL URN BARBITURATE (test code = BARBITURN) NEGATIVE <200 ng/mL URN BENZODIAZEPINE (test code = BENZOURN) NEGATIVE <200 ng/mL URN OPIATES (test code = OPIATURN) NEGATIVE <300 ng/mL URN PHENCYCLIDINE (PCP) (test code = PHENCURN) NEGATIVE <25 ng/ mL URN METHADONE (test code = METHAURN) NEGATIVE <300 ng/mL SPECIMEN COMMENTS: sample in labCOMMENTS TO OUTPATIENT SURGERY RN: sample in labDRUGS OF ABUSE SCREEN [id number] 00:19:00* Test Item Value Reference Range Interpretation Comments UA PH DIPSTICK (test code = MARCELLO) 5.0-8.0 URN COCAINE (test code = COCAURN) NEGATIVE <300 ng/mL URN CANNABINOIDS (test code = CANNABURN) NEGATIVE <50 ng/mL URN AMPHETAMINE (test code = AMPHETURN) NEGATIVE <1000 ng/mL URN BARBITURATE (test code = BARBITURN) NEGATIVE <200 ng/mL URN BENZODIAZEPINE (test code = BENZOURN) NEGATIVE <200 ng/mL URN OPIATES (test code = OPIATURN) NEGATIVE <300 ng/mL URN PHENCYCLIDINE (PCP) (test code = PHENCURN) NEGATIVE <25 ng/ mL URN METHADONE (test code = METHAURN) NEGATIVE <300 ng/mL SPECIMEN COMMENTS: sample in labCOMMENTS TO OUTPATIENT SURGERY RN: sample in [id number] 2019-02-25 18:44:00* Test Item Value Reference Range Interpretation Comments GLYCOSYLATED HEMOGLOBIN (HA1C) (test code = GLYHGB) 5.5 % HbA1 SUGGESTED DIAGNOSIS: HbA1C (%) Diabetic >6.4Prediabetes 5.7 - 6.4Normal <5.7 ESTIMATED AVERAGE GLUCOSE (test code = EAG) 111 MG/DL - CT ABD PELVIS W/O [id number] 15:11:00 Name: KAYLEE CORADOI BRYSON [facility] : 1970 Age/S: 48 / F [address] [facility] Unit #: [id number] Loc: [place] [address] Phys: Linda Lock MD Acct: [id number] Dis Date: Status: REG ER PHONE #: [phone] Exam Date: 02/25/20191416 FAX #: [phone] Reason: abd pain EXAMS: CPT CODE: [id number] CT ABD PELVIS W/O CONT [id number] EXAM: CT of the abdomen and pelvis without contrast; INFORMATION: Abdominal pain, history of Crohn's disease; TECHNIQUE AND FINDINGS: CT dose reduction protocol; 5 mm cuts through the abdomen and pelvis without contrast. Liver and spleen are enlarged; no focal lesions. Status post cholecystectomy; no biliary dilatation. Pancreas, adrenal glands and kidneys are unremarkable; no hydronephrosis or stones. Postsurgical changes are seen, involving a bowel loop in the periumbilical region. Slightly distended jejunal loops but no significant obstruction. No evidence of acute inflammatory changes. The colon is unremarkable. No pelvic mass lesions. Lung bases are clear. IMPRESSION: 1. Slightly distended jejunal loops but no significant obstruction. 2. No evidence of acute inflammatory bowel disease or other acute abdominal or pelvic abnormali ties. 3. Mild hepatosplenomegaly. Location code: [facility] at 1511 Reported and signed by: Ralf Frnaz M.D. CC: Dima Samaniego Jessica D MD Technologist:Umu Jordan RT(R),CT; CTDI: DLP: Trnscb Date/Time: 02/25/2019 (1510) [email or web address] Orig Print D/T: S: 02/25/2019 (1513) PAGE 1 Signed Report BASIC METABOLIC [id number] 12:00:00* Test Item Value Reference Range Interpretation Comments SODIUM (test code = NA) 141 mmol/L 136-145 N POTASSIUM (test code = K) 4.0 mmol/L 3.5-5.1 N CHLORIDE (test code = CL) 105.0 mmol/L 98-107 N CARBON DIOXIDE (test code = CO2) 32.0 mmol/L 21-32 N ANION GAP (test code = GAP) 8.0 10-20 L GLUCOSE (test code = GLU) 94 mg/dL 74-106 N BLOOD UREA NITROGEN (test code = BUN) 5 mg/dL 7-18 L GLOMERULAR FILTRATION RATE (test code = GFR) > 60 mL/min >=60 Estimated GFR by using Modified MDRD formula.Chronic kidney disease is defined as either kidney damageor GFR <60 mL/min/1.73 m2 for >3 months. CREATININE (test code = CREAT) 0.50 mg/dL 0.55-1.02 L Note change in reference range due to change in reagent. BUN/CREATININE RATIO (test code = BUN/CREA) 10.0 10-20 N CALCIUM (test code = CA) 9.7 mg/dL 8.5-10.1 N HEPATIC FUNCTION [id number] 12:00:00* Test Item Value Reference Range Interpretation Comments TOTAL PROTEIN (test code = PROT) 8.1 gram/dL 6.4-8.2 N ALBUMIN (test code = ALB) 3.6 g/dL 3.4-5.0 N GLOBULIN (test code = GLOB) 4.5 gram/dL 2.7-4.2 H ALBUMIN/GLOBULIN RATIO (test code = A/G) 0.8 0.75-1.50 N BILIRUBIN TOTAL (test code = BILT) 0.30 mg/dL 0.0-1.0 N BILIRUBIN DIRECT (test code = BILD) 0.10 mg/dL 0.0-0.20 N SGOT/AST (test code = AST) 39 IUnit/L 15-37 H SGPT/ALT (test code = ALT) 41 IUnit/L 12-78 N ALKALINE PHOSPHATASE TOTAL (test code = ALKP) 177 IUnit/L 45-117 H Note change in reference range due to change in reagent. [id number] 12:00:00* Test Item Value Reference Range Interpretation Comments LIPASE (test code = LIP) 59 U/L 73.0-393.0 L HCG SERUM [id number] 12:00:00* Test Item Value Reference Range Interpretation Comments HCG SERUM QUAL (test code = HCGQL) NEGATIVE NEGATIVE This HCGQL test is NOT applicable for MALE patients.Check with nurse about probable order error.If Tumor Marker Test needed, nurse should order test "HCGTU"(Test #550.77806) BASIC METABOLIC [id number] 11:56:00* Test Item Value Reference Range Interpretation Comments SODIUM (test code = NA) 141 mmol/L 136-145 N POTASSIUM (test code = K) 4.0 mmol/L 3.5-5.1 N CHLORIDE (test code = CL) 105.0 mmol/L 98-107 N CARBON DIOXIDE (test code = CO2) mmol/L 21-32 ANION GAP (test code = GAP) 10-20 GLUCOSE (test code = GLU) mg/dL 74-106 BLOOD UREA NITROGEN (test code = BUN) mg/dL 7-18 GLOMERULAR FILTRATION RATE (test code = GFR) mL/min >=60 CREATININE (test code = CREAT) mg/dL 0.55-1.02 BUN/CREATININE RATIO (test code = BUN/CREA) 10-20 CALCIUM (test code = CA) mg/dL 8.5-10.1 HEPATIC FUNCTION [id number] 11:56:00* Test Item Value Reference Range Interpretation Comments TOTAL PROTEIN (test code = PROT) gram/dL 6.4-8.2 ALBUMIN (test code = ALB) g/dL 3.4-5.0 GLOBULIN (test code = GLOB) gram/dL 2.7-4.2 ALBUMIN/GLOBULIN RATIO (test code = A/G) 0.75-1.50 BILIRUBIN TOTAL (test code = BILT) mg/dL 0.0-1.0 BILIRUBIN DIRECT (test code = BILD) mg/dL 0.0-0.20 SGOT/AST (test code = AST) IUnit/L 15-37 SGPT/ALT (test code = ALT) IUnit/L 12-78 ALKALINE PHOSPHATASE TOTAL (test code = ALKP) IUnit/L 45-117 [id number] 11:56:00* Test Item Value Reference Range Interpretation Comments LIPASE (test code = LIP) U/L 73.0-393.0 HCG SERUM [id number] 11:56:00* Test Item Value Reference Range Interpretation Comments HCG SERUM QUAL (test code = HCGQL) NEGATIVE NEGATIVE This HCGQL test is NOT applicable for MALE patients.Check with nurse about probable order error.If Tumor Marker Test needed, nurse should order test "HCGTU"(Test #[id number]) BASIC METABOLIC [id number] 11:52:00* Test Item Value Reference Range Interpretation Comments SODIUM (test code = NA) 141 mmol/L 136-145 N POTASSIUM (test code = K) 4.0 mmol/L 3.5-5.1 N CHLORIDE (test code = CL) 105.0 mmol/L 98-107 N CARBON DIOXIDE (test code = CO2) mmol/L 21-32 ANION GAP (test code = GAP) 10-20 GLUCOSE (test code = GLU) mg/dL 74-106 BLOOD UREA NITROGEN (test code = BUN) mg/dL 7-18 GLOMERULAR FILTRATION RATE (test code = GFR) mL/min >=60 CREATININE (test code = CREAT) mg/dL 0.55-1.02 BUN/CREATININE RATIO (test code = BUN/CREA) 10-20 CALCIUM (test code = CA) mg/dL 8.5-10.1 HEPATIC FUNCTION [id number] 11:52:00* Test Item Value Reference Range Interpretation Comments TOTAL PROTEIN (test code = PROT) gram/dL 6.4-8.2 ALBUMIN (test code = ALB) g/dL 3.4-5.0 GLOBULIN (test code = GLOB) gram/dL 2.7-4.2 ALBUMIN/GLOBULIN RATIO (test code = A/G) 0.75-1.50 BILIRUBIN TOTAL (test code = BILT) mg/dL 0.0-1.0 BILIRUBIN DIRECT (test code = BILD) mg/dL 0.0-0.20 SGOT/AST (test code = AST) IUnit/L 15-37 SGPT/ALT (test code = ALT) IUnit/L 12-78 ALKALINE PHOSPHATASE TOTAL (test code = ALKP) IUnit/L 45-117 [id number] 11:52:00* Test Item Value Reference Range Interpretation Comments LIPASE (test code = LIP) U/L 73.0-393.0 HCG SERUM [id number] 11:52:00* Test Item Value Reference Range Interpretation Comments HCG SERUM QUAL (test code = HCGQL) NEGATIVE CBC W/O [id number] 11:40:00* Test Item Value Reference Range Interpretation Comments WHITE BLOOD CELL (test code = WBC) 6.7 K/mm3 4.5-12.5 N RED BLOOD CELL (test code = RBC) 4.63 mill/mm3 3.7-5.2 N HEMOGLOBIN (test code = HGB) 10.5 gram/dL 11.5-15.5 L HEMATOCRIT (test code = HCT) 36.3 % 36.0-46.0 N MEAN CELL VOLUME (test code = MCV) 78.4 fL 80-98 L MEAN CELL HGB (test code = MCH) 22.7 picogram 27.0-33.0 L MEAN CELL HGB CONCETRATION (test code = MCHC) 28.9 gram/dL 33.0-36. 0 L RED CELL DISTRIBUTION WIDTH (test code = RDW) 18.5 % 11.6-16. 2 H PLATELET COUNT (test code = PLT) 290 K/mm3 150-450 N MEAN PLATELET VOLUME (test code = MPV) 9.8 fL 6.7-11.0 N URINALYSIS [id number] 11:05:00* Test Item Value Reference Range Interpretation Comments UA COLOR (test code = COLU) Light-Yellow YELLOW UA APPEARANCE (test code = APPU) CLEAR CLEAR UA GLUCOSE DIPSTICK (test code = DGLUU) NEGATIVE mg/dL NEGATIVE UA BILIRUBIN DIPSTICK (test code = BILU) NEGATIVE mg/dL NEGATIVE UA KETONE DIPSTICK (test code = KETU) NEGATIVE mg/dL NEGATIVE UA SPECIFIC GRAVITY (test code = SGU) 1.015 1.001-1.035 UA BLOOD DIPSTICK (test code = WILBER) Negative mg/dL NEGATIVE UA PH DIPSTICK (test code = MARCELLO) 5.0 5.0-8.0 UA PROTEIN DIPSTICK (test code = PROU) NEGATIVE mg/dL NEGATIVE UA UROBILINIOGEN DIPSTICK (test code = URO) Normal mg/dL NEGATIVE UA NITRITE DIPSTICK (test code = LANDON) NEGATIVE NEGATIVE UA LEUKOCYTE ESTERASE W REFLEX (test code = LEUUR) NEGATIVE Sergio/uL NEGATIVE UA WBC (test code = WBCU) 6-10 per HPF 0-5 A UA RBC (test code = RBCU) 11-20 #/HPF 0-5 A UA EPITHELIAL CELLS (test code = EPIU) FEW per HPF FEW UA BACTERIA (test code = BACU) FEW #/HPF NONE A UA MUCUS (test code = MUCU) FEW #/LPF FEW Urine Source? Clean CatchURINALYSIS [id number] 11:02:00* Test Item Value Reference Range Interpretation Comments UA COLOR (test code = COLU) Light-Yellow YELLOW UA APPEARANCE (test code = APPU) CLEAR CLEAR UA GLUCOSE DIPSTICK (test code = DGLUU) NEGATIVE mg/dL NEGATIVE UA BILIRUBIN DIPSTICK (test code = BILU) NEGATIVE mg/dL NEGATIVE UA KETONE DIPSTICK (test code = KETU) NEGATIVE mg/dL NEGATIVE UA SPECIFIC GRAVITY (test code = SGU) 1.015 1.001-1.035 UA BLOOD DIPSTICK (test code = WILBER) Negative mg/dL NEGATIVE UA PH DIPSTICK (test code = MARCELLO) 5.0 5.0-8.0 UA PROTEIN DIPSTICK (test code = PROU) NEGATIVE mg/dL NEGATIVE UA UROBILINIOGEN DIPSTICK (test code = URO) Normal mg/dL NEGATIVE UA NITRITE DIPSTICK (test code = LANDON) NEGATIVE NEGATIVE UA LEUKOCYTE ESTERASE W REFLEX (test code = LEUUR) NEGATIVE Sergio/uL NEGATIVE UA WBC (test code = WBCU) per HPF 0-5 UA RBC (test code = RBCU) per HPF 0-5 UA EPITHELIAL CELLS (test code = EPIU) per HPF Few UA BACTERIA (test code = BACU) per HPF NONE Urine Source? Clean CatchAtypical [id number] 12:02:00* Test Item Value Reference Range Interpretation Comments Atypical p-ANCA (test code = 20112-7) <1:20 The atypical pANCA pattern has been observed in asignificant percentage of patie nts with ulcerative colitis,primary sclerosing cholangitis and autoimmune hepati tis. ASCA+/PANCA- Suggestive of Crohn's disease ASCA-/PANCA+ S uggestive of Ulcerative colitisPerformed at: - LabQuickProNotes[address] [id number] Director: Alesha Mejias MD, Phone: [phone] [facility] PointeAnti-Nuclear Antibody Wvcxlp9724-80-21 13:13:00* Test Item Value Reference Range Interpretation Comments Anti-Nuclear Antibody Screen (test code = 5048-4) Negative Negative <1:80 Borderline 1:80 Positive >1:80Testing performed by:[employer] [address] [id number]: Alex Cruz [facility] Hospitalaccharomyces cerevisiae IgG Vj3239-33-34 13:09:00* Test Item Value Reference Range Interpretation Comments Saccharomyces cerevisiae IgG Ab (test code = 6713-2) 65.1 Reference Range: 0.0 - 24.9 Units Negative <20.0 Equivocal 20.1 - 24.9 Positive >or= 25.0[facility]roeaccharomyces cerevisiae IgA Ab 2018-11-26 13:09:00* Test Item Value Reference Range Interpretation Comments Saccharomyces cerevisiae IgA Ab (test code = 82082-7) <20.0 Reference Range: 0.0 - 24.9 Units Negative <20.0 Equivocal 20.1 - 24.9 Positive >or= 25.0 IgA and IgG antibody testing for S. cerevisiae is useful adjunct testing for differentiating Crohn's disease and ulcerative colitis. Close to 80% of Crohn's disease patients are positive for either IgA or IgG. In ulcerative colitis, less than 15% are positive for IgG and less than 2% are positive for IgA. Fewer than 5% are positive for either IgG or IgA antibody, and no healthy controls had antibody for both.Testing performed by:[address] [phone]. [employer] [facility] HospitalHepatifranklin [facility] hospital A IgM Heodpzvr4689-36-57 13:05:00* Test Item Value Reference Range Interpretation Comments Hepatitis A IgM Antibody (test code = 19479-9) Negative [facility] B Surface Unapbsb6549-27-71 13:05:00* Test Item Value Reference Range Interpretation Comments Hepatitis B Surface Antigen (test code = 5196-1) Negative [facility] B Core IgM Vbckqlqm2790-43-50 13:05:00* Test Item Value Reference Range Interpretation Comments Hepatitis B Core IgM Antibody (test code = 59649-2) Negative [facility] C Tszeqmde1066-86-28 13:05:00* Test Item Value Reference Range Interpretation Comments Hepatitis C Antibody (test code = 71840-9) >11.0 Reference Range: 0.0 - 0.9 s/co ratio Negative: < 0.8 Indeterminate: 0.8 - 0.9 Positive: > 0.9 The CDC recommends that a positive HCV antibody result be followed up with a HCV Nucleic Acid Amplification test (220333).Testing performed by:[employer] [address] [place], [place] [phone]: Alex Cruz [facility] HospitalRed Cell Morphology Comment 2018-11-19 06:56:00* Test Item Value Reference Range Interpretation Comments Red Cell Morphology Comment (test code = 6742-1) NORMAL [facility] Conroeodium Ftmlm3690-99-69 03:57:00* Test Item Value Reference Range Interpretation Comments Sodium Level (test code = 2951-2) 138 136-145 [facility] PasoPotassium Jlbsr3072-74-01 03:57:00* Test Item Value Reference Range Interpretation Comments Potassium Level (test code = 2823-3) 4.3 3.5-5.1 [facility] PasoChloride Vfruh5539-37-09 03:57:00* Test Item Value Reference Range Interpretation Comments Chloride Level (test code = 2075-0) 96 98-107 L [facility] PasoCarbon Dioxide Ntkiv8115-97-39 03:57:00* Test Item Value Reference Range Interpretation Comments Carbon Dioxide Level (test code = 2028-9) 33 22-29 H [facility] PasoAnion Lps2826-89-38 03:57:00* Test Item Value Reference Range Interpretation Comments Anion Gap (test code = 09279-5) 13.3 8-16 [facility] PasoBlood Urea Gaykxfeo6833-57-86 03:57:00* Test Item Value Reference Range Interpretation Comments Blood Urea Nitrogen (test code = 3094-0) 12 7-26 [facility] PasoCreatinine2019-10-07 03:57:00* Test Item Value Reference Range Interpretation Comments Creatinine (test code = 2160-0) 0.61 0.57-1.11 [facility] PasoBUN/Creatinine Csmnz7204-11-53 03:57:00* Test Item Value Reference Range Interpretation Comments BUN/Creatinine Ratio (test code = 3097-3) 20 6-25 [facility] PasoEstimat Glomerular Filtration Rate 2018-11-19 03:57:00* Test Item Value Reference Range Interpretation Comments Estimat Glomerular Filtration Rate (test code = 092729465) > 60 >60 Ranges were taken from the National Kidney Disease Education Program and the [facility] Kidney Foundation literature.Reference ranges:60 or greater: Oczhbf27-55 ( for 3 consecutive months): Chronic kidney disease 15 or less: Kidney failureUniversity Medical Center of El PasoGlucose Vxixw2409-38-07 03:57:00* Test Item Value Reference Range Interpretation Comments Glucose Level (test code = JDD5887) 106 74-118 [facility] PasoCalcium Arkjx1378-36-73 03:57:00* Test Item Value Reference Range Interpretation Comments Calcium Level (test code = 30748-4) 9.9 8.4-10.2 [facility] PasoWhite Blood Pimea3405-09-90 03:56:00* Test Item Value Reference Range Interpretation Comments White Blood Count (test code = 6690-2) 12.67 4.8-10.8 H [facility] PasoRed Blood Tadvm5344-27-50 03:56:00* Test Item Value Reference Range Interpretation Comments Red Blood Count (test code = 789-8) 4.16 3.6-5.1 [facility] PasoHemoglobin2019-10-07 03:56:00* Test Item Value Reference Range Interpretation Comments Hemoglobin (test code = 33049-1) 8.7 12.0-16.0 L [facility] PasoHematocrit2019-10-07 03:56:00* Test Item Value Reference Range Interpretation Comments Hematocrit (test code = 4544-3) 29.5 34.2-44.1 L [facility] PasoMean Corpuscular Dxovos2109-49-69 03:56:00* Test Item Value Reference Range Interpretation Comments Mean Corpuscular Volume (test code = 787-2) 70.9 81-99 L [facility] PasoMean Corpuscular Krpctitwju8108-14-89 03:56:00* Test Item Value Reference Range Interpretation Comments Mean Corpuscular Hemoglobin (test code = 785-6) 20.9 28-32 L [facility] PasoMean Corpuscular Hemoglobin Concent 2018-11-19 03:56:00* Test Item Value Reference Range Interpretation Comments Mean Corpuscular Hemoglobin Concent (test code = 786-4) 29.5 31-35 L [facility] PasoRed Cell Distribution Okath5976-41-58 03:56:00* Test Item Value Reference Range Interpretation Comments Red Cell Distribution Width (test code = 82273-2) 17.5 11.7 -14.4 H [facility] PasoPlatelet Stlih3087-11-17 03:56:00* Test Item Value Reference Range Interpretation Comments Platelet Count (test code = 777-3) 452 140-360 H [facility] PasoNeutrophils (%) (Auto)2018-11-19 03:56:00 * Test Item Value Reference Range Interpretation Comments Neutrophils (%) (Auto) (test code = 29809-7) 69.8 38.7-80.0 [facility] PasoLymphocytes (%) (Auto)2018-11-19 03:56:00 * Test Item Value Reference Range Interpretation Comments Lymphocytes (%) (Auto) (test code = 736-9) 14.0 18.0-39.1 L [facility] PasoMonocytes (%) (Auto)2018-11-19 03:56:00* Test Item Value Reference Range Interpretation Comments Monocytes (%) (Auto) (test code = 5905-5) 5.4 4.4-11.3 [facility] PasoEosinophils (%) (Auto)2018-11-19 03:56:00 * Test Item Value Reference Range Interpretation Comments Eosinophils (%) (Auto) (test code = 713-8) 0.1 0.0-6.0 [facility] PasoBasophils (%) (Auto)2018-11-19 03:56:00* Test Item Value Reference Range Interpretation Comments Basophils (%) (Auto) (test code = 706-2) 0.2 0.0-1.0 [facility] PasoIM GRANULOCYTES %2018-11-19 03:56:00* Test Item Value Reference Range Interpretation Comments IM GRANULOCYTES % (test code = IM GRANULOCYTES %) 10.5 0.0- 1.0 H [facility] PasoNeutrophils # (Auto)2018-11-19 03:56:00* Test Item Value Reference Range Interpretation Comments Neutrophils # (Auto) (test code = 751-8) 8.8 2.1-6.9 H [facility] PasoLymphocytes # (Auto)2018-11-19 03:56:00* Test Item Value Reference Range Interpretation Comments Lymphocytes # (Auto) (test code = 80312-1) 1.8 1.0-3.2 [facility] PasoMonocytes # (Auto)2018-11-19 03:56:00* Test Item Value Reference Range Interpretation Comments Monocytes # (Auto) (test code = 742-7) 0.7 0.2-0.8 [facility] PasoEosinophils # (Auto)2018-11-19 03:56:00* Test Item Value Reference Range Interpretation Comments Eosinophils # (Auto) (test code = 711-2) 0.0 0.0-0.4 [facility] PasoBasophils # (Auto)2018-11-19 03:56:00* Test Item Value Reference Range Interpretation Comments Basophils # (Auto) (test code = 704-7) 0.0 0.0-0.1 [facility] PasoAbsolute Immature Granulocyte (auto 2018-11-19 03:56:00* Test Item Value Reference Range Interpretation Comments Absolute Immature Granulocyte (auto (isabelle t code = Absolute Immature Granulocyte (auto) 1.33 0-0.1 H [facility] PasoC-Reactive Oelotiz5653-65-14 01:42:00* Test Item Value Reference Range Interpretation Comments C-Reactive Protein (test code = 1988-5) 30 0-10 H Performed at: [facility] Lab[address] [id number] Director: Alex Cruz MD, Phone: [phone] Medical Center of El PasoC-Reactive Jidxska8935-27-49 01:42:00* Test Item Value Reference Range Interpretation Comments C-Reactive Protein (test code = 1988-5) 30 0-10 H Performed at: - [facility]Co[address] [id number] Director: Alex Cruz MD, Phone: [phone] A IgM Wgkvllot5342-23-08 01:39:00* Test Item Value Reference Range Interpretation Comments Hepatitis A IgM Antibody (test code = 67795-6) Negative Negativ e [facility] B Surface Dwbesfs9534-15-09 01:39:00* Test Item Value Reference Range Interpretation Comments Hepatitis B Surface Antigen (test code = 5196-1) Negative Negat chanell [facility] B Core IgM Aebtbbvp8812-92-02 01:39:00* Test Item Value Reference Range Interpretation Comments Hepatitis B Core IgM Antibody (test code = 90530-7) Negative Ne gative [facility] C Vkuwxdis6913-53-91 01:39:00* Test Item Value Reference Range Interpretation Comments Hepatitis C Antibody (test code = 85672-0) >11.0 0.0-0.9 H Negative: < 0.8 Indeterminate: 0.8 - 0.9 Positive: > 0.9 The CDC recommends that a positive HCV antibody result be followed up with a HCV Nucleic Acid Amplification test (939794).Performed at: - [facility]Co[address] [id number] Director: Alex Cruz MD, Phone: [phone] Medical Center of El PasoVancomycin Level Trough 2018-11-18 16:50:00* Test Item Value Reference Range Interpretation Comments Vancomycin Level Trough (test code = 4092-3) 10.6 5.0-10.0 HH Results repeated and called to [facility] at 1649 on 11/18/18 by Yontaan Edwards. Tracy selby back and verified.[facility] PasoVancomycin Level Nabiyf6673-71-74 16:50:00* Test Item Value Reference Range Interpretation Comments Vancomycin Level Trough (test code = 4092-3) 10.6 5.0-10.0 HH Results repeated and called to IRASEMA Alarcon at 1649 on 11/18/18 by Yonatan Edwards. Tracy selby back and verified.[facility] PasoBlood Culture 2018-11-18 12:54:00* Test Item Value Reference Range Interpretation Comments Blood Culture (test code = 84346170) NO GROWTH AFTER 72 HOURS [facility] PasoUrine Xwiaojh0548-17-40 07:37:00* Test Item Value Reference Range Interpretation Comments Urine Culture (test code = 630-4) No Result Data Provided [facility] PasoUrine Cjugwfn3122-82-95 07:37:00* Test Item Value Reference Range Interpretation Comments Urine Culture (test code = 630-4) No Result Data Provided [facility] PasoThyroid Stimulating Hormone (TSH) 2018-11-17 10:49:00* Test Item Value Reference Range Interpretation Comments Thyroid Stimulating Hormone (TSH) (test code = 13066-7) 0.174 0.350-4.940 L [facility] PasoThyroid Stimulating Hormone (TSH) 2018-11-17 10:49:00* Test Item Value Reference Range Interpretation Comments Thyroid Stimulating Hormone (TSH) (test code = 32712-8) 0.174 0.350-4.940 L [facility] PasoAlpha Jmwohfcwzoz5581-37-52 09:35:00* Test Item Value Reference Range Interpretation Comments Alpha Fetoprotein (test code = 11948-0) 3.4 0.0-8.3 [facility] Electrochemiluminescence Immunoassay(ECLIA)Values obtained wit h different assay methods or kits cannotbe used interchangeably. Results cannot be interpreted asabsolute evidence of the presence or absence of malignantdisea se.This test is not interpretable in females.Performed at: [facility] Lab[address] [id number] Director: Alex Cruz MD, Phone: [phone] Medical Center of El PasoAlpha Fetoprotein 2018-11-17 09:35:00* Test Item Value Reference Range Interpretation Comments Alpha Fetoprotein (test code = 75028-6) 3.4 0.0-8.3 [facility] Electrochemiluminescence Immunoassay(ECLIA)Values obtained wit h different assay methods or kits cannotbe used interchangeably. Results cannot be interpreted asabsolute evidence of the presence or absence of malignantdisea se.This test is not interpretable in females.Performed at: [address] [id number] Director: Alex Cruz MD, Phone: [phone] Medical Center of El PasoErythrocyte Sedimentation Ksap4200-60-66 09:22:00* Test Item Value Reference Range Interpretation Comments Erythrocyte Sedimentation Rate (test code = 4537-7) 79 0- 20 H [facility] PasoErythrocyte Sedimentation Plll4390-34-11 09:22:00* Test Item Value Reference Range Interpretation Comments Erythrocyte Sedimentation Rate (test code = 4537-7) 79 0- 20 H [facility] PasoPlatelet Anjigrae3020-18-80 08:11:00* Test Item Value Reference Range Interpretation Comments Platelet Estimate (test code = 77587-2) SLIGHTLY INCREASED [facility] PasoPlatelet Morphology Jpmsdss6731-69-36 08:11:00* Test Item Value Reference Range Interpretation Comments Platelet Morphology Comment (test code = 57058-1) NORMAL [facility] PasoHypochromasia2019-10-05 08:11:00* Test Item Value Reference Range Interpretation Comments Hypochromasia (test code = 728-6) MODERATE [facility] PasoPoikilocytosis2019-10-05 08:11:00* Test Item Value Reference Range Interpretation Comments Poikilocytosis (test code = 779-9) SLIGHT [facility] PasoAnisocytosis2019-10-05 08:11:00* Test Item Value Reference Range Interpretation Comments Anisocytosis (test code = 702-1) SLIG [facility] PasoMicrocytosis2019-10-05 08:11:00* Test Item Value Reference Range Interpretation Comments Microcytosis (test code = 741-9) MODE [facility] Conroechistocytes2019-10-05 08:11:00* Test Item Value Reference Range Interpretation Comments Schistocytes (test code = 800-3) FEW [facility] PasoHypochromasia2019-10-05 08:11:00* Test Item Value Reference Range Interpretation Comments Hypochromasia (test code = 728-6) MODERATE [facility] PasoPoikilocytosis2019-10-05 08:11:00* Test Item Value Reference Range Interpretation Comments Poikilocytosis (test code = 779-9) SLIGHT [facility] PasoAnisocytosis2019-10-05 08:11:00* Test Item Value Reference Range Interpretation Comments Anisocytosis (test code = 702-1) SLIG [facility] PasoMicrocytosis2019-10-05 08:11:00* Test Item Value Reference Range Interpretation Comments Microcytosis (test code = 741-9) MODE [facility] Conroechistocytes2019-10-05 08:11:00* Test Item Value Reference Range Interpretation Comments Schistocytes (test code = 800-3) FEW [facility] Springsound Fngftis3471-80-13 08:07:00* Test Item Value Reference Range Interpretation Comments Wound Culture (test code = 6462-6) No Result Data Provided [facility] Lbfcpuw1122-62-18 08:07:00* Test Item Value Reference Range Interpretation Comments Wound Culture (test code = 6462-6) No Result Data Provided [facility] PasoHemoglobin A1c Lztyija2150-45-51 06:06:00 * Test Item Value Reference Range Interpretation Comments Hemoglobin A1c Percent (test code = Hemoglobin A1c Percent) 5.4 4.0-7.0 [facility] PasoTotal Uiqpqrsrp5969-77-74 06:06:00* Test Item Value Reference Range Interpretation Comments Total Bilirubin (test code = 1975-2) 0.2 0.2-1.2 [facility] PasoDirect Krylxunac1731-59-88 06:06:00* Test Item Value Reference Range Interpretation Comments Direct Bilirubin (test code = 39322-2) 0.1 0.0-0.5 [facility] PasoAspartate Amino Transf (AST/SGOT) 2018-11-17 06:06:00* Test Item Value Reference Range Interpretation Comments Aspartate Amino Transf (AST/SGOT) (test code = Aspartate Amino Transf (AST/SGOT)) 19 5-34 [facility] PasoAlanine Aminotransferase (ALT/SGPT) 2018-11-17 06:06:00* Test Item Value Reference Range Interpretation Comments Alanine Aminotransferase (ALT/SGPT) (test code = 1742-6) 46 0-55 [facility] PasoTotal Lmgdbea5987-89-24 06:06:00* Test Item Value Reference Range Interpretation Comments Total Protein (test code = 2885-2) 6.7 6.5-8.1 [facility] PasoAlbumin2019-10-05 06:06:00* Test Item Value Reference Range Interpretation Comments Albumin (test code = 1751-7) 2.7 3.5-5.0 L [facility] PasoAlkaline Dxfznmvjjvz6244-89-74 06:06:00* Test Item Value Reference Range Interpretation Comments Alkaline Phosphatase (test code = 6768-6) 219 40-150 H [facility] PasoHemoglobin A1c Ivnsweb0435-07-00 06:06:00 * Test Item Value Reference Range Interpretation Comments Hemoglobin A1c Percent (test code = Hemoglobin A1c Percent) 5.4 4.0-7.0 [facility] PasoDirect Azralhbqr2513-09-94 06:06:00* Test Item Value Reference Range Interpretation Comments Direct Bilirubin (test code = 72617-6) 0.1 0.0-0.5 [facility] PasoCHEST XRAY LINE BNHVNVFLH0951-07-22 18:07:00 [place] [address] Patient Name: DAVIE CORADO MR #: [id number] : 1970 Age/Sex: 48/F Req #: [id number] Adm Physician: ANGELICA ZALDIVAR MD Ordered by: ANGELICA ZALDIVAR MD Report #: [id number] Location: MED/SURG2 Room/Bed: 202-1 Procedure: [id number] DX/CHEST XRAY LINE PLACEMENT Exam Date: 11/16/18 Ex am Time: 1755 REPORT STATUS: Signed EXAMINATION: CHEST XRAY LINE PLACEMENT INDICATION: LINE PLACEMENT COMPARISON: None FINDINGS: TUBES and LINES: Right upper e xtremity PICC with distal tip projected on the cavoatrial junction. LUNGS : Lungs are well inflated. There are bibasilar atelectasis. There is no ev idence of pneumonia or pulmonary edema. PLEURA: No pleural effusion or pne umothorax. HEART AND MEDIASTINUM: The cardiomediastinal silhouette is unre markable. BONES AND SOFT TISSUES: No acute osseous lesion. Soft tissu es are unremarkable. UPPER ABDOMEN: No free air under the diaphragm. IMPRESSION: Right upper extremity PICC with distal tip projected on the cavoatrial junction. Signed by: Dr. Leslie Madrigal M.D. on 6:09 PM Dictated By: DANN MADRIGAL MD, MD 08 Transcribed By: CHARLES on 11/16/181808 COPY TO: ANGELICA ZALDIVAR MD Vitamin B12 Qxquz1370-92-97 10:39:00* Test Item Value Reference Range Interpretation Comments Vitamin B12 Level (test code = 67588-7) 729 213-546 [facility] PasoFolate2019-10-04 10:39:00* Test Item Value Reference Range Interpretation Comments Folate (test code = 2284-8) 14.6 7.0-15.4 [facility] PasoVitamin B12 Cvels8085-21-83 10:39:00* Test Item Value Reference Range Interpretation Comments Vitamin B12 Level (test code = 99107-5) 727 213-816 [facility] PasoFolate2019-10-04 10:39:00* Test Item Value Reference Range Interpretation Comments Folate (test code = 2284-8) 14.6 7.0-15.4 [facility] PasoFerritin2019-10-04 10:22:00* Test Item Value Reference Range Interpretation Comments Ferritin (test code = 2276-4) 98.24 4.63-204.00 [facility] PasoFerritin2019-10-04 10:22:00* Test Item Value Reference Range Interpretation Comments Ferritin (test code = 2276-4) 98.24 4.63-204.00 [facility]2019-10-04 10:04:00* Test Item Value Reference Range Interpretation Comments Iron Level (test code = 2498-4) 14 50-170 L [facility] PasoTotal Iron Binding Cvbtiwfy5734-47-24 10:04:00* Test Item Value Reference Range Interpretation Comments Total Iron Binding Capacity (test code = 2500-7) 346 261-4 78 [facility] PasoPercent Iron Kbkksxqvir8784-28-84 10:04:00* Test Item Value Reference Range Interpretation Comments Percent Iron Saturation (test code = 2502-3) 4 15-50 L [facility] PasoTransferrin2019-10-04 10:04:00* Test Item Value Reference Range Interpretation Comments Transferrin (test code = 3034-6) 247 180-382 [facility]2019-10-04 10:04:00* Test Item Value Reference Range Interpretation Comments Iron Level (test code = 2498-4) 14 50-170 L [facility] Iron Binding Oshgwcom3614-32-50 10:04:00* Test Item Value Reference Range Interpretation Comments Total Iron Binding Capacity (test code = 2500-7) 346 261-4 78 [facility]cent Iron Dbmdtszvyh9708-40-94 10:04:00* Test Item Value Reference Range Interpretation Comments Percent Iron Saturation (test code = 2502-3) 4 15-50 L [facility] PasoTransferrin2019-10-04 10:04:00* Test Item Value Reference Range Interpretation Comments Transferrin (test code = 3034-6) 247 180-382 [facility] PasoPercent Reticulocyte Wjxff3109-98-52 09:54:00* Test Item Value Reference Range Interpretation Comments Percent Reticulocyte Count (test code = 75160-1) 1.0 0.8-2 .2 [facility] PasoPercent Reticulocyte Kyevy4162-86-62 09:54:00* Test Item Value Reference Range Interpretation Comments Percent Reticulocyte Count (test code = 44406-9) 1.0 0.8-2 .2 [facility] PasoGlobulin2019-10-04 05:49:00* Test Item Value Reference Range Interpretation Comments Globulin (test code = 71218-6) 3.8 2.3-3.5 H [facility] PasoAlbumin/Globulin Dwnfu7604-71-34 05:49:00 * Test Item Value Reference Range Interpretation Comments Albumin/Globulin Ratio (test code = 1759-0) 0.7 0.8-2.0 L [facility] El PasoCT ABDOMEN/PELVIS Z6992-98-65 14:59:00 [facility] [address] [place] [address] Patient Name: DAVIE CORADO MR #: [id number] : 1970 Age/Sex: 48/F Req #: [id number] Adm Physician: Ordered by: NILSON ARMENTA NP Report #: [id number] Location: ER Room/Bed: Procedure: [id number] CT/CT ABDOMEN/PELVIS W Exam Date: Exam Time: REPORT STATUS: Signed CT of the ab domen and pelvis, with contrast, 11/15/2018. History: Abdominal pain, history of Crohn's. Comparison: None available. Technique: Multidetec tor CT scanning of the abdomen and pelvis was performed from the level of the lung bases to the inferior pubic rami after intravenous administration of cont rast. Coronal and sagittal multiplanar reformations were obtained. RA DIATION DOSE: Total DLP: 313 mGy*cm Dose modulation, iterative rec onstruction, and/or weight based adjustment of the mA/kV was utilized to reduc e the radiation dose to as low as reasonably achievable. Discussion: LUNG BASES: There is bibasilar atelectasis. ABDOMEN: Cholecystectomy clips are present. The liver is enlarged measuring over 20 cm in length, without foc al hepatic abnormality. The spleen is enlarged measuring over 14 cm in length. The main portal vein is dilated measuring seen mm in diameter. The hepatic ve in, portal vein, and splenic vein are patent. The pancreas, adrenal gland s, and kidneys are normal. The abdominal aorta is within normal limits for siz e. Post surgical changes are present involving the stomach and proximal small bowel. There is no bowel dilatation. Bowel is underdistended, limiting evalua tion. There is no evidence of adenopathy or free fluid. Soft tissue strandin g is present throughout the anterior abdominal wall with a small focus of air in the left upper quadrant, possibly secondary to subcutaneous injection. PELVIS: The bladder, uterus, and adnexa are unremarkable. There is no evidence of free fluid or adenopathy. Calcified phleboliths are present bilaterally. BONES AND SOFT TISSUES: Degenerative changes are present throughout the lumbar spine without evidence of lytic or sclerotic lesion. IMPRESSION: 1. Hepatosplenomegaly with portal vein enlargement, but no focal hepatic abn ormality or ascites. 2. Status post post cholecystectomy and probable gastric bypass surgery. Otherwise unremarkable CT of the abdomen and pelvis. Signed by: Dilshad Menon on 11/15/2018 3:08 PM Dictated By: DILSHAD MACARIO MD [id number] Transcribed By: CHARLES on 11/15/18 7143 COPY TO: NILSON ARMENTA NP Amylase [id number] 13:33:00* Test Item Value Reference Range Interpretation Comments Amylase Level (test code = 1798-8) 12 25-125 L [facility] 13:33:00* Test Item Value Reference Range Interpretation Comments Lipase (test code = 3040-3) [facility] [id number] 13:33:00* Test Item Value Reference Range Interpretation Comments Amylase Level (test code = 1798-8) 12 25-125 L [facility]2019-10-03 13:33:00* Test Item Value Reference Range Interpretation Comments Lipase (test code = 3040-3) 10 [facility]th[facility] [id number] 13:25:00* Test Item Value Reference Range Interpretation Comments Prothrombin Time (test code = 5902-2) 12.4 11.9-14.5 [facility] International Ratio 2018-11-15 13:25:00* Test Item Value Reference Range Interpretation Comments Prothromb Time International Ratio (test code = 6301-6) 0.88 Oral Anticoagulant Therapy INR Values:1. Low Intensity Therapy 1.5 - 2.02 . Moderate Intensity Therapy 2.0 - 3.03. High Intensity Therapy(1) 2.5 - 3. 54. High Intensity Therapy(2) 3.0 - 4.05. Panic Value INR > 5.0 [facility] Partial Thromboplast Time 2018-11-15 13:25:00* Test Item Value Reference Range Interpretation Comments Activated Partial Thromboplast Time (test code = 38329-3) 41.3 23.8-35.5 H [facility]th[facility] [id number] 13:25:00* Test Item Value Reference Range Interpretation Comments Prothrombin Time (test code = 5902-2) 12.4 11.9-14.5 [facility] International Ratio 2018-11-15 13:25:00* Test Item Value Reference Range Interpretation Comments Prothromb Time International Ratio (test code = 6301-6) 0.88 Oral Anticoagulant Therapy INR Values:1. Low Intensity Therapy 1.5 - 2.02 . Moderate Intensity Therapy 2.0 - 3.03. High Intensity Therapy(1) 2.5 - 3. 54. High Intensity Therapy(2) 3.0 - 4.05. Panic Value INR > 5.0 [facility] Partial Thromboplast Time 2018-11-15 13:25:00* Test Item Value Reference Range Interpretation Comments Activated Partial Thromboplast Time (test code = 93867-3) 41.3 23.8-35.5 H [facility] [id number] 12:38:00* Test Item Value Reference Range Interpretation Comments Urine WBC (test code = 5821-4) 6-10 0-5 H [facility] [id number] 12:38:00* Test Item Value Reference Range Interpretation Comments Urine RBC (test code = 24277-9) 6-10 0-5 H [facility] [id number] 12:38:00* Test Item Value Reference Range Interpretation Comments Urine Bacteria (test code = 60939-0) [facility] [id number] 12:38:00 * Test Item Value Reference Range Interpretation Comments Urine Epithelial Cells (test code = 51739-1) FEW [facility] [id number] 12:38:00* Test Item Value Reference Range Interpretation Comments Urine WBC (test code = 5821-4) 6-10 0-5 H [facility] [id number] 12:38:00* Test Item Value Reference Range Interpretation Comments Urine RBC (test code = 79494-2) 6-10 0-5 H [facility] [id number] 12:38:00* Test Item Value Reference Range Interpretation Comments Urine Bacteria (test code = 32697-3) [facility]W [facility] Ep[facility]helial [id number] 12:38:00 * Test Item Value Reference Range Interpretation Comments Urine Epithelial Cells (test code = 91684-4) FEW NONE [facility] [id number] 12:23:00* Test Item Value Reference Range Interpretation Comments Urine Color (test code = 5778-6) YELLOW YELLOW [facility] [id number] 12:23:00* Test Item Value Reference Range Interpretation Comments Urine Clarity (test code = 38074-5) CLEAR CLEAR [facility] Specific [id number] 12:23:00 * Test Item Value Reference Range Interpretation Comments Urine Specific [place] (test code = 5811-5) 1.025 1.010-1.02 5 [facility] [id number] 12:23:00* Test Item Value Reference Range Interpretation Comments Urine pH (test code = 43574-0) 6 5-7 [facility] Leukocyte [id number] 12:23:00* Test Item Value Reference Range Interpretation Comments Urine Leukocyte Esterase (test code = 35161-3) SMALL NEGATIV E [facility] [id number] 12:23:00* Test Item Value Reference Range Interpretation Comments Urine Nitrite (test code = 13372-9) POSITIVE NEGATIVE H [facility] Nfscsgp7492-60-30 12:23:00* Test Item Value Reference Range Interpretation Comments Urine Protein (test code = 30279-5) NEGATIVE NEGATIVE [facility] Glucose (UA)2018-11-15 12:23:00* Test Item Value Reference Range Interpretation Comments Urine Glucose (UA) (test code = 02160-3) NEGATIVE NEGATIVE [facility] Imkkplb9609-75-24 12:23:00* Test Item Value Reference Range Interpretation Comments Urine Ketones (test code = 40909-9) NEGATIVE NEGATIVE [facility] Kytugfzkbstm0890-16-52 12:23:00* Test Item Value Reference Range Interpretation Comments Urine Urobilinogen (test code = 80712-9) 0.2 0.2-1 [facility] Tjkvdlwpg3936-11-32 12:23:00* Test Item Value Reference Range Interpretation Comments Urine Bilirubin (test code = 1977-8) NEGATIVE NEGATIVE [facility] [id number] 12:23:00* Test Item Value Reference Range Interpretation Comments Urine Blood (test code = 06841-6) NEGATIVE NEGATIVE [facility] [id number] 12:23:00* Test Item Value Reference Range Interpretation Comments Urine Color (test code = 5778-6) YELLOW YELLOW [facility] Ohsvuxq9536-04-56 12:23:00* Test Item Value Reference Range Interpretation Comments Urine Clarity (test code = 48427-0) CLEAR CLEAR [facility] Specific Svldkjq5655-76-93 12:23:00 * Test Item Value Reference Range Interpretation Comments Urine Specific [place] (test code = 5811-5) 1.025 1.010-1.02 5 [facility] [id number] 12:23:00* Test Item Value Reference Range Interpretation Comments Urine pH (test code = 99852-1) 6 5-7 [facility] Leukocyte Qwmspxpl8263-70-50 12:23:00* Test Item Value Reference Range Interpretation Comments Urine Leukocyte Esterase (test code = 59046-9) SMALL NEGATIV E [facility] Itqfyfs1583-86-97 12:23:00* Test Item Value Reference Range Interpretation Comments Urine Nitrite (test code = 06188-0) POSITIVE NEGATIVE H [facility] Mdlsljm1272-56-20 12:23:00* Test Item Value Reference Range Interpretation Comments Urine Protein (test code = 55678-3) NEGATIVE NEGATIVE [facility] Glucose (UA)2018-11-15 12:23:00* Test Item Value Reference Range Interpretation Comments Urine Glucose (UA) (test code = 87581-6) NEGATIVE NEGATIVE [facility] [id number] 12:23:00* Test Item Value Reference Range Interpretation Comments Urine Ketones (test code = 20467-2) NEGATIVE NEGATIVE [facility] Osozqjidmozj4113-07-40 12:23:00* Test Item Value Reference Range Interpretation Comments Urine Urobilinogen (test code = 57119-5) 0.2 0.2-1 [facility] Dkgiptayu5819-08-79 12:23:00* Test Item Value Reference Range Interpretation Comments Urine Bilirubin (test code = 1977-8) NEGATIVE NEGATIVE [facility] Zwtut2359-34-02 12:23:00* Test Item Value Reference Range Interpretation Comments Urine Blood (test code = 04795-0) NEGATIVE NEGATIVE [facility]- XR ABDOMEN AP 1 [id number] 08:04:00 FAX: Brady Rodriguez MD [phone] Isom: B St: ADM FAX: Dima Lorenzo [phone] FAX: Angelica Beatty --------- Name: DAVIE CORADO [facility] : 1970 Age/S: 47/F [address] it #: [id number] Loc: V.30[address] [place] [address] Phys: Angelica Beatty MD Acct: [id number] Dis Date: Status: ADM IN ONE #: [phone] Exam Date: 09/07/2018726 FAX #: [phone] Reason: ILEUS EXAMS: CPT CODE: [id number] XR ABDOMEN AP 1 V 24460 HISTORY: ILEUS TECHNIQUE: AP abdomen x-ray COMPARISON: Previous day FINDINGS: Nonobstructive bowel gas pattern. Gaseous distenti on of the distal colon. No intra-abdominal mass effect. No abnormal calcifications are observed. Left epigastric and cholecystectomy clips. Vi sualized osseous structures are intact. IMPRESSION: Nonobstructive bowel gas pattern. Gaseous distention of the distal colon. at 0804 Reported and signed by: Karly Peacock D.O. CC: Brady Rodriguez MD; Dima Samaniego Ronald R MD [facility] gist: PETRONA CARROLL JR Trnscrd Date/Time/B y: 09/07/2018 (0804) : By: [email or web address] Orig Print D/T: S: 09/07/2018 (08 07) PAGE 1 Signed Report BASIC METABOLIC [id number] 05:45:00* Test Item Value Reference Range Interpretation Comments SODIUM (test code = NA) 137 mmol/L 136-145 N POTASSIUM (test code = K) 4.4 mmol/L 3.5-5.1 N CHLORIDE (test code = CL) 104.0 mmol/L 98-107 N CARBON DIOXIDE (test code = CO2) 25.0 mmol/L 21-32 N ANION GAP (test code = GAP) 12.4 10-20 N GLUCOSE (test code = GLU) 134 mg/dL 74-106 H BLOOD UREA NITROGEN (test code = BUN) 11 mg/dL 7-18 N GLOMERULAR FILTRATION RATE (test code = GFR) > 60 mL/min >=60 Estimated GFR by using Modified MDRD formula.Chronic kidney disease is defined as either kidney damageor GFR <60 mL/min/1.73 m2 for >3 months. CREATININE (test code = CREAT) 0.60 mg/dL 0.55-1.02 N Note change in reference range due to change in reagent. BUN/CREATININE RATIO (test code = BUN/CREA) 17.2 10-20 N CALCIUM (test code = CA) 9.9 mg/dL 8.5-10.1 N CBC W/O [id number] 05:04:00* Test Item Value Reference Range Interpretation Comments WHITE BLOOD CELL (test code = WBC) 11.5 K/mm3 4.5-12.5 N RED BLOOD CELL (test code = RBC) 4.49 mill/mm3 3.7-5.2 N HEMOGLOBIN (test code = HGB) 9.8 gram/dL 11.5-15.5 L HEMATOCRIT (test code = HCT) 34.5 % 36.0-46.0 L MEAN CELL VOLUME (test code = MCV) 76.8 fL 80-98 L MEAN CELL HGB (test code = MCH) 21.8 picogram 27.0-33.0 L MEAN CELL HGB CONCETRATION (test code = MCHC) 28.4 gram/dL 33.0-36. 0 L RED CELL DISTRIBUTION WIDTH (test code = RDW) 18.6 % 11.6-16. 2 H PLATELET COUNT (test code = PLT) 401 K/mm3 150-450 N MEAN PLATELET VOLUME (test code = MPV) 10.7 fL 6.7-11.0 N - XR ABDOMEN AP 1 [id number] 09:17:00 FAX: Brady Rodriguez MD [phone] Isom: St: ADM FAX: Dima Lorenzo [phone] FAX: Treasure Espinosa [phone] Name: CORADODAVIEAndrade MASSEY [facility] : 1970 Age/S: 47/F [address] Unit #: [id number] Loc: V.30[address] [place] [address] Phys: Treasure Espinosa Acct: [id number] Dis Date: Status: ADM IN [facility] #: [phone] Exam Date: 09/06/2018819 FAX #: [phone] Reason: sbo vs ileus EXAMS: CPT CODE: [id number] XR ABDOMEN AP 1 V 01578 HISTORY: Small bowel obstruction versus ileus. COMPARISON: [...] Rodriguez MD; Dima Samaniego; Treasure Espinosa Technologist: RT ROBIN(Hortensia) Trnscrd Eugenio e/Time/By: 09/06/2018 (916) : By: [email or web address] Orig Print D/T: S: 2018 (2225) PAGE 1 Signed Report BASIC METABOLIC [id number] 06:33:00* Test Item Value Reference Range Interpretation Comments SODIUM (test code = NA) 141 mmol/L 136-145 N POTASSIUM (test code = K) 4.6 mmol/L 3.5-5.1 N CHLORIDE (test code = CL) 109.0 mmol/L 98-107 H CARBON DIOXIDE (test code = CO2) 21.0 mmol/L 21-32 N ANION GAP (test code = GAP) 15.6 10-20 N GLUCOSE (test code = GLU) 100 mg/dL 74-106 N BLOOD UREA NITROGEN (test code = BUN) 5 mg/dL 7-18 L GLOMERULAR FILTRATION RATE (test code = GFR) > 60 mL/min >=60 Estimated GFR by using Modified MDRD formula.Chronic kidney disease is defined as either kidney damageor GFR <60 mL/min/1.73 m2 for >3 months. CREATININE (test code = CREAT) 0.60 mg/dL 0.55-1.02 N Note change in reference range due to change in reagent. BUN/CREATININE RATIO (test code = BUN/CREA) 8.9 10-20 L CALCIUM (test code = CA) 9.6 mg/dL 8.5-10.1 N BASIC METABOLIC [id number] 06:22:00* Test Item Value Reference Range Interpretation Comments SODIUM (test code = NA) 141 mmol/L 136-145 N POTASSIUM (test code = K) 4.6 mmol/L 3.5-5.1 N CHLORIDE (test code = CL) 109.0 mmol/L 98-107 H CARBON DIOXIDE (test code = CO2) mmol/L 21-32 ANION GAP (test code = GAP) 10-20 GLUCOSE (test code = GLU) mg/dL 74-106 BLOOD UREA NITROGEN (test code = BUN) mg/dL 7-18 GLOMERULAR FILTRATION RATE (test code = GFR) mL/min >=60 CREATININE (test code = CREAT) mg/dL 0.55-1.02 BUN/CREATININE RATIO (test code = BUN/CREA) 10-20 CALCIUM (test code = CA) mg/dL 8.5-10.1 CBC W/O [id number] 05:50:00* Test Item Value Reference Range Interpretation Comments WHITE BLOOD CELL (test code = WBC) 8.7 K/mm3 4.5-12.5 N RED BLOOD CELL (test code = RBC) 4.74 mill/mm3 3.7-5.2 N HEMOGLOBIN (test code = HGB) 10.1 gram/dL 11.5-15.5 L HEMATOCRIT (test code = HCT) 36.0 % 36.0-46.0 N MEAN CELL VOLUME (test code = MCV) 75.9 fL 80-98 L MEAN CELL HGB (test code = MCH) 21.3 picogram 27.0-33.0 L MEAN CELL HGB CONCETRATION (test code = MCHC) 28.1 gram/dL 33.0-36. 0 L RED CELL DISTRIBUTION WIDTH (test code = RDW) 18.5 % 11.6-16. 2 H PLATELET COUNT (test code = PLT) 398 K/mm3 150-450 N MEAN PLATELET VOLUME (test code = MPV) 10.2 fL 6.7-11.0 N CBC W/O [id number] 05:47:00* Test Item Value Reference Range Interpretation Comments WHITE BLOOD CELL (test code = WBC) K/mm3 4.5-12.5 RED BLOOD CELL (test code = RBC) mill/mm3 3.7-5.2 HEMOGLOBIN (test code = HGB) gram/dL 11.5-15.5 HEMATOCRIT (test code = HCT) 36.0 % 36.0-46.0 N MEAN CELL VOLUME (test code = MCV) fL 80-98 MEAN CELL HGB (test code = MCH) picogram 27.0-33.0 MEAN CELL HGB CONCETRATION (test code = MCHC) gram/dL 33.0-36. 0 RED CELL DISTRIBUTION WIDTH (test code = RDW) % 11.6-16. 2 PLATELET COUNT (test code = PLT) K/mm3 150-450 MEAN PLATELET VOLUME (test code = MPV) fL 6.7-11.0 BASIC METABOLIC [id number] 06:46:00* Test Item Value Reference Range Interpretation Comments SODIUM (test code = NA) 138 mmol/L 136-145 N POTASSIUM (test code = K) 3.8 mmol/L 3.5-5.1 N CHLORIDE (test code = CL) 106.0 mmol/L 98-107 N CARBON DIOXIDE (test code = CO2) 26.0 mmol/L 21-32 N ANION GAP (test code = GAP) 9.8 10-20 L GLUCOSE (test code = GLU) 96 mg/dL 74-106 N BLOOD UREA NITROGEN (test code = BUN) 8 mg/dL 7-18 N GLOMERULAR FILTRATION RATE (test code = GFR) > 60 mL/min >=60 Estimated GFR by using Modified MDRD formula.Chronic kidney disease is defined as either kidney damageor GFR <60 mL/min/1.73 m2 for >3 months. CREATININE (test code = CREAT) 0.70 mg/dL 0.55-1.02 N Note change in reference range due to change in reagent. BUN/CREATININE RATIO (test code = BUN/CREA) 12.1 10-20 N CALCIUM (test code = CA) 9.6 mg/dL 8.5-10.1 N BASIC METABOLIC [id number] 06:45:00* Test Item Value Reference Range Interpretation Comments SODIUM (test code = NA) 138 mmol/L 136-145 N POTASSIUM (test code = K) 3.8 mmol/L 3.5-5.1 N CHLORIDE (test code = CL) 106.0 mmol/L 98-107 N CARBON DIOXIDE (test code = CO2) mmol/L 21-32 ANION GAP (test code = GAP) 10-20 GLUCOSE (test code = GLU) mg/dL 74-106 BLOOD UREA NITROGEN (test code = BUN) mg/dL 7-18 GLOMERULAR FILTRATION RATE (test code = GFR) mL/min >=60 CREATININE (test code = CREAT) mg/dL 0.55-1.02 BUN/CREATININE RATIO (test code = BUN/CREA) 10-20 CALCIUM (test code = CA) 9.6 mg/dL 8.5-10.1 N CBC W/O [id number] 06:15:00* Test Item Value Reference Range Interpretation Comments WHITE BLOOD CELL (test code = WBC) 6.5 K/mm3 4.5-12.5 N RED BLOOD CELL (test code = RBC) 4.75 mill/mm3 3.7-5.2 N HEMOGLOBIN (test code = HGB) 10.3 gram/dL 11.5-15.5 L HEMATOCRIT (test code = HCT) 34.7 % 36.0-46.0 L MEAN CELL VOLUME (test code = MCV) 73.1 fL 80-98 L MEAN CELL HGB (test code = MCH) 21.7 picogram 27.0-33.0 L MEAN CELL HGB CONCETRATION (test code = MCHC) 29.7 gram/dL 33.0-36. 0 L RED CELL DISTRIBUTION WIDTH (test code = RDW) 18.6 % 11.6-16. 2 H PLATELET COUNT (test code = PLT) 435 K/mm3 150-450 RESULT VERIFIED BY REPEAT ANALYSIS MEAN PLATELET VOLUME (test code = MPV) 10.0 fL 6.7-11.0 N URINALYSIS [id number] 16:41:00* Test Item Value Reference Range Interpretation Comments UA COLOR (test code = COLU) Light-Yellow YELLOW UA APPEARANCE (test code = APPU) Cloudy CLEAR A UA GLUCOSE DIPSTICK (test code = DGLUU) NEGATIVE mg/dL NEGATIVE UA BILIRUBIN DIPSTICK (test code = BILU) NEGATIVE mg/dL NEGATIVE UA KETONE DIPSTICK (test code = KETU) NEGATIVE mg/dL NEGATIVE UA SPECIFIC GRAVITY (test code = SGU) 1.024 1.001-1.035 UA BLOOD DIPSTICK (test code = WILBER) Negative mg/dL NEGATIVE UA PH DIPSTICK (test code = MARCELLO) 8.0 5.0-8.0 UA PROTEIN DIPSTICK (test code = PROU) NEGATIVE mg/dL NEGATIVE UA UROBILINIOGEN DIPSTICK (test code = URO) Normal mg/dL NEGATIVE UA NITRITE DIPSTICK (test code = LANDON) NEGATIVE NEGATIVE UA LEUKOCYTE ESTERASE W REFLEX (test code = LEUUR) 75 Sergio/uL (1+) Sergio/uL NEGATIVE A UA WBC (test code = WBCU) 0-5 per HPF 0-5 UA RBC (test code = RBCU) 6-10 #/HPF 0-5 A UA EPITHELIAL CELLS (test code = EPIU) MOD per HPF FEW UA BACTERIA (test code = BACU) FEW #/HPF NONE A UA MUCUS (test code = MUCU) FEW #/LPF FEW UA YEAST (test code = YEASTU) FEW #/HPF NONE A Urine Source? Clean CatchDRUGS OF ABUSE SCREEN [id number] 16:41:00* Test Item Value Reference Range Interpretation Comments URN COCAINE (test code = COCAURN) NEGATIVE <300 ng/mL URN CANNABINOIDS (test code = CANNABURN) NEGATIVE <50 ng/mL URN AMPHETAMINE (test code = AMPHETURN) POSITIVE <1000 ng/mL A This test provides only a preliminary test [...] (e.g., employment testing, legaltesting). URN BARBITURATE (test code = BARBITURN) NEGATIVE <200 ng/mL URN BENZODIAZEPINE (test code = BENZOURN) NEGATIVE <200 ng/mL URN OPIATES (test code = OPIATURN) POSITIVE <300 ng/mL A This test provides only a preliminary test [...] employment testing, legaltesting). URN PHENCYCLIDINE (PCP) (test code = PHENCURN) NEGATIVE <25 ng/ mL URN METHADONE (test code = METHAURN) NEGATIVE <300 ng/mL Urine Source? Clean CatchURINALYSIS [id number] 16:30:00* Test Item Value Reference Range Interpretation Comments UA COLOR (test code = COLU) YELLOW UA APPEARANCE (test code = APPU) CLEAR UA BILIRUBIN DIPSTICK (test code = BILU) NEGATIVE UA SPECIFIC GRAVITY (test code = SGU) 1.001-1.035 UA PH DIPSTICK (test code = MARCELLO) 5.0-8.0 UA UROBILINIOGEN DIPSTICK (test code = URO) mg/dL 0.0-0.2 UA NITRITE DIPSTICK (test code = LANDON) NEGATIVE UA LEUKOCYTE ESTERASE W REFLEX (test code = LEUUR) NEG ATIVE UA WBC (test code = WBCU) per HPF 0-5 UA RBC (test code = RBCU) per HPF 0-5 UA EPITHELIAL CELLS (test code = EPIU) per HPF Few UA BACTERIA (test code = BACU) per HPF NONE Urine Source? Clean CatchDRUGS OF ABUSE SCREEN [id number] 16:30:00* Test Item Value Reference Range Interpretation Comments URN COCAINE (test code = COCAURN) NEGATIVE <300 ng/mL URN CANNABINOIDS (test code = CANNABURN) NEGATIVE <50 ng/mL URN AMPHETAMINE (test code = AMPHETURN) POSITIVE <1000 ng/mL A This test provides only a preliminary test [...] (e.g., employment testing, legaltesting). URN BARBITURATE (test code = BARBITURN) NEGATIVE <200 ng/mL URN BENZODIAZEPINE (test code = BENZOURN) NEGATIVE <200 ng/mL URN OPIATES (test code = OPIATURN) POSITIVE <300 ng/mL A This test provides only a preliminary test [...] employment testing, legaltesting). URN PHENCYCLIDINE (PCP) (test code = PHENCURN) NEGATIVE <25 ng/ mL URN METHADONE (test code = METHAURN) NEGATIVE <300 ng/mL Urine Source? Clean Catch- CT ABD PELVIS [id number] 14:39:00 Name: DAVIE CORADO [facility] : 1970 Age/S: 47 / F [address] Unit #: [id number] Loc: [facility] [place] [address] Phys: Walker Lock MD Acct: [id number] Di s Date: Status: REG ER PHONE #: [phone] Exam Date: 09/04/2018 1420 FAX #: [phone] Reason: seizure EXAMS: CPT CODE: [id number] CT ABD PELVIS W/CONT 98076 REASON FOR EXAM: seizure EXAM ORDER DATE: [...] Rosy d Report (CONTINUED) Name: DAVIE CORADO [facility] : 1970 Age/S: 47 / F [address] Unit #: [id number] Loc: [facility] [place] [address] Phys: Linda Lock MD Acct: [id number] Dis Date: Status: REG ER PHONE #: [phone] Exam Date: 09/04/2018 1420 FAX #: [phone] Reason: seizure EXAMS: CPT CODE: [id number] CT ABD PELVIS W/CONT 63533 <Continued> Peritoneum and retroperitoneum: No free fluid [...] suspected be from a gastric bypass. at 1439 Reported and signed by: Hector Middleton MD CC: Dima Samaniego; Linda Lock MD Technologist:RT Shelly(R),CT CTDI: DLP: Trnscb Date/Time: 09/04/2018 (1439) [id number] Orig Print D/T: S: 09/04/2018 (6081) PAGE 2 Signed Report - CT HEAD/BRAIN W/O [id number] 14:29:00 Name: DAVIE CORADO [facility] : 1970 Age/S: 47 / F [address] Unit #: [id number] Loc: [facility] [place] [address] Phys: Walker Lock MD Acct: [id number] Di s Date: Status: REG ER PHONE #: Exam Date: 09/04/2018 1420 FAX #: Reason: LLQ ttp, h/o crohn dz EXAMS: CPT CODE: [id number] CT HEAD/BRAIN W/O CONT 45642 HISTORY: LLQ ttp, h/o cr ohn dz [...] MD CC: Dima Samaniego Jessica D MD Technologist:Radha Coreas,RT(R),CT CTDI: DLP: Trnscb Date/Time: 09/04/2018 (142) [id number].[id number] Orig Print D/T: S: 09/04/2018 (5345) PAGE 1 Signed Report BASIC METABOLIC [id number] 13:46:00* Test Item Value Reference Range Interpretation Comments SODIUM (test code = NA) 137 mmol/L 136-145 N POTASSIUM (test code = K) 3.8 mmol/L 3.5-5.1 N CHLORIDE (test code = CL) 102.0 mmol/L 98-107 N CARBON DIOXIDE (test code = CO2) 28.0 mmol/L 21-32 N ANION GAP (test code = GAP) 10.8 10-20 N GLUCOSE (test code = GLU) 104 mg/dL 74-106 N BLOOD UREA NITROGEN (test code = BUN) 7 mg/dL 7-18 N GLOMERULAR FILTRATION RATE (test code = GFR) > 60 mL/min >=60 Estimated GFR by using Modified MDRD formula.Chronic kidney disease is defined as either kidney damageor GFR <60 mL/min/1.73 m2 for >3 months. CREATININE (test code = CREAT) 0.70 mg/dL 0.55-1.02 N Note change in reference range due to change in reagent. BUN/CREATININE RATIO (test code = BUN/CREA) 10.1 10-20 N CALCIUM (test code = CA) 11.1 mg/dL 8.5-10.1 H HEPATIC FUNCTION [id number] 13:46:00* Test Item Value Reference Range Interpretation Comments TOTAL PROTEIN (test code = PROT) 10.6 gram/dL 6.4-8.2 H ALBUMIN (test code = ALB) 4.2 g/dL 3.4-5.0 N GLOBULIN (test code = GLOB) 6.4 gram/dL 2.7-4.2 H ALBUMIN/GLOBULIN RATIO (test code = A/G) 0.7 0.75-1.50 L BILIRUBIN TOTAL (test code = BILT) 0.60 mg/dL 0.0-1.0 N BILIRUBIN DIRECT (test code = BILD) 0.17 mg/dL 0.0-0.20 N SGOT/AST (test code = AST) 30 IUnit/L 15-37 N SGPT/ALT (test code = ALT) 30 IUnit/L 12-78 N ALKALINE PHOSPHATASE TOTAL (test code = ALKP) 231 IUnit/L 45-117 H Note change in reference range due to change in reagent. CREATINE KINASE (CK)2018-09-04 13:46:00* Test Item Value Reference Range Interpretation Comments CREATINE KINASE (CK) (test code = CK) 25 IUnit/L 26-208 L [id number] 13:46:00* Test Item Value Reference Range Interpretation Comments LIPASE (test code = LIP) 287 U/L 73.0-393.0 N HCG SERUM [id number] 13:46:00* Test Item Value Reference Range Interpretation Comments HCG SERUM QUAL (test code = HCGQL) NEGATIVE NEGATIVE This HCGQL test is NOT applicable for MALE patients.Check with nurse about probable order error.If Tumor Marker Test needed, nurse should order test "HCGTU"(Test #550.21857) DILANTIN (PHENYTOIN)2018-09-04 13:46:00* Test Item Value Reference Range Interpretation Comments DILANTIN (PHENYTOIN) (test code = DIL) 1.0 ug/mL 10.0-20.0 L [id number] 13:46:00* Test Item Value Reference Range Interpretation Comments ALCOHOL (test code = ALC) < 3 mg/dL 0.0-3.0 N -- INTERPRETIVE DATA NOTE: POSITIVE SCREENING RESULTS SHOULD BE CONSIDERED PRESUMPTIVE.WHEN COLLECTED FOR MEDICAL PURPOSES ONLY. SPECIMEN WILL NOTBE COLLECTED BY CHAIN OF CUSTODY.IF A CONFIRMATION OF POSITIVE RESULTS IS DESIRED, ACONFIRMATION TEST MUST BE REQUESTED BY THE PHYSICIAN AT ANADDITIONAL CHARGE TO THE PATIENT. PROTHROMBIN [id number] 13:37:00* Test Item Value Reference Range Interpretation Comments PROTHROMBIN TIME PATIENT (test code = PTP) 12.6 seconds 9.0-14.0 N INTERNATIONAL NORMAL RATIO (test code = INR) 1.1 0.8-1.2 N The therapeutic range for oral anticoagulant therapy [...] (2.5-3.5) IS PATIENT ON ANTICOAGULANTS? NTHROMBOPLASTIN TIME [id number] 13:37:00* Test Item Value Reference Range Interpretation Comments THROMBOPLASTIN TIME PARTIAL (test code = PTT) 41.7 seconds 25.0-36. 5 H IS PATIENT ON ANTICOAGULANTS? NBASIC METABOLIC [id number] 13:28:00* Test Item Value Reference Range Interpretation Comments SODIUM (test code = NA) 137 mmol/L 136-145 N POTASSIUM (test code = K) 3.8 mmol/L 3.5-5.1 N CHLORIDE (test code = CL) 102.0 mmol/L 98-107 N CARBON DIOXIDE (test code = CO2) mmol/L 21-32 ANION GAP (test code = GAP) 10-20 GLUCOSE (test code = GLU) mg/dL 74-106 BLOOD UREA NITROGEN (test code = BUN) mg/dL 7-18 GLOMERULAR FILTRATION RATE (test code = GFR) mL/min >=60 CREATININE (test code = CREAT) mg/dL 0.55-1.02 BUN/CREATININE RATIO (test code = BUN/CREA) 10-20 CALCIUM (test code = CA) mg/dL 8.5-10.1 HEPATIC FUNCTION [id number] 13:28:00* Test Item Value Reference Range Interpretation Comments TOTAL PROTEIN (test code = PROT) gram/dL 6.4-8.2 ALBUMIN (test code = ALB) g/dL 3.4-5.0 GLOBULIN (test code = GLOB) gram/dL 2.7-4.2 ALBUMIN/GLOBULIN RATIO (test code = A/G) 0.75-1.50 BILIRUBIN TOTAL (test code = BILT) mg/dL 0.0-1.0 BILIRUBIN DIRECT (test code = BILD) mg/dL 0.0-0.20 SGOT/AST (test code = AST) IUnit/L 15-37 SGPT/ALT (test code = ALT) IUnit/L 12-78 ALKALINE PHOSPHATASE TOTAL (test code = ALKP) IUnit/L 45-117 CREATINE KINASE (CK)2018-09-04 13:28:00* Test Item Value Reference Range Interpretation Comments CREATINE KINASE (CK) (test code = CK) IUnit/L 26-208 [id number] 13:28:00* Test Item Value Reference Range Interpretation Comments LIPASE (test code = LIP) U/L 73.0-393.0 HCG SERUM [id number] 13:28:00* Test Item Value Reference Range Interpretation Comments HCG SERUM QUAL (test code = HCGQL) NEGATIVE DILANTIN (PHENYTOIN)2018-09-04 13:28:00* Test Item Value Reference Range Interpretation Comments DILANTIN (PHENYTOIN) (test code = DIL) ug/mL 10.0-20.0 [id number] 13:28:00* Test Item Value Reference Range Interpretation Comments ALCOHOL (test code = ALC) mg/dL 0-3 BASIC METABOLIC [id number] 13:28:00* Test Item Value Reference Range Interpretation Comments SODIUM (test code = NA) 137 mmol/L 136-145 N POTASSIUM (test code = K) 3.8 mmol/L 3.5-5.1 N CHLORIDE (test code = CL) 102.0 mmol/L 98-107 N CARBON DIOXIDE (test code = CO2) mmol/L 21-32 ANION GAP (test code = GAP) 10-20 GLUCOSE (test code = GLU) mg/dL 74-106 BLOOD UREA NITROGEN (test code = BUN) mg/dL 7-18 GLOMERULAR FILTRATION RATE (test code = GFR) mL/min >=60 CREATININE (test code = CREAT) mg/dL 0.55-1.02 BUN/CREATININE RATIO (test code = BUN/CREA) 10-20 CALCIUM (test code = CA) mg/dL 8.5-10.1 HEPATIC FUNCTION [id number] 13:28:00* Test Item Value Reference Range Interpretation Comments TOTAL PROTEIN (test code = PROT) gram/dL 6.4-8.2 ALBUMIN (test code = ALB) g/dL 3.4-5.0 GLOBULIN (test code = GLOB) gram/dL 2.7-4.2 ALBUMIN/GLOBULIN RATIO (test code = A/G) 0.75-1.50 BILIRUBIN TOTAL (test code = BILT) mg/dL 0.0-1.0 BILIRUBIN DIRECT (test code = BILD) mg/dL 0.0-0.20 SGOT/AST (test code = AST) IUnit/L 15-37 SGPT/ALT (test code = ALT) IUnit/L 12-78 ALKALINE PHOSPHATASE TOTAL (test code = ALKP) IUnit/L 45-117 CREATINE KINASE (CK)2018-09-04 13:28:00* Test Item Value Reference Range Interpretation Comments CREATINE KINASE (CK) (test code = CK) IUnit/L 26-208 [id number] 13:28:00* Test Item Value Reference Range Interpretation Comments LIPASE (test code = LIP) U/L 73.0-393.0 HCG SERUM [id number] 13:28:00* Test Item Value Reference Range Interpretation Comments HCG SERUM QUAL (test code = HCGQL) NEGATIVE NEGATIVE This HCGQL test is NOT applicable for MALE patients.Check with nurse about probable order error.If Tumor Marker Test needed, nurse should order test "HCGTU"(Test #550.55384) DILANTIN (PHENYTOIN)2018-09-04 13:28:00* Test Item Value Reference Range Interpretation Comments DILANTIN (PHENYTOIN) (test code = DIL) ug/mL 10.0-20.0 [id number] 13:28:00* Test Item Value Reference Range Interpretation Comments ALCOHOL (test code = ALC) mg/dL 0-3 LACTIC [id number] 13:25:00* Test Item Value Reference Range Interpretation Comments LACTIC ACID (test code = LACT) 1.9 mmol/L 0.4-1.9 N CBC W/O [id number] 13:24:00* Test Item Value Reference Range Interpretation Comments WHITE BLOOD CELL (test code = WBC) 11.1 K/mm3 4.5-12.5 N RED BLOOD CELL (test code = RBC) 5.39 mill/mm3 3.7-5.2 H HEMOGLOBIN (test code = HGB) 11.7 gram/dL 11.5-15.5 N HEMATOCRIT (test code = HCT) 38.7 % 36.0-46.0 N MEAN CELL VOLUME (test code = MCV) 71.8 fL 80-98 L MEAN CELL HGB (test code = MCH) 21.7 picogram 27.0-33.0 L MEAN CELL HGB CONCETRATION (test code = MCHC) 30.2 gram/dL 33.0-36. 0 L RED CELL DISTRIBUTION WIDTH (test code = RDW) 18.7 % 11.6-16. 2 H PLATELET COUNT (test code = PLT) 595 K/mm3 150-450 H MEAN PLATELET VOLUME (test code = MPV) 9.4 fL 6.7-11.0 N CBC W/O [id number] 13:20:00* Test Item Value Reference Range Interpretation Comments WHITE BLOOD CELL (test code = WBC) K/mm3 4.5-12.5 RED BLOOD CELL (test code = RBC) mill/mm3 3.7-5.2 HEMOGLOBIN (test code = HGB) 11.7 gram/dL 11.5-15.5 N HEMATOCRIT (test code = HCT) 38.7 % 36.0-46.0 N MEAN CELL VOLUME (test code = MCV) fL 80-98 MEAN CELL HGB (test code = MCH) picogram 27.0-33.0 MEAN CELL HGB CONCETRATION (test code = MCHC) gram/dL 33.0-36. 0 RED CELL DISTRIBUTION WIDTH (test code = RDW) % 11.6-16. 2 PLATELET COUNT (test code = PLT) K/mm3 150-450 MEAN PLATELET VOLUME (test code = MPV) fL 6.7-11.0 GASTRIC,[id number] 14:35:00 RUN DATE: 05/10/18 [facility] PAGE 1 RUN TIME: 1435 Specimen Inqui ry RUN USER: INTERFACE PATIENT: DAVIE CORADO ACCT #: [id number] LOC: [facility] U #: [id number] AGE/SX: 47/F ROOM: [facility] RE05/05/18REG DR: Liliana Barry : 66 BED: A DIS: 05/10/18 STATUS: DIS IN TLOC: SPEC #: [id number] RECD: 05/09/18 STATUS: CAMILO HALL #: [id number] ANA: 05/09/18- [facility] DR: Christine Laureano MD ENTERED: 05/09/18-1251 SP TYPE: GASTRIC BX OTHR DR: James Baxter i, MD, Maurice S MD [place], Milton E DOORDERED: GROSS COPIES TO: James Rivera MD [address], [address] [place] [address] Theron Eden MD [address] [facility] [address] [place] [address] Dima Samaniego DO [address] [place] [address] Christine Laureano MD [address] [place] [address] PROCEDURES: GROSS (05/10-1143) TISSUES: 1. GASTRIC CORPUS - BX 2. RIGHT COLON - BX 3. LEFT COLON - BX CLINICAL HISTORY COLLECTION DATE: 05/10/19 19 ANEMIA, BLOODY DIARRHEA, CROHN'S POST-OP DIAGNOSIS: KELLY ESOPHAGIT IS, GASTRITIS, ANASTOMOSIS FROM PREVIOUS GI SURGERY, POOR PREP, POSSIBLE COLIT IS CONTINUED ON NEXT PAGE R UN DATE: 05/10/18 [facility] PAGE 2 RUN TIME: 1435 Specimen Inquiry RUN USER: INTERFACE SPEC #: [id number] PATIENT: DAVIE CORADO #[id number] (Continued) FINAL DIAGNOSIS Gastric biopsy: PATCHY MILD CHRONIC INFLAMMATION, GASTRIC MUCOSA NO INTEST INAL METAPLASIA SEEN NEGATIVE FOR HELICOBACTER PYLORI NEGATIVE FOR MALIGNANCY Right colon, biopsy: COLONIC MUCOSA, NO PATHOLOGIC ALTERATION Left colon, biopsy: COLONIC MUCOSA, NO PATHOLOGIC AL TERATION DMW/matt D [id number], [id number] MACROSCOPIC The first specimen is received in [...] cm, submitted as (3). GROSS PERFORMED AT [facility] [address] [place], [place] [address] (p)[phone] MICROSCOPIC All of the stains, including any c ontrols performed, stain appropriately. MICROSCOPIC PERFORMED AT [facility] [address] [facility] [place] [address] CONTINUED ON NEXT PAGE --------- ---RUN DATE: 05/10/18 [facility] PAGE 3 RUN TIME: 1435 Specimen Inquiry RUN USER: INTERFACE SPEC #: [id number] PATIENT: DAVIE CORADO #[id number] (Continued) MICROSCOPIC (Continued) (P)[phone] PERFORMING SITE Diagnosis performed at: [facility] [address] [place] [address] Signed SIGNATURE ON FILE Rylee Forrester MD 05/10/18 8525 END OF REPORT BASIC METABOLIC [id number] 10:19:00* Test Item Value Reference Range Interpretation Comments SODIUM (test code = NA) 138 mmol/L 136-145 N POTASSIUM (test code = K) 5.1 mmol/L 3.5-5.1 N CHLORIDE (test code = CL) 101.0 mmol/L 98-107 N CARBON DIOXIDE (test code = CO2) 26.0 mmol/L 21-32 N ANION GAP (test code = GAP) 16.1 10-20 N GLUCOSE (test code = GLU) 81 mg/dL 74-106 N BLOOD UREA NITROGEN (test code = BUN) 14 mg/dL 7-18 N GLOMERULAR FILTRATION RATE (test code = GFR) > 60 mL/min >=60 Estimated GFR by using Modified MDRD formula.Chronic kidney disease is defined as either kidney damageor GFR <60 mL/min/1.73 m2 for >3 months. CREATININE (test code = CREAT) 0.50 mg/dL 0.55-1.02 L Note change in reference range due to change in reagent. BUN/CREATININE RATIO (test code = BUN/CREA) 28.0 10-20 H CALCIUM (test code = CA) 8.4 mg/dL 8.5-10.1 L 1 05/09/18 0655[facility] METABOLIC [id number] 10:09:00* Test Item Value Reference Range Interpretation Comments SODIUM (test code = NA) 138 mmol/L 136-145 N POTASSIUM (test code = K) 5.1 mmol/L 3.5-5.1 N CHLORIDE (test code = CL) 101.0 mmol/L 98-107 N CARBON DIOXIDE (test code = CO2) mmol/L 21-32 ANION GAP (test code = GAP) 10-20 GLUCOSE (test code = GLU) mg/dL 74-106 BLOOD UREA NITROGEN (test code = BUN) mg/dL 7-18 GLOMERULAR FILTRATION RATE (test code = GFR) mL/min >=60 CREATININE (test code = CREAT) mg/dL 0.55-1.02 BUN/CREATININE RATIO (test code = BUN/CREA) 10-20 CALCIUM (test code = CA) mg/dL 8.5-10.1 1 05/09/18 0655[facility] W/O [id number] 08:47:00* Test Item Value Reference Range Interpretation Comments WHITE BLOOD CELL (test code = WBC) 7.5 K/mm3 4.5-12.5 N RED BLOOD CELL (test code = RBC) 4.70 mill/mm3 3.7-5.2 N HEMOGLOBIN (test code = HGB) 9.6 gram/dL 11.5-15.5 L HEMATOCRIT (test code = HCT) 36.0 % 36.0-46.0 N MEAN CELL VOLUME (test code = MCV) 76.6 fL 80-98 L MEAN CELL HGB (test code = MCH) 20.4 picogram 27.0-33.0 L MEAN CELL HGB CONCETRATION (test code = MCHC) 26.7 gram/dL 33.0-36. 0 L RED CELL DISTRIBUTION WIDTH (test code = RDW) 19.4 % 11.6-16. 2 H PLATELET COUNT (test code = PLT) 245 K/mm3 150-450 RESULT VERIFIED BY REPEAT ANALYSIS MEAN PLATELET VOLUME (test code = MPV) 10.8 fL 6.7-11.0 N SEE NOTE ;H101 V.LAB.SS1 05/09/18 0656[facility] W/O [id number] 16:49:00* Test Item Value Reference Range Interpretation Comments WHITE BLOOD CELL (test code = WBC) 9.1 K/mm3 4.5-12.5 N RED BLOOD CELL (test code = RBC) 4.55 mill/mm3 3.7-5.2 N HEMOGLOBIN (test code = HGB) 9.4 gram/dL 11.5-15.5 L HEMATOCRIT (test code = HCT) 35.2 % 36.0-46.0 L MEAN CELL VOLUME (test code = MCV) 77.4 fL 80-98 L MEAN CELL HGB (test code = MCH) 20.7 picogram 27.0-33.0 L MEAN CELL HGB CONCETRATION (test code = MCHC) 26.7 gram/dL 33.0-36. 0 L RED CELL DISTRIBUTION WIDTH (test code = RDW) 19.3 % 11.6-16. 2 H PLATELET COUNT (test code = PLT) 147 K/mm3 150-450 L MEAN PLATELET VOLUME (test code = MPV) 10.4 fL 6.7-11.0 N 1 05/08/18 0848[facility] METABOLIC [id number] 04:56:00* Test Item Value Reference Range Interpretation Comments SODIUM (test code = NA) 143 mmol/L 136-145 N POTASSIUM (test code = K) 3.6 mmol/L 3.5-5.1 N CHLORIDE (test code = CL) 107.0 mmol/L 98-107 N CARBON DIOXIDE (test code = CO2) 30.0 mmol/L 21-32 N ANION GAP (test code = GAP) 9.6 10-20 L GLUCOSE (test code = GLU) 108 mg/dL 74-106 H BLOOD UREA NITROGEN (test code = BUN) 3 mg/dL 7-18 L GLOMERULAR FILTRATION RATE (test code = GFR) > 60 mL/min >=60 Estimated GFR by using Modified MDRD formula.Chronic kidney disease is defined as either kidney damageor GFR <60 mL/min/1.73 m2 for >3 months. CREATININE (test code = CREAT) 0.50 mg/dL 0.55-1.02 L Note change in reference range due to change in reagent. BUN/CREATININE RATIO (test code = BUN/CREA) 6.0 10-20 L CALCIUM (test code = CA) 8.6 mg/dL 8.5-10.1 N CBC W/AUTO [id number] 04:48:00* Test Item Value Reference Range Interpretation Comments WHITE BLOOD CELL (test code = WBC) 6.8 K/mm3 4.5-12.5 N RED BLOOD CELL (test code = RBC) 4.33 mill/mm3 3.7-5.2 N HEMOGLOBIN (test code = HGB) 9.1 gram/dL 11.5-15.5 L HEMATOCRIT (test code = HCT) 33.1 % 36.0-46.0 L MEAN CELL VOLUME (test code = MCV) 76.4 fL 80-98 L MEAN CELL HGB (test code = MCH) 21.0 picogram 27.0-33.0 L MEAN CELL HGB CONCETRATION (test code = MCHC) 27.5 gram/dL 33.0-36. 0 L RED CELL DISTRIBUTION WIDTH (test code = RDW) 19.2 % 11.6-16. 2 H RED CELL DISTRIBUTION WIDTH SD (test code = RDW-SD) 52.4 fL 37 .0-51.0 H PLATELET COUNT (test code = PLT) 338 K/mm3 150-450 N MEAN PLATELET VOLUME (test code = MPV) 10.2 fL 6.7-11.0 N NEUTROPHIL % (test code = NT%) 75.7 % 39.0-69.0 H IMMATURE GRANULOCYTE % (test code = IG%) 0.7 % 0.0-5.0 N LYMPHOCYTE % (test code = LY%) 17.4 % 25.0-55.0 L MONOCYTE % (test code = MO%) 5.9 % 0.0-10.0 N EOSINOPHIL % (test code = EO%) 0.0 % 0.0-5.0 N BASOPHIL % (test code = BA%) 0.3 % 0.0-1.0 N NUCLEATED RBC % (test code = NRBC%) 0.0 % 0-0 N NEUTROPHIL # (test code = NT#) 5.12 K/mm3 1.8-7.7 N IMMATURE GRANULOCYTE # (test code = IG#) 0.05 x10 3/uL 0-0.03 H LYMPHOCYTE # (test code = LY#) 1.18 K/mm3 1.0-5.0 N MONOCYTE # (test code = MO#) 0.40 K/mm3 0-0.8 N EOSINOPHIL # (test code = EO#) 0.00 K/mm3 0.0-0.5 N BASOPHIL # (test code = BA#) 0.02 K/mm3 0.0-0.2 N NUCLEATED RBC # (test code = NRBC#) 0.00 K/mm3 0.0-0.1 N MANUAL DIFF REQUIRED (test code = MDIFF) NO, ONLY SCAN NEEDED DIFFERENTIAL [id number] 04:48:00* Test Item Value Reference Range Interpretation Comments STAIN ACCEPTABILITY (test code = STN ACCEPTABLE) STAIN ACCEPTABLE POIKILOCYTOSIS (test code = POIK) 1+ PLATELET ESTIMATE (test code = PLTEST) ADEQUATE PLATELET MORPHOLOGY (test code = PLTMORPH) NORMAL BASIC METABOLIC [id number] 04:41:00* Test Item Value Reference Range Interpretation Comments SODIUM (test code = NA) 143 mmol/L 136-145 N POTASSIUM (test code = K) 3.6 mmol/L 3.5-5.1 N CHLORIDE (test code = CL) 107.0 mmol/L 98-107 N CARBON DIOXIDE (test code = CO2) mmol/L 21-32 ANION GAP (test code = GAP) 10-20 GLUCOSE (test code = GLU) mg/dL 74-106 BLOOD UREA NITROGEN (test code = BUN) mg/dL 7-18 GLOMERULAR FILTRATION RATE (test code = GFR) mL/min >=60 CREATININE (test code = CREAT) mg/dL 0.55-1.02 BUN/CREATININE RATIO (test code = BUN/CREA) 10-20 CALCIUM (test code = CA) mg/dL 8.5-10.1 CBC W/AUTO [id number] 04:35:00* Test Item Value Reference Range Interpretation Comments WHITE BLOOD CELL (test code = WBC) 6.8 K/mm3 4.5-12.5 N RED BLOOD CELL (test code = RBC) 4.33 mill/mm3 3.7-5.2 N HEMOGLOBIN (test code = HGB) 9.1 gram/dL 11.5-15.5 L HEMATOCRIT (test code = HCT) 33.1 % 36.0-46.0 L MEAN CELL VOLUME (test code = MCV) 76.4 fL 80-98 L MEAN CELL HGB (test code = MCH) 21.0 picogram 27.0-33.0 L MEAN CELL HGB CONCETRATION (test code = MCHC) 27.5 gram/dL 33.0-36. 0 L RED CELL DISTRIBUTION WIDTH (test code = RDW) 19.2 % 11.6-16. 2 H RED CELL DISTRIBUTION WIDTH SD (test code = RDW-SD) 52.4 fL 37 .0-51.0 H PLATELET COUNT (test code = PLT) 338 K/mm3 150-450 N MEAN PLATELET VOLUME (test code = MPV) 10.2 fL 6.7-11.0 N NEUTROPHIL % (test code = NT%) 75.7 % 39.0-69.0 H IMMATURE GRANULOCYTE % (test code = IG%) 0.7 % 0.0-5.0 N LYMPHOCYTE % (test code = LY%) 17.4 % 25.0-55.0 L MONOCYTE % (test code = MO%) 5.9 % 0.0-10.0 N EOSINOPHIL % (test code = EO%) 0.0 % 0.0-5.0 N BASOPHIL % (test code = BA%) 0.3 % 0.0-1.0 N NUCLEATED RBC % (test code = NRBC%) 0.0 % 0-0 N NEUTROPHIL # (test code = NT#) 5.12 K/mm3 1.8-7.7 N IMMATURE GRANULOCYTE # (test code = IG#) 0.05 x10 3/uL 0-0.03 H LYMPHOCYTE # (test code = LY#) 1.18 K/mm3 1.0-5.0 N MONOCYTE # (test code = MO#) 0.40 K/mm3 0-0.8 N EOSINOPHIL # (test code = EO#) 0.00 K/mm3 0.0-0.5 N BASOPHIL # (test code = BA#) 0.02 K/mm3 0.0-0.2 N NUCLEATED RBC # (test code = NRBC#) 0.00 K/mm3 0.0-0.1 N MANUAL DIFF REQUIRED (test code = MDIFF) NO, ONLY SCAN NEEDED DIFFERENTIAL [id number] 04:35:00* Test Item Value Reference Range Interpretation Comments STAIN ACCEPTABILITY (test code = STN ACCEPTABLE) CABOT RINGS (test code = CAB) MORPHOLOGY COMMENT (test code = MOC) PLATELET ESTIMATE (test code = PLTEST) PLATELET MORPHOLOGY (test code = PLTMORPH) CBC W/AUTO [id number] 04:35:00* Test Item Value Reference Range Interpretation Comments WHITE BLOOD CELL (test code = WBC) 6.8 K/mm3 4.5-12.5 N RED BLOOD CELL (test code = RBC) 4.33 mill/mm3 3.7-5.2 N HEMOGLOBIN (test code = HGB) 9.1 gram/dL 11.5-15.5 L HEMATOCRIT (test code = HCT) 33.1 % 36.0-46.0 L MEAN CELL VOLUME (test code = MCV) 76.4 fL 80-98 L MEAN CELL HGB (test code = MCH) 21.0 picogram 27.0-33.0 L MEAN CELL HGB CONCETRATION (test code = MCHC) 27.5 gram/dL 33.0-36. 0 L RED CELL DISTRIBUTION WIDTH (test code = RDW) 19.2 % 11.6-16. 2 H RED CELL DISTRIBUTION WIDTH SD (test code = RDW-SD) 52.4 fL 37 .0-51.0 H PLATELET COUNT (test code = PLT) 338 K/mm3 150-450 N MEAN PLATELET VOLUME (test code = MPV) 10.2 fL 6.7-11.0 N NEUTROPHIL % (test code = NT%) 75.7 % 39.0-69.0 H IMMATURE GRANULOCYTE % (test code = IG%) 0.7 % 0.0-5.0 N LYMPHOCYTE % (test code = LY%) 17.4 % 25.0-55.0 L MONOCYTE % (test code = MO%) 5.9 % 0.0-10.0 N EOSINOPHIL % (test code = EO%) 0.0 % 0.0-5.0 N BASOPHIL % (test code = BA%) 0.3 % 0.0-1.0 N NUCLEATED RBC % (test code = NRBC%) 0.0 % 0-0 N NEUTROPHIL # (test code = NT#) 5.12 K/mm3 1.8-7.7 N IMMATURE GRANULOCYTE # (test code = IG#) 0.05 x10 3/uL 0-0.03 H LYMPHOCYTE # (test code = LY#) 1.18 K/mm3 1.0-5.0 N MONOCYTE # (test code = MO#) 0.40 K/mm3 0-0.8 N EOSINOPHIL # (test code = EO#) 0.00 K/mm3 0.0-0.5 N BASOPHIL # (test code = BA#) 0.02 K/mm3 0.0-0.2 N NUCLEATED RBC # (test code = NRBC#) 0.00 K/mm3 0.0-0.1 N MANUAL DIFF REQUIRED (test code = MDIFF) NO, ONLY SCAN NEEDED DIFFERENTIAL [id number] 04:35:00* Test Item Value Reference Range Interpretation Comments STAIN ACCEPTABILITY (test code = STN ACCEPTABLE) MORPHOLOGY COMMENT (test code = MOC) PLATELET ESTIMATE (test code = PLTEST) PLATELET MORPHOLOGY (test code = PLTMORPH) CBC W/AUTO [id number] 04:34:00* Test Item Value Reference Range Interpretation Comments WHITE BLOOD CELL (test code = WBC) 6.8 K/mm3 4.5-12.5 N RED BLOOD CELL (test code = RBC) 4.33 mill/mm3 3.7-5.2 N HEMOGLOBIN (test code = HGB) 9.1 gram/dL 11.5-15.5 L HEMATOCRIT (test code = HCT) 33.1 % 36.0-46.0 L MEAN CELL VOLUME (test code = MCV) 76.4 fL 80-98 L MEAN CELL HGB (test code = MCH) 21.0 picogram 27.0-33.0 L MEAN CELL HGB CONCETRATION (test code = MCHC) 27.5 gram/dL 33.0-36. 0 L RED CELL DISTRIBUTION WIDTH (test code = RDW) 19.2 % 11.6-16. 2 H RED CELL DISTRIBUTION WIDTH SD (test code = RDW-SD) 52.4 fL 37 .0-51.0 H PLATELET COUNT (test code = PLT) 338 K/mm3 150-450 N MEAN PLATELET VOLUME (test code = MPV) 10.2 fL 6.7-11.0 N NEUTROPHIL % (test code = NT%) 75.7 % 39.0-69.0 H IMMATURE GRANULOCYTE % (test code = IG%) 0.7 % 0.0-5.0 N LYMPHOCYTE % (test code = LY%) 17.4 % 25.0-55.0 L MONOCYTE % (test code = MO%) 5.9 % 0.0-10.0 N EOSINOPHIL % (test code = EO%) 0.0 % 0.0-5.0 N BASOPHIL % (test code = BA%) 0.3 % 0.0-1.0 N NUCLEATED RBC % (test code = NRBC%) 0.0 % 0-0 N NEUTROPHIL # (test code = NT#) 5.12 K/mm3 1.8-7.7 N IMMATURE GRANULOCYTE # (test code = IG#) 0.05 x10 3/uL 0-0.03 H LYMPHOCYTE # (test code = LY#) 1.18 K/mm3 1.0-5.0 N MONOCYTE # (test code = MO#) 0.40 K/mm3 0-0.8 N EOSINOPHIL # (test code = EO#) 0.00 K/mm3 0.0-0.5 N BASOPHIL # (test code = BA#) 0.02 K/mm3 0.0-0.2 N NUCLEATED RBC # (test code = NRBC#) 0.00 K/mm3 0.0-0.1 N MANUAL DIFF REQUIRED (test code = MDIFF) NO, ONLY SCAN NEEDED DIFFERENTIAL [id number] 04:34:00* Test Item Value Reference Range Interpretation Comments STAIN ACCEPTABILITY (test code = STN ACCEPTABLE) CABOT RINGS (test code = CAB) MORPHOLOGY COMMENT (test code = MOC) PLATELET ESTIMATE (test code = PLTEST) PLATELET MORPHOLOGY (test code = PLTMORPH) CBC W/AUTO [id number] 04:34:00* Test Item Value Reference Range Interpretation Comments WHITE BLOOD CELL (test code = WBC) 6.8 K/mm3 4.5-12.5 N RED BLOOD CELL (test code = RBC) 4.33 mill/mm3 3.7-5.2 N HEMOGLOBIN (test code = HGB) 9.1 gram/dL 11.5-15.5 L HEMATOCRIT (test code = HCT) 33.1 % 36.0-46.0 L MEAN CELL VOLUME (test code = MCV) 76.4 fL 80-98 L MEAN CELL HGB (test code = MCH) 21.0 picogram 27.0-33.0 L MEAN CELL HGB CONCETRATION (test code = MCHC) 27.5 gram/dL 33.0-36. 0 L RED CELL DISTRIBUTION WIDTH (test code = RDW) 19.2 % 11.6-16. 2 H RED CELL DISTRIBUTION WIDTH SD (test code = RDW-SD) 52.4 fL 37 .0-51.0 H PLATELET COUNT (test code = PLT) 338 K/mm3 150-450 N MEAN PLATELET VOLUME (test code = MPV) 10.2 fL 6.7-11.0 N NEUTROPHIL % (test code = NT%) 75.7 % 39.0-69.0 H IMMATURE GRANULOCYTE % (test code = IG%) 0.7 % 0.0-5.0 N LYMPHOCYTE % (test code = LY%) 17.4 % 25.0-55.0 L MONOCYTE % (test code = MO%) 5.9 % 0.0-10.0 N EOSINOPHIL % (test code = EO%) 0.0 % 0.0-5.0 N BASOPHIL % (test code = BA%) 0.3 % 0.0-1.0 N NUCLEATED RBC % (test code = NRBC%) 0.0 % 0-0 N NEUTROPHIL # (test code = NT#) 5.12 K/mm3 1.8-7.7 N IMMATURE GRANULOCYTE # (test code = IG#) 0.05 x10 3/uL 0-0.03 H LYMPHOCYTE # (test code = LY#) 1.18 K/mm3 1.0-5.0 N MONOCYTE # (test code = MO#) 0.40 K/mm3 0-0.8 N EOSINOPHIL # (test code = EO#) 0.00 K/mm3 0.0-0.5 N BASOPHIL # (test code = BA#) 0.02 K/mm3 0.0-0.2 N NUCLEATED RBC # (test code = NRBC#) 0.00 K/mm3 0.0-0.1 N MANUAL DIFF REQUIRED (test code = MDIFF) NO, ONLY SCAN NEEDED DIFFERENTIAL [id number] 04:34:00* Test Item Value Reference Range Interpretation Comments STAIN ACCEPTABILITY (test code = STN ACCEPTABLE) CABOT RINGS (test code = CAB) MORPHOLOGY COMMENT (test code = MOC) PLATELET ESTIMATE (test code = PLTEST) PLATELET MORPHOLOGY (test code = PLTMORPH) CBC W/AUTO [id number] 16:22:00* Test Item Value Reference Range Interpretation Comments WHITE BLOOD CELL (test code = WBC) 7.0 K/mm3 4.5-12.5 N RED BLOOD CELL (test code = RBC) 4.23 mill/mm3 3.7-5.2 N HEMOGLOBIN (test code = HGB) 9.0 gram/dL 11.5-15.5 L HEMATOCRIT (test code = HCT) 31.2 % 36.0-46.0 L MEAN CELL VOLUME (test code = MCV) 73.8 fL 80-98 L MEAN CELL HGB (test code = MCH) 21.3 picogram 27.0-33.0 L MEAN CELL HGB CONCETRATION (test code = MCHC) 28.8 gram/dL 33.0-36. 0 L RED CELL DISTRIBUTION WIDTH (test code = RDW) 19.1 % 11.6-16. 2 H RED CELL DISTRIBUTION WIDTH SD (test code = RDW-SD) 49.5 fL 37 .0-51.0 N PLATELET COUNT (test code = PLT) 371 K/mm3 150-450 N MEAN PLATELET VOLUME (test code = MPV) 9.8 fL 6.7-11.0 N NEUTROPHIL % (test code = NT%) 75.6 % 39.0-69.0 H IMMATURE GRANULOCYTE % (test code = IG%) 0.7 % 0.0-5.0 N LYMPHOCYTE % (test code = LY%) 15.9 % 25.0-55.0 L MONOCYTE % (test code = MO%) 7.7 % 0.0-10.0 N EOSINOPHIL % (test code = EO%) 0.0 % 0.0-5.0 N BASOPHIL % (test code = BA%) 0.1 % 0.0-1.0 N NUCLEATED RBC % (test code = NRBC%) 0.0 % 0-0 N NEUTROPHIL # (test code = NT#) 5.26 K/mm3 1.8-7.7 N IMMATURE GRANULOCYTE # (test code = IG#) 0.05 x10 3/uL 0-0.03 H LYMPHOCYTE # (test code = LY#) 1.11 K/mm3 1.0-5.0 N MONOCYTE # (test code = MO#) 0.54 K/mm3 0-0.8 N EOSINOPHIL # (test code = EO#) 0.00 K/mm3 0.0-0.5 N BASOPHIL # (test code = BA#) 0.01 K/mm3 0.0-0.2 N NUCLEATED RBC # (test code = NRBC#) 0.00 K/mm3 0.0-0.1 N MANUAL DIFF REQUIRED (test code = MDIFF) NO, ONLY SCAN NEEDED CLOTTED.REDRAWDIFFERENTIAL [id number] 16:22:00* Test Item Value Reference Range Interpretation Comments STAIN ACCEPTABILITY (test code = STN ACCEPTABLE) STAIN ACCEPTABLE POLYCHROMASIA (test code = POLC) 1+ PLATELET ESTIMATE (test code = PLTEST) ADEQUATE PLATELET MORPHOLOGY (test code = PLTMORPH) NORMAL CLOTTED.REDRAWCBC W/AUTO [id number] 15:26:00* Test Item Value Reference Range Interpretation Comments WHITE BLOOD CELL (test code = WBC) 7.0 K/mm3 4.5-12.5 N RED BLOOD CELL (test code = RBC) 4.23 mill/mm3 3.7-5.2 N HEMOGLOBIN (test code = HGB) 9.0 gram/dL 11.5-15.5 L HEMATOCRIT (test code = HCT) 31.2 % 36.0-46.0 L MEAN CELL VOLUME (test code = MCV) 73.8 fL 80-98 L MEAN CELL HGB (test code = MCH) 21.3 picogram 27.0-33.0 L MEAN CELL HGB CONCETRATION (test code = MCHC) 28.8 gram/dL 33.0-36. 0 L RED CELL DISTRIBUTION WIDTH (test code = RDW) 19.1 % 11.6-16. 2 H RED CELL DISTRIBUTION WIDTH SD (test code = RDW-SD) 49.5 fL 37 .0-51.0 N PLATELET COUNT (test code = PLT) 371 K/mm3 150-450 N MEAN PLATELET VOLUME (test code = MPV) 9.8 fL 6.7-11.0 N NEUTROPHIL % (test code = NT%) 75.6 % 39.0-69.0 H IMMATURE GRANULOCYTE % (test code = IG%) 0.7 % 0.0-5.0 N LYMPHOCYTE % (test code = LY%) 15.9 % 25.0-55.0 L MONOCYTE % (test code = MO%) 7.7 % 0.0-10.0 N EOSINOPHIL % (test code = EO%) 0.0 % 0.0-5.0 N BASOPHIL % (test code = BA%) 0.1 % 0.0-1.0 N NUCLEATED RBC % (test code = NRBC%) 0.0 % 0-0 N NEUTROPHIL # (test code = NT#) 5.26 K/mm3 1.8-7.7 N IMMATURE GRANULOCYTE # (test code = IG#) 0.05 x10 3/uL 0-0.03 H LYMPHOCYTE # (test code = LY#) 1.11 K/mm3 1.0-5.0 N MONOCYTE # (test code = MO#) 0.54 K/mm3 0-0.8 N EOSINOPHIL # (test code = EO#) 0.00 K/mm3 0.0-0.5 N BASOPHIL # (test code = BA#) 0.01 K/mm3 0.0-0.2 N NUCLEATED RBC # (test code = NRBC#) 0.00 K/mm3 0.0-0.1 N MANUAL DIFF REQUIRED (test code = MDIFF) NO, ONLY SCAN NEEDED CLOTTED.REDRAWDIFFERENTIAL [id number] 15:26:00* Test Item Value Reference Range Interpretation Comments STAIN ACCEPTABILITY (test code = STN ACCEPTABLE) CABOT RINGS (test code = CAB) MORPHOLOGY COMMENT (test code = MOC) PLATELET ESTIMATE (test code = PLTEST) PLATELET MORPHOLOGY (test code = PLTMORPH) CLOTTED.REDRAWCBC W/AUTO [id number] 15:26:00* Test Item Value Reference Range Interpretation Comments WHITE BLOOD CELL (test code = WBC) 7.0 K/mm3 4.5-12.5 N RED BLOOD CELL (test code = RBC) 4.23 mill/mm3 3.7-5.2 N HEMOGLOBIN (test code = HGB) 9.0 gram/dL 11.5-15.5 L HEMATOCRIT (test code = HCT) 31.2 % 36.0-46.0 L MEAN CELL VOLUME (test code = MCV) 73.8 fL 80-98 L MEAN CELL HGB (test code = MCH) 21.3 picogram 27.0-33.0 L MEAN CELL HGB CONCETRATION (test code = MCHC) 28.8 gram/dL 33.0-36. 0 L RED CELL DISTRIBUTION WIDTH (test code = RDW) 19.1 % 11.6-16. 2 H RED CELL DISTRIBUTION WIDTH SD (test code = RDW-SD) 49.5 fL 37 .0-51.0 N PLATELET COUNT (test code = PLT) 371 K/mm3 150-450 N MEAN PLATELET VOLUME (test code = MPV) 9.8 fL 6.7-11.0 N NEUTROPHIL % (test code = NT%) 75.6 % 39.0-69.0 H IMMATURE GRANULOCYTE % (test code = IG%) 0.7 % 0.0-5.0 N LYMPHOCYTE % (test code = LY%) 15.9 % 25.0-55.0 L MONOCYTE % (test code = MO%) 7.7 % 0.0-10.0 N EOSINOPHIL % (test code = EO%) 0.0 % 0.0-5.0 N BASOPHIL % (test code = BA%) 0.1 % 0.0-1.0 N NUCLEATED RBC % (test code = NRBC%) 0.0 % 0-0 N NEUTROPHIL # (test code = NT#) 5.26 K/mm3 1.8-7.7 N IMMATURE GRANULOCYTE # (test code = IG#) 0.05 x10 3/uL 0-0.03 H LYMPHOCYTE # (test code = LY#) 1.11 K/mm3 1.0-5.0 N MONOCYTE # (test code = MO#) 0.54 K/mm3 0-0.8 N EOSINOPHIL # (test code = EO#) 0.00 K/mm3 0.0-0.5 N BASOPHIL # (test code = BA#) 0.01 K/mm3 0.0-0.2 N NUCLEATED RBC # (test code = NRBC#) 0.00 K/mm3 0.0-0.1 N MANUAL DIFF REQUIRED (test code = MDIFF) NO, ONLY SCAN NEEDED CLOTTED.REDRAWDIFFERENTIAL [id number] 15:26:00* Test Item Value Reference Range Interpretation Comments STAIN ACCEPTABILITY (test code = STN ACCEPTABLE) MORPHOLOGY COMMENT (test code = MOC) PLATELET ESTIMATE (test code = PLTEST) PLATELET MORPHOLOGY (test code = PLTMORPH) CLOTTED.REDRAWCBC W/AUTO [id number] 15:25:00* Test Item Value Reference Range Interpretation Comments WHITE BLOOD CELL (test code = WBC) 7.0 K/mm3 4.5-12.5 N RED BLOOD CELL (test code = RBC) 4.23 mill/mm3 3.7-5.2 N HEMOGLOBIN (test code = HGB) 9.0 gram/dL 11.5-15.5 L HEMATOCRIT (test code = HCT) 31.2 % 36.0-46.0 L MEAN CELL VOLUME (test code = MCV) 73.8 fL 80-98 L MEAN CELL HGB (test code = MCH) 21.3 picogram 27.0-33.0 L MEAN CELL HGB CONCETRATION (test code = MCHC) 28.8 gram/dL 33.0-36. 0 L RED CELL DISTRIBUTION WIDTH (test code = RDW) 19.1 % 11.6-16. 2 H RED CELL DISTRIBUTION WIDTH SD (test code = RDW-SD) 49.5 fL 37 .0-51.0 N PLATELET COUNT (test code = PLT) 371 K/mm3 150-450 N MEAN PLATELET VOLUME (test code = MPV) 9.8 fL 6.7-11.0 N NEUTROPHIL % (test code = NT%) 75.6 % 39.0-69.0 H IMMATURE GRANULOCYTE % (test code = IG%) 0.7 % 0.0-5.0 N LYMPHOCYTE % (test code = LY%) 15.9 % 25.0-55.0 L MONOCYTE % (test code = MO%) 7.7 % 0.0-10.0 N EOSINOPHIL % (test code = EO%) 0.0 % 0.0-5.0 N BASOPHIL % (test code = BA%) 0.1 % 0.0-1.0 N NUCLEATED RBC % (test code = NRBC%) 0.0 % 0-0 N NEUTROPHIL # (test code = NT#) 5.26 K/mm3 1.8-7.7 N IMMATURE GRANULOCYTE # (test code = IG#) 0.05 x10 3/uL 0-0.03 H LYMPHOCYTE # (test code = LY#) 1.11 K/mm3 1.0-5.0 N MONOCYTE # (test code = MO#) 0.54 K/mm3 0-0.8 N EOSINOPHIL # (test code = EO#) 0.00 K/mm3 0.0-0.5 N BASOPHIL # (test code = BA#) 0.01 K/mm3 0.0-0.2 N NUCLEATED RBC # (test code = NRBC#) 0.00 K/mm3 0.0-0.1 N MANUAL DIFF REQUIRED (test code = MDIFF) NO, ONLY SCAN NEEDED CLOTTED.REDRAWDIFFERENTIAL [id number] 15:25:00* Test Item Value Reference Range Interpretation Comments STAIN ACCEPTABILITY (test code = STN ACCEPTABLE) CABOT RINGS (test code = CAB) MORPHOLOGY COMMENT (test code = MOC) PLATELET ESTIMATE (test code = PLTEST) PLATELET MORPHOLOGY (test code = PLTMORPH) CLOTTED.REDRAWCBC W/AUTO [id number] 15:25:00* Test Item Value Reference Range Interpretation Comments WHITE BLOOD CELL (test code = WBC) 7.0 K/mm3 4.5-12.5 N RED BLOOD CELL (test code = RBC) 4.23 mill/mm3 3.7-5.2 N HEMOGLOBIN (test code = HGB) 9.0 gram/dL 11.5-15.5 L HEMATOCRIT (test code = HCT) 31.2 % 36.0-46.0 L MEAN CELL VOLUME (test code = MCV) 73.8 fL 80-98 L MEAN CELL HGB (test code = MCH) 21.3 picogram 27.0-33.0 L MEAN CELL HGB CONCETRATION (test code = MCHC) 28.8 gram/dL 33.0-36. 0 L RED CELL DISTRIBUTION WIDTH (test code = RDW) 19.1 % 11.6-16. 2 H RED CELL DISTRIBUTION WIDTH SD (test code = RDW-SD) 49.5 fL 37 .0-51.0 N PLATELET COUNT (test code = PLT) 371 K/mm3 150-450 N MEAN PLATELET VOLUME (test code = MPV) 9.8 fL 6.7-11.0 N NEUTROPHIL % (test code = NT%) 75.6 % 39.0-69.0 H IMMATURE GRANULOCYTE % (test code = IG%) 0.7 % 0.0-5.0 N LYMPHOCYTE % (test code = LY%) 15.9 % 25.0-55.0 L MONOCYTE % (test code = MO%) 7.7 % 0.0-10.0 N EOSINOPHIL % (test code = EO%) 0.0 % 0.0-5.0 N BASOPHIL % (test code = BA%) 0.1 % 0.0-1.0 N NUCLEATED RBC % (test code = NRBC%) 0.0 % 0-0 N NEUTROPHIL # (test code = NT#) 5.26 K/mm3 1.8-7.7 N IMMATURE GRANULOCYTE # (test code = IG#) 0.05 x10 3/uL 0-0.03 H LYMPHOCYTE # (test code = LY#) 1.11 K/mm3 1.0-5.0 N MONOCYTE # (test code = MO#) 0.54 K/mm3 0-0.8 N EOSINOPHIL # (test code = EO#) 0.00 K/mm3 0.0-0.5 N BASOPHIL # (test code = BA#) 0.01 K/mm3 0.0-0.2 N NUCLEATED RBC # (test code = NRBC#) 0.00 K/mm3 0.0-0.1 N MANUAL DIFF REQUIRED (test code = MDIFF) NO, ONLY SCAN NEEDED CLOTTED.REDRAWDIFFERENTIAL [id number] 15:25:00* Test Item Value Reference Range Interpretation Comments STAIN ACCEPTABILITY (test code = STN ACCEPTABLE) CABOT RINGS (test code = CAB) MORPHOLOGY COMMENT (test code = MOC) PLATELET ESTIMATE (test code = PLTEST) PLATELET MORPHOLOGY (test code = PLTMORPH) CLOTTED.REDRAWURINALYSIS [id number] 03:17:00* Test Item Value Reference Range Interpretation Comments UA COLOR (test code = COLU) LIGHT YELLOW YELLOW UA APPEARANCE (test code = APPU) CLEAR CLEAR UA GLUCOSE DIPSTICK (test code = DGLUU) NEGATIVE mg/dL NEGATIVE UA BILIRUBIN DIPSTICK (test code = BILU) NEGATIVE mg/dL NEGATIVE UA KETONE DIPSTICK (test code = KETU) Negative mg/dL NEGATIVE UA SPECIFIC GRAVITY (test code = SGU) 1.011 1.001-1.035 UA BLOOD DIPSTICK (test code = WILBER) Negative NEGATIVE UA PH DIPSTICK (test code = MARCELLO) 6.0 5.0-8.0 UA PROTEIN DIPSTICK (test code = PROU) Negative mg/dL NEGATIVE UA UROBILINIOGEN DIPSTICK (test code = URO) NEGATIVE mg/dL NEGATIVE UA NITRITE DIPSTICK (test code = LANDON) NEGATIVE NEGATIVE UA LEUKOCYTE ESTERASE W REFLEX (test code = LEUUR) TRACE NEG ATIVE A UA WBC (test code = WBCU) 6-10 #/HPF 0-5 A UA RBC (test code = RBCU) 0-2 #/HPF 0-5 UA EPITHELIAL CELLS (test code = EPIU) FEW per HPF FEW UA BACTERIA (test code = BACU) FEW #/HPF NONE A UA MUCUS (test code = MUCU) FEW #/LPF FEW Urine Source? Clean CatchBASIC METABOLIC [id number] 01:35:00* Test Item Value Reference Range Interpretation Comments SODIUM (test code = NA) 139 mmol/L 136-145 N POTASSIUM (test code = K) 3.0 mmol/L 3.5-5.1 L CHLORIDE (test code = CL) 107.0 mmol/L 98-107 N CARBON DIOXIDE (test code = CO2) 25.0 mmol/L 21-32 N ANION GAP (test code = GAP) 10.0 10-20 N GLUCOSE (test code = GLU) 109 mg/dL 74-106 H BLOOD UREA NITROGEN (test code = BUN) 13 mg/dL 7-18 N GLOMERULAR FILTRATION RATE (test code = GFR) > 60 mL/min >=60 Estimated GFR by using Modified MDRD formula.Chronic kidney disease is defined as either kidney damageor GFR <60 mL/min/1.73 m2 for >3 months. CREATININE (test code = CREAT) 0.60 mg/dL 0.55-1.02 N Note change in reference range due to change in reagent. BUN/CREATININE RATIO (test code = BUN/CREA) 23.6 10-20 H CALCIUM (test code = CA) 8.7 mg/dL 8.5-10.1 N HEPATIC FUNCTION [id number] 01:35:00* Test Item Value Reference Range Interpretation Comments TOTAL PROTEIN (test code = PROT) 7.6 gram/dL 6.4-8.2 N ALBUMIN (test code = ALB) 3.4 g/dL 3.4-5.0 N GLOBULIN (test code = GLOB) 4.2 gram/dL 2.7-4.2 N ALBUMIN/GLOBULIN RATIO (test code = A/G) 0.8 0.75-1.50 N BILIRUBIN TOTAL (test code = BILT) 0.30 mg/dL 0.0-1.0 N BILIRUBIN DIRECT (test code = BILD) 0.06 mg/dL 0.0-0.20 N SGOT/AST (test code = AST) 66 IUnit/L 15-37 H SGPT/ALT (test code = ALT) 86 IUnit/L 12-78 H ALKALINE PHOSPHATASE TOTAL (test code = ALKP) 200 IUnit/L 45-117 H Note change in reference range due to change in reagent. [id number] 01:35:00* Test Item Value Reference Range Interpretation Comments LIPASE (test code = LIP) 389 U/L 73.0-393.0 N HCG SERUM [id number] 01:35:00* Test Item Value Reference Range Interpretation Comments HCG SERUM QUAL (test code = HCGQL) NEGATIVE NEGATIVE This HCGQL test is NOT applicable for MALE patients.Check with nurse about probable order error.If Tumor Marker Test needed, nurse should order test "HCGTU"(Test #550.23547) BASIC METABOLIC [id number] 01:26:00* Test Item Value Reference Range Interpretation Comments SODIUM (test code = NA) 139 mmol/L 136-145 N POTASSIUM (test code = K) 3.0 mmol/L 3.5-5.1 L CHLORIDE (test code = CL) 107.0 mmol/L 98-107 N CARBON DIOXIDE (test code = CO2) mmol/L 21-32 ANION GAP (test code = GAP) 10-20 GLUCOSE (test code = GLU) mg/dL 74-106 BLOOD UREA NITROGEN (test code = BUN) mg/dL 7-18 GLOMERULAR FILTRATION RATE (test code = GFR) mL/min >=60 CREATININE (test code = CREAT) mg/dL 0.55-1.02 BUN/CREATININE RATIO (test code = BUN/CREA) 10-20 CALCIUM (test code = CA) mg/dL 8.5-10.1 HEPATIC FUNCTION [id number] 01:26:00* Test Item Value Reference Range Interpretation Comments TOTAL PROTEIN (test code = PROT) gram/dL 6.4-8.2 ALBUMIN (test code = ALB) g/dL 3.4-5.0 GLOBULIN (test code = GLOB) gram/dL 2.7-4.2 ALBUMIN/GLOBULIN RATIO (test code = A/G) 0.75-1.50 BILIRUBIN TOTAL (test code = BILT) mg/dL 0.0-1.0 BILIRUBIN DIRECT (test code = BILD) mg/dL 0.0-0.20 SGOT/AST (test code = AST) IUnit/L 15-37 SGPT/ALT (test code = ALT) IUnit/L 12-78 ALKALINE PHOSPHATASE TOTAL (test code = ALKP) IUnit/L 45-117 [id number] 01:26:00* Test Item Value Reference Range Interpretation Comments LIPASE (test code = LIP) U/L 73.0-393.0 HCG SERUM [id number] 01:26:00* Test Item Value Reference Range Interpretation Comments HCG SERUM QUAL (test code = HCGQL) NEGATIVE NEGATIVE This HCGQL test is NOT applicable for MALE patients.Check with nurse about probable order error.If Tumor Marker Test needed, nurse should order test "HCGTU"(Test #550.54267) BASIC METABOLIC [id number] 01:24:00* Test Item Value Reference Range Interpretation Comments SODIUM (test code = NA) 139 mmol/L 136-145 N POTASSIUM (test code = K) 3.0 mmol/L 3.5-5.1 L CHLORIDE (test code = CL) 107.0 mmol/L 98-107 N CARBON DIOXIDE (test code = CO2) mmol/L 21-32 ANION GAP (test code = GAP) 10-20 GLUCOSE (test code = GLU) mg/dL 74-106 BLOOD UREA NITROGEN (test code = BUN) mg/dL 7-18 GLOMERULAR FILTRATION RATE (test code = GFR) mL/min >=60 CREATININE (test code = CREAT) mg/dL 0.55-1.02 BUN/CREATININE RATIO (test code = BUN/CREA) 10-20 CALCIUM (test code = CA) mg/dL 8.5-10.1 HEPATIC FUNCTION [id number] 01:24:00* Test Item Value Reference Range Interpretation Comments TOTAL PROTEIN (test code = PROT) gram/dL 6.4-8.2 ALBUMIN (test code = ALB) g/dL 3.4-5.0 GLOBULIN (test code = GLOB) gram/dL 2.7-4.2 ALBUMIN/GLOBULIN RATIO (test code = A/G) 0.75-1.50 BILIRUBIN TOTAL (test code = BILT) mg/dL 0.0-1.0 BILIRUBIN DIRECT (test code = BILD) mg/dL 0.0-0.20 SGOT/AST (test code = AST) IUnit/L 15-37 SGPT/ALT (test code = ALT) IUnit/L 12-78 ALKALINE PHOSPHATASE TOTAL (test code = ALKP) IUnit/L 45-117 [id number] 01:24:00* Test Item Value Reference Range Interpretation Comments LIPASE (test code = LIP) U/L 73.0-393.0 HCG SERUM [id number] 01:24:00* Test Item Value Reference Range Interpretation Comments HCG SERUM QUAL (test code = HCGQL) NEGATIVE CBC W/O [id number] 01:18:00* Test Item Value Reference Range Interpretation Comments WHITE BLOOD CELL (test code = WBC) 8.4 K/mm3 4.5-12.5 N RED BLOOD CELL (test code = RBC) 4.60 mill/mm3 3.7-5.2 N HEMOGLOBIN (test code = HGB) 9.7 gram/dL 11.5-15.5 L HEMATOCRIT (test code = HCT) 34.6 % 36.0-46.0 L MEAN CELL VOLUME (test code = MCV) 75.2 fL 80-98 L MEAN CELL HGB (test code = MCH) 21.1 picogram 27.0-33.0 L MEAN CELL HGB CONCETRATION (test code = MCHC) 28.0 gram/dL 33.0-36. 0 L RED CELL DISTRIBUTION WIDTH (test code = RDW) 20.0 % 11.6-16. 2 H PLATELET COUNT (test code = PLT) 389 K/mm3 150-450 RESULT VERIFIED BY REPEAT ANALYSIS MEAN PLATELET VOLUME (test code = MPV) 9.5 fL 6.7-11.0 N DILANTIN (PHENYTOIN)[id number] 19:20:00* Test Item Value Reference Range Interpretation Comments DILANTIN (PHENYTOIN) (test code = DIL) 0.5 ug/mL 10.0-20.0 L C REACTIVE [id number] 18:57:00* Test Item Value Reference Range Interpretation Comments C REACTIVE PROTEIN (test code = CRP) <0.29 mg/dL 0-0.3 N BASIC METABOLIC [id number] 18:57:00* Test Item Value Reference Range Interpretation Comments SODIUM (test code = NA) 141 mmol/L 136-145 N POTASSIUM (test code = K) 3.3 mmol/L 3.5-5.1 L CHLORIDE (test code = CL) 105.0 mmol/L 98-107 N CARBON DIOXIDE (test code = CO2) 24.0 mmol/L 21-32 N ANION GAP (test code = GAP) 15.3 10-20 N GLUCOSE (test code = GLU) 95 mg/dL 74-106 N BLOOD UREA NITROGEN (test code = BUN) 11 mg/dL 7-18 N GLOMERULAR FILTRATION RATE (test code = GFR) > 60 mL/min >=60 Estimated GFR by using Modified MDRD formula.Chronic kidney disease is defined as either kidney damageor GFR <60 mL/min/1.73 m2 for >3 months. CREATININE (test code = CREAT) 0.70 mg/dL 0.55-1.02 N Note change in reference range due to change in reagent. BUN/CREATININE RATIO (test code = BUN/CREA) 16.7 10-20 N CALCIUM (test code = CA) 8.5 mg/dL 8.5-10.1 N HEPATIC FUNCTION [id number] 18:57:00* Test Item Value Reference Range Interpretation Comments TOTAL PROTEIN (test code = PROT) 7.2 gram/dL 6.4-8.2 N ALBUMIN (test code = ALB) 3.6 g/dL 3.4-5.0 N GLOBULIN (test code = GLOB) 3.6 gram/dL 2.7-4.2 N ALBUMIN/GLOBULIN RATIO (test code = A/G) 1.0 0.75-1.50 N BILIRUBIN TOTAL (test code = BILT) 0.30 mg/dL 0.0-1.0 N BILIRUBIN DIRECT (test code = BILD) 0.08 mg/dL 0.0-0.20 N SGOT/AST (test code = AST) 56 IUnit/L 15-37 H SGPT/ALT (test code = ALT) 85 IUnit/L 12-78 H ALKALINE PHOSPHATASE TOTAL (test code = ALKP) 210 IUnit/L 45-117 H Note change in reference range due to change in reagent. [id number] 18:57:00* Test Item Value Reference Range Interpretation Comments LIPASE (test code = LIP) 318 U/L 73.0-393.0 N HCG SERUM [id number] 18:57:00* Test Item Value Reference Range Interpretation Comments HCG SERUM QUAL (test code = HCGQL) NEGATIVE NEGATIVE This HCGQL test is NOT applicable for MALE patients.Check with nurse about probable order error.If Tumor Marker Test needed, nurse should order test "HCGTU"(Test #550.82884) [id number] 18:57:00* Test Item Value Reference Range Interpretation Comments TROPONIN-I (test code = TROPI) <0.015 ng/mL 0-0.045 N BASIC METABOLIC [id number] 18:38:00* Test Item Value Reference Range Interpretation Comments SODIUM (test code = NA) mmol/L 136-145 POTASSIUM (test code = K) mmol/L 3.5-5.1 CHLORIDE (test code = CL) mmol/L 98-107 CARBON DIOXIDE (test code = CO2) mmol/L 21-32 ANION GAP (test code = GAP) 10-20 GLUCOSE (test code = GLU) mg/dL 74-106 BLOOD UREA NITROGEN (test code = BUN) mg/dL 7-18 GLOMERULAR FILTRATION RATE (test code = GFR) mL/min >=60 CREATININE (test code = CREAT) mg/dL 0.55-1.02 BUN/CREATININE RATIO (test code = BUN/CREA) 10-20 CALCIUM (test code = CA) mg/dL 8.5-10.1 HEPATIC FUNCTION [id number] 18:38:00* Test Item Value Reference Range Interpretation Comments TOTAL PROTEIN (test code = PROT) gram/dL 6.4-8.2 ALBUMIN (test code = ALB) g/dL 3.4-5.0 GLOBULIN (test code = GLOB) gram/dL 2.7-4.2 ALBUMIN/GLOBULIN RATIO (test code = A/G) 0.75-1.50 BILIRUBIN TOTAL (test code = BILT) mg/dL 0.0-1.0 BILIRUBIN DIRECT (test code = BILD) mg/dL 0.0-0.20 SGOT/AST (test code = AST) IUnit/L 15-37 SGPT/ALT (test code = ALT) IUnit/L 12-78 ALKALINE PHOSPHATASE TOTAL (test code = ALKP) IUnit/L 45-117 [id number] 18:38:00* Test Item Value Reference Range Interpretation Comments LIPASE (test code = LIP) U/L 73.0-393.0 HCG SERUM [id number] 18:38:00* Test Item Value Reference Range Interpretation Comments HCG SERUM QUAL (test code = HCGQL) NEGATIVE NEGATIVE This HCGQL test is NOT applicable for MALE patients.Check with nurse about probable order error.If Tumor Marker Test needed, nurse should order test "HCGTU"(Test #550.01872) [id number] 18:38:00* Test Item Value Reference Range Interpretation Comments TROPONIN-I (test code = TROPI) ng/mL 0-0.045 BASIC METABOLIC [id number] 18:38:00* Test Item Value Reference Range Interpretation Comments SODIUM (test code = NA) 141 mmol/L 136-145 N POTASSIUM (test code = K) 3.3 mmol/L 3.5-5.1 L CHLORIDE (test code = CL) 105.0 mmol/L 98-107 N CARBON DIOXIDE (test code = CO2) mmol/L 21-32 ANION GAP (test code = GAP) 10-20 GLUCOSE (test code = GLU) mg/dL 74-106 BLOOD UREA NITROGEN (test code = BUN) mg/dL 7-18 GLOMERULAR FILTRATION RATE (test code = GFR) mL/min >=60 CREATININE (test code = CREAT) mg/dL 0.55-1.02 BUN/CREATININE RATIO (test code = BUN/CREA) 10-20 CALCIUM (test code = CA) mg/dL 8.5-10.1 HEPATIC FUNCTION [id number] 18:38:00* Test Item Value Reference Range Interpretation Comments TOTAL PROTEIN (test code = PROT) gram/dL 6.4-8.2 ALBUMIN (test code = ALB) g/dL 3.4-5.0 GLOBULIN (test code = GLOB) gram/dL 2.7-4.2 ALBUMIN/GLOBULIN RATIO (test code = A/G) 0.75-1.50 BILIRUBIN TOTAL (test code = BILT) mg/dL 0.0-1.0 BILIRUBIN DIRECT (test code = BILD) mg/dL 0.0-0.20 SGOT/AST (test code = AST) IUnit/L 15-37 SGPT/ALT (test code = ALT) IUnit/L 12-78 ALKALINE PHOSPHATASE TOTAL (test code = ALKP) IUnit/L 45-117 [id number] 18:38:00* Test Item Value Reference Range Interpretation Comments LIPASE (test code = LIP) U/L 73.0-393.0 HCG SERUM [id number] 18:38:00* Test Item Value Reference Range Interpretation Comments HCG SERUM QUAL (test code = HCGQL) NEGATIVE NEGATIVE This HCGQL test is NOT applicable for MALE patients.Check with nurse about probable order error.If Tumor Marker Test needed, nurse should order test "HCGTU"(Test #550.22122) [id number] 18:38:00* Test Item Value Reference Range Interpretation Comments TROPONIN-I (test code = TROPI) ng/mL 0-0.045 CBC W/O [id number] 17:54:00* Test Item Value Reference Range Interpretation Comments WHITE BLOOD CELL (test code = WBC) 9.4 K/mm3 4.5-12.5 N RED BLOOD CELL (test code = RBC) 4.76 mill/mm3 3.7-5.2 N HEMOGLOBIN (test code = HGB) 10.1 gram/dL 11.5-15.5 L HEMATOCRIT (test code = HCT) 34.6 % 36.0-46.0 L MEAN CELL VOLUME (test code = MCV) 72.7 fL 80-98 L MEAN CELL HGB (test code = MCH) 21.2 picogram 27.0-33.0 L MEAN CELL HGB CONCETRATION (test code = MCHC) 29.2 gram/dL 33.0-36. 0 L RED CELL DISTRIBUTION WIDTH (test code = RDW) 20.4 % 11.6-16. 2 H PLATELET COUNT (test code = PLT) 275 K/mm3 150-450 RESULT VERIFIED BY REPEAT ANALYSIS MEAN PLATELET VOLUME (test code = MPV) 9.8 fL 6.7-11.0 N - CT ABD PELVIS [id number] 15:09:00 Name: DAVIE CORADO [facility] : 1970 Age/S: 47 / F [address] [facility] Unit #: [id number] Loc: [place] [address] Phys: CASANDRA COLORADO MD Acct: [id number] Dis Date: Status: REG ER PHONE #: [phone] Exam Date: 05/01/2018 1420 FAX #: [phone] Reason: abdominal pain, crohn's disease EXAMS: CPT CODE: [id number] CT ABD PELVIS W/CONT [id number] EXAM: CT of the abdomen and pelvis [...] andra by Geraldine Franz on 05/01/2018 at 1509 Reported and signed by: Ralf Franz M.D. PAGE 1 Signed Report (CONTINU ED) Name: DAVIE CORADO [facility] : 1970 Age/S: 47 / F [address] [facility] Unit #: [id number] Loc: [facility] [place] [address] Phys: CASANDRA COLORADO MD Acct: [id number] Dis Date: Status: REG ER PHONE #: [phone] Exam Date: 05/01/2018 1420 FAX #: Reason: abdominal pain, crohn's disease EXAMS: CPT CODE: [id number] CT ABD PE LVIS W/CONT [id number] <Continued> CC: Dima Samaniego; CASANDRA COLORADO MD Technologist:Umu Jordan RT(R),CT; CTDI: DLP: Trnscb Date/Time: 05/01/2018 (150) [email or web address] Orig Print D/T: S: 05/01/2018 (1513) CTDI: DLP: PAGE 2 Signed Report BASIC METABOLIC [id number] 11:09:00* Test Item Value Reference Range Interpretation Comments SODIUM (test code = NA) 138 mmol/L 136-145 N POTASSIUM (test code = K) 3.1 mmol/L 3.5-5.1 L CHLORIDE (test code = CL) 102.0 mmol/L 98-107 N CARBON DIOXIDE (test code = CO2) 28.0 mmol/L 21-32 N ANION GAP (test code = GAP) 11.1 10-20 N GLUCOSE (test code = GLU) 121 mg/dL 74-106 H BLOOD UREA NITROGEN (test code = BUN) 9 mg/dL 7-18 N GLOMERULAR FILTRATION RATE (test code = GFR) > 60 mL/min >=60 Estimated GFR by using Modified MDRD formula.Chronic kidney disease is defined as either kidney damageor GFR <60 mL/min/1.73 m2 for >3 months. CREATININE (test code = CREAT) 0.50 mg/dL 0.55-1.02 L Note change in reference range due to change in reagent. BUN/CREATININE RATIO (test code = BUN/CREA) 16.6 10-20 N CALCIUM (test code = CA) 9.7 mg/dL 8.5-10.1 N HEPATIC FUNCTION [id number] 11:09:00* Test Item Value Reference Range Interpretation Comments TOTAL PROTEIN (test code = PROT) 8.6 gram/dL 6.4-8.2 H ALBUMIN (test code = ALB) 4.2 g/dL 3.4-5.0 N GLOBULIN (test code = GLOB) 4.4 gram/dL 2.7-4.2 H ALBUMIN/GLOBULIN RATIO (test code = A/G) 1.0 0.75-1.50 N BILIRUBIN TOTAL (test code = BILT) 0.40 mg/dL 0.0-1.0 N BILIRUBIN DIRECT (test code = BILD) 0.09 mg/dL 0.0-0.20 N SGOT/AST (test code = AST) 76 IUnit/L 15-37 H SGPT/ALT (test code = ALT) 106 IUnit/L 12-78 H ALKALINE PHOSPHATASE TOTAL (test code = ALKP) 286 IUnit/L 45-117 H Note change in reference range due to change in reagent. [id number] 11:09:00* Test Item Value Reference Range Interpretation Comments LIPASE (test code = LIP) 389 U/L 73.0-393.0 N HCG SERUM [id number] 11:09:00* Test Item Value Reference Range Interpretation Comments HCG SERUM QUAL (test code = HCGQL) NEGATIVE NEGATIVE This HCGQL test is NOT applicable for MALE patients.Check with nurse about probable order error.If Tumor Marker Test needed, nurse should order test "HCGTU"(Test #550.19200) BASIC METABOLIC [id number] 11:06:00* Test Item Value Reference Range Interpretation Comments SODIUM (test code = NA) 138 mmol/L 136-145 N POTASSIUM (test code = K) 3.1 mmol/L 3.5-5.1 L CHLORIDE (test code = CL) 102.0 mmol/L 98-107 N CARBON DIOXIDE (test code = CO2) 28.0 mmol/L 21-32 N ANION GAP (test code = GAP) 11.1 10-20 N GLUCOSE (test code = GLU) 121 mg/dL 74-106 H BLOOD UREA NITROGEN (test code = BUN) 9 mg/dL 7-18 N GLOMERULAR FILTRATION RATE (test code = GFR) > 60 mL/min >=60 Estimated GFR by using Modified MDRD formula.Chronic kidney disease is defined as either kidney damageor GFR <60 mL/min/1.73 m2 for >3 months. CREATININE (test code = CREAT) 0.50 mg/dL 0.55-1.02 L Note change in reference range due to change in reagent. BUN/CREATININE RATIO (test code = BUN/CREA) 16.6 10-20 N CALCIUM (test code = CA) 9.7 mg/dL 8.5-10.1 N HEPATIC FUNCTION [id number] 11:06:00* Test Item Value Reference Range Interpretation Comments TOTAL PROTEIN (test code = PROT) 8.6 gram/dL 6.4-8.2 H ALBUMIN (test code = ALB) 4.2 g/dL 3.4-5.0 N GLOBULIN (test code = GLOB) 4.4 gram/dL 2.7-4.2 H ALBUMIN/GLOBULIN RATIO (test code = A/G) 1.0 0.75-1.50 N BILIRUBIN TOTAL (test code = BILT) 0.40 mg/dL 0.0-1.0 N BILIRUBIN DIRECT (test code = BILD) 0.09 mg/dL 0.0-0.20 N SGOT/AST (test code = AST) 76 IUnit/L 15-37 H SGPT/ALT (test code = ALT) 106 IUnit/L 12-78 H ALKALINE PHOSPHATASE TOTAL (test code = ALKP) 286 IUnit/L 45-117 H Note change in reference range due to change in reagent. [id number] 11:06:00* Test Item Value Reference Range Interpretation Comments LIPASE (test code = LIP) 389 U/L 73.0-393.0 N HCG SERUM [id number] 11:06:00* Test Item Value Reference Range Interpretation Comments HCG SERUM QUAL (test code = HCGQL) NEGATIVE [id number] 11:06:00* Test Item Value Reference Range Interpretation Comments TROPONIN-I (test code = TROPI) <0.015 ng/mL 0-0.045 N C REACTIVE [id number] 11:06:00* Test Item Value Reference Range Interpretation Comments C REACTIVE PROTEIN (test code = CRP) <0.29 mg/dL 0-0.3 N BASIC METABOLIC [id number] 10:59:00* Test Item Value Reference Range Interpretation Comments SODIUM (test code = NA) 138 mmol/L 136-145 N POTASSIUM (test code = K) 3.1 mmol/L 3.5-5.1 L CHLORIDE (test code = CL) 102.0 mmol/L 98-107 N CARBON DIOXIDE (test code = CO2) mmol/L 21-32 ANION GAP (test code = GAP) 10-20 GLUCOSE (test code = GLU) mg/dL 74-106 BLOOD UREA NITROGEN (test code = BUN) mg/dL 7-18 GLOMERULAR FILTRATION RATE (test code = GFR) mL/min >=60 CREATININE (test code = CREAT) mg/dL 0.55-1.02 BUN/CREATININE RATIO (test code = BUN/CREA) 10-20 CALCIUM (test code = CA) mg/dL 8.5-10.1 HEPATIC FUNCTION [id number] 10:59:00* Test Item Value Reference Range Interpretation Comments TOTAL PROTEIN (test code = PROT) gram/dL 6.4-8.2 ALBUMIN (test code = ALB) g/dL 3.4-5.0 GLOBULIN (test code = GLOB) gram/dL 2.7-4.2 ALBUMIN/GLOBULIN RATIO (test code = A/G) 0.75-1.50 BILIRUBIN TOTAL (test code = BILT) mg/dL 0.0-1.0 BILIRUBIN DIRECT (test code = BILD) mg/dL 0.0-0.20 SGOT/AST (test code = AST) IUnit/L 15-37 SGPT/ALT (test code = ALT) IUnit/L 12-78 ALKALINE PHOSPHATASE TOTAL (test code = ALKP) IUnit/L 45-117 [id number] 10:59:00* Test Item Value Reference Range Interpretation Comments LIPASE (test code = LIP) U/L 73.0-393.0 HCG SERUM [id number] 10:59:00* Test Item Value Reference Range Interpretation Comments HCG SERUM QUAL (test code = HCGQL) NEGATIVE CBC W/O [id number] 10:38:00* Test Item Value Reference Range Interpretation Comments WHITE BLOOD CELL (test code = WBC) K/mm3 4.5-12.5 RED BLOOD CELL (test code = RBC) mill/mm3 3.7-5.2 HEMOGLOBIN (test code = HGB) 11.5 gram/dL 11.5-15.5 N HEMATOCRIT (test code = HCT) 41.1 % 36.0-46.0 N MEAN CELL VOLUME (test code = MCV) fL 80-98 MEAN CELL HGB (test code = MCH) picogram 27.0-33.0 MEAN CELL HGB CONCETRATION (test code = MCHC) gram/dL 33.0-36. 0 RED CELL DISTRIBUTION WIDTH (test code = RDW) % 11.6-16. 2 PLATELET COUNT (test code = PLT) K/mm3 150-450 MEAN PLATELET VOLUME (test code = MPV) fL 6.7-11.0 CBC W/O [id number] 10:38:00* Test Item Value Reference Range Interpretation Comments WHITE BLOOD CELL (test code = WBC) 9.9 K/mm3 4.5-12.5 N RED BLOOD CELL (test code = RBC) 5.59 mill/mm3 3.7-5.2 H HEMOGLOBIN (test code = HGB) 11.5 gram/dL 11.5-15.5 N HEMATOCRIT (test code = HCT) 41.1 % 36.0-46.0 N MEAN CELL VOLUME (test code = MCV) 73.5 fL 80-98 L MEAN CELL HGB (test code = MCH) 20.6 picogram 27.0-33.0 L MEAN CELL HGB CONCETRATION (test code = MCHC) 28.0 gram/dL 33.0-36. 0 L RED CELL DISTRIBUTION WIDTH (test code = RDW) 20.9 % 11.6-16. 2 H PLATELET COUNT (test code = PLT) 492 K/mm3 150-450 H MEAN PLATELET VOLUME (test code = MPV) 9.2 fL 6.7-11.0 N CBC W/O [id number] 16:18:00* Test Item Value Reference Range Interpretation Comments WHITE BLOOD CELL (test code = WBC) 11.1 K/mm3 4.5-12.5 N RED BLOOD CELL (test code = RBC) 4.23 mill/mm3 3.7-5.2 N HEMOGLOBIN (test code = HGB) 8.5 gram/dL 11.5-15.5 L HEMATOCRIT (test code = HCT) 31.2 % 36.0-46.0 L MEAN CELL VOLUME (test code = MCV) 73.8 fL 80-98 L MEAN CELL HGB (test code = MCH) 20.1 picogram 27.0-33.0 L MEAN CELL HGB CONCETRATION (test code = MCHC) 27.2 gram/dL 33.0-36. 0 L RED CELL DISTRIBUTION WIDTH (test code = RDW) 18.4 % 11.6-16. 2 H PLATELET COUNT (test code = PLT) 339 K/mm3 150-450 N MEAN PLATELET VOLUME (test code = MPV) 8.9 fL 6.7-11.0 N 1511- CT ABD PELVIS [id number] 15:38:00 Name: DAVIE CORADO [facility] : 1970 Age/S: 47 / F [address] Unit #: [id number] Loc: [place] [facility] [address] Phys: Shiloh Mendez MD Acct: [id number] Dis Date: Status: REG ER PHONE #: [phone] Exam Date: 03/08/2018 1456 FAX #: [phone] Reason: abd pain, crohns EXAMS: CPT CODE: [id number] CT ABD PELVIS W/CONT 04110 EXAM: CT of the abdomen and pelvis [...] RT(R) CTDI: DLP: Trnscb Date/Time: 03/08/2018 (1538) Shakira Orig Print D/T: S: 03/08/2018 (1541) CTDI: DLP: PAGE 1 Signed Report BASIC METABOLIC [id number] 13:31:00* Test Item Value Reference Range Interpretation Comments SODIUM (test code = NA) 134 mmol/L 136-145 L POTASSIUM (test code = K) 4.0 mmol/L 3.5-5.1 N CHLORIDE (test code = CL) 100.0 mmol/L 98-107 N CARBON DIOXIDE (test code = CO2) 27.0 mmol/L 21-32 N ANION GAP (test code = GAP) 11.0 10-20 N GLUCOSE (test code = GLU) 109 mg/dL 74-106 H BLOOD UREA NITROGEN (test code = BUN) 10 mg/dL 7-18 N GLOMERULAR FILTRATION RATE (test code = GFR) > 60 mL/min >=60 Estimated GFR by using Modified MDRD formula.Chronic kidney disease is defined as either kidney damageor GFR <60 mL/min/1.73 m2 for >3 months. CREATININE (test code = CREAT) 0.60 mg/dL 0.55-1.02 N Note change in reference range due to change in reagent. BUN/CREATININE RATIO (test code = BUN/CREA) 16.5 10-20 N CALCIUM (test code = CA) 9.6 mg/dL 8.5-10.1 N HEPATIC FUNCTION [id number] 13:31:00* Test Item Value Reference Range Interpretation Comments TOTAL PROTEIN (test code = PROT) 9.0 gram/dL 6.4-8.2 H ALBUMIN (test code = ALB) 3.4 g/dL 3.4-5.0 N GLOBULIN (test code = GLOB) 5.6 gram/dL 2.7-4.2 H ALBUMIN/GLOBULIN RATIO (test code = A/G) 0.6 0.75-1.50 L BILIRUBIN TOTAL (test code = BILT) 0.40 mg/dL 0.0-1.0 N BILIRUBIN DIRECT (test code = BILD) 0.06 mg/dL 0.0-0.20 N SGOT/AST (test code = AST) 132 IUnit/L 15-37 H SGPT/ALT (test code = ALT) 186 IUnit/L 12-78 H ALKALINE PHOSPHATASE TOTAL (test code = ALKP) 522 IUnit/L 45-117 H Note change in reference range due to change in reagent. [id number] 13:31:00* Test Item Value Reference Range Interpretation Comments LIPASE (test code = LIP) 94 U/L 73.0-393.0 N HCG SERUM [id number] 13:31:00* Test Item Value Reference Range Interpretation Comments HCG SERUM QUAL (test code = HCGQL) NEGATIVE NEGATIVE This HCGQL test is NOT applicable for MALE patients.Check with nurse about probable order error.If Tumor Marker Test needed, nurse should order test "HCGTU"(Test #550.27371) BASIC METABOLIC [id number] 13:26:00* Test Item Value Reference Range Interpretation Comments SODIUM (test code = NA) 134 mmol/L 136-145 L POTASSIUM (test code = K) 4.0 mmol/L 3.5-5.1 N CHLORIDE (test code = CL) 100.0 mmol/L 98-107 N CARBON DIOXIDE (test code = CO2) mmol/L 21-32 ANION GAP (test code = GAP) 10-20 GLUCOSE (test code = GLU) mg/dL 74-106 BLOOD UREA NITROGEN (test code = BUN) mg/dL 7-18 GLOMERULAR FILTRATION RATE (test code = GFR) mL/min >=60 CREATININE (test code = CREAT) mg/dL 0.55-1.02 BUN/CREATININE RATIO (test code = BUN/CREA) 10-20 CALCIUM (test code = CA) mg/dL 8.5-10.1 HEPATIC FUNCTION [id number] 13:26:00* Test Item Value Reference Range Interpretation Comments TOTAL PROTEIN (test code = PROT) gram/dL 6.4-8.2 ALBUMIN (test code = ALB) g/dL 3.4-5.0 GLOBULIN (test code = GLOB) gram/dL 2.7-4.2 ALBUMIN/GLOBULIN RATIO (test code = A/G) 0.75-1.50 BILIRUBIN TOTAL (test code = BILT) mg/dL 0.0-1.0 BILIRUBIN DIRECT (test code = BILD) mg/dL 0.0-0.20 SGOT/AST (test code = AST) IUnit/L 15-37 SGPT/ALT (test code = ALT) IUnit/L 12-78 ALKALINE PHOSPHATASE TOTAL (test code = ALKP) IUnit/L 45-117 [id number] 13:26:00* Test Item Value Reference Range Interpretation Comments LIPASE (test code = LIP) U/L 73.0-393.0 HCG SERUM [id number] 13:26:00* Test Item Value Reference Range Interpretation Comments HCG SERUM QUAL (test code = HCGQL) NEGATIVE NEGATIVE This HCGQL test is NOT applicable for MALE patients.Check with nurse about probable order error.If Tumor Marker Test needed, nurse should order test "HCGTU"(Test #550.44978) BASIC METABOLIC [id number] 13:21:00* Test Item Value Reference Range Interpretation Comments SODIUM (test code = NA) 134 mmol/L 136-145 L POTASSIUM (test code = K) 4.0 mmol/L 3.5-5.1 N CHLORIDE (test code = CL) 100.0 mmol/L 98-107 N CARBON DIOXIDE (test code = CO2) mmol/L 21-32 ANION GAP (test code = GAP) 10-20 GLUCOSE (test code = GLU) mg/dL 74-106 BLOOD UREA NITROGEN (test code = BUN) mg/dL 7-18 GLOMERULAR FILTRATION RATE (test code = GFR) mL/min >=60 CREATININE (test code = CREAT) mg/dL 0.55-1.02 BUN/CREATININE RATIO (test code = BUN/CREA) 10-20 CALCIUM (test code = CA) mg/dL 8.5-10.1 HEPATIC FUNCTION [id number] 13:21:00* Test Item Value Reference Range Interpretation Comments TOTAL PROTEIN (test code = PROT) gram/dL 6.4-8.2 ALBUMIN (test code = ALB) g/dL 3.4-5.0 GLOBULIN (test code = GLOB) gram/dL 2.7-4.2 ALBUMIN/GLOBULIN RATIO (test code = A/G) 0.75-1.50 BILIRUBIN TOTAL (test code = BILT) mg/dL 0.0-1.0 BILIRUBIN DIRECT (test code = BILD) mg/dL 0.0-0.20 SGOT/AST (test code = AST) IUnit/L 15-37 SGPT/ALT (test code = ALT) IUnit/L 12-78 ALKALINE PHOSPHATASE TOTAL (test code = ALKP) IUnit/L 45-117 [id number] 13:21:00* Test Item Value Reference Range Interpretation Comments LIPASE (test code = LIP) U/L 73.0-393.0 HCG SERUM [id number] 13:21:00* Test Item Value Reference Range Interpretation Comments HCG SERUM QUAL (test code = HCGQL) NEGATIVE
--- NOTE | 2019-12-30 19:36 | Diagnostic Imaging Report ---
EXAMINATION: CHEST SINGLE (PORTABLE) INDICATION: ^RUE CELLULITIS ^[id number] ^1818 COMPARISON: Multiple prior x-rays including most recent on 04/23/2019. FINDINGS: TUBES and LINES: None. LUNGS: Normal lung volumes. Lungs are clear. No consolidations. PLEURA: No pleural effusion or pneumothorax. HEART AND MEDIASTINUM: The cardiomediastinal silhouette is unremarkable. BONES AND SOFT TISSUES: No acute osseous lesion. Soft tissues are unremarkable. UPPER ABDOMEN: No free air under the diaphragm. IMPRESSION: No acute thoracic radiographic abnormality. Signed by: Rashi Christie MD on 12/30/2019 7:33 PM
--- NOTE | 2019-12-30 20:24 | Emergency Department Note ---
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 Any updates have been documented here. Past Medical History Recent Fever: No Clinical Suspicion of Infectio: No New/Unexplained Change in Ment: No Past Medical History: Hypertension, Seizure Disorder, Migraines, Anxiety, GERD Other Medical History: CROHN'S Past Surgical History: , Back Surgery, Colon Resection Other Surgery: 3/4 OF STOMACH REMOVED DUE TO CROHN'S DISEASE SPINAL SX (2X) FASCIOTOMY DUE TO BROWN RECLUSE SPIDER BITE- 2009 Social History Smoking Cessation: Current some day smoker Alcohol Use: None Any Illegal Drug Use: No Other Last Tetanus: UTD Review of Systems Review of Systems Constitutional: Reports no symptoms EENTM: Reports no symptoms Cardiovascular: Reports no symptoms Respiratory: Reports no symptoms Gastrointestinal: Reports no symptoms Genitourinary: Reports no symptoms Musculoskeletal: Reports as per HPI Integumentary: Reports no symptoms Neurological: Reports no symptoms Psychological: Reports no symptoms Endocrine: Reports no symptoms Hematological/Lymphatic: Reports no symptoms Physical Exam Related Data Allergies: Coded Allergies: meperidine (Verified Allergy, Mild, 12/30/19) tramadol (Verified Allergy, Unknown, 12/30/19) Triage Vital Signs Vital Signs Date Time Temp Pulse Resp B/P (MAP) Pulse Ox O2 Delivery O2 Flow Rate FiO2 12/30/19 17:40 99.1 112 20 126/93 100 Room Air Vital signs reviewed: Yes Physical Exam CONSTITUTIONAL Constitutional: Present well-developed, Present well-nourished HENT HENT: Present normocephalic, Present atraumatic, Present oropharynx clear/moist, Present nose normal HENT L/R: Present left ext ear normal, Present right ext ear normal EYES Eyes: Reports PERRL, Reports conjunctivae normal NECK Neck: Present ROM normal PULMONARY Pulmonary: Present effort normal, Present breath sounds normal CARDIOVASCULAR Cardiovascular: Present regular rhythm, Present heart sounds normal, Present capillary refill normal, Present tachycardia GASTROINTESTINAL Abdominal: Present soft, Present nontender, Present bowel sounds normal GENITOURINARY Genitourinary: Present exam deferred SKIN Skin: Present warm, Present dry MUSCULOSKELETAL PT WITH SWELLING OF RIGHT UPPER EXTREMITY FROM MID HUMERUS TO WRIST, SKIN HOT TO TOUCH AND HAS LARGE AREA OF ERYTHEMA AROUND ELBOW PULSES INTACT NEUROLOGICAL Neurological: Present alert, Present oriented x 3, Present no gross motor or sensory deficits PSYCHOLOGICAL Psychological: Present mood/affect normal, Present judgement normal Results Laboratory Laboratory Laboratory Tests Test 12/30/19 23:26 12/30/19 22:50 Prothrombin Time 13.7 seconds (11.9-14.5) Prothromb Time International Ratio 1.00 Activated Partial Thromboplast Time 39.7 seconds (23.8-35.5) White Blood Count 9.37 x10e3/uL (4.8-10.8) Red Blood Count 4.28 x10e6/uL (3.6-5.1) Hemoglobin 10.0 g/dL (12.0-16.0) Hematocrit 32.5 % (34.2-44.1) Mean Corpuscular Volume 75.9 fL (81-99) Mean Corpuscular Hemoglobin 23.4 pg (28-32) Mean Corpuscular Hemoglobin Concent 30.8 g/dL (31-35) Red Cell Distribution Width 17.0 % (11.7-14.4) Platelet Count 371 x10e3/uL (140-360) Neutrophils (%) (Auto) 73.2 % (38.7-80.0) Lymphocytes (%) (Auto) 19.0 % (18.0-39.1) Monocytes (%) (Auto) 6.5 % (4.4-11.3) Eosinophils (%) (Auto) 0.4 % (0.0-6.0) Basophils (%) (Auto) 0.4 % (0.0-1.0) Neutrophils # (Auto) 6.9 (2.1-6.9) Lymphocytes # (Auto) 1.8 (1.0-3.2) Monocytes # (Auto) 0.6 (0.2-0.8) Eosinophils # (Auto) 0.0 (0.0-0.4) Basophils # (Auto) 0.0 (0.0-0.1) Absolute Immature Granulocyte (auto 0.05 x10e3/uL (0-0.1) Sodium Level 134 mmol/L (136-145) Potassium Level 4.2 mmol/L (3.5-5.1) Chloride Level 99 mmol/L (98-107) Carbon Dioxide Level 25 mmol/L (22-29) Anion Gap 14.2 mmol/L (8-16) Blood Urea Nitrogen 8 mg/dL (7-26) Creatinine 0.56 mg/dL (0.57-1.11) Estimat Glomerular Filtration Rate > 60 ML/MIN (60-) BUN/Creatinine Ratio 14 (6-25) Glucose Level 88 mg/dL (74-118) Calcium Level 9.5 mg/dL (8.4-10.2) Total Bilirubin 0.3 mg/dL (0.2-1.2) Aspartate Amino Transf (AST/SGOT) 23 IU/L (5-34) Alanine Aminotransferase (ALT/SGPT) 19 IU/L (0-55) Alkaline Phosphatase 153 IU/L (40-150) Total Protein 8.1 g/dL (6.5-8.1) Albumin 3.3 g/dL (3.5-5.0) Globulin 4.8 g/dL (2.3-3.5) Albumin/Globulin Ratio 0.7 (0.8-2.0) Imaging Imaging results reviewed: Yes Impressions rocedure: [id number] DX/ELBOW RIGHT COMPLETE Exam Date: Exam Time: REPORT STATUS: Signed X-ray 3 views of the elbow. HISTORY: Pain. COMPARISON: None available. FINDINGS: Bones: No acute displaced fracture. Osseous alignment is within normal limits. Joints: The joint spaces are well-maintained. Soft tissues: The soft tissues appear unremarkable. IMPRESSION: No acute radiographic abnormality. Signed by: Belem Marin MD on 12/30/2019 9:29 PM Dictated By: BELEM MARIN MD 28 Transcribed By: CHARLES on 12/30/192128 COPY TO: ABDULAZIZ CASTRO MD~ Procedure: [id number] DX/CHEST SINGLE (PORTABLE) Exam Date: 12/30/19 Exam Time: 1817 REPORT STATUS: Signed EXAMINATION: CHEST SINGLE (PORTABLE) INDICATION: ^RUE CELLULITIS ^[id number] ^1817 COMPARISON: Multiple prior x-rays including most recent on 04/23/2019. FINDINGS: TUBES and LINES: None. LUNGS: Normal lung volumes. Lungs are clear. No consolidations. PLEURA: No pleural effusion or pneumothorax. HEART AND MEDIASTINUM: The cardiomediastinal silhouette is unremarkable. BONES AND SOFT TISSUES: No acute osseous lesion. Soft tissues are unremarkable. UPPER ABDOMEN: No free air under the diaphragm. IMPRESSION: No acute thoracic radiographic abnormality. Signed by: Belem Marin MD on 12/30/2019 7:33 PM Dictated By: BELEM MARIN MD 32 Transcribed By: CHARLES on 12/30/191932 COPY TO: DAXA REYNOSO MD~ Diagnostics Tests Diagnostic test(s) reviewed: Yes Diagnostic comments VENOUS DOPPLER LUE NEGATIVE FOR DVT Assessment & Plan Medical Decision Making MDM PT WITH SWELLING AND PAIN TO RIGHT UPPER EXTREMITY CBC, CMP, BLOOD CULTURE, CXR, VENOUS DOPPLER OF RIGHT ARM ORDERED TO EVAL FOR LEUKOCYTOSIS, ELECTROLYTE ABNORMALITY, DVT, ZOSYN 3.375 GRAMS IV ORDERED VANCOMYCIN 1 GRAM IV ORDERED I SPOKE WITH DR ZALDIVAR ADMIT FOR IV ANTIBIOTICS Assessment & Plan Final Impression: (1) Cellulitis Depart Disposition: ADMITTED Last Vital Signs Date Time Temp Pulse Resp B/P (MAP) Pulse Ox O2 Delivery O2 Flow Rate FiO2 12/30/19 17:40 99.1 112 20 126/93 100 Room Air Home Meds Active Scripts Sodium Hypochlorite (DAKIN'S) 480 Ml Soln, 1 APPLIC TOP BID for 14 Days, #1 BOTTLE Prov:GIORGI SANCHEZ NP 04/25/19 Doxycycline Hyclate (DOXYCYCLINE HYCLATE) 100 Mg Capsule, 100 MG PO Q12H for 14 Days, #28 TAB 0 Refills Prov:GIORGI SANCHEZ NP 04/25/19 Zinc Sulfate (ZINC SULFATE) 220 Mg Capsule, 220 MG PO BID for 14 Days, #28 TAB 0 Refills Prov:GIORGI SANCHEZ NP 04/25/19 [Multivitamins/Minerals] 1 TAB No Conflict Check, 1 PO DAILY for 14 Days, #14 TAB 0 Refills Prov:GIORGI SANCHEZ ENVELOPE MACHINE ADJUSTER 04/25/19 Magnesium Oxide (MAG-OXIDE) 400 Mg Tablet, 400 MG PO BID for 14 Days, #28 TAB 0 Refills Prov:GIORGI SANCHEZ NP 04/25/19 Fluconazole (DIFLUCAN) 100 Mg Tablet, 100 MG PO DAILY for 7 Days, #7 TAB 0 Refills Prov:GIORGI SANCHEZ NP 04/25/19 [Calcium Carbonate] 500 MG TAB No Conflict Check, 500 MG PO TID for 14 Days, #42 TAB 0 Refills Prov:GIORGI SANCHEZ NP 04/25/19 Ascorbic Acid (ASCORBIC ACID) 500 Mg Tablet, 500 MG PO BID for 14 Days, #30 TAB 0 Refills Prov:GIORGI SANCHEZ NP 04/25/19 Reported Medications Pantoprazole Sodium* (PROTONIX) 40 Mg Tablet.dr, 40 MG PO BID, TAB 11/16/18 Sulfasalazine (SULFASALAZINE) 500 Mg Tab, 500 MG PO TID, #30 TAB 10/02/15 Esomeprazole Magnesium (NEXIUM) 40 Mg Capsule.dr, 40 MG PO BID 07/24/13 Propranolol Hcl (INDERAL LA) 120 Mg Cap.sa.24h, 120 MG PO DAILY 07/24/13 Phenytoin Sodium Extended (DILANTIN) 100 Mg Capsule, 300 MG PO DAILY 07/24/13 Hydrocodone Bit/Acetaminophen ([place] 10-325 Tablet) 1 Each Tablet, 2 EACH PO Q6H PRN for ABDOMINAL PAIN 12/02/11 Alprazolam (Xanax) 0.5 Mg Tablet, 0.5 MG PO BID 11/24/11 Medications in the ED Sodium Chloride 1,000 ml @ 0 mls/hr Q0M STAT IV ; Start 12/30/19 at 17:45; Stop 12/30/19 at 17:59; Status DC Piperacillin Sod/ Tazobactam Sod 50 ml @ 50 mls/hr NOW ONCE IV ; Start 12/30/19 at 17:45; Stop 12/30/19 at 18:44; Status DC Vancomycin HCl 250 ml @ 200 mls/hr NOW ONCE IV ; Start 12/30/19 at 17:45; Stop 12/30/19 at 18:59; Status DC ABDULAZIZ CASTRO MD Dec 30, 2019 20:24
[2019-12-30] MEDS ORDERED: ONDANSETRON HCL INJ 2MG/ML 2ML 2 MG/ML VIAL IV STA (20:25)
[2019-12-30] MEDS ORDERED: HYDROMORPHONE 1MG/1ML INJ IV STA (20:25)
--- NOTE | 2019-12-30 21:32 | Diagnostic Imaging Report ---
X-ray 3 views of the elbow. HISTORY: Pain. COMPARISON: None available. FINDINGS: Bones: No acute displaced fracture. Osseous alignment is within normal limits. Joints: The joint spaces are well-maintained. Soft tissues: The soft tissues appear unremarkable. IMPRESSION: No acute radiographic abnormality. Signed by: Rashi Christie MD on 12/30/2019 9:29 PM
[2019-12-30] MEDS ORDERED: VANCOMYCIN 1GM/NS 250 ML 250 ML ONE (22:20)
[2019-12-30] MEDS ORDERED: PIPER-TAZ 3.375 GM 50 ML ONE (22:20)
[2019-12-30] MEDS ORDERED: SODIUM CHLORIDE 0.9% 1000ML 1,000 ML ONE (22:20)
[2019-12-30 22:58] LABS: BASOPHILS % 0.4 % (0.0-1.0); EOSINOPHILS % 0.4 % (0.0-6.0); HEMATOCRIT 32.5 % (34.2-44.1); LYMPHOCYTES # (AUTO) 1.8 (1.0-3.2); MEAN CORPUSCULAR HEMOGLOBIN 23.4 pg (28-32); MEAN CORPUSCULAR HGB CONC 30.8 g/dL (31-35); MEAN CORPUSCULAR VOLUME 75.9 fL (81-99); MONOCYTES # (AUTO) 0.6 (0.2-0.8); MONOCYTES % 6.5 % (4.4-11.3); NEUTROPHILS # (AUTO) 6.9 (2.1-6.9); NEUTROPHILS % 73.2 % (38.7-80.0); PLATELET COUNT 371 x10e3/uL (140-360); RED BLOOD COUNT 4.28 x10e6/uL (3.6-5.1)
[2019-12-30 23:18] LABS: ALANINE AMINOTRANSFERASE 19 IU/L (0-55); ALBUMIN 3.3 g/dL (3.5-5.0); ALBUMIN/GLOBULIN RATIO 0.7 (0.8-2.0); ALKALINE PHOSPHATASE 153 IU/L (40-150); ANION GAP 14.2 mmol/L (8-16); BLOOD UREA NITROGEN 8 mg/dL (7-26); BUN/CREATININE RATIO 14 (6-25); CALCIUM 9.5 mg/dL (8.4-10.2); CARBON DIOXIDE 25 mmol/L (22-29); CHLORIDE 99 mmol/L (98-107); CREATININE, SERUM 0.56 mg/dL (0.57-1.11); EST GLOMERULAR FILTRATION RATE > 60 ML/MIN (60-); GLUCOSE 88 mg/dL (74-118); POTASSIUM 4.2 mmol/L (3.5-5.1); SODIUM 134 mmol/L (136-145)
[2019-12-30 23:47] LABS: PROTHROMBIN TIME 13.7 seconds (11.9-14.5)
[2019-12-30 23:48] LABS: PARTIAL THROMBOPLASTIN TIME 39.7 seconds (23.8-35.5)
[2019-12-31] VITALS (9 sets, daily range): BP systolic 99–109; BP diastolic 57–78
[2019-12-31] MEDS ORDERED: ACETAMINOPHEN 325 MG TAB PO PRN (01:15)
[2019-12-31] MEDS ORDERED: VANCOMYCIN 1GM/NS 250 ML 250 ML IV SCH (01:15)
--- OUTSIDE RECORDS SUMMARY | 2019-12-31 01:15 | XMS REPORT | Clinical Summary ---
Author Author [facility] Organization [facility] Address Unknown Phone Unavailable Care Team Providers Care Finance Teacher Name Role Phone PCP Unavailable Allergies Comments [...] completed - External) Results Not on fileafter 12/30/2018
--- OUTSIDE RECORDS SUMMARY | 2019-12-31 01:17 | XMS REPORT | Continuity of Care Document ---
Author Author [facility] t Organization [facility] Address [address] [place] [address] Phone Unavailable Care Team Providers Care Flatwork Tier Name Role Phone Roberta SAMANIEGO DO PCP Frida CASTRO Attphys Unavailable ANGELICA ZALDIVAR Attphys Unavailable ANGELICA ZALDIVAR Admphys Unavailable Payers Payer Name Policy Type Policy Number Effective Date Expiration Date S [facility] Medicaid Pending [facility] Problems Condition Name Condition Details Condition Category Status Onset Date Resolution Date Last Treatment Date Treating Clinician Comments Source HTN, goal below 140/90 HTN, goal below 140/90 Disease Active 2016-07-22 00:00:00 [facility] Complicated migraine Complicated migraine Disease Active 00:00:00 [facility] Seizure Seizure Disease Active 2016-07-22 00:00:00 [facility] Crohn's disease Crohn's disease Disease Active 2016-07-22 00:00:00 [facility] PTSD (post-traumatic stress disorder) PTSD (post-traumatic s tress disorder) Disease Active 2016-07-22 00:00:00 [facility] H/O: CVA (cerebrovascular accident) H/O: CVA (cerebrovascular ac cident) Disease Active 2016-07-22 00:00:00 [facility] Chronic Pain Chronic Pain Disease Active 2006-01-18 00:00:00 [facility] Cellulitis Cellulitis Problem Active C [facility] Allergies, Adverse Reactions, Alerts Allergy Name Allergy Type Status Severity Reaction(s) Onset Date Inacti ve Date Treating Clinician Comments Source meperidine DA Active U 2019-10-23 00:00:00 [facility] meperidine DA Active U 2019-06-22 00:00:00 [facility] meperidine DA Active U 2019-02-25 00:00:00 [facility] No Known Drug Allergies DA Active U 2018-05-04 00:00:00 [facility] meperidine DA Active PR 2018-05-02 00:00:00 [facility] meperidine DA Active PR 2018-05-01 00:00:00 [facility] meperidine DA Active PR 2018-03-08 00:00:00 [facility] meperidine DA Active PR 2016-12-05 00:00:00 [facility] Meperidine (Pf) Propensity to adverse reactions to drug Active Rash, Runny Nose, Hallucinations, Palpitations 2016-07-22 00:00:00 [facility] Meperidine Allergy to Substance Active Mild 2015-10-02 00:00:00 [facility] Tramadol Allergy to Substance Active 2013-09-09 00:00:00 [facility] Family History Family Member Diagnosis Comments Start Date Stop Date Source Natural brother Other Mar[facility] Pimentel [facility] Maternal grandfather [facility] Maternal grandmother Hypertension [facility] Natural mother Hypertension [facility] Natural sister Other Marcell Pimentela [facility] Social History Social Habit Start Date Stop Date Quantity Comments Source Sex [facility] Alcohol intake 2018-07-18 00:00:00 2018-07-18 00:00:00 Current non-drinker of alcohol (finding) [facility] History SDOH Food Worry 2016-07-22 00:00:00 2016-07-22 00:00:00 3 [facility] SDOH Food Scarcity 2016-07-22 00:00:00 2016-07-22 00:00:00 2 [facility] Smoking Status Start Date Stop Date Source Never smoker [facility] Medications Ordered Medication Name Filled Medication Name Start Date Stop Da te Current Medication? Ordering Clinician Indication Dosage Frequency Signature (SIG) Comments Components Source Ascorbic Acid 500 Mg Tablet Ascorbic Acid 500 Mg Tablet 2019-04-25 00:00:00 Yes Giorgi Peres Research Attorney 500 Twice A Day [facility] Calcium Carbonate 500 Mg Tab Calcium Carbonate 500 Mg Tab 2019-04-14 2 00:00:00 Yes Giorgi Peres Research Attorney 500 Three Times A Day [facility] Doxycycline Hyclate 100 Mg Capsule Doxycycline Hyclate 100 M g Capsule 2019-04-25 00:00:00 Yes Giorgi Peres Research Attorney 100 Every 12 Hours [facility] Fluconazole (Diflucan) 100 Mg Tablet Fluconazole (Diflucan) 100 Mg Tablet 2019-04-25 00:00:00 Yes Giorgi Peres Research Attorney 100 Daily [facility] Magnesium Oxide (Mag-Oxide) 400 Mg Tablet Magnesium Ox chris (Mag-Oxide) 400 Mg Tablet 2019-04-25 00:00:00 Yes Giorgi Peres Research Attorney 400 Twice A Day [facility] Multivitamins/Minerals 1 Tab Multivitamins/Minerals 1 Tab 2019-04-14 2 00:00:00 Yes Giorgi Caldwelle Research Attorney 1 Daily [facility] Sodium Hypochlorite (Dakin's) 480 Ml Soln Sodium Hypoc hlorite (Dakin's) 480 Ml Soln 2019-04-25 00:00:00 Yes Giorgi Peres Research Attorney 1 Twice A Day [facility] Zinc Sulfate 220 Mg Capsule Zinc Sulfate 220 Mg Capsule 2019-04-25 00:00:00 Yes Giorgi Peres Research Attorney 220 Twice A Day [facility] propranolol (INDERAL) 60 mg tablet 2016-08-18 00:00:00 Yes Complicated migraine 60mg Q.5D Take 1 tablet by mouth 2 times daily. [facility] dexlansoprazole (DEXILANT) 60 mg delayed release capsule 2016-08-18 00:00:00 Yes Crohn's disease with other complication 60mg QD Take 1 capsule by mouth daily. [facility] SUMAtriptan (IMITREX STATDOSE) 6 mg/0.5 mL syringe 2016-07 00:00:00 Yes Inject 0.5 mL un bari the skin daily as needed for Other (migraine DICKSON) Max one ml over 24 hours. [facility] HYDROcodone-acetaminophen (NORCO) 10-325 mg tablet 2016-07 00:00:00 Yes Crohn's disease with other complication 1{tbl} Take 1 tablet by mouth every 6 hours as needed for abdominal Pain [facility] lisinopril (PRINIVIL, ZESTRIL) 40 mg tablet 2016-07-22 00:00 :00 Yes HTN, goal below 140/90 40mg QD Take 1 tablet by mouth daily. [facility] phenytoin sodium (DILANTIN) 100 mg extended release capsule 2016-07-22 00:00:00 Yes Seizure 100mg Take 1 capsule by mouth 3 ti mes daily. [facility] SUMAtriptan (IMITREX) 6 mg/0.5 mL injection 2016-07-22 00:00 :00 Yes Complicated migraine 6mg Inject 0.5 mL under the skin daily as needed for Other (migraine DICKSON) Max one over 24 hours. [facility] sucralfate (CARAFATE) 100 mg/mL oral suspension 2016-07-22 0 0:00:00 Yes Crohn's disease with other complication 1000mg Take 10 mL by mouth 4 times daily (before meals and nightly). [facility] hydrOXYzine (ATARAX) 25 mg tablet 2016-07-22 00:00:00 Yes PTSD (post- traumatic stress disorder) 25mg Take 1 tablet by mouth every 6 hours as needed for Anxiety. [facility] sertraline (ZOLOFT) 50 mg tablet 2016-07-22 00:00:00 Yes PTSD (post- traumatic stress disorder) 50mg QD Take 1 tablet by mouth daily. [facility] Alprazolam (Xanax) 0.5 Mg Tablet Alprazolam (Xanax) 0.5 Mg Tablet Yes .5 Twice A Day [facility] Esomeprazole Magnesium (Nexium) 40 Mg Capsule.dr Guerra prazole Magnesium (Nexium) 40 Mg Capsule.dr Wei 40 Twice A Day [facility] Hydrocodone Bit/Acetaminophen (Ambrose 10-325 Tablet) 1 Each Tablet Hydrocodone Bit/Acetaminophen (Ambrose 10-325 Tablet) 1 Each Tablet Yes 2 Every 6 Hours as needed for Abdominal Pain [facility] Pantoprazole Sodium (Protonix) 40 Mg Tablet. Pantopr azole Sodium (Protonix) 40 Mg Tablet.dr Wei 40 Twice A Day [facility] Phenytoin Sodium Extended (Dilantin) 100 Mg Capsule Ph enytoin Sodium Extended (Dilantin) 100 Mg Capsule Yes 300 Daily [facility] Propranolol Hcl (Inderal La) 120 Mg Cap.sa.24h Propran olol Hcl (Inderal La) 120 Mg Cap.sa.24h Yes 120 Daily [facility] Sulfasalazine 500 Mg Tab Sulfasalazine 500 Mg Tab Yes 500 Three Times A Day [facility] Sumatriptan Succinate (Imitrex) 6 Mg/0.5 Ml Inj, 6 Mg Injection Sumatriptan Succinate (Imitrex) 6 Mg/0.5 Ml Inj, 6 Mg Injection 2018-11-16 00:0 0:00 No 6 As Needed for Migraine [facility] Alprazolam (Xanax) 0.5 Mg Tablet, 0.5 Mg Oral Alprazol am (Xanax) 0.5 Mg Tablet, 0.5 Mg Oral 2016-01-06 00:00:00 No .5 Twice A Day [facility] Esomeprazole Mag Trihydrate (Nexium) 40 Mg Capsule.dr, 40 Mg Oral Esomeprazole Mag Trihydrate (Nexium) 40 Mg Capsule.dr, 40 Mg Oral 2016-01-06 00: 00:00 No 40 Daily [facility] Hydrocodone Bit/Acetaminophen (Ambrose 10-325 Tablet) 1 Each Tablet, 1 Each Oral Hydrocodone Bit/Acetaminophen (Ambrose 10-325 Tablet) 1 Each Tablet, 1 Each Oral 2016-01-06 00:00:00 No 1 As Needed [facility] Infliximab (Remicade) 100 Mg/Vial Vial, Infliximab (Remicade ) 100 Mg/Vial Vial, 2016-01-06 00:00:00 No Every 6 Weeks [facility] Phenytoin Sodium Extended (Dilantin) 100 Mg Capsule, P henytoin Sodium Extended (Dilantin) 100 Mg Capsule, 2016-01-06 00:00:00 No [facility] Propranolol Hcl (Inderal La) 120 Mg Cap.sa.24h, Mg Pr opranolol Hcl (Inderal La) 120 Mg Cap.sa.24h, Mg 2016-01-06 00:00:00 No D aily as needed [facility] Sumatriptan Succinate (Imitrex) 6 Mg/0.5 Ml Pen.ij.kit , 6 Mg Sub-Q Sumatriptan Succinate (Imitrex) 6 Mg/0.5 Ml Pen.ij.kit, 6 Mg Sub-Q 2015-12-16 3 00:00:00 No 6 As Needed [facility] Cefdinir (Omnicef) 300 Mg Capsule, 300 Mg Oral Cefdini r (Omnicef) 300 Mg Capsule, 300 Mg Oral 2015-10-02 00:00:00 No 300 Twi ce A Day [facility] Fentanyl (Duragesic) 1 Each Patch.td72, 1 Patch Topica lly Fentanyl (Duragesic) 1 Each Patch.td72, 1 Patch Topically 2015-10-02 00:00:00 No 1 Q48hrs Prn 100[address]G [facility] Gabapentin 100 Mg Capsule, 100 Mg Oral Gabapentin 100 Mg Capsule , 100 Mg Oral 2015-10-02 00:00:00 No 100 Three Times A Day [facility] Gabapentin 100 Mg Capsule, 100 Mg Oral Gabapentin 100 Mg Capsule , 100 Mg Oral 2015-10-02 00:00:00 No 100 Every Evening [facility] Procedures Procedure Date / Time Performed Performing Clinician [facility] e INSERTION OF INFUSION DEV INTO SUP VENA CAVA, PERC APPROACH 2018-11-16 00:00:00 DANN MADRIGAL [facility] Computed tomography of abdomen and pelvis with contrast 2018 00:00:00 NILSON ARMENTA [facility] Plan of Care Planned Activity Planned Date Details Comments Source Future Scheduled Test 2020-07-22 00:00:00 Screening for charity gnant neoplasm of cervix (procedure) [code = 423628542] [facility] Scheduled Test 2019-11-14 00:00:00 IMM Influenza Seas onal Nov to April (>/= 19 yrs) [code = IMM Influenza Seasonal Nov to April (>/= 19 yrs)] [facility] Scheduled Test 2018 00:00:00 Screening for charity gnant neoplasm of colon (procedure) [code = 787392466] [facility] Scheduled Test 2008 00:00:00 Breast Cancer Scrn (Yearly) [code = Breast Cancer Scrn (Yearly)] [facility] Scheduled Test 1998 00:00:00 Screening for charity cohen neoplasm of cervix (procedure) [code = 735564952] [facility] Encounters Start Date/Time End Date/Time Encounter Type Admission Type [facility] Care Department Encounter ID Source 2019-04-23 03:54:00 2019-04-25 18:58:00 Discharged Inpatient 1 ANGELICA ZALDIVAR [facility] [id number] [facility] 2018-11-15 15:37:00 2018-11-19 18:09:00 [id number] 2017-04-04 00:00:00 2017-04-04 00:00:00 Outpatient [facility] [id number] [facility] 2016-09-01 00:00:00 2016-09-01 00:00:00 Outpatient [facility] [id number] [facility] 2016-08-25 00:00:00 2016-08-25 00:00:00 Outpatient [facility] [id number] [facility] 2016-08-24 00:00:00 2016-08-24 00:00:00 Outpatient [facility] [id number] [facility] 2016-08-23 00:00:00 2016-08-23 00:00:00 Outpatient [facility] [id number] [facility] 2016-08-19 14:09:46 2016-08-19 14:09:46 Outpatient [facility] [id number] [facility] 2016-08-09 14:14:11 2016-08-09 14:14:11 Outpatient [facility] [id number] [facility] 2016-08-09 13:17:53 2016-08-09 13:17:53 Outpatient [facility] [id number] [facility] 2016-08-09 00:00:00 2016-08-09 00:00:00 Outpatient [facility] [id number] [facility] 2016-07-28 00:00:00 2016-07-28 00:00:00 Outpatient [facility] [id number] [facility] 2016-07-22 13:44:29 2016-07-22 13:44:29 Outpatient [facility] [id number] [facility] Results Test Description Test Time Test Comments Results Result Comments Source ELBOW RIGHT COMPLETE 2019-12-30 21:18:00 [facility] 1970 Sex: [place] [address] Patient Name: DAVIE CORADO MR #: [id number] : 1970 Age/Sex: 49/F Req #: [id number] Adm Physician: Ordered by: ABDULAZIZ CASTRO MD Report #: [id number] Location: ER Room/Bed: Procedure: [id number] DX/ELBOW RIGHT COMPLETE Exam Date: Exam Time: REPORT STATUS: Signed X-ray 3 views of the elbow. HISTORY: Pain. COMPARISON: None available. FINDINGS: Bones: No acute displaced fracture. Osseous alignment is within normal limits. Joints: The joint spaces are well-maintained. Soft tissues: The soft tissues appear unremarkable. IMPRESSION: No acute radiographic abnormality. Signed by: Rashi Marin MD on 12/30/2019 9:29 PM Dictated By: RASHI MARIN MD 28 Transcribed By: CHARLES on 12/30/192128 COPY TO: ABDULAZIZ CASTRO MD CHEST SINGLE (PORTABLE) 2019-12-30 19:32:00 [facility] 1970 Sex: [place] [address] Patient Name: DAVIE CORADO MR #: [id number] : 1970 Age/Sex: 49/F Req #: [id number] [facility] Physician: Ordered by: DAXA REYNOSO MD Report #: [id number] Location: ER Room/Bed: Procedure: [id number] DX/CHEST SINGLE (PORTABLE) Exam Date: 12/30/19 Exam Time: 1817 REPORT STATUS: Signed EXAMINATION: CHEST SINGLE (PORTABLE) INDICATION: RUE CELLULITIS [id number] COMPARISON: Multiple prior x-rays including most recent on 04/23/2019. FINDINGS: TUBES and LINES: None. LUNGS: Normal lung volumes. Lungs are clear. No consolidations. PLEURA: No pleural effusion or pneumothorax. HEART AND MEDIASTINUM: The cardiomediastinal silhouette is unremarkable. BONES AND SOFT TISSUES: No acute osseous lesion. Soft tissues are unremarkable. UPPER ABDOMEN: No free air under the diaphragm. IMPRESSION: No acute thoracic radiographic abnormality. Signed by: Rashi Marin MD on 12/30/2019 7:33 PM Dictated By: RASHI MARIN MD 32 Transcribed By: CHARLES on 12/30/191932 COPY TO: DAXA REYNOSO MD BASIC METABOLIC PANEL 2019-12-06 16:41:00 Test Item [...] CA) 9.1 mg/dL 8.5-10.1 N HEPATIC FUNCTION [id number] 16:41:00* Test Item Value Reference Range Interpretation [...] reference range due to change in reagent. [id number] 16:41:00* Test Item Value Reference Range Interpretation Comments LIPASE (test code = LIP) 43 U/L 73.0-393.0 L HCG SERUM [id number] 16:41:00* Test Item Value Reference Range Interpretation Comments HCG SERUM QUAL (test code = HCGQL) NEGATIVE NEGATIVE This HCGQL test is NOT applicable for MALE patients.Check with nurse about probable order error.If Tumor Marker Test needed, nurse should order test "HCGTU"(Test #550.41069) BASIC METABOLIC [id number] 16:22:00* Test Item Value Reference Range Interpretation [...] code = CA) mg/dL 8.5-10.1 HEPATIC FUNCTION [id number] 16:22:00* Test Item Value Reference Range Interpretation [...] TOTAL (test code = ALKP) IUnit/L 45-117 [id number] 16:22:00* Test Item Value Reference Range Interpretation Comments LIPASE (test code = LIP) U/L 73.0-393.0 HCG SERUM [id number] 16:22:00* Test Item Value Reference Range Interpretation Comments HCG SERUM QUAL (test code = HCGQL) NEGATIVE NEGATIVE This HCGQL test is NOT applicable for MALE patients.Check with nurse about probable order error.If Tumor Marker Test needed, nurse should order test "HCGTU"(Test #550.64443) BASIC METABOLIC [id number] 16:20:00* Test Item Value Reference Range Interpretation [...] code = CA) mg/dL 8.5-10.1 HEPATIC FUNCTION [id number] 16:20:00* Test Item Value Reference Range Interpretation [...] TOTAL (test code = ALKP) IUnit/L 45-117 [id number] 16:20:00* Test Item Value Reference Range Interpretation Comments LIPASE (test code = LIP) U/L 73.0-393.0 HCG SERUM [id number] 16:20:00* Test Item Value Reference Range Interpretation Comments HCG SERUM QUAL (test code = HCGQL) NEGATIVE CBC W/O [id number] 16:12:00* Test Item Value Reference Range Interpretation [...] MPV) 9.5 fL 6.7-11.0 N BASIC METABOLIC [id number] 05:29:00* Test Item Value Reference Range Interpretation [...] CA) 8.9 mg/dL 8.5-10.1 N BASIC METABOLIC [id number] 05:25:00* Test Item Value Reference Range Interpretation [...] CA) 8.9 mg/dL 8.5-10.1 N CBC W/AUTO [id number] 05:23:00* Test Item Value Reference Range Interpretation [...] = MDIFF) NO, ONLY SCAN NEEDED DIFFERENTIAL [id number] 05:23:00* Test Item Value Reference Range Interpretation [...] (test code = PLTMORPH) NORMAL CBC W/AUTO [id number] 04:56:00* Test Item Value Reference Range Interpretation [...] = MDIFF) NO, ONLY SCAN NEEDED DIFFERENTIAL [id number] 04:56:00* Test Item Value Reference Range Interpretation Comments STAIN ACCEPTABILITY (test code = STN ACCEPTABLE) CABOT RINGS (test code = CAB) MORPHOLOGY COMMENT (test code = MOC) PLATELET ESTIMATE (test code = PLTEST) PLATELET MORPHOLOGY (test code = PLTMORPH) CBC W/AUTO [id number] 04:56:00* Test Item Value Reference Range Interpretation [...] = MDIFF) NO, ONLY SCAN NEEDED DIFFERENTIAL [id number] 04:56:00* Test Item Value Reference Range Interpretation Comments STAIN ACCEPTABILITY (test code = STN ACCEPTABLE) MORPHOLOGY COMMENT (test code = MOC) PLATELET ESTIMATE (test code = PLTEST) PLATELET MORPHOLOGY (test code = PLTMORPH) CBC W/AUTO [id number] 04:55:00* Test Item Value Reference Range Interpretation [...] = MDIFF) NO, ONLY SCAN NEEDED DIFFERENTIAL [id number] 04:55:00* Test Item Value Reference Range Interpretation Comments STAIN ACCEPTABILITY (test code = STN ACCEPTABLE) CABOT RINGS (test code = CAB) MORPHOLOGY COMMENT (test code = MOC) PLATELET ESTIMATE (test code = PLTEST) PLATELET MORPHOLOGY (test code = PLTMORPH) CBC W/AUTO [id number] 04:55:00* Test Item Value Reference Range Interpretation [...] = MDIFF) NO, ONLY SCAN NEEDED DIFFERENTIAL [id number] 04:55:00* Test Item Value Reference Range Interpretation [...] code = FESAT) 8.11 % 13-45 L [id number] 14:08:00* Test Item Value Reference Range Interpretation Comments TRANSFERRRIN (test code = TRANSF) 322 mg/dL 192-364 Performed At: [facility] [address] [id number] Sanjai MD Ph:[phone] DILANTIN (PHENYTOIN)2019-10-27 05:42:00* Test Item Value Reference Range Interpretation Comments DILANTIN (PHENYTOIN) (test code = DIL) 8.2 ug/mL 10.0-20.0 L C REACTIVE [id number] 05:40:00* Test Item Value Reference Range Interpretation Comments C REACTIVE PROTEIN (test code = CRP) <0.29 mg/dL 0-0.3 N BASIC METABOLIC [id number] 05:56:00* Test Item Value Reference Range Interpretation [...] DIL) 5.7 ug/mL 10.0-20.0 L BASIC METABOLIC [id number] 05:45:00* Test Item Value Reference Range Interpretation [...] (test code = DIL) ug/mL 10.0-20.0 VITAMIN [id number] 07:21:00* Test Item Value Reference Range Interpretation Comments VITAMIN B12 (test code = VITB12) 341 pg/mL 193-986 N FOLIC [id number] 07:21:00* Test Item Value Reference Range Interpretation Comments FOLIC ACID (test code = FOL) 12.6 ng/mL 3.10-17.50 N FE W/TOTAL IRON BINDING CAP.2019-10-25 05:35:00* Test Item Value Reference Range Interpretation Comments SERUM IRON (test code = IRON) 34 ug/dL 50-175 L TOTAL IRON BINDING CAPACITY (test code = TIBC) 419 mcg/dL 250-450 N IRON SATURATION (test code = FESAT) 8.11 % 13-45 L [id number] 05:35:00* Test Item Value Reference Range Interpretation Comments TRANSFERRRIN (test code = TRANSF) mg/dL 200-370 BASIC METABOLIC [id number] 05:34:00* Test Item Value Reference Range Interpretation [...] = DIL) 5.3 ug/mL 10.0-20.0 L RETICULOCYTE [id number] 04:29:00* Test Item Value Reference Range Interpretation [...] is indicative of iron deficiency. CBC W/AUTO [id number] 06:51:00* Test Item Value Reference Range Interpretation [...] = MDIFF) NO, ONLY SCAN NEEDED DIFFERENTIAL [id number] 06:51:00* Test Item Value Reference Range Interpretation [...] (test code = PLTMORPH) NORMAL BASIC METABOLIC [id number] 06:07:00* Test Item Value Reference Range Interpretation [...] DIL) 4.8 ug/mL 10.0-20.0 L CBC W/AUTO [id number] 05:51:00* Test Item Value Reference Range Interpretation [...] = MDIFF) NO, ONLY SCAN NEEDED DIFFERENTIAL [id number] 05:51:00* Test Item Value Reference Range Interpretation Comments STAIN ACCEPTABILITY (test code = STN ACCEPTABLE) CABOT RINGS (test code = CAB) MORPHOLOGY COMMENT (test code = MOC) PLATELET ESTIMATE (test code = PLTEST) PLATELET MORPHOLOGY (test code = PLTMORPH) CBC W/AUTO [id number] 05:51:00* Test Item Value Reference Range Interpretation [...] = MDIFF) NO, ONLY SCAN NEEDED DIFFERENTIAL [id number] 05:51:00* Test Item Value Reference Range Interpretation Comments STAIN ACCEPTABILITY (test code = STN ACCEPTABLE) CABOT RINGS (test code = CAB) MORPHOLOGY COMMENT (test code = MOC) PLATELET ESTIMATE (test code = PLTEST) PLATELET MORPHOLOGY (test code = PLTMORPH) CBC W/AUTO [id number] 05:51:00* Test Item Value Reference Range Interpretation [...] = MDIFF) NO, ONLY SCAN NEEDED DIFFERENTIAL [id number] 05:51:00* Test Item Value Reference Range Interpretation Comments STAIN ACCEPTABILITY (test code = STN ACCEPTABLE) MORPHOLOGY COMMENT (test code = MOC) PLATELET ESTIMATE (test code = PLTEST) PLATELET MORPHOLOGY (test code = PLTMORPH) CBC W/AUTO [id number] 05:51:00* Test Item Value Reference Range Interpretation [...] = MDIFF) NO, ONLY SCAN NEEDED DIFFERENTIAL [id number] 05:51:00* Test Item Value Reference Range Interpretation Comments STAIN ACCEPTABILITY (test code = STN ACCEPTABLE) CABOT RINGS (test code = CAB) MORPHOLOGY COMMENT (test code = MOC) PLATELET ESTIMATE (test code = PLTEST) PLATELET MORPHOLOGY (test code = PLTMORPH) BASIC METABOLIC [id number] 05:47:00* Test Item Value Reference Range Interpretation [...] code = DIL) ug/mL 10.0-20.0 BASIC METABOLIC [id number] 05:30:00* Test Item Value Reference Range Interpretation [...] CA) 9.2 mg/dL 8.5-10.1 N HEPATIC FUNCTION [id number] 05:30:00* Test Item Value Reference Range Interpretation [...] reference range due to change in reagent. [id number] 05:30:00* Test Item Value Reference Range Interpretation Comments LIPASE (test code = LIP) 222 U/L 73.0-393.0 N HCG SERUM [id number] 05:30:00* Test Item Value Reference Range Interpretation Comments HCG SERUM QUAL (test code = HCGQL) NEGATIVE NEGATIVE This HCGQL test is NOT applicable for MALE patients.Check with nurse about probable order error.If Tumor Marker Test needed, nurse should order test "HCGTU"(Test #550.25397) [id number] 05:30:00* Test Item Value Reference Range Interpretation Comments TROPONIN-I (test code = TROPI) <0.015 ng/mL 0-0.045 N DILANTIN (PHENYTOIN)2019-10-23 05:30:00* Test Item Value Reference Range Interpretation Comments DILANTIN (PHENYTOIN) (test code = DIL) 0.5 ug/mL 10.0-20.0 L [id number] 05:30:00* Test Item Value Reference Range Interpretation Comments ALCOHOL (test code = ALC) < 3 mg/dL 0-3 N IN TERPRETATION: ETHYL ALCOHOL VALUES 50 MG/DL - NOT INTOXICATED 100 MG/DL - INTOXICATED 350-450 MG/DL- SEVERELY INTOXICATED >= 550 MG/DL - FATAL INTOXICATION - CT ABD PELVIS W/O [id number] 05:17:00 Name: DAVIE CORADO [facility] : 1970 Age/S: 48 / F [address] [facility] Unit #: [id number] Loc: [place] [address] Phys: Linda Lock MD Acct: [id number] Dis Date: Status: REG ER PHONE #: [phone] Exam Date: 10/23/2019 0450 FAX #: [phone] Reason: abd pain, vomiting EXAMS: CPT CODE: [id number] CT ABD PELVIS W/O CONT 56238 CT abdomen and pelvis without IV contrast. [...] 1 Signed Report (CONTINUED) [facility] 1970 Age/S: 48 / F Chas Lai Unit #: [id number] Loc: [place] [address] Phys: Linda Lock MD Acct: [id number] Dis Date: Status: REG ER PHONE #: [phone] Exam Date: 10/23/2019 0450 FAX #: [phone] Reason: abd pain, vomiting EXAMS: CPT CODE: [id number] CT ABD PELVIS W/O CONT 79052 <Continued> findings could represent an possible enterocolitis. Interval improvement of previously seen anterior abdominal soft tissue densities at 0517 Reported and signed by: Sherri Peters M.D. CC: Linda Lock MD Technologist:RT JACKSON CTDI: DLP: Trnscb Date/Time: 10/23/2019 (0517) [email or web address] PAGE 2 Signed Report BASIC METABOLIC [id number] 04:33:00* Test Item Value Reference Range Interpretation [...] CA) 9.2 mg/dL 8.5-10.1 N HEPATIC FUNCTION [id number] 04:33:00* Test Item Value Reference Range Interpretation [...] reference range due to change in reagent. [id number] 04:33:00* Test Item Value Reference Range Interpretation Comments LIPASE (test code = LIP) 222 U/L 73.0-393.0 N HCG SERUM [id number] 04:33:00* Test Item Value Reference Range Interpretation Comments HCG SERUM QUAL (test code = HCGQL) NEGATIVE NEGATIVE This HCGQL test is NOT applicable for MALE patients.Check with nurse about probable order error.If Tumor Marker Test needed, nurse should order test "HCGTU"(Test #550.10340) [id number] 04:33:00* Test Item Value Reference Range Interpretation Comments TROPONIN-I (test code = TROPI) <0.015 ng/mL 0-0.045 N DILANTIN (PHENYTOIN)2019-10-23 04:33:00* Test Item Value Reference Range Interpretation Comments DILANTIN (PHENYTOIN) (test code = DIL) 0.5 ug/mL 10.0-20.0 L [id number] 04:33:00* Test Item Value Reference Range Interpretation Comments ALCOHOL (test code = ALC) mg/dL 0-3 BASIC METABOLIC [id number] 04:31:00* Test Item Value Reference Range Interpretation [...] code = CA) mg/dL 8.5-10.1 HEPATIC FUNCTION [id number] 04:31:00* Test Item Value Reference Range Interpretation [...] TOTAL (test code = ALKP) IUnit/L 45-117 [id number] 04:31:00* Test Item Value Reference Range Interpretation Comments LIPASE (test code = LIP) U/L 73.0-393.0 HCG SERUM [id number] 04:31:00* Test Item Value Reference Range Interpretation Comments HCG SERUM QUAL (test code = HCGQL) NEGATIVE NEGATIVE This HCGQL test is NOT applicable for MALE patients.Check with nurse about probable order error.If Tumor Marker Test needed, nurse should order test "HCGTU"(Test #550.53290) [id number] 04:31:00* Test Item Value Reference Range Interpretation Comments TROPONIN-I (test code = TROPI) ng/mL 0-0.045 DILANTIN (PHENYTOIN)2019-10-23 04:31:00* Test Item Value Reference Range Interpretation Comments DILANTIN (PHENYTOIN) (test code = DIL) ug/mL 10.0-20.0 [id number] 04:31:00* Test Item Value Reference Range Interpretation Comments ALCOHOL (test code = ALC) mg/dL 0-3 BASIC METABOLIC [id number] 04:22:00* Test Item Value Reference Range Interpretation [...] code = CA) mg/dL 8.5-10.1 HEPATIC FUNCTION [id number] 04:22:00* Test Item Value Reference Range Interpretation [...] TOTAL (test code = ALKP) IUnit/L 45-117 [id number] 04:22:00* Test Item Value Reference Range Interpretation Comments LIPASE (test code = LIP) U/L 73.0-393.0 HCG SERUM [id number] 04:22:00* Test Item Value Reference Range Interpretation Comments HCG SERUM QUAL (test code = HCGQL) NEGATIVE [id number] 04:22:00* Test Item Value Reference Range Interpretation Comments TROPONIN-I (test code = TROPI) ng/mL 0-0.045 DILANTIN (PHENYTOIN)2019-10-23 04:22:00* Test Item Value Reference Range Interpretation Comments DILANTIN (PHENYTOIN) (test code = DIL) ug/mL 10.0-20.0 [id number] 04:22:00* Test Item Value Reference Range Interpretation Comments ALCOHOL (test code = ALC) mg/dL 0-3 CBC W/O [id number] 03:45:00* Test Item Value Reference Range Interpretation [...] fL 6.7-11.0 N - XR CHEST 1 [id number] 03:42:00 FAX: Linda Cao [phone] [place]: St: REG Name: DAVIE CHOWDHURY [facility] : [birth year] Age/S: 48/F [address] [facility] #: [id number] Loc: [place] [address] Phys: Linda Lock MD Acct: [id number] Dis Date: Status: REG ER PHONE #: [phone] Exam Date: 10/23/2019 0248 FAX #: [phone] Reason: Seizure EXAMS: CPT CODE: [id number] XR CHEST 1 V 41811 EXAM: - XR CHEST 1 V HISTORY: [...] Martinez MD CC: Linda Lock MD Technologist: RT JACKSON Trnscrd Date/Time/By: 10/23/2019 (0342) : B y: [email or web address] Orig Print D/T: S: 10/23/2019 (0341) PAGE 1 Signed Report [id number] 03:11:00* Test Item Value Reference Range Interpretation Comments GLUBED (test code = GLUBED) 96 mg/dL 74-106 N Performed by certified payloader machine operator at [facility] CBC W/AUTO [id number] 05:48:00* Test Item Value Reference Range Interpretation [...] NRBC#) 0.00 K/mm3 0.0-0.1 N BASIC METABOLIC [id number] 05:47:00* Test Item Value Reference Range Interpretation [...] CA) 9.1 mg/dL 8.5-10.1 N Coronavirus 2019 nCoV Cdxauwk0313-50-28 07:36:00* Test Item Value Reference Range Interpretation Comments Coronavirus 2019 nCoV Bedside (test code = COVNONPUIBED) Negative CBC W/AUTO [id number] 07:24:00* Test Item Value Reference Range Interpretation [...] (test code = MDIFF) NO BASIC METABOLIC [id number] 07:24:00* Test Item Value Reference Range Interpretation [...] CA) 9.0 mg/dL 8.5-10.1 N BASIC METABOLIC [id number] 07:17:00* Test Item Value Reference Range Interpretation [...] CA) mg/dL 8.5-10.1 - CT ABD PELVIS W/[id number] 22:31:00 Name: DAVIE CORADO [facility] : 1970 Age/S: 48 / F [address] Unit #: [id number] Loc: [place] [address] Phys: Sindi Vieira MANAGEMENT LEAD Acct: [id number] Dis Date: Status: REG ER PHONE #: [phone] Exam Date: 06/22/2019 220 FAX #: [phone] Reason: large abscess to lower abd wall extending to george EXAMS: CPT CODE: [id number] CT ABD PELVIS W/CONT 22277 HISTORY: large abscess to lower abd wall [...] 1 Signed Report (CONTINUED) Name: DAVIE CORADO [facility] : 1970 Age/S: 48 / F Chas [address] matt Unit #: [id number] Loc: [place] [address] Phys: Sindi Vieira NP Acct: [id number] Dis Date: Status: REG ER PHONE #: [phone] Exam Date: 06/22/20192204 FAX #: [phone] Reason: large abscess to lower abd wall extending to george EXAMS: CPT CODE: [id number] CT ABD PELVIS W/CONT 37423 < Continued> at 2230 Reported and signed by: Karly Peacock D.O. CC: Sindi Vieira NP Technologist:Chaim Carver RT(R) CTDI: DLP: Trnscb Date/Time: 06/22/2019 (2230) OralLDP1 Orig Print D/T: S: 06/22/2019 (2233) PAGE 2 Signed Report LACTIC [id number] 22:00:00* Test Item Value Reference Range Interpretation Comments LACTIC ACID (test code = LACT) 0.8 mmol/L 0.4-1.9 N COMPREHENSIVE METABOLIC [id number] 21:46:00* Test Item Value Reference Range Interpretation [...] due to change in reagent. HCG SERUM [id number] 21:46:00* Test Item Value Reference Range Interpretation Comments HCG SERUM QUAL (test code = HCGQL) NEGATIVE NEGATIVE This HCGQL test is NOT applicable for MALE patients.Check with nurse about probable order error.If Tumor Marker Test needed, nurse should order test "HCGTU"(Test #550.26700) COMPREHENSIVE METABOLIC [id number] 21:38:00* Test Item Value Reference Range Interpretation [...] code = ALKP) IUnit/L 45-117 HCG SERUM [id number] 21:38:00* Test Item Value Reference Range Interpretation Comments HCG SERUM QUAL (test code = HCGQL) NEGATIVE NEGATIVE This HCGQL test is NOT applicable for MALE patients.Check with nurse about probable order error.If Tumor Marker Test needed, nurse should order test "HCGTU"(Test #550.00409) COMPREHENSIVE METABOLIC [id number] 21:37:00* Test Item Value Reference Range Interpretation [...] code = ALKP) IUnit/L 45-117 HCG SERUM [id number] 21:37:00* Test Item Value Reference Range Interpretation Comments HCG SERUM QUAL (test code = HCGQL) NEGATIVE CBC W/AUTO [id number] 21:27:00* Test Item Value Reference Range Interpretation [...] (test code = MDIFF) NO CBC W/AUTO [id number] 21:26:00* Test Item Value Reference Range Interpretation [...] (test code = BA#) K/mm3 0.0-0.2 Sodium Jajks3189-59-25 11:57:00* Test Item Value Reference Range Interpretation Comments Sodium Level (test code = 2951-2) 140 136-145 [facility] Fhknn6650-04-75 11:57:00* Test Item Value Reference Range Interpretation Comments Potassium Level (test code = 2823-3) 3.9 3.5-5.1 [facility] HospitalChloride Kfecd4317-68-28 11:57:00* Test Item Value Reference Range Interpretation Comments Chloride Level (test code = 2075-0) 105 98-107 [facility] HospitalCarbon Dioxide Onsom7558-88-56 11:57:00* Test Item Value Reference Range Interpretation Comments Carbon Dioxide Level (test code = 2028-9) 29 22-29 [facility] HospitalAnion Nzz4836-54-07 11:57:00* Test Item Value Reference Range Interpretation Comments Anion Gap (test code = 50837-3) 9.9 8-16 [facility] HospitalBlood Urea Ttuodyxx7421-62-47 11:57:00* Test Item Value Reference Range Interpretation Comments Blood Urea Nitrogen (test code = 3094-0) 6 7-26 L [facility] HospitalCreatinine2020-03-12 11:57:00* Test Item Value Reference Range Interpretation Comments Creatinine (test code = 2160-0) 0.50 0.57-1.11 L [facility] HospitalBUN/Creatinine Ejree9495-19-46 11:57:00* Test Item Value Reference Range Interpretation Comments BUN/Creatinine Ratio (test code = 3097-3) 12 6- [facility] HospitalEstimat Glomerular Filtration Rate 2019-04-25 11:57:00* Test Item Value Reference Range Interpretation Comments Estimat Glomerular Filtration Rate (test code = 929842011) > 60 >60 Ranges were taken from the National Kidney Disease Education Program and the [facility] literature.Reference ranges:60 or greater: Hlmrmz01-70 ( for 3 consecutive months): Chronic kidney disease 15 or less: Kidney failureMemorial Hermann Southeast HospitalGlucose Vaens7929-50-38 11:57:00* Test Item Value Reference Range Interpretation Comments Glucose Level (test code = RMQ7406) 88 74-118 [facility] HospitalCalcium Dcsjj5209-74-36 11:57:00* Test Item Value Reference Range Interpretation Comments Calcium Level (test code = 96000-0) 9.3 8.4-10.2 [facility] HospitalWhite Blood Gxwmm4597-36-30 11:34:00* Test Item Value Reference Range Interpretation Comments White Blood Count (test code = 6690-2) 6.71 4.8-10.8 [facility] HospitalRed Blood Nauhm2651-76-64 11:34:00* Test Item Value Reference Range Interpretation Comments Red Blood Count (test code = 789-8) 3.93 3.6-5.1 [facility] HospitalHemoglobin2020-03-12 11:34:00* Test Item Value Reference Range Interpretation Comments Hemoglobin (test code = 32279-4) 9.2 12.0-16.0 L [facility] HospitalHematocrit2020-03-12 11:34:00* Test Item Value Reference Range Interpretation Comments Hematocrit (test code = 4544-3) 30.4 34.2-44.1 L [facility] HospitalMean Corpuscular Qbynap5001-19-16 11:34:00* Test Item Value Reference Range Interpretation Comments Mean Corpuscular Volume (test code = 787-2) 77.4 81-99 L [facility] HospitalMean Corpuscular Rlckargvkf6747-49-79 11:34:00* Test Item Value Reference Range Interpretation Comments Mean Corpuscular Hemoglobin (test code = 785-6) 23.4 28-32 L [facility] HospitalMean Corpuscular Hemoglobin Concent 2019-04-25 11:34:00* Test Item Value Reference Range Interpretation Comments Mean Corpuscular Hemoglobin Concent (test code = 786-4) 30.3 31-35 L [facility] HospitalRed Cell Distribution Xpgqt2573-76-29 11:34:00* Test Item Value Reference Range Interpretation Comments Red Cell Distribution Width (test code = 48909-8) 17.4 11.7 -14.4 H [facility] HospitalPlatelet Fwzsm3128-60-25 11:34:00* Test Item Value Reference Range Interpretation Comments Platelet Count (test code = 777-3) 304 140-360 [facility] HospitalNeutrophils (%) (Auto)2019-04-25 11:34:00 * Test Item Value Reference Range Interpretation Comments Neutrophils (%) (Auto) (test code = 92581-8) 65.8 38.7-80.0 [facility] HospitalLymphocytes (%) (Auto)2019-04-25 11:34:00 * Test Item Value Reference Range Interpretation Comments Lymphocytes (%) (Auto) (test code = 736-9) 23.2 18.0-39.1 [facility] HospitalMonocytes (%) (Auto)2019-04-25 11:34:00* Test Item Value Reference Range Interpretation Comments Monocytes (%) (Auto) (test code = 5905-5) 5.8 4.4-11.3 [facility] HospitalEosinophils (%) (Auto)2019-04-25 11:34:00 * Test Item Value Reference Range Interpretation Comments Eosinophils (%) (Auto) (test code = 713-8) 1.3 0.0-6.0 [facility] HospitalBasophils (%) (Auto)2019-04-25 11:34:00* Test Item Value Reference Range Interpretation Comments Basophils (%) (Auto) (test code = 706-2) 0.3 0.0-1.0 [facility] HospitalIM GRANULOCYTES %2019-04-25 11:34:00* Test Item Value Reference Range Interpretation Comments IM GRANULOCYTES % (test code = IM GRANULOCYTES %) 3.6 0.0- 1.0 H [facility] HospitalNeutrophils # (Auto)2019-04-25 11:34:00* Test Item Value Reference Range Interpretation Comments Neutrophils # (Auto) (test code = 751-8) 4.4 2.1-6.9 [facility] HospitalLymphocytes # (Auto)2019-04-25 11:34:00* Test Item Value Reference Range Interpretation Comments Lymphocytes # (Auto) (test code = 73816-2) 1.6 1.0-3.2 [facility] HospitalMonocytes # (Auto)2019-04-25 11:34:00* Test Item Value Reference Range Interpretation Comments Monocytes # (Auto) (test code = 742-7) 0.4 0.2-0.8 [facility] HospitalEosinophils # (Auto)2019-04-25 11:34:00* Test Item Value Reference Range Interpretation Comments Eosinophils # (Auto) (test code = 711-2) 0.1 0.0-0.4 [facility] HospitalBasophils # (Auto)2019-04-25 11:34:00* Test Item Value Reference Range Interpretation Comments Basophils # (Auto) (test code = 704-7) 0.0 0.0-0.1 [facility] HospitalAbsolute Immature Granulocyte (auto 2019-04-25 11:34:00* Test Item Value Reference Range Interpretation Comments Absolute Immature Granulocyte (auto (isabelle t code = Absolute Immature Granulocyte (auto) 0.24 0-0.1 H [facility] HospitalMRSA Qsyfqa4632-40-88 11:34:00* Test Item Value Reference Range Interpretation Comments MRSA Screen (test code = 66609-0) No Result Data Provided [facility] HospitalWound Idqllye9065-44-62 09:54:00* Test Item Value Reference Range Interpretation Comments Wound Culture (test code = 6462-6) No Result Data Provided [facility] HospitalBlood Jtrvtns2374-13-36 23:11:00* Test Item Value Reference Range Interpretation Comments Blood Culture (test code = 61006386) NO GROWTH AFTER 48 HOURS [facility] HospitalDifferential Total Cells Counted 2019-04-24 09:55:00* Test Item Value Reference Range Interpretation Comments Differential Total Cells Counted (test code = Differfabricio tial Total Cells Counted) 100 [facility] HospitalNeutrophils % (Manual)2019-04-24 09:55:00 * Test Item Value Reference Range Interpretation Comments Neutrophils % (Manual) (test code = 65154-2) 69 40-74 [facility] HospitalLymphocytes % (Manual)2019-04-24 09:55:00 * Test Item Value Reference Range Interpretation Comments Lymphocytes % (Manual) (test code = 737-7) 22 19-48 [facility] HospitalMonocytes % (Manual)2019-04-24 09:55:00* Test Item Value Reference Range Interpretation Comments Monocytes % (Manual) (test code = 744-3) 7 3.4-9.0 [facility] HospitalEosinophils % (Manual)2019-04-24 09:55:00 * Test Item Value Reference Range Interpretation Comments Eosinophils % (Manual) (test code = 714-6) 2 0-7 [facility] HospitalPlatelet Whbycccb4214-50-02 09:55:00* Test Item Value Reference Range Interpretation Comments Platelet Estimate (test code = 33471-9) ADEQUATE [facility] HospitalPlatelet Morphology Abzhont2650-37-43 09:55:00* Test Item Value Reference Range Interpretation Comments Platelet Morphology Comment (test code = 95475-0) NORMAL [facility] HospitalRed Cell Morphology Eskixqu7788-35-56 09:55:00* Test Item Value Reference Range Interpretation Comments Red Cell Morphology Comment (test code = 6742-1) NORMAL [facility] HospitalPhosphorus Fnyvz6497-51-22 07:49:00* Test Item Value Reference Range Interpretation Comments Phosphorus Level (test code = TAY2686) 2.4 2.3-4.7 [facility] HospitalMagnesium Vtzne0510-40-77 07:49:00* Test Item Value Reference Range Interpretation Comments Magnesium Level (test code = 03912-9) 1.9 1.3-2.1 [facility] HospitalCHEST SINGLE (PORTABLE)2019-04-23 17:11:00 [facility] [address] [address] Patient Name: DAVIE CORADO MR #: [id number] : 1970 Age/Sex: 48/F Req #: [id number] Adm Physician: ANGELICA ZALDIVAR MD Ordered by: GIORGI PERES MANAGEMENT LEAD Report #: [id number] Location: [facility] Room/Bed: [facility] Procedure: [id number] DX/CHEST SINGLE (PORTABLE) Exam Date: 04/23/19 Exam Time: 1645 REPORT STATUS: Signed EXAMINATION: CHEST SINGLE (PORTABLE) COMPARISON: Chest x-ray 11/16/2018 INDICATION: 20 pack yr hx smoking, visit baseline, +hx RLL PNA 2 [id number] 1645 Y DISCUSSION: Frontal view of the [...] 5:12 PM Dictated By: PORFIRIO MCGOWAN MD 11 Transcribed By: CHARLES on 04/23/19 17 12 COPY TO: GIORGI PERES GERMÁN Urine Opiates Gfqnzy6180-96-62 03:43:00* Test Item Value Reference Range Interpretation Comments Urine Opiates Screen (test code = 12264-6) POSITIVE NEGATIVE H This test provides only a screen. Positive results should be repeated by a confi rmatory test.[facility] HospitalUrine Barbiturates Screen 2019-04-23 03:43:00* Test Item Value Reference Range Interpretation Comments Urine Barbiturates Screen (test code = 911203934) NEGATIVE NEGA TIVE [facility] HospitalUrine Phencyclidine Tjqsej6669-43-27 03:43:00* Test Item Value Reference Range Interpretation Comments Urine Phencyclidine Screen (test code = 09158-5) NEGATIVE NEGAT CHANELL [facility] HospitalUrine Amphetamines Nsxfrb6365-31-96 03:43:00* Test Item Value Reference Range Interpretation Comments Urine Amphetamines Screen (test code = 11515-3) NEGATIVE NEGATI VE [facility] HospitalUrine Methamphetamines Tphkap2206-77-75 03:43:00* Test Item Value Reference Range Interpretation Comments Urine Methamphetamines Screen (test code = Urine Metha mphetamines Screen) NEGATIVE NEGATIVE [facility] HospitalUrine Benzodiazepines Uvbzje6895-09-96 03:43:00* Test Item Value Reference Range Interpretation Comments Urine Benzodiazepines Screen (test code = 91616-3) NEGATIVE NEG ATIVE [facility] HospitalUrine Cocaine Zmmdve7972-32-90 03:43:00* Test Item Value Reference Range Interpretation Comments Urine Cocaine Screen (test code = 3398-5) NEGATIVE NEGATIVE [facility] HospitalUrine Cannabinoids Yyawlm0403-77-10 03:43:00* Test Item Value Reference Range Interpretation Comments Urine Cannabinoids Screen (test code = 41537-3) NEGATIVE NEGATI VE THESE RESULTS ARE FOR MEDICAL TREATMENT ONLYTHIS REPORT CONTAINS UNCONFIR MED SCREENING RESULTS*POSITIVE RESULTS WILL BE CONFIRMED BY REFERENCE LAB UPON R EQUEST CUT-OFFDRUG CLASS CONCENTRATION ng/mLAmphetamines 1000Methamphetamines 1000Cocaine 300Opiate 300Phencyc lidine 25Cannabinoid 50Barbiturates 300Benzodiazepine 300Methadone 300[facility] HospitalUrine Methadone Wmxras6899-16-13 03:43:00* Test Item Value Reference Range Interpretation Comments Urine Methadone Screen (test code = 20932-4) NEGATIVE NEGATIVE THESE RESULTS ARE FOR MEDICAL TREATMENT ONLYTHIS REPORT CONTAINS UNCONFIR MED SCREENING RESULTS*POSITIVE RESULTS WILL BE CONFIRMED BY REFERENCE LAB UPON R EQUEST CUT-OFFDRUG CLASS CONCENTRATION ng/mLAmphetamines 1000Methamphetamines 1000Cocaine Metabolite 300Opiate 300Phencyc lidine 25Cannabinoid 50Barbiturates 300Benzodiazepine 300Methadone 300[facility] HospitalTotal Mubecevoz3092-66-80 23:37:00* Test Item Value Reference Range Interpretation Comments Total Bilirubin (test code = 1975-2) 0.2 0.2-1.2 [facility] HospitalAspartate Amino Transf (AST/SGOT) 2019-04-22 23:37:00* Test Item Value Reference Range Interpretation Comments Aspartate Amino Transf (AST/SGOT) (test code = Aspartate Amino Transf (AST/SGOT)) 47 5-34 H [facility] HospitalAlanine Aminotransferase (ALT/SGPT) 2019-04-22 23:37:00* Test Item Value Reference Range Interpretation Comments Alanine Aminotransferase (ALT/SGPT) (test code = 1742-6) 50 0-55 [facility] HospitalTotal Xsjbdmb8969-35-16 23:37:00* Test Item Value Reference Range Interpretation Comments Total Protein (test code = 2885-2) 7.3 6.5-8.1 [facility] HospitalAlbumin2020-03-09 23:37:00* Test Item Value Reference Range Interpretation Comments Albumin (test code = 1751-7) 3.0 3.5-5.0 L [facility] HospitalGlobulin2020-03-09 23:37:00* Test Item Value Reference Range Interpretation Comments Globulin (test code = 77765-2) 4.3 2.3-3.5 H [facility] HospitalAlbumin/Globulin Rxljp6204-97-65 23:37:00 * Test Item Value Reference Range Interpretation Comments Albumin/Globulin Ratio (test code = 1759-0) 0.7 0.8-2.0 L [facility] HospitalAlkaline Wprpaktcbnh5460-06-75 23:37:00* Test Item Value Reference Range Interpretation Comments Alkaline Phosphatase (test code = 6768-6) 184 40-150 H [facility] HospitalHAND 3+ VIEWS PFZW2473-36-19 22:07:00 [facility] [address] [address] Patient Name: DAVIE CORADO MR #: [id number] : 1970 Age/Sex: 48/F Req #: [id number] Adm Physician: Ordered by: LEIOT MEADOWS DO Report #: [id number] Location: ER Room/Bed: Procedure: 85 DX/HAND 3+ [...] BE COLLECTED BY NURSEDRUGS OF ABUSE SCREEN UH0332-85-67 13:43:00* Test Item Value Reference Range Interpretation [...] <300 ng/mL S[facility]AUTO ISAE6133-18-55 04:06:00* Test Item Value Reference Range Interpretation [...] = MDIFF) NO, ONLY SCAN NEEDED DIFFERENTIAL NSCC0233-24-93 04:06:00* Test Item Value Reference Range Interpretation [...] (test code = PLTMORPH) NORMAL BASIC METABOLIC BCYOI4922-32-07 03:58:00* Test Item Value Reference Range Interpretation [...] CA) 9.3 mg/dL 8.5-10.1 N CBC W/AUTO FAWI1111-81-83 03:37:00* Test Item Value Reference Range Interpretation [...] = MDIFF) NO, ONLY SCAN NEEDED DIFFERENTIAL RZRB3031-26-32 03:37:00* Test Item Value Reference Range Interpretation Comments STAIN ACCEPTABILITY (test code = STN ACCEPTABLE) CABOT RINGS (test code = CAB) MORPHOLOGY COMMENT (test code = MOC) PLATELET ESTIMATE (test code = PLTEST) PLATELET MORPHOLOGY (test code = PLTMORPH) CBC W/AUTO NLHF7252-85-24 03:37:00* Test Item Value Reference Range Interpretation [...] = MDIFF) NO, ONLY SCAN NEEDED DIFFERENTIAL ZZFS4400-28-90 03:37:00* Test Item Value Reference Range Interpretation Comments STAIN ACCEPTABILITY (test code = STN ACCEPTABLE) CABOT RINGS (test code = CAB) MORPHOLOGY COMMENT (test code = MOC) PLATELET ESTIMATE (test code = PLTEST) PLATELET MORPHOLOGY (test code = PLTMORPH) CBC W/AUTO [id number] 03:37:00* Test Item Value Reference Range Interpretation [...] = MDIFF) NO, ONLY SCAN NEEDED DIFFERENTIAL [id number] 03:37:00* Test Item Value Reference Range Interpretation Comments STAIN ACCEPTABILITY (test code = STN ACCEPTABLE) MORPHOLOGY COMMENT (test code = MOC) PLATELET ESTIMATE (test code = PLTEST) PLATELET MORPHOLOGY (test code = PLTMORPH) CBC W/AUTO [id number] 03:37:00* Test Item Value Reference Range Interpretation [...] = MDIFF) NO, ONLY SCAN NEEDED DIFFERENTIAL [id number] 03:37:00* Test Item Value Reference Range Interpretation Comments STAIN ACCEPTABILITY (test code = STN ACCEPTABLE) CABOT RINGS (test code = CAB) MORPHOLOGY COMMENT (test code = MOC) PLATELET ESTIMATE (test code = PLTEST) PLATELET MORPHOLOGY (test code = PLTMORPH) CBC W/AUTO [id number] 04:18:00* Test Item Value Reference Range Interpretation [...] = MDIFF) NO, ONLY SCAN NEEDED DIFFERENTIAL [id number] 04:18:00* Test Item Value Reference Range Interpretation Comments STAIN ACCEPTABILITY (test code = STN ACCEPTABLE) STAIN ACCEPTABLE POIKILOCYTOSIS (test code = POIK) 1+ ANISOCYTOSIS (test code = ANISO) 1+ MICROCYTOSIS (test code = MICR) 1+ ELLIPTOCYTES (test code = ELL) 1+ PLATELET ESTIMATE (test code = PLTEST) ADEQUATE PLATELET MORPHOLOGY (test code = PLTMORPH) NORMAL BASIC METABOLIC [id number] 03:39:00* Test Item Value Reference Range Interpretation [...] CA) 9.2 mg/dL 8.5-10.1 N BASIC METABOLIC [id number] 03:34:00* Test Item Value Reference Range Interpretation [...] code = CA) mg/dL 8.5-10.1 CBC W/AUTO [id number] 03:21:00* Test Item Value Reference Range Interpretation [...] = MDIFF) NO, ONLY SCAN NEEDED DIFFERENTIAL [id number] 03:21:00* Test Item Value Reference Range Interpretation Comments STAIN ACCEPTABILITY (test code = STN ACCEPTABLE) CABOT RINGS (test code = CAB) MORPHOLOGY COMMENT (test code = MOC) PLATELET ESTIMATE (test code = PLTEST) PLATELET MORPHOLOGY (test code = PLTMORPH) CBC W/AUTO [id number] 03:21:00* Test Item Value Reference Range Interpretation [...] = MDIFF) NO, ONLY SCAN NEEDED DIFFERENTIAL [id number] 03:21:00* Test Item Value Reference Range Interpretation Comments STAIN ACCEPTABILITY (test code = STN ACCEPTABLE) CABOT RINGS (test code = CAB) MORPHOLOGY COMMENT (test code = MOC) PLATELET ESTIMATE (test code = PLTEST) PLATELET MORPHOLOGY (test code = PLTMORPH) CBC W/AUTO [id number] 03:21:00* Test Item Value Reference Range Interpretation [...] = MDIFF) NO, ONLY SCAN NEEDED DIFFERENTIAL [id number] 03:21:00* Test Item Value Reference Range Interpretation Comments STAIN ACCEPTABILITY (test code = STN ACCEPTABLE) MORPHOLOGY COMMENT (test code = MOC) PLATELET ESTIMATE (test code = PLTEST) PLATELET MORPHOLOGY (test code = PLTMORPH) CBC W/AUTO [id number] 03:21:00* Test Item Value Reference Range Interpretation [...] = MDIFF) NO, ONLY SCAN NEEDED DIFFERENTIAL [id number] 03:21:00* Test Item Value Reference Range Interpretation Comments STAIN ACCEPTABILITY (test code = STN ACCEPTABLE) CABOT RINGS (test code = CAB) MORPHOLOGY COMMENT (test code = MOC) PLATELET ESTIMATE (test code = PLTEST) PLATELET MORPHOLOGY (test code = PLTMORPH) - XR ABDOMEN AP 1 [id number] 18:58:00 FAX: Lawrence Carvajal [phone] [place]: B St: ADM FAX: Dima Lorenzo [phone] FAX: Lorne Mejia [phone] Name: DAVIE CORADO [facility] : 1970 Age/S: 48/F [facility] Unit #: [id number] Loc: V.[address] [place] [address] Phys: Lorne Tinsley MD Acct: [id number] Dis Date: Status: ADM IN ONE #: [phone] Exam Date: 02/28/2019 183 FAX #: [phone] Reason: constipation EXAMS: CPT CODE: [id number] XR ABDOMEN AP 1 V 66192 EXAM: Abdomen, 2 views; INFORMATION: Intractable vomiting, [...] acute abnormalities. 2. Significant hepatomegaly. Location code: [facility] at 1858 Reported and signed by: Ralf Franz M.D. CC: Lawrence Carvajal MD; Uriel Samaniego on E; Lorne Tinsley MD Technologist: MARYAM ANDERSON RT (R) Trnscrd Date/Time/By: 02/28/2019 (1857) : By: OralGRW Orig Print D/T: S: 02/28/2019 (1901) PAGE 1 Signed Report CBC W/AUTO [id number] 05:43:00* Test Item Value Reference Range Interpretation [...] = MDIFF) NO, ONLY SCAN NEEDED DIFFERENTIAL [id number] 05:43:00* Test Item Value Reference Range Interpretation [...] (test code = PLTMORPH) NORMAL CBC W/AUTO [id number] 05:16:00* Test Item Value Reference Range Interpretation [...] = MDIFF) NO, ONLY SCAN NEEDED DIFFERENTIAL [id number] 05:16:00* Test Item Value Reference Range Interpretation Comments STAIN ACCEPTABILITY (test code = STN ACCEPTABLE) CABOT RINGS (test code = CAB) MORPHOLOGY COMMENT (test code = MOC) PLATELET ESTIMATE (test code = PLTEST) PLATELET MORPHOLOGY (test code = PLTMORPH) CBC W/AUTO [id number] 05:16:00* Test Item Value Reference Range Interpretation [...] = MDIFF) NO, ONLY SCAN NEEDED DIFFERENTIAL [id number] 05:16:00* Test Item Value Reference Range Interpretation Comments STAIN ACCEPTABILITY (test code = STN ACCEPTABLE) CABOT RINGS (test code = CAB) MORPHOLOGY COMMENT (test code = MOC) PLATELET ESTIMATE (test code = PLTEST) PLATELET MORPHOLOGY (test code = PLTMORPH) CBC W/AUTO [id number] 05:16:00* Test Item Value Reference Range Interpretation [...] = MDIFF) NO, ONLY SCAN NEEDED DIFFERENTIAL [id number] 05:16:00* Test Item Value Reference Range Interpretation Comments STAIN ACCEPTABILITY (test code = STN ACCEPTABLE) MORPHOLOGY COMMENT (test code = MOC) PLATELET ESTIMATE (test code = PLTEST) PLATELET MORPHOLOGY (test code = PLTMORPH) CBC W/AUTO [id number] 05:15:00* Test Item Value Reference Range Interpretation [...] = MDIFF) NO, ONLY SCAN NEEDED DIFFERENTIAL [id number] 05:15:00* Test Item Value Reference Range Interpretation Comments STAIN ACCEPTABILITY (test code = STN ACCEPTABLE) CABOT RINGS (test code = CAB) MORPHOLOGY COMMENT (test code = MOC) PLATELET ESTIMATE (test code = PLTEST) PLATELET MORPHOLOGY (test code = PLTMORPH) CBC W/MANUAL [id number] 07:51:00* Test Item Value Reference Range Interpretation [...] IMMAT) 0 % 0-0 N COMPREHENSIVE METABOLIC [id number] 07:37:00* Test Item Value Reference Range Interpretation [...] due to change in reagent. COMPREHENSIVE METABOLIC [id number] 07:28:00* Test Item Value Reference Range Interpretation [...] code = ALKP) IUnit/L 45-117 CBC W/MANUAL [id number] 07:11:00* Test Item Value Reference Range Interpretation [...] MORPHOLOGY (test code = PLTMORPH) COMPREHENSIVE METABOLIC [id number] 11:52:00* Test Item Value Reference Range Interpretation [...] result is a direct measurement.========= COMPREHENSIVE METABOLIC [id number] 11:35:00* Test Item Value Reference Range Interpretation [...] code = LDL) mg/dL 100-129 CBC W/AUTO [id number] 11:21:00* Test Item Value Reference Range Interpretation [...] K/mm3 0.0-0.1 N DRUGS OF ABUSE SCREEN [id number] 00:32:00* Test Item Value Reference Range Interpretation [...] ng/mL SPECIMEN COMMENTS: sample in labCOMMENTS TO JUVENILE PROBATION OFFICER: sample in labDRUGS OF ABUSE SCREEN [id number] 00:19:00* Test Item Value Reference Range Interpretation [...] ng/mL SPECIMEN COMMENTS: sample in labCOMMENTS TO JUVENILE PROBATION OFFICER: sample in [id number] 2019-02-25 18:44:00* Test Item Value Reference Range Interpretation Comments GLYCOSYLATED HEMOGLOBIN (HA1C) (test code = GLYHGB) 5.5 % HbA1 SUGGESTED DIAGNOSIS: HbA1C (%) Diabetic >6.4Prediabetes 5.7 - 6.4Normal <5.7 ESTIMATED AVERAGE GLUCOSE (test code = EAG) 111 MG/DL - CT ABD PELVIS W/O [id number] 15:11:00 Name: DAVIE CORADO [facility] : 1970 Age/S: 48 / F [facility] Unit #: [id number] Loc: [place] [id number] Phys: Linda Lock MD Acct: [id number] Dis Date: Status: REG ER PHONE #: [phone] Exam Date: 02/25/2019 1417 FAX #: [phone] Reason: abd pain EXAMS: CPT CODE: [id number] CT ABD PELVIS W/O CONT 23539 EXAM: CT of the abdomen and pelvis [...] abnormali ties. 3. Mild hepatosplenomegaly. Location code: [facility] at 1511 Reported and signed by: Ralf Franz M.D. CC: Dima Samaniego; Linda Lock MD Technologist:Umu Jordan RT(R),CT; CTDI: DLP: Trnscb Date/Time: 02/25/2019 (1510) Shakira Orig Print D/T: S: 02/25/2019 (1513) PAGE 1 Signed Report BASIC METABOLIC [id number] 12:00:00* Test Item Value Reference Range Interpretation [...] CA) 9.7 mg/dL 8.5-10.1 N HEPATIC FUNCTION [id number] 12:00:00* Test Item Value Reference Range Interpretation [...] reference range due to change in reagent. [id number] 12:00:00* Test Item Value Reference Range Interpretation Comments LIPASE (test code = LIP) 59 U/L 73.0-393.0 L HCG SERUM [id number] 12:00:00* Test Item Value Reference Range Interpretation Comments HCG SERUM QUAL (test code = HCGQL) NEGATIVE NEGATIVE This HCGQL test is NOT applicable for MALE patients.Check with nurse about probable order error.If Tumor Marker Test needed, nurse should order test "HCGTU"(Test #550.08240) BASIC METABOLIC [id number] 11:56:00* Test Item Value Reference Range Interpretation [...] code = CA) mg/dL 8.5-10.1 HEPATIC FUNCTION [id number] 11:56:00* Test Item Value Reference Range Interpretation [...] TOTAL (test code = ALKP) IUnit/L 45-117 [id number] 11:56:00* Test Item Value Reference Range Interpretation Comments LIPASE (test code = LIP) U/L 73.0-393.0 HCG SERUM [id number] 11:56:00* Test Item Value Reference Range Interpretation Comments HCG SERUM QUAL (test code = HCGQL) NEGATIVE NEGATIVE This HCGQL test is NOT applicable for MALE patients.Check with nurse about probable order error.If Tumor Marker Test needed, nurse should order test "HCGTU"(Test #550.04874) BASIC METABOLIC [id number] 11:52:00* Test Item Value Reference Range Interpretation [...] code = CA) mg/dL 8.5-10.1 HEPATIC FUNCTION [id number] 11:52:00* Test Item Value Reference Range Interpretation [...] TOTAL (test code = ALKP) IUnit/L 45-117 [id number] 11:52:00* Test Item Value Reference Range Interpretation Comments LIPASE (test code = LIP) U/L 73.0-393.0 HCG SERUM [id number] 11:52:00* Test Item Value Reference Range Interpretation Comments HCG SERUM QUAL (test code = HCGQL) NEGATIVE CBC W/O [id number] 11:40:00* Test Item Value Reference Range Interpretation [...] = MPV) 9.8 fL 6.7-11.0 N URINALYSIS [id number] 11:05:00* Test Item Value Reference Range Interpretation [...] FEW #/LPF FEW Urine Source? Clean CatchURINALYSIS [id number] 11:02:00* Test Item Value Reference Range Interpretation [...] per HPF NONE Urine Source? Clean CatchAtypical [id number] 12:02:00* Test Item Value Reference Range Interpretation Comments Atypical p-ANCA (test code = 83775-3) <1:20 The atypical pANCA pattern has been observed in asignificant percentage of patie nts with ulcerative colitis,primary sclerosing cholangitis and autoimmune hepati tis. ASCA+/PANCA- Suggestive of Crohn's disease ASCA-/PANCA+ S uggestive of Ulcerative colitisPerformed at: - LabCoAmanda Ville [address] [place], [place] [id number] Director: Alesha Mejias MD, Phone: [phone] HospitalAnti-Nuclear Antibody [id number] 13:13:00* Test Item Value Reference Range Interpretation Comments Anti-Nuclear Antibody Screen (test code = 5048-4) Negative Negative <1:80 Borderline 1:80 Positive >1:80Testing performed by:[facility]Ang[facility] [address] [place], [place] [id number]: Alex Cruz [facility] Hospitalaccharomyces cerevisiae IgG [id number] 13:09:00* Test Item Value Reference Range Interpretation Comments Saccharomyces cerevisiae IgG Ab (test code = 6713-2) 65.1 Reference Range: 0.0 - 24.9 Units Negative <20.0 Equivocal 20.1 - 24.9 Positive >or= 25.0[facility] Hospitalacchar[facility] cerevisiae IgA Ab 2018-11-26 13:09:00* Test Item Value Reference Range Interpretation Comments Saccharomyces cerevisiae IgA Ab (test code = 37587-9) <20.0 Reference Range: 0.0 - 24.9 Units [...] healthy controls had antibody for both.Testing performed by:[facility] [place] [phone]. [employer] [facility] AliceHepatitis A IgM [id number] 13:05:00* Test Item Value Reference Range Interpretation Comments Hepatitis A IgM Antibody (test code = 09203-4) Negative [facility] B Surface [id number] 13:05:00* Test Item Value Reference Range Interpretation Comments Hepatitis B Surface Antigen (test code = 5196-1) Negative [facility] B Core IgM [id number] 13:05:00* Test Item Value Reference Range Interpretation Comments Hepatitis B Core IgM Antibody (test code = 70397-4) Negative [facility] HospitalHepatihaw[facility] C [id number] 13:05:00* Test Item Value Reference Range Interpretation Comments Hepatitis C Antibody (test code = 83724-0) >11.0 Reference Range: 0.0 - 0.9 s/co ratio Negative: < 0.8 Indeterminate: 0.8 - 0.9 Positive: > 0.9 The CDC recommends that a positive HCV antibody result be followed up with a HCV Nucleic Acid Amplification test (018599).Testing performed by:[facility] [address] [id number]: Alex Cruz [facility] AliceRed Cell Morphology Comment 2018-11-19 06:56:00* Test Item Value Reference Range Interpretation Comments Red Cell Morphology Comment (test code = 6742-1) NORMAL [facility] Hospitalodium [id number] 03:57:00* Test Item Value Reference Range Interpretation Comments Sodium Level (test code = 2951-2) 138 136-145 [facility] HospitalPotassium [id number] 03:57:00* Test Item Value Reference Range Interpretation Comments Potassium Level (test code = 2823-3) 4.3 3.5-5.1 [facility] HospitalChloride [id number] 03:57:00* Test Item Value Reference Range Interpretation Comments Chloride Level (test code = 2075-0) 96 98-107 L [facility] HospitalCarbon Dioxide Rxfev3369-32-66 03:57:00* Test Item Value Reference Range Interpretation Comments Carbon Dioxide Level (test code = 2028-9) 33 22-29 H [facility] HospitalAnion Svw8760-12-26 03:57:00* Test Item Value Reference Range Interpretation Comments Anion Gap (test code = 90570-1) 13.3 8-16 [facility] HospitalBlood Urea [id number] 03:57:00* Test Item Value Reference Range Interpretation Comments Blood Urea Nitrogen (test code = 3094-0) 12 - [facility] HospitalCreatinine2019-10-07 03:57:00* Test Item Value Reference Range Interpretation Comments Creatinine (test code = 2160-0) 0.61 0.57-1.11 [facility] HospitalBUN/Creatinine Tyfld1607-65-46 03:57:00* Test Item Value Reference Range Interpretation Comments BUN/Creatinine Ratio (test code = 3097-3) 20 - [facility] HospitalEstimat Glomerular Filtration Rate 2018-11-19 03:57:00* Test Item Value Reference Range Interpretation Comments Estimat Glomerular Filtration Rate (test code = 335792724) > 60 >60 Ranges were taken from the National Kidney Disease Education Program and the [facility] literature.Reference ranges:60 or greater: Pftknn53-87 ( for 3 consecutive months): Chronic kidney disease 15 or less: Kidney failureMemorial Hermann Southeast HospitalGlucose Logdt1573-04-39 03:57:00* Test Item Value Reference Range Interpretation Comments Glucose Level (test code = XZO4949) 106 74-118 [facility] HospitalCalcium Flxky2351-73-77 03:57:00* Test Item Value Reference Range Interpretation Comments Calcium Level (test code = 03542-6) 9.9 8.4-10.2 [facility] HospitalWhite Blood Rrwtj5234-57-85 03:56:00* Test Item Value Reference Range Interpretation Comments White Blood Count (test code = 6690-2) 12.67 4.8-10.8 H [facility] HospitalRed Blood Kqrlt1690-59-11 03:56:00* Test Item Value Reference Range Interpretation Comments Red Blood Count (test code = 789-8) 4.16 3.6-5.1 [facility] HospitalHemoglobin2019-10-07 03:56:00* Test Item Value Reference Range Interpretation Comments Hemoglobin (test code = 31958-5) 8.7 12.0-16.0 L [facility] HospitalHematocrit2019-10-07 03:56:00* Test Item Value Reference Range Interpretation Comments Hematocrit (test code = 4544-3) 29.5 34.2-44.1 L [facility] HospitalMean Corpuscular Okywnk0209-62-88 03:56:00* Test Item Value Reference Range Interpretation Comments Mean Corpuscular Volume (test code = 787-2) 70.9 81-99 L [facility] HospitalMean Corpuscular Awpstaojbr1153-49-13 03:56:00* Test Item Value Reference Range Interpretation Comments Mean Corpuscular Hemoglobin (test code = 785-6) 20.9 28-32 L [facility] HospitalMean Corpuscular Hemoglobin Concent 2018-11-19 03:56:00* Test Item Value Reference Range Interpretation Comments Mean Corpuscular Hemoglobin Concent (test code = 786-4) 29.5 31-35 L [facility] HospitalRed Cell Distribution Qifcj1505-73-12 03:56:00* Test Item Value Reference Range Interpretation Comments Red Cell Distribution Width (test code = 79516-4) 17.5 11.7 -14.4 H [facility] HospitalPlatelet Erfey7439-48-47 03:56:00* Test Item Value Reference Range Interpretation Comments Platelet Count (test code = 777-3) 452 140-360 H [facility] HospitalNeutrophils (%) (Auto)2018-11-19 03:56:00 * Test Item Value Reference Range Interpretation Comments Neutrophils (%) (Auto) (test code = 34318-7) 69.8 38.7-80.0 [facility] HospitalLymphocytes (%) (Auto)2018-11-19 03:56:00 * Test Item Value Reference Range Interpretation Comments Lymphocytes (%) (Auto) (test code = 736-9) 14.0 18.0-39.1 L [facility] HospitalMonocytes (%) (Auto)2018-11-19 03:56:00* Test Item Value Reference Range Interpretation Comments Monocytes (%) (Auto) (test code = 5905-5) 5.4 4.4-11.3 [facility] HospitalEosinophils (%) (Auto)2018-11-19 03:56:00 * Test Item Value Reference Range Interpretation Comments Eosinophils (%) (Auto) (test code = 713-8) 0.1 0.0-6.0 [facility] HospitalBasophils (%) (Auto)2018-11-19 03:56:00* Test Item Value Reference Range Interpretation Comments Basophils (%) (Auto) (test code = 706-2) 0.2 0.0-1.0 [facility] HospitalIM GRANULOCYTES %2018-11-19 03:56:00* Test Item Value Reference Range Interpretation Comments IM GRANULOCYTES % (test code = IM GRANULOCYTES %) 10.5 0.0- 1.0 H [facility] HospitalNeutrophils # (Auto)2018-11-19 03:56:00* Test Item Value Reference Range Interpretation Comments Neutrophils # (Auto) (test code = 751-8) 8.8 2.1-6.9 H [facility] HospitalLymphocytes # (Auto)2018-11-19 03:56:00* Test Item Value Reference Range Interpretation Comments Lymphocytes # (Auto) (test code = 40825-9) 1.8 1.0-3.2 [facility] HospitalMonocytes # (Auto)2018-11-19 03:56:00* Test Item Value Reference Range Interpretation Comments Monocytes # (Auto) (test code = 742-7) 0.7 0.2-0.8 [facility] HospitalEosinophils # (Auto)2018-11-19 03:56:00* Test Item Value Reference Range Interpretation Comments Eosinophils # (Auto) (test code = 711-2) 0.0 0.0-0.4 [facility] HospitalBasophils # (Auto)2018-11-19 03:56:00* Test Item Value Reference Range Interpretation Comments Basophils # (Auto) (test code = 704-7) 0.0 0.0-0.1 [facility] HospitalAbsolute Immature Granulocyte (auto 2018-11-19 03:56:00* Test Item Value Reference Range Interpretation Comments Absolute Immature Granulocyte (auto (isabelle t code = Absolute Immature Granulocyte (auto) 1.33 0-0.1 H [facility] HospitalC-Reactive Xrdyihp9462-79-48 01:42:00* Test Item Value Reference Range Interpretation Comments C-Reactive Protein (test code = 1987-) 30 0-10 H Performed at: [address] [id number] Director: Alex Cruz MD, Phone: [phone] Hermann Southeast HospitalC-Reactive Xjdxpec2705-22-32 01:42:00* Test Item Value Reference Range Interpretation Comments C-Reactive Protein (test code = 1987-06) 30 0-10 H Performed at: [address] [id number] Director: Alex Cruz MD, Phone: [phone] [facility] A IgM Jaseqcvk7385-59-48 01:39:00* Test Item Value Reference Range Interpretation Comments Hepatitis A IgM Antibody (test code = 48816-9) Negative Negativ e [facility] B Surface Epswksk9709-37-89 01:39:00* Test Item Value Reference Range Interpretation Comments Hepatitis B Surface Antigen (test code = 5196-1) Negative Negat chanell [facility] B Core IgM Bmmdizyg4964-95-83 01:39:00* Test Item Value Reference Range Interpretation Comments Hepatitis B Core IgM Antibody (test code = 00091-8) Negative Ne gative [facility] C Xtnsuuid8178-13-27 01:39:00* Test Item Value Reference Range Interpretation Comments Hepatitis C Antibody (test code = 72205-2) >11.0 0.0-0.9 H Negative: < 0.8 Indeterminate: 0.8 - 0.9 Positive: > 0.9 The CDC recommends that a positive HCV antibody result be followed up with a HCV Nucleic Acid Amplification test (859686).Performed at: [address] [id number] Director: Alex Cruz MD, Phone: [phone] Hermann Southeast HospitalVancomycin Level Trough 2018-11-18 16:50:00* Test Item Value Reference Range Interpretation Comments Vancomycin Level Trough (test code = 4092-3) 10.6 5.0-10.0 HH Results repeated and called to [facility] at 1649 on 11/18/18 by Yonatan Edwards. Tracy selby back and verified.[facility] HospitalVancomycin Level Ktxrws1905-95-76 16:50:00* Test Item Value Reference Range Interpretation Comments Vancomycin Level Trough (test code = 4092-3) 10.6 5.0-10.0 HH Results repeated and called to [facility] at 1649 on 11/18/18 by Yonatan Edwards. Tracy selby back and verified.[facility] HospitalBlood Culture 2018-11-18 12:54:00* Test Item Value Reference Range Interpretation Comments Blood Culture (test code = 02072196) NO GROWTH AFTER 72 HOURS [facility] Dsgxfsv1319-44-38 07:37:00* Test Item Value Reference Range Interpretation Comments Urine Culture (test code = 630-4) No Result Data Provided [facility] Jcyzfjh5664-67-92 07:37:00* Test Item Value Reference Range Interpretation Comments Urine Culture (test code = 630-4) No Result Data Provided [facility] HospitalThyroid Stimulating Hormone (TSH) 2018-11-17 10:49:00* Test Item Value Reference Range Interpretation Comments Thyroid Stimulating Hormone (TSH) (test code = 70059-2) 0.174 0.350-4.940 L [facility] HospitalThyroid Stimulating Hormone (TSH) 2018-11-17 10:49:00* Test Item Value Reference Range Interpretation Comments Thyroid Stimulating Hormone (TSH) (test code = 24042-6) 0.174 0.350-4.940 L [facility] HospitalAlpha Vsnwzyykgoq5128-24-70 09:35:00* Test Item Value Reference Range Interpretation Comments Alpha Fetoprotein (test code = 57124-4) 3.4 0.0-8.3 [facility] Electrochemiluminescence Immunoassay(ECLIA)Values obtained wit h different assay methods or kits cannotbe used interchangeably. Results cannot be interpreted asabsolute evidence of the presence or absence of malignantdisea se.This test is not interpretable in females.Performed at: [address] [id number] Director: Alex Cruz MD, Phone: [phone] Hermann Southeast HospitalAlpha Fetoprotein 2018-11-17 09:35:00* Test Item Value Reference Range Interpretation Comments Alpha Fetoprotein (test code = 91893-2) 3.4 0.0-8.3 [facility] Electrochemiluminescence Immunoassay(ECLIA)Values obtained wit h different assay methods or kits cannotbe used interchangeably. Results cannot be interpreted asabsolute evidence of the presence or absence of malignantdisea se.This test is not interpretable in females.Performed at: [address] [id number] Director: Alex Cruz MD, Phone: [phone] Hermann Southeast HospitalErythrocyte Sedimentation Diey4459-33-25 09:22:00* Test Item Value Reference Range Interpretation Comments Erythrocyte Sedimentation Rate (test code = 4537-7) 79 0- 20 H [facility] HospitalErythrocyte Sedimentation Cyso5052-39-12 09:22:00* Test Item Value Reference Range Interpretation Comments Erythrocyte Sedimentation Rate (test code = 4537-7) 79 0- 20 H [facility] HospitalPlatelet Pduzmnrn0877-21-64 08:11:00* Test Item Value Reference Range Interpretation Comments Platelet Estimate (test code = 82954-8) SLIGHTLY INCREASED [facility] HospitalPlatelet Morphology Kzzkryq3192-57-70 08:11:00* Test Item Value Reference Range Interpretation Comments Platelet Morphology Comment (test code = 57544-4) NORMAL [facility] HospitalHypochromasia2019-10-05 08:11:00* Test Item Value Reference Range Interpretation Comments Hypochromasia (test code = 728-6) MODERATE [facility] HospitalPoikilocytosis2019-10-05 08:11:00* Test Item Value Reference Range Interpretation Comments Poikilocytosis (test code = 779-9) SLIGHT [facility] HospitalAnisocytosis2019-10-05 08:11:00* Test Item Value Reference Range Interpretation Comments Anisocytosis (test code = 702-1) SLIG [facility] HospitalMicrocytosis2019-10-05 08:11:00* Test Item Value Reference Range Interpretation Comments Microcytosis (test code = 741-9) MODE [facility] 08:11:00* Test Item Value Reference Range Interpretation Comments Schistocytes (test code = 800-3) FEW [facility] HospitalHypochromasia2019-10-05 08:11:00* Test Item Value Reference Range Interpretation Comments Hypochromasia (test code = 728-6) MODERATE [facility] HospitalPoikilocytosis2019-10-05 08:11:00* Test Item Value Reference Range Interpretation Comments Poikilocytosis (test code = 779-9) SLIGHT [facility] HospitalAnisocytosis2019-10-05 08:11:00* Test Item Value Reference Range Interpretation Comments Anisocytosis (test code = 702-1) [facility]Microcytosis2019-[facility]-05 08:11:00* Test Item Value Reference Range Interpretation Comments Microcytosis (test code = 741-9) [facility]DE [facility] Hospitalchistocytes2019-10-05 08:11:00* Test Item Value Reference Range Interpretation Comments Schistocytes (test code = 800-3) FEW [facility] HospitalWound Buktttf7715-95-18 08:07:00* Test Item Value Reference Range Interpretation Comments Wound Culture (test code = 6462-6) No Result Data Provided [facility] Dfehnty3757-37-20 08:07:00* Test Item Value Reference Range Interpretation Comments Wound Culture (test code = 6462-6) No Result Data Provided [facility] HospitalHemoglobin A1c Mysxtyy0162-29-74 06:06:00 * Test Item Value Reference Range Interpretation Comments Hemoglobin A1c Percent (test code = Hemoglobin A1c Percent) 5.4 4.0-7.0 [facility] HospitalTotal Nrnnhbddz6875-82-56 06:06:00* Test Item Value Reference Range Interpretation Comments Total Bilirubin (test code = 1975-2) 0.2 0.2-1.2 [facility] HospitalDirect Nqdjsdquv3988-67-79 06:06:00* Test Item Value Reference Range Interpretation Comments Direct Bilirubin (test code = 72964-2) 0.1 0.0-0.5 [facility] HospitalAspartate Amino Transf (AST/SGOT) 2018-11-17 06:06:00* Test Item Value Reference Range Interpretation Comments Aspartate Amino Transf (AST/SGOT) (test code = Aspartate Amino Transf (AST/SGOT)) 19 5-34 [facility] HospitalAlanine Aminotransferase (ALT/SGPT) 2018-11-17 06:06:00* Test Item Value Reference Range Interpretation Comments Alanine Aminotransferase (ALT/SGPT) (test code = 1742-6) 46 0-55 [facility] HospitalTotal Dinmtlq2272-87-22 06:06:00* Test Item Value Reference Range Interpretation Comments Total Protein (test code = 2885-2) 6.7 6.5-8.1 [facility] HospitalAlbumin2019-10-05 06:06:00* Test Item Value Reference Range Interpretation Comments Albumin (test code = 1751-7) 2.7 3.5-5.0 L [facility] HospitalAlkaline Tmueqecponi9039-49-62 06:06:00* Test Item Value Reference Range Interpretation Comments Alkaline Phosphatase (test code = 6768-6) 219 40-150 H [facility] HospitalHemoglobin A1c Msmbqac1743-19-31 06:06:00 * Test Item Value Reference Range Interpretation Comments Hemoglobin A1c Percent (test code = Hemoglobin A1c Percent) 5.4 4.0-7.0 [facility] HospitalDirect Bhbucczve6369-02-38 06:06:00* Test Item Value Reference Range Interpretation Comments Direct Bilirubin (test code = 80415-8) 0.1 0.0-0.5 [facility] PZVMSHJYK0760-59-97 18:07:00 [facility] [address] [address] Patient Name: DAVIE CORADO MR #: [id number] : 1970 Age/Sex: 48/F Req #: [id number] Adm Physician: ANGELICA ZALDIVAR MD Ordered by: ANGELICA ZALDIVAR MD Report #: [id number] Location: MED/SURG2 Room/Bed: [facility] Procedure: [id number] DX/CHEST XRAY LINE PLACEMENT Exam Date: 11/16/18 [...] COPY TO: ANGELICA ZALDIVAR MD Vitamin B12 Negpc6641-55-23 10:39:00* Test Item Value Reference Range Interpretation Comments Vitamin B12 Level (test code = 38026-4) 727 213-816 [facility] HospitalFolate2019-10-04 10:39:00* Test Item Value Reference Range Interpretation Comments Folate (test code = 2284-8) 14.6 7.0-15.4 [facility] HospitalVitamin B12 Ebshd3764-97-19 10:39:00* Test Item Value Reference Range Interpretation Comments Vitamin B12 Level (test code = 12814-5) 727 213-816 [facility] HospitalFolate2019-10-04 10:39:00* Test Item Value Reference Range Interpretation Comments Folate (test code = 2284-8) 14.6 7.0-15.4 [facility] HospitalFerritin2019-10-04 10:22:00* Test Item Value Reference Range Interpretation Comments Ferritin (test code = 2276-4) 98.24 4.63-204.00 [facility] HospitalFerritin2019-10-04 10:22:00* Test Item Value Reference Range Interpretation Comments Ferritin (test code = 2276-4) 98.24 4.63-204.00 [facility] HospitalIron Xgeat7487-25-15 10:04:00* Test Item Value Reference Range Interpretation Comments Iron Level (test code = 2498-4) 14 50-170 L [facility] HospitalTotal Iron Binding Umpncojn3588-81-67 10:04:00* Test Item Value Reference Range Interpretation Comments Total Iron Binding Capacity (test code = 2500-7) 346 261-4 78 [facility] HospitalPercent Iron Xzwrsypuep7124-59-13 10:04:00* Test Item Value Reference Range Interpretation Comments Percent Iron Saturation (test code = 2502-3) 4 15-50 L [facility] HospitalTransferrin2019-10-04 10:04:00* Test Item Value Reference Range Interpretation Comments Transferrin (test code = 3034-6) 247 180-382 [facility] Aytqh1869-46-80 10:04:00* Test Item Value Reference Range Interpretation Comments Iron Level (test code = 2498-4) 14 50-170 L [facility] HospitalTotal Iron Binding Fcwzbxzz2899-01-50 10:04:00* Test Item Value Reference Range Interpretation Comments Total Iron Binding Capacity (test code = 2500-7) 346 261-4 78 [facility] HospitalPercent Iron Lrshdreacb9193-14-06 10:04:00* Test Item Value Reference Range Interpretation Comments Percent Iron Saturation (test code = 2502-3) 4 15-50 L [facility] HospitalTransferrin2019-10-04 10:04:00* Test Item Value Reference Range Interpretation Comments Transferrin (test code = 3034-6) 247 180-382 [facility] HospitalPercent Reticulocyte Phjbn0162-06-14 09:54:00* Test Item Value Reference Range Interpretation Comments Percent Reticulocyte Count (test code = 02610-3) 1.0 0.8-2 .2 [facility] HospitalPercent Reticulocyte Wjrul9709-19-68 09:54:00* Test Item Value Reference Range Interpretation Comments Percent Reticulocyte Count (test code = 36741-1) 1.0 0.8-2 .2 [facility] HospitalGlobulin2019-10-04 05:49:00* Test Item Value Reference Range Interpretation Comments Globulin (test code = 56746-0) 3.8 2.3-3.5 H [facility] HospitalAlbumin/Globulin Olnvi0464-85-85 05:49:00 * Test Item Value Reference Range Interpretation Comments Albumin/Globulin Ratio (test code = 1759-0) 0.7 0.8-2.0 L [facility] HospitalCT ABDOMEN/PELVIS Q6495-45-40 14:59:[address] [address] Patient Name: DAVIE CORADO MR #: [id number] : 1970 Age/Sex: 48/F Req #: [id number] Adm Physician: Ordered by: NILSON ARMENTA MANAGEMENT LEAD Report #: [id number] Location: Room/Bed: Procedure: [id number] CT/CT ABDOMEN/PELVIS W Exam Date: Exam Time: [...] 3:08 PM Dictated By: DILSHAD MACARIO MD 07 Transcribed By: CHARLES on 11/15/181507 COPY TO: NILSON ARMENTA NP Amylase Jwizh8319-34-99 13:33:00* Test Item Value Reference Range Interpretation Comments Amylase Level (test code = 1798-8) 12 25-125 L [facility] HospitalLipase2019-10-03 13:33:00* Test Item Value Reference Range Interpretation Comments Lipase (test code = 3040-3) [facility] HospitalAmylase Qhtoo9341-36-08 13:33:00* Test Item Value Reference Range Interpretation Comments Amylase Level (test code = 1798-8) 12 25-125 L [facility] HospitalLipase2019-10-03 13:33:00* Test Item Value Reference Range Interpretation Comments Lipase (test code = 3040-3) [facility] HospitalProthrombin Zrpf6768-51-56 13:25:00* Test Item Value Reference Range Interpretation Comments Prothrombin Time (test code = 5902-2) 12.4 11.9-14.5 [facility] HospitalProthromb Time International Ratio 2018-11-15 13:25:00* Test Item Value Reference Range Interpretation Comments Prothromb Time International Ratio (test code = 6301-6) 0.88 Oral Anticoagulant Therapy INR Values:1. Low Intensity Therapy 1.5 - 2.02 . Moderate Intensity Therapy 2.0 - 3.03. High Intensity Therapy(1) 2.5 - 3. 54. High Intensity Therapy(2) 3.0 - 4.05. Panic Value INR > 5.0 [facility] HospitalActivated Partial Thromboplast Time 2018-11-15 13:25:00* Test Item Value Reference Range Interpretation Comments Activated Partial Thromboplast Time (test code = 39439-4) 41.3 23.8-35.5 H [facility] HospitalProthrombin Jjxi7873-36-03 13:25:00* Test Item Value Reference Range Interpretation Comments Prothrombin Time (test code = 5902-2) 12.4 11.9-14.5 [facility] HospitalProthromb Time International Ratio 2018-11-15 13:25:00* Test Item Value Reference Range Interpretation Comments Prothromb Time International Ratio (test code = 6301-6) 0.88 Oral Anticoagulant Therapy INR Values:1. Low Intensity Therapy 1.5 - 2.02 . Moderate Intensity Therapy 2.0 - 3.03. High Intensity Therapy(1) 2.5 - 3. 54. High Intensity Therapy(2) 3.0 - 4.05. Panic Value INR > 5.0 [facility] HospitalActivated Partial Thromboplast Time 2018-11-15 13:25:00* Test Item Value Reference Range Interpretation Comments Activated Partial Thromboplast Time (test code = 14674-7) 41.3 23.8-35.5 H [facility] HospitalUrine YNR7232-86-06 12:38:00* Test Item Value Reference Range Interpretation Comments Urine WBC (test code = 5821-4) 6-10 0-5 H [facility] HospitalUrine LLC6071-61-86 12:38:00* Test Item Value Reference Range Interpretation Comments Urine RBC (test code = 63772-2) 6-10 0-5 H [facility] HospitalUrine Fjaohuac3623-28-18 12:38:00* Test Item Value Reference Range Interpretation Comments Urine Bacteria (test code = 65370-1) FEW NONE [facility] HospitalUrine Epithelial Lpgph5658-47-73 12:38:00 * Test Item Value Reference Range Interpretation Comments Urine Epithelial Cells (test code = 45238-1) FEW NONE [facility] HospitalUrine MKI7872-85-96 12:38:00* Test Item Value Reference Range Interpretation Comments Urine WBC (test code = 5821-4) 6-10 0-5 H [facility] HospitalUrine FUP4316-58-32 12:38:00* Test Item Value Reference Range Interpretation Comments Urine RBC (test code = 20698-4) 6-10 0-5 H [facility] HospitalUrine Kkfojxbh1146-63-62 12:38:00* Test Item Value Reference Range Interpretation Comments Urine Bacteria (test code = 94682-6) FEW NONE [facility] HospitalUrine Epithelial Vmovx0511-26-34 12:38:00 * Test Item Value Reference Range Interpretation Comments Urine Epithelial Cells (test code = 10202-0) FEW NONE [facility] HospitalUrine Pezhg8707-93-26 12:23:00* Test Item Value Reference Range Interpretation Comments Urine Color (test code = 5778-6) YELLOW YELLOW [facility] HospitalUrine Zqqljbw7618-00-87 12:23:00* Test Item Value Reference Range Interpretation Comments Urine Clarity (test code = 32352-0) CLEAR CLEAR [facility] HospitalUrine Specific Wypblma4722-45-72 12:23:00 * Test Item Value Reference Range Interpretation Comments Urine Specific [place] (test code = 5811-5) 1.025 1.010-1.02 5 [facility] HospitalUrine pY9470-00-26 12:23:00* Test Item Value Reference Range Interpretation Comments Urine pH (test code = 04513-1) 6 5-7 [facility] HospitalUrine Leukocyte Lwsrxmil0340-34-96 12:23:00* Test Item Value Reference Range Interpretation Comments Urine Leukocyte Esterase (test code = 12667-0) SMALL NEGATIV E [facility] HospitalUrine Rveoaon1971-55-09 12:23:00* Test Item Value Reference Range Interpretation Comments Urine Nitrite (test code = 68380-0) POSITIVE NEGATIVE H [facility] HospitalUrine Pwhcsxu9067-01-52 12:23:00* Test Item Value Reference Range Interpretation Comments Urine Protein (test code = 32735-3) NEGATIVE NEGATIVE [facility] HospitalUrine Glucose (UA)2018-11-15 12:23:00* Test Item Value Reference Range Interpretation Comments Urine Glucose (UA) (test code = 73259-9) NEGATIVE NEGATIVE [facility] HospitalUrine Wnsebza4847-90-39 12:23:00* Test Item Value Reference Range Interpretation Comments Urine Ketones (test code = 73185-0) NEGATIVE NEGATIVE [facility] Mdidyalykqsm0396-57-81 12:23:00* Test Item Value Reference Range Interpretation Comments Urine Urobilinogen (test code = 23759-2) 0.2 0.2-1 [facility] HospitalUrine Mamwnsbcn6956-08-10 12:23:00* Test Item Value Reference Range Interpretation Comments Urine Bilirubin (test code = 1977-8) NEGATIVE NEGATIVE [facility] Bhjkp1221-92-93 12:23:00* Test Item Value Reference Range Interpretation Comments Urine Blood (test code = 22082-7) NEGATIVE NEGATIVE [facility] HospitalUrine Mpbhf0092-78-08 12:23:00* Test Item Value Reference Range Interpretation Comments Urine Color (test code = 5778-6) YELLOW YELLOW [facility] HospitalUrine Rpmsmlg4847-96-19 12:23:00* Test Item Value Reference Range Interpretation Comments Urine Clarity (test code = 16292-5) CLEAR CLEAR [facility] HospitalUrine Specific Hukdnhh5818-34-31 12:23:00 * Test Item Value Reference Range Interpretation Comments Urine Specific [place] (test code = 5811-5) 1.025 1.010-1.02 5 [facility] HospitalUrine sL5919-15-49 12:23:00* Test Item Value Reference Range Interpretation Comments Urine pH (test code = 43213-9) 6 5-7 [facility] HospitalUrine Leukocyte Eoyygjal7195-92-14 12:23:00* Test Item Value Reference Range Interpretation Comments Urine Leukocyte Esterase (test code = 15799-1) SMALL NEGATIV E [facility] HospitalUrine Fdixvpo6897-77-92 12:23:00* Test Item Value Reference Range Interpretation Comments Urine Nitrite (test code = 32159-4) POSITIVE NEGATIVE H [facility] HospitalUrine Plslvbc8391-40-61 12:23:00* Test Item Value Reference Range Interpretation Comments Urine Protein (test code = 33929-7) NEGATIVE NEGATIVE [facility] HospitalUrine Glucose (UA)2018-11-15 12:23:00* Test Item Value Reference Range Interpretation Comments Urine Glucose (UA) (test code = 56401-6) NEGATIVE NEGATIVE [facility] HospitalUrine Vwgczfr7521-76-05 12:23:00* Test Item Value Reference Range Interpretation Comments Urine Ketones (test code = 12173-9) NEGATIVE NEGATIVE [facility] HospitalUrine Teflbufbhmof0554-37-92 12:23:00* Test Item Value Reference Range Interpretation Comments Urine Urobilinogen (test code = 35155-2) 0.2 0.2-1 [facility] HospitalUrine Gsgpwfiqf4508-89-51 12:23:00* Test Item Value Reference Range Interpretation Comments Urine Bilirubin (test code = 1977-8) NEGATIVE NEGATIVE [facility] HospitalUrine Ihxhl7158-59-18 12:23:00* Test Item Value Reference Range Interpretation Comments Urine Blood (test code = 38181-9) NEGATIVE NEGATIVE [facility]- XR ABDOMEN AP 1 [id number] 08:04:00 FAX: Brady Rodriguez MD [phone] [place]: B St: ADM FAX: Dima Lorenzo [phone] FAX: Angelica Beatty [phone] --------- Name: DAVIE CORADO [facility] : 1970 Age/S: 47/F [address] it #: [id number] Loc: V.[address] [place] [address] Phys: Angelica Beatty MD Acct: [id number] Dis Date: Status: ADM IN ONE #: [phone] Exam Date: 09/07/2018726 FAX #: [phone] Reason: ILEUS EXAMS: CPT CODE: [id number] XR ABDOMEN AP 1 V 99134 HISTORY: ILEUS TECHNIQUE: AP abdomen x-ray COMPARISON: [...] D.O. CC: Brady Rodriguez MD; Dima Samaniego; Angelica Beatty MD Technolo gist: PETRONA CASTROReba SAMANO Trnscrd Date/Time/B y: 09/07/2018 (803) : By: [email or web address] Orig Print D/T: S: 09/07/2018 (09 19) PAGE 1 Signed Report BASIC METABOLIC IGWMA9374-04-22 05:45:00* Test Item Value Reference Range Interpretation [...] CA) 9.9 mg/dL 8.5-10.1 N CBC W/O [id number] 05:04:00* Test Item Value Reference Range Interpretation [...] 6.7-11.0 N - XR ABDOMEN AP 1 [id number] 09:17:00 FAX: Brady Rodriguez MD [phone] [place]: B St: ADM FAX: Dima Lorenzo [phone] FAX: Treasure Espinosa [phone] Name: DAVIE CORADO [facility] : 1970 Age/S: 47/F [address] Unit #: [id number] Loc: V.30[address] [place] [address] Phys: Treasure Espinosa Acct: [id number] Dis Date: Status: ADM IN ONE #: [phone] Exam Date: 09/06/2018 0820 FAX #: [phone] Reason: sbo vs ileus EXAMS: CPT CODE: [id number] XR ABDOMEN AP 1 V 90088 HISTORY: Small bowel obstruction versus ileus. COMPARISON: [...] Technologist: RT ROBIN(Hortensia) Trnscrd Eugenio e/Time/By: 09/06/2018 (09) : By: [email or web address] Orig Print D/T: S: 2018 (5931) PAGE 1 Signed Report BASIC METABOLIC [id number] 06:33:00* Test Item Value Reference Range Interpretation [...] CA) 9.6 mg/dL 8.5-10.1 N BASIC METABOLIC WEIAB3407-62-12 06:22:00* Test Item Value Reference Range Interpretation [...] code = CA) mg/dL 8.5-10.1 CBC W/O AERW4325-03-10 05:50:00* Test Item Value Reference Range Interpretation [...] MPV) 10.2 fL 6.7-11.0 N CBC W/O [id number] 05:47:00* Test Item Value Reference Range Interpretation [...] code = MPV) fL 6.7-11.0 BASIC METABOLIC XGLRY1610-38-84 06:46:00* Test Item Value Reference Range Interpretation [...] CA) 9.6 mg/dL 8.5-10.1 N BASIC METABOLIC VNDTJ9964-53-06 06:45:00* Test Item Value Reference Range Interpretation [...] CA) 9.6 mg/dL 8.5-10.1 N CBC W/O SREK3614-05-28 06:15:00* Test Item Value Reference Range Interpretation [...] = MPV) 10.0 fL 6.7-11.0 N URINALYSIS VEGSCVLX4976-36-04 16:41:00* Test Item Value Reference Range Interpretation [...] Urine Source? Clean CatchDRUGS OF ABUSE SCREEN BR3410-46-10 16:41:00* Test Item Value Reference Range Interpretation [...] NEGATIVE <300 ng/mL Urine Source? Clean CatchURINALYSIS CFKAQJYO8465-85-17 16:30:00* Test Item Value Reference Range Interpretation [...] Urine Source? Clean CatchDRUGS OF ABUSE SCREEN FO9752-45-85 16:30:00* Test Item Value Reference Range Interpretation [...] Urine Source? Clean Catch- CT ABD PELVIS W/SYJU7811-16-93 14:39:00 Name: DAVIE CORADO [facility] : 1970 Age/S: 47 / F [address] Unit #: [id number] Loc: [place] [address] Phys: Walker Lock MD Acct: [id number] Di s Date: Status: REG ER PHONE #: Exam Date: 09/04/2018 1420 FAX #: [phone] Reason: seizure EXAMS: CPT CODE: [id number] CT ABD PELVIS W/CONT 89063 REASON FOR EXAM: seizure EXAM ORDER DATE: [...] Rosy d Report (CONTINUED) Name: DAVIE CORADO [facility] : 1970 Age/S: 47 / F [address] [facility] Unit #: [id number] Loc: [place], [place] [address] Phys: Linda Lock MD Acct: [id number] Dis Date: Status: REG ER PHONE #: [phone] Exam Date: 09/04/2018 1420 FAX #: [phone] Reason: seizure EXAMS: CPT CODE: [id number] CT ABD PELVIS W/CONT 84291 <Continued> Peritoneum and retroperitoneum: No free fluid [...] Technologist:Radha Coreas,RT(R),CT CTDI: DLP: Trnscb Date/Time: 09/04/2018 (1393) t.SDR.RR31 Orig Print D/T: S: 09/04/2018 (4791) PAGE 2 Signed Report - CT HEAD/BRAIN W/O [id number] 14:29:00 Name: DAVIE CORADO [facility] : 1970 Age/S: 47 / F [address] Unit #: [id number] Loc: [place] [address] Phys: Walker Lock MD Acct: [id number] Di s Date: Status: REG ER PHONE #: Exam Date: 09/04/2018 1420 FAX #: Reason: LLQ ttp, h/o crohn dz EXAMS: CPT CODE: [id number] CT HEAD/BRAIN W/O CONT 16505 HISTORY: LLQ ttp, h/o cr ohn dz TECHNIQUE: Noncontrast 2.[address] of the head. Examina tion acquired within 24 hours of arrival. Automated exposure control for dose reduction. COMPARISON: Noncontrast CT brain November 28, 2016 FINDINGS: No acute hemorrhage. No intracranial mass, mass effect, or midline shift. No CT evidence of acute infarct. Aragno -white matter differentiation is preserved. No hydrocephalus. [...] Technologist:Radha Coreas,RT(R),CT CTDI: DLP: Trnscb Date/Time: 09/04/2018 (1429) t.SDR.RR31 Orig Print D/T: S: 09/04/2018 (6515) PAGE 1 Signed Report BASIC METABOLIC TBPHE7136-04-09 13:46:00* Test Item Value Reference Range Interpretation [...] CA) 11.1 mg/dL 8.5-10.1 H HEPATIC FUNCTION [id number] 13:46:00* Test Item Value Reference Range Interpretation [...] code = CK) 25 IUnit/L 26-208 L QZGQCK7760-08-36 13:46:00* Test Item Value Reference Range Interpretation Comments LIPASE (test code = LIP) 287 U/L 73.0-393.0 N HCG SERUM [id number] 13:46:00* Test Item Value Reference Range Interpretation Comments HCG SERUM QUAL (test code = HCGQL) NEGATIVE NEGATIVE This HCGQL test is NOT applicable for MALE patients.Check with nurse about probable order error.If Tumor Marker Test needed, nurse should order test "HCGTU"(Test #550.90547) DILANTIN (PHENYTOIN)2018-09-04 13:46:00* Test Item Value Reference Range Interpretation Comments DILANTIN (PHENYTOIN) (test code = DIL) 1.0 ug/mL 10.0-20.0 L [id number] 13:46:00* Test Item Value Reference Range Interpretation [...] AT ANADDITIONAL CHARGE TO THE PATIENT. PROTHROMBIN [id number] 13:37:00* Test Item Value Reference Range Interpretation [...] (2.5-3.5) IS PATIENT ON ANTICOAGULANTS? NTHROMBOPLASTIN TIME HWCOLIS9995-15-57 13:37:00* Test Item Value Reference Range Interpretation Comments THROMBOPLASTIN TIME PARTIAL (test code = PTT) 41.7 seconds 25.0-36. 5 H IS PATIENT ON ANTICOAGULANTS? NBASIC METABOLIC [id number] 13:28:00* Test Item Value Reference Range Interpretation [...] code = CA) mg/dL 8.5-10.1 HEPATIC FUNCTION [id number] 13:28:00* Test Item Value Reference Range Interpretation [...] (CK) (test code = CK) IUnit/L 26-208 [id number] 13:28:00* Test Item Value Reference Range Interpretation Comments LIPASE (test code = LIP) U/L 73.0-393.0 HCG SERUM [id number] 13:28:00* Test Item Value Reference Range Interpretation Comments HCG SERUM QUAL (test code = HCGQL) NEGATIVE DILANTIN (PHENYTOIN)2018-09-04 13:28:00* Test Item Value Reference Range Interpretation Comments DILANTIN (PHENYTOIN) (test code = DIL) ug/mL 10.0-20.0 [id number] 13:28:00* Test Item Value Reference Range Interpretation Comments ALCOHOL (test code = ALC) mg/dL 0-3 BASIC METABOLIC [id number] 13:28:00* Test Item Value Reference Range Interpretation [...] code = CA) mg/dL 8.5-10.1 HEPATIC FUNCTION [id number] 13:28:00* Test Item Value Reference Range Interpretation [...] (CK) (test code = CK) IUnit/L 26-208 [id number] 13:28:00* Test Item Value Reference Range Interpretation Comments LIPASE (test code = LIP) U/L 73.0-393.0 HCG SERUM [id number] 13:28:00* Test Item Value Reference Range Interpretation Comments HCG SERUM QUAL (test code = HCGQL) NEGATIVE NEGATIVE This HCGQL test is NOT applicable for MALE patients.Check with nurse about probable order error.If Tumor Marker Test needed, nurse should order test "HCGTU"(Test #550.22803) DILANTIN (PHENYTOIN)2018-09-04 13:28:00* Test Item Value Reference Range Interpretation Comments DILANTIN (PHENYTOIN) (test code = DIL) ug/mL 10.0-20.0 [id number] 13:28:00* Test Item Value Reference Range Interpretation Comments ALCOHOL (test code = ALC) mg/dL 0-3 LACTIC [id number] 13:25:00* Test Item Value Reference Range Interpretation Comments LACTIC ACID (test code = LACT) 1.9 mmol/L 0.4-1.9 N CBC W/O [id number] 13:24:00* Test Item Value Reference Range Interpretation [...] MPV) 9.4 fL 6.7-11.0 N CBC W/O [id number] 13:20:00* Test Item Value Reference Range Interpretation [...] VOLUME (test code = MPV) fL 6.7-11.0 [facility],[id number] 14:35:00 RUN DATE: 05/10/18 [facility] Lab PAGE 1 RUN TIME: 1435 Specimen Inqui ry RUN USER: INTERFACE PATIENT: DAVIE CORADO ACCT #: [id number] LOC: Rayne3SOBS U #: [id number] AGE/SX: 47/F ROOM: [facility] RE05/05/18REG DR: Liliana Barry : 66 BED: A DIS: 05/10/18 STATUS: DIS IN TLOC: SPEC #: [id number] RECD: 05/09/18-124 STATUS: CAMILO HALL #: [id number] ANA: 05/09/18- SUBM DR: Christine Laureano MD ENTERED: 05/09/18-1251 SP TYPE: GASTRIC BX OTHR DR: James Baxter i, MD, Maurice S MD [place], [place] E [facility]: GROSS COPIES TO: James Rivera MD [address], [address] [place] [address] Theron Eden MD [address] [facility] [place] [address] Dima Samaniego DO [address] [place] [address] Christine Laureano MD [address] [place] [address] PROCEDURES: GROSS (05/10-1143) TISSUES: 1. GASTRIC CORPUS - BX 2. RIGHT COLON - BX 3. LEFT COLON - BX CLINICAL HISTORY COLLECTION DATE: 05/10/19 19 ANEMIA, BLOODY DIARRHEA, CROHN'S POST-OP DIAGNOSIS: KELLY ESOPHAGIT IS, GASTRITIS, ANASTOMOSIS FROM PREVIOUS GI SURGERY, POOR PREP, POSSIBLE COLIT IS CONTINUED ON NEXT PAGE R UN DATE: 05/10/18 [facility] PAGE 2 RUN TIME: 1435 Specimen Inquiry RUN USER: INTERFACE SPEC #: [id number] PATIENT: DAVIE CORADO #[id number] (Continued) FINAL DIAGNOSIS Gastric biopsy: PATCHY MILD CHRONIC INFLAMMATION, GASTRIC MUCOSA NO INTEST INAL METAPLASIA SEEN NEGATIVE FOR HELICOBACTER PYLORI NEGATIVE FOR MALIGNANCY Right colon, biopsy: COLONIC MUCOSA, NO PATHOLOGIC ALTERATION Left colon, biopsy: COLONIC MUCOSA, NO PATHOLOGIC AL TERATION [facility]/matt D [id number], [address] MACROSCOPIC The first specimen is received in [...] a nd consists of multiple portions of arvi-pink biopsy tissue measuring 0.2 to 0. 5 cm, submitted as (3). GROSS PERFORMED AT [facility] [address] [place], [place] [address] (p)[phone] MICROSCOPIC All of the stains, including any c ontrols performed, stain appropriately. MICROSCOPIC PERFORMED AT [facility] [address] [place] [address] CONTINUED ON NEXT PAGE --------- ---RUN DATE: 05/10/18 [facility] Lab PAGE 3 RUN TIME: 1435 Specimen Inquiry RUN USER: INTERFACE SPEC #: [id number] PATIENT: DAVIE CORADO #[id number] (Continued) MICROSCOPIC (Continued) (P)[phone] PERFORMING SITE Diagnosis performed at: [facility] [address] [place] [address] Signed SIGNATURE ON FILE Rylee Forrester MD 05/10/18 1435 END OF REPORT BASIC METABOLIC [id number] 10:19:00* Test Item Value Reference Range Interpretation [...] mg/dL 8.5-10.1 L 1 05/09/18 0655BASI METABOLIC [id number] 10:09:00* Test Item Value Reference Range Interpretation [...] code = CA) mg/dL 8.5-10.1 1 05/09/18 0655CBC W/O [id number] 08:47:00* Test Item Value Reference Range Interpretation [...] MPV) 10.8 fL 6.7-11.0 N SEE NOTE ;01 V.LAB.SS1 05/09/18 0656CB W/O [id number] 16:49:00* Test Item Value Reference Range Interpretation [...] MPV) 10.4 fL 6.7-11.0 N 1 05/08/18 0848[facility] METABOLIC [id number] 04:56:00* Test Item Value Reference Range Interpretation [...] CA) 8.6 mg/dL 8.5-10.1 N CBC W/AUTO [id number] 04:48:00* Test Item Value Reference Range Interpretation [...] = MDIFF) NO, ONLY SCAN NEEDED DIFFERENTIAL [id number] 04:48:00* Test Item Value Reference Range Interpretation Comments STAIN ACCEPTABILITY (test code = STN ACCEPTABLE) STAIN ACCEPTABLE POIKILOCYTOSIS (test code = POIK) 1+ PLATELET ESTIMATE (test code = PLTEST) ADEQUATE PLATELET MORPHOLOGY (test code = PLTMORPH) NORMAL BASIC METABOLIC [id number] 04:41:00* Test Item Value Reference Range Interpretation [...] code = CA) mg/dL 8.5-10.1 CBC W/AUTO [id number] 04:35:00* Test Item Value Reference Range Interpretation [...] = MDIFF) NO, ONLY SCAN NEEDED DIFFERENTIAL [id number] 04:35:00* Test Item Value Reference Range Interpretation Comments STAIN ACCEPTABILITY (test code = STN ACCEPTABLE) CABOT RINGS (test code = CAB) MORPHOLOGY COMMENT (test code = MOC) PLATELET ESTIMATE (test code = PLTEST) PLATELET MORPHOLOGY (test code = PLTMORPH) CBC W/AUTO [id number] 04:35:00* Test Item Value Reference Range Interpretation [...] = MDIFF) NO, ONLY SCAN NEEDED DIFFERENTIAL [id number] 04:35:00* Test Item Value Reference Range Interpretation Comments STAIN ACCEPTABILITY (test code = STN ACCEPTABLE) MORPHOLOGY COMMENT (test code = MOC) PLATELET ESTIMATE (test code = PLTEST) PLATELET MORPHOLOGY (test code = PLTMORPH) CBC W/AUTO [id number] 04:34:00* Test Item Value Reference Range Interpretation [...] = MDIFF) NO, ONLY SCAN NEEDED DIFFERENTIAL [id number] 04:34:00* Test Item Value Reference Range Interpretation Comments STAIN ACCEPTABILITY (test code = STN ACCEPTABLE) CABOT RINGS (test code = CAB) MORPHOLOGY COMMENT (test code = MOC) PLATELET ESTIMATE (test code = PLTEST) PLATELET MORPHOLOGY (test code = PLTMORPH) CBC W/AUTO [id number] 04:34:00* Test Item Value Reference Range Interpretation [...] = MDIFF) NO, ONLY SCAN NEEDED DIFFERENTIAL [id number] 04:34:00* Test Item Value Reference Range Interpretation Comments STAIN ACCEPTABILITY (test code = STN ACCEPTABLE) CABOT RINGS (test code = CAB) MORPHOLOGY COMMENT (test code = MOC) PLATELET ESTIMATE (test code = PLTEST) PLATELET MORPHOLOGY (test code = PLTMORPH) CBC W/AUTO [id number] 16:22:00* Test Item Value Reference Range Interpretation [...] = MDIFF) NO, ONLY SCAN NEEDED CLOTTED.REDRAWDIFFERENTIAL [id number] 16:22:00* Test Item Value Reference Range Interpretation Comments STAIN ACCEPTABILITY (test code = STN ACCEPTABLE) STAIN ACCEPTABLE POLYCHROMASIA (test code = POLC) 1+ PLATELET ESTIMATE (test code = PLTEST) ADEQUATE PLATELET MORPHOLOGY (test code = PLTMORPH) NORMAL CLOTTED.REDRAWCBC W/AUTO [id number] 15:26:00* Test Item Value Reference Range Interpretation [...] = MDIFF) NO, ONLY SCAN NEEDED CLOTTED.REDRAWDIFFERENTIAL [id number] 15:26:00* Test Item Value Reference Range Interpretation Comments STAIN ACCEPTABILITY (test code = STN ACCEPTABLE) CABOT RINGS (test code = CAB) MORPHOLOGY COMMENT (test code = MOC) PLATELET ESTIMATE (test code = PLTEST) PLATELET MORPHOLOGY (test code = PLTMORPH) CLOTTED.REDRAWCBC W/AUTO [id number] 15:26:00* Test Item Value Reference Range Interpretation [...] = MDIFF) NO, ONLY SCAN NEEDED CLOTTED.REDRAWDIFFERENTIAL [id number] 15:26:00* Test Item Value Reference Range Interpretation Comments STAIN ACCEPTABILITY (test code = STN ACCEPTABLE) MORPHOLOGY COMMENT (test code = MOC) PLATELET ESTIMATE (test code = PLTEST) PLATELET MORPHOLOGY (test code = PLTMORPH) CLOTTED.REDRAWCBC W/AUTO [id number] 15:25:00* Test Item Value Reference Range Interpretation [...] = MDIFF) NO, ONLY SCAN NEEDED CLOTTED.REDRAWDIFFERENTIAL [id number] 15:25:00* Test Item Value Reference Range Interpretation Comments STAIN ACCEPTABILITY (test code = STN ACCEPTABLE) CABOT RINGS (test code = CAB) MORPHOLOGY COMMENT (test code = MOC) PLATELET ESTIMATE (test code = PLTEST) PLATELET MORPHOLOGY (test code = PLTMORPH) CLOTTED.REDRAWCBC W/AUTO [id number] 15:25:00* Test Item Value Reference Range Interpretation [...] = MDIFF) NO, ONLY SCAN NEEDED CLOTTED.REDRAWDIFFERENTIAL [id number] 15:25:00* Test Item Value Reference Range Interpretation Comments STAIN ACCEPTABILITY (test code = STN ACCEPTABLE) CABOT RINGS (test code = CAB) MORPHOLOGY COMMENT (test code = MOC) PLATELET ESTIMATE (test code = PLTEST) PLATELET MORPHOLOGY (test code = PLTMORPH) CLOTTED.REDRAWURINALYSIS [id number] 03:17:00* Test Item Value Reference Range Interpretation [...] #/LPF FEW Urine Source? Clean CatchBASIC METABOLIC [id number] 01:35:00* Test Item Value Reference Range Interpretation [...] CA) 8.7 mg/dL 8.5-10.1 N HEPATIC FUNCTION [id number] 01:35:00* Test Item Value Reference Range Interpretation [...] reference range due to change in reagent. [id number] 01:35:00* Test Item Value Reference Range Interpretation Comments LIPASE (test code = LIP) 389 U/L 73.0-393.0 N HCG SERUM [id number] 01:35:00* Test Item Value Reference Range Interpretation Comments HCG SERUM QUAL (test code = HCGQL) NEGATIVE NEGATIVE This HCGQL test is NOT applicable for MALE patients.Check with nurse about probable order error.If Tumor Marker Test needed, nurse should order test "HCGTU"(Test #550.61077) BASIC METABOLIC [id number] 01:26:00* Test Item Value Reference Range Interpretation [...] code = CA) mg/dL 8.5-10.1 HEPATIC FUNCTION [id number] 01:26:00* Test Item Value Reference Range Interpretation [...] TOTAL (test code = ALKP) IUnit/L 45-117 [id number] 01:26:00* Test Item Value Reference Range Interpretation Comments LIPASE (test code = LIP) U/L 73.0-393.0 HCG SERUM [id number] 01:26:00* Test Item Value Reference Range Interpretation Comments HCG SERUM QUAL (test code = HCGQL) NEGATIVE NEGATIVE This HCGQL test is NOT applicable for MALE patients.Check with nurse about probable order error.If Tumor Marker Test needed, nurse should order test "HCGTU"(Test #550.77375) BASIC METABOLIC [id number] 01:24:00* Test Item Value Reference Range Interpretation [...] code = CA) mg/dL 8.5-10.1 HEPATIC FUNCTION [id number] 01:24:00* Test Item Value Reference Range Interpretation [...] TOTAL (test code = ALKP) IUnit/L 45-117 [id number] 01:24:00* Test Item Value Reference Range Interpretation Comments LIPASE (test code = LIP) U/L 73.0-393.0 HCG SERUM [id number] 01:24:00* Test Item Value Reference Range Interpretation Comments HCG SERUM QUAL (test code = HCGQL) NEGATIVE CBC W/O [id number] 01:18:00* Test Item Value Reference Range Interpretation [...] DIL) 0.5 ug/mL 10.0-20.0 L C REACTIVE [id number] 18:57:00* Test Item Value Reference Range Interpretation Comments C REACTIVE PROTEIN (test code = CRP) <0.29 mg/dL 0-0.3 N BASIC METABOLIC [id number] 18:57:00* Test Item Value Reference Range Interpretation [...] CA) 8.5 mg/dL 8.5-10.1 N HEPATIC FUNCTION [id number] 18:57:00* Test Item Value Reference Range Interpretation [...] reference range due to change in reagent. [id number] 18:57:00* Test Item Value Reference Range Interpretation Comments LIPASE (test code = LIP) 318 U/L 73.0-393.0 N HCG SERUM [id number] 18:57:00* Test Item Value Reference Range Interpretation Comments HCG SERUM QUAL (test code = HCGQL) NEGATIVE NEGATIVE This HCGQL test is NOT applicable for MALE patients.Check with nurse about probable order error.If Tumor Marker Test needed, nurse should order test "HCGTU"(Test #550.89708) [id number] 18:57:00* Test Item Value Reference Range Interpretation Comments TROPONIN-I (test code = TROPI) <0.015 ng/mL 0-0.045 N BASIC METABOLIC [id number] 18:38:00* Test Item Value Reference Range Interpretation [...] code = CA) mg/dL 8.5-10.1 HEPATIC FUNCTION [id number] 18:38:00* Test Item Value Reference Range Interpretation [...] TOTAL (test code = ALKP) IUnit/L 45-117 [id number] 18:38:00* Test Item Value Reference Range Interpretation Comments LIPASE (test code = LIP) U/L 73.0-393.0 HCG SERUM [id number] 18:38:00* Test Item Value Reference Range Interpretation Comments HCG SERUM QUAL (test code = HCGQL) NEGATIVE NEGATIVE This HCGQL test is NOT applicable for MALE patients.Check with nurse about probable order error.If Tumor Marker Test needed, nurse should order test "HCGTU"(Test #550.28222) [id number] 18:38:00* Test Item Value Reference Range Interpretation Comments TROPONIN-I (test code = TROPI) ng/mL 0-0.045 BASIC METABOLIC [id number] 18:38:00* Test Item Value Reference Range Interpretation [...] code = CA) mg/dL 8.5-10.1 HEPATIC FUNCTION [id number] 18:38:00* Test Item Value Reference Range Interpretation [...] TOTAL (test code = ALKP) IUnit/L 45-117 [id number] 18:38:00* Test Item Value Reference Range Interpretation Comments LIPASE (test code = LIP) U/L 73.0-393.0 HCG SERUM [id number] 18:38:00* Test Item Value Reference Range Interpretation Comments HCG SERUM QUAL (test code = HCGQL) NEGATIVE NEGATIVE This HCGQL test is NOT applicable for MALE patients.Check with nurse about probable order error.If Tumor Marker Test needed, nurse should order test "HCGTU"(Test #550.46054) [id number] 18:38:00* Test Item Value Reference Range Interpretation Comments TROPONIN-I (test code = TROPI) ng/mL 0-0.045 CBC W/O [id number] 17:54:00* Test Item Value Reference Range Interpretation [...] fL 6.7-11.0 N - CT ABD PELVIS [id number] 15:09:00 Name: DAVIE CORADO [facility] : 1970 Age/S: 47 / F [facility] Unit #: [id number] Loc: EM[facility] [place] [address] Phys: CASANDRA COLORADO MD Acct: [id number] Dis Date: Status: REG ER PHONE #: [phone] Exam Date: 05/01/2018 1420 FAX #: [phone] Reason: abdominal pain, crohn's disease EXAMS: CPT CODE: [id number] CT ABD PELVIS W/CONT 46368 EXAM: CT of the abdomen and pelvis [...] andra by Geraldine Franz on 05/01/2018 at 1503 Reported and signed by: Ralf Franz M.D. PAGE 1 Signed Report (CONTINU ED) Name: DAVIE CORADO [facility] : 1970 Age/S: 47 / F [address] [facility] Unit #: [id number] Loc: [place] [address] Phys: CASANDRA COLORADO MD Acct: [id number] Dis Date: Status: REG ER PHONE #: [phone] Exam Date: 05/01/2018 1420 FAX #: Reason: abdominal pain, crohn's disease EXAMS: CPT CODE: [id number] CT ABD PE LVIS W/CONT 96329 <Continued> CC: Dima Samaniego; CASANDRA COLORADO MD Technologist:Umu Jordan RT(R),CT; CTDI: DLP: Trnscb Date/Time: 05/01/2018 (8497) [email or web address] Orig Print D/T: S: 05/01/2018 (1239) CTDI: DLP: PAGE 2 Signed Report BASIC METABOLIC [id number] 11:09:00* Test Item Value Reference Range Interpretation [...] CA) 9.7 mg/dL 8.5-10.1 N HEPATIC FUNCTION [id number] 11:09:00* Test Item Value Reference Range Interpretation [...] reference range due to change in reagent. [id number] 11:09:00* Test Item Value Reference Range Interpretation Comments LIPASE (test code = LIP) 389 U/L 73.0-393.0 N HCG SERUM [id number] 11:09:00* Test Item Value Reference Range Interpretation Comments HCG SERUM QUAL (test code = HCGQL) NEGATIVE NEGATIVE This HCGQL test is NOT applicable for MALE patients.Check with nurse about probable order error.If Tumor Marker Test needed, nurse should order test "HCGTU"(Test #550.35670) BASIC METABOLIC [id number] 11:06:00* Test Item Value Reference Range Interpretation [...] CA) 9.7 mg/dL 8.5-10.1 N HEPATIC FUNCTION [id number] 11:06:00* Test Item Value Reference Range Interpretation [...] reference range due to change in reagent. [id number] 11:06:00* Test Item Value Reference Range Interpretation Comments LIPASE (test code = LIP) 389 U/L 73.0-393.0 N HCG SERUM [id number] 11:06:00* Test Item Value Reference Range Interpretation Comments HCG SERUM QUAL (test code = HCGQL) NEGATIVE [id number] 11:06:00* Test Item Value Reference Range Interpretation Comments TROPONIN-I (test code = TROPI) <0.015 ng/mL 0-0.045 N C REACTIVE [id number] 11:06:00* Test Item Value Reference Range Interpretation Comments C REACTIVE PROTEIN (test code = CRP) <0.29 mg/dL 0-0.3 N BASIC METABOLIC [id number] 10:59:00* Test Item Value Reference Range Interpretation [...] code = CA) mg/dL 8.5-10.1 HEPATIC FUNCTION [id number] 10:59:00* Test Item Value Reference Range Interpretation [...] TOTAL (test code = ALKP) IUnit/L 45-117 [id number] 10:59:00* Test Item Value Reference Range Interpretation Comments LIPASE (test code = LIP) U/L 73.0-393.0 HCG SERUM [id number] 10:59:00* Test Item Value Reference Range Interpretation Comments HCG SERUM QUAL (test code = HCGQL) NEGATIVE CBC W/O [id number] 10:38:00* Test Item Value Reference Range Interpretation [...] code = MPV) fL 6.7-11.0 CBC W/O [id number] 10:38:00* Test Item Value Reference Range Interpretation [...] MPV) 9.2 fL 6.7-11.0 N CBC W/O [id number] 16:18:00* Test Item Value Reference Range Interpretation [...] fL 6.7-11.0 N 1511- CT ABD PELVIS [id number] 15:38:00 Name: DAVIE CORADO [facility] : 1970 Age/S: 47 / F [facility] Unit #: [id number] Loc: EM[facility] [place] [address] Phys: Shiloh Mendez MD Acct: [id number] Dis Date: Status: REG ER PHONE #: [phone] Exam Date: 03/08/2018 1458 FAX #: [phone] Reason: abd pain, crohns EXAMS: CPT CODE: [id number] CT ABD PELVIS W/CONT 82846 EXAM: CT of the abdomen and pelvis [...] DLP: PAGE 1 Signed Report BASIC METABOLIC [id number] 13:31:00* Test Item Value Reference Range Interpretation [...] CA) 9.6 mg/dL 8.5-10.1 N HEPATIC FUNCTION [id number] 13:31:00* Test Item Value Reference Range Interpretation [...] reference range due to change in reagent. [id number] 13:31:00* Test Item Value Reference Range Interpretation Comments LIPASE (test code = LIP) 94 U/L 73.0-393.0 N HCG SERUM [id number] 13:31:00* Test Item Value Reference Range Interpretation Comments HCG SERUM QUAL (test code = HCGQL) NEGATIVE NEGATIVE This HCGQL test is NOT applicable for MALE patients.Check with nurse about probable order error.If Tumor Marker Test needed, nurse should order test "HCGTU"(Test #550.93661) BASIC METABOLIC [id number] 13:26:00* Test Item Value Reference Range Interpretation [...] code = CA) mg/dL 8.5-10.1 HEPATIC FUNCTION [id number] 13:26:00* Test Item Value Reference Range Interpretation [...] TOTAL (test code = ALKP) IUnit/L 45-117 [id number] 13:26:00* Test Item Value Reference Range Interpretation Comments LIPASE (test code = LIP) U/L 73.0-393.0 HCG SERUM [id number] 13:26:00* Test Item Value Reference Range Interpretation Comments HCG SERUM QUAL (test code = HCGQL) NEGATIVE NEGATIVE This HCGQL test is NOT applicable for MALE patients.Check with nurse about probable order error.If Tumor Marker Test needed, nurse should order test "HCGTU"(Test #550.97394) BASIC METABOLIC [id number] 13:21:00* Test Item Value Reference Range Interpretation [...] code = CA) mg/dL 8.5-10.1 HEPATIC FUNCTION [id number] 13:21:00* Test Item Value Reference Range Interpretation [...] TOTAL (test code = ALKP) IUnit/L 45-117 [id number] 13:21:00* Test Item Value Reference Range Interpretation Comments LIPASE (test code = LIP) U/L 73.0-393.0 HCG SERUM [id number] 13:21:00* Test Item Value Reference Range Interpretation Comments HCG SERUM QUAL (test code = HCGQL) NEGATIVE
[2019-12-31] MEDS: HYDROMORPHONE 1MG/1ML INJ IV PRN ×6 (01:55→16:34)
[2019-12-31] MEDS: SODIUM CHLORIDE 0.9% 1000ML 1,000 ML IV SCH ×2 (02:04→09:02)
--- NOTE | 2019-12-31 03:00 | NUR ---
Received the patient from er in a stretcher with c/o pain and swelling to right arm .redness noted to right elbow.assessment done.aaox3.ambulates.no resp.distress noted.oriented to the unit.phone and call light within reach.instructed to call for assistance as needed.urine to be collected.provided container and explained.verbalized understanding.
[2019-12-31] MEDS: ONDANSETRON HCL INJ 2MG/ML 2ML 2 MG/ML VIAL IV PRN ×3 (05:14→19:42)
[2019-12-31] MEDS ORDERED: POLYETHYLENE GLYCOL 3350 17 GM PACK PO PRN (05:30)
[2019-12-31] MEDS ORDERED: HYDRALAZINE HCL 20 MG/ML VIAL IV PRN (05:30)
[2019-12-31] MEDS ORDERED: TEMAZEPAM 7.5 MG CAP PO PRN (05:30)
[2019-12-31] MEDS: PIPER-TAZ 3.375 GM 50 ML IV SCH ×3 (05:37→18:30)
--- NOTE | 2019-12-31 07:15 | NUR ---
Bed side shift report given to oncoming Rn.stable condition.
[2019-12-31] MEDS: DOCUSATE SODIUM 100 MG CAP PO SCH ×2 (09:00→16:35)
[2019-12-31] MEDS: FAMOTIDINE 20 MG/2 ML VIAL IV SCH ×2 (09:04→16:34)
--- NOTE | 2019-12-31 09:45 | NUR ---
pt states that the ordered dilaudid 1mg [id number] is not enough pain medication and is requesting that her xanax be restarted. spoke to Rayan Vann NP and recieved orders to restart xanax but HOUSEKEEPING ASSISTANT stated that the patient can not receive more pain medication.
[2019-12-31] MEDS: ALPRAZOLAM 0.5 MG TAB PO PRN ×2 (10:01→16:35)
--- NOTE | 2019-12-31 12:00 | NUR ---
CALLED PATIENT'S PHARMACY ([facility]) TO VERIFY WHAT PAIN MEDICATION SHE IS TAKING AT HOME REQUESTED BY GERMÁN BUSCH. PER PHARMACY, PATIENT ONLY HAS PRESCRIPTION FOR NORCO 10-325 1 TABLET PO Q6H PRN FOR PAIN. PHARMACIST ALSO STATED THAT PATIENT IS CALLING PHARMACY STATING THAT SHE DID NOT MARZIPAN MOLDER HER PRESCRIPTION WHEN IT HAS ALREADY BEEN PICKED UP. NOTIFIED GERMÁN BUSCH.
[2019-12-31] MEDS: VANCOMYCIN 1GM/NS 250 ML 250 ML IV SCH (13:55)
--- NOTE | 2019-12-31 14:00 | NUR ---
RN asked patient for urine sample, pt stated that she "keeps forgetting" and that she will provide urine sample the next time she goes to the bathroom.
[2019-12-31] MEDS ORDERED: PANTOPRAZOLE SOD 40 MG TABEC PO SCH ×2 (16:30→17:00)
[2019-12-31] MEDS: PANTOPRAZOLE SOD 40 MG TABEC PO SCH (16:34)
--- NOTE | 2019-12-31 17:39 | Consultation ---
DATE OF CONSULTATION: 12/31/2019 CHIEF COMPLAINT: Right arm infection. HISTORY OF PRESENT ILLNESS: This patient is a 49-year-old female with 3-day history of progressive swelling of the right upper extremity starting up in the upper arm and spreading down toward the wrist with increased tenderness with no fever or chills. The patient denies history of recent trauma, but admitted to being bit by a brown recluse spider on December 14, which has resolved 2 weeks ago. PAST MEDICAL HISTORY: Positive for Crohn disease, seizure disorder, migraine. PAST SURGICAL HISTORY: Unremarkable. ALLERGIES: SHE HAS ALLERGIC REACTION TO DEMEROL AND TRAMADOL. SOCIAL HABITS: No smoking or alcohol abuse. REVIEW OF SYSTEMS: No chest pain, shortness of breath, cough, or fevers. PHYSICAL EXAMINATION: VITAL SIGNS: Stable, afebrile. GENERAL: She is awake, alert, in moderate discomfort. HEENT: Sclerae anicteric. NECK: Supple. LUNGS: Clear. HEART: Regular rate and rhythm. ABDOMEN: Soft. EXTREMITIES: Revealed a very edematous right upper extremity, starting from the upper arm and involving the forearm and wrist with point tenderness on the medial aspect of the right elbow. LABORATORY DATA: White cell count is 9, hemoglobin of 10. Creatinine of 0.6. Plain x-ray show no osseous involvement. ASSESSMENT: Right upper arm soft tissue infection, cellulitis. IV antibiotic has been initiated. PLAN: CT of the upper extremity to rule out fasciitis. We will follow. Jay Lazar MD DNFrida/MODFrida /[id number]
--- NOTE | 2019-12-31 18:11 | NUR ---
pt is crying and states that she "can't take it anymore" and her pain is too bad. notified Rayna Vann NP and got new orders.
[2019-12-31] MEDS ORDERED: HYDROCODONE/APAP 10MG-325MG TAB PO PRN (18:15)
[2019-12-31] MEDS ORDERED: HYDROMORPHONE 1MG/1ML INJ IV PRN (18:15)
--- NOTE | 2019-12-31 18:15 | NUR ---
the patient was asked again for urine sample, pt stated that she would "do it tonight".
--- NOTE | 2019-12-31 18:21 | NUR ---
got telephone order from Dr Lazar to change CT of right elbow from WOW contrast to W contrast
--- NOTE | 2019-12-31 19:45 | NUR ---
PATIENT OFF THE UNIT FOR CT ELBOW.
--- NOTE | 2019-12-31 20:15 | NUR ---
PATIENT IS BACK TO THE UNIT AFTER CT MIKKI STABLE CONDITION.
[2019-12-31] MEDS ORDERED: SODIUM CHLORIDE 0.9% 50ML 50 ML ONE (20:21)
[2019-12-31] MEDS ORDERED: IOPAMIDOL 370 MG/ML 200 ML INFUS..BTL INJ ONE (20:21)
--- NOTE | 2019-12-31 21:02 | Diagnostic Imaging Report ---
EXAM: CT of the site without contrast INDICATION: Elbow pain suspicious for cellulitis. COMPARISON: Same day radiograph.. TECHNIQUE: Multidetector CT scanning of the site was performed. Coronal and sagittal multiplanar reformations were obtained. RADIATION DOSE: Total DLP: 298 mGy*cm Estimated effective dose: (DLP x 0.014 x size factor) mSv CTDIvol has been reviewed. It is below the limits set by the Radiation Protocol Committee (RPC). Dose modulation, iterative reconstruction, and/or weight based adjustment of the mA/kV was utilized to reduce the radiation dose to as low as reasonably achievable. FINDINGS: Bones: No acute fracture or osseous abnormality identified. Joints: Normal alignment. Soft Tissues: There is skin thickening and subcutaneous soft tissue edema around the distal arm, elbow and proximal forearm IMPRESSION: 1. Skin thickening and subcutaneous soft tissue edema around the distal arm, elbow and proximal forearm. Findings are suggestive but not diagnostic of cellulitis. 2. No osseous abnormality. Signed by: Rashi Christie MD on 12/31/2019 8:59 PM
[2020-01-01] MEDS: PIPER-TAZ 3.375 GM 50 ML IV SCH ×4 (00:51→17:13)
[2020-01-01] MEDS: ONDANSETRON HCL INJ 2MG/ML 2ML 2 MG/ML VIAL IV PRN ×2 (00:55→05:34)
[2020-01-01] MEDS: HYDROMORPHONE 1MG/1ML INJ IV PRN ×3 (01:00→10:13)
--- NOTE | 2020-01-01 01:00 | NUR ---
ER NURSE STARTED NEW IV TO LEFT AC #20 G .PATENT.
[2020-01-01] MEDS: VANCOMYCIN 1GM/NS 250 ML 250 ML IV SCH ×3 (01:27→12:34)
--- NOTE | 2020-01-01 01:48 | NUR ---
Rn reminded the patient to collect urine sample.patient stated that "forgetting to collect sample". was in the unit. changed to dilaudid 1mg iv every 4 hrs as needed.
[2020-01-01 05:47] VITALS: BP 104/66
[2020-01-01 06:00] LABS: BASOPHILS % 0.3 % (0.0-1.0); EOSINOPHILS # (AUTO) 0.1 (0.0-0.4); EOSINOPHILS % 0.9 % (0.0-6.0); HEMATOCRIT 30.4 % (34.2-44.1); HEMOGLOBIN 9.1 g/dL (12.0-16.0); LYMPHOCYTES # (AUTO) 1.7 (1.0-3.2); LYMPHOCYTES % 22.1 % (18.0-39.1); MEAN CORPUSCULAR HEMOGLOBIN 23.4 pg (28-32); MEAN CORPUSCULAR HGB CONC 29.9 g/dL (31-35); MEAN CORPUSCULAR VOLUME 78.1 fL (81-99); MONOCYTES # (AUTO) 0.7 (0.2-0.8); MONOCYTES % 9.1 % (4.4-11.3); NEUTROPHILS # (AUTO) 5.2 (2.1-6.9); NEUTROPHILS % 67.2 % (38.7-80.0); PLATELET COUNT 292 x10e3/uL (140-360); RED BLOOD COUNT 3.89 x10e6/uL (3.6-5.1); RED CELL DISTRIBUTION WIDTH 16.7 % (11.7-14.4)
--- NOTE | 2020-01-01 06:11 | NUR ---
Patient has not collected urine sample.
[2020-01-01 06:28] LABS: MAGNESIUM 2.2 MG/DL (1.3-2.1); PHOSPHORUS 3.1 MG/DL (2.3-4.7)
[2020-01-01 06:30] LABS: ALANINE AMINOTRANSFERASE 14 IU/L (0-55); ALBUMIN 2.8 g/dL (3.5-5.0); ALBUMIN/GLOBULIN RATIO 0.7 (0.8-2.0); ALKALINE PHOSPHATASE 122 IU/L (40-150); ANION GAP 8.9 mmol/L (8-16); BLOOD UREA NITROGEN 5 mg/dL (7-26); BUN/CREATININE RATIO 9 (6-25); CALCIUM 8.9 mg/dL (8.4-10.2); CARBON DIOXIDE 29 mmol/L (22-29); CHLORIDE 107 mmol/L (98-107); CREATININE, SERUM 0.58 mg/dL (0.57-1.11); EST GLOMERULAR FILTRATION RATE > 60 ML/MIN (60-); GLUCOSE 111 mg/dL (74-118); POTASSIUM 3.9 mmol/L (3.5-5.1); SODIUM 141 mmol/L (136-145)
[2020-01-01 06:55] LABS: THYROID STIMULATING HORMONE 2.284 uIU/mL (0.350-4.940)
--- NOTE | 2020-01-01 07:00 | NUR ---
BEDSIDE SHIFT REPORT RECEIVED FROM CINDY LLANOS. PT DENIES NEEDS AT THIS TIME.
--- NOTE | 2020-01-01 07:15 | NUR ---
Bed side shift report given to oncoming Rn.stable condition.
[2020-01-01 07:27] VITALS: BP 98/57
[2020-01-01 08:14] VITALS: BP 98/57
[2020-01-01] MEDS: PANTOPRAZOLE SOD 40 MG TABEC PO SCH ×2 (08:26→16:40)
[2020-01-01] MEDS: DOCUSATE SODIUM 100 MG CAP PO SCH ×2 (08:27→16:39)
--- NOTE | 2020-01-01 08:55 | NUR ---
Pt. expressed no spiritual or emotional concerns at this time. Zipper Cutter provided hospitality and information on how to reach wage analyst, if needed. OBI ARAUJO Zipper Cutter Spiritual Care Department O: [phone]
[2020-01-01] MEDS ORDERED: PHENYTOIN SODIUM EXT REL 100 MG CAP PO SCH (09:00)
[2020-01-01] MEDS ORDERED: TYLENOL # 31 EA PO (09:11)
[2020-01-01 11:16] VITALS: BP 94/59
[2020-01-01] MEDS: ALPRAZOLAM 0.5 MG TAB PO PRN (12:34)
[2020-01-01 15:35] VITALS: BP_SYST 94; BP_SYST 97; BP_DIAS 59; BP_DIAS 66
--- NOTE | 2020-01-01 18:30 | NUR ---
PT DISCHARGED BUT REFUSING TO SIGN DISCHARGE OR LEAVE BEFORE TALKING TO GROUP LEADER [employer]ER [employer]ISHING.
--- NOTE | 2020-01-01 19:45 | NUR ---
House Supervisors (Sandie) spoke with patient at bedside explaining that she does have discharge orders and medically she is safe to go home. Pt finally agreed to go home and signed discharge papers. Patient called mother (5 minutes away) and will pickle solution maker patient via private vehicle.
--- NOTE | 2020-01-01 19:53 | NUR ---
Patient escorted downstairs by CUSTOMER RELATIONSHIP SPECIALIST ([facility]) via wheelchair. Patient brought home with her her prescriptions, discharge papers and personal belongings. Patient left unit in stable condition. Patient went home with mother via private vehicle.
--- NOTE | 2020-01-01 20:10 | Consultation ---
DATE OF CONSULTATION: HISTORY OF PRESENT ILLNESS: Ms. Henry is a 49-year-old female, comes in with 3 days history of right upper extremity redness and swelling and the patient was admitted. She was seen by Surgery when I see her. LABORATORY DATA: The patient's blood cultures are negative. Her white count is 7. Her COVID is still pending. Sodium 141 and potassium 3.9. MEDICATIONS: The patient, who is currently on Protonix, Zosyn, and vancomycin. PHYSICAL EXAMINATION: GENERAL: Currently alert and oriented. Does not seem to be in acute distress. VITAL SIGNS: Stable, currently afebrile. HEENT: She is not icteric. NECK: Supple. CHEST: Clear. HEART: S1 and S2. ABDOMEN: Soft. EXTREMITIES: The arm, there is erythema and edema. IMPRESSION: Cellulitis, on vancomycin and Zosyn. We will keep the arm elevated. Reassess in the morning. We will follow with you. MD JOHN Graves/DODIE /[id number]
== END 2020-01-01 20:04 | disposition home or self-care (01) | DRG 603 ==
LOC: ER 17:45 → ERHOLD 12-31 01:12 → MED/SURG3 12-31 03:09
PROVIDERS: ADMIT Internal Medicine; ATTEND Internal Medicine
DX: L03.113 Cellulitis of right upper limb (principal); I10 Essential (primary) hypertension; G43.909 Migraine, unspecified, not intractable, without status migrainosus; R56.9 Unspecified convulsions; K21.9 Gastro-esophageal reflux disease without esophagitis; F41.9 Anxiety disorder, unspecified; Z20.828 Contact with and (suspected) exposure to other viral communicable diseases
CPT/HCPCS: 36415; 71045; 80053; 80061; 80202; 83036; 83735; 84100; 84443; 85025; 85610; 85730; 87040; 93971; 99284; J1170; J2405; J2543; J3370; J7030; Q9967; U0002

== ENCOUNTER 2020-10-07 14:59 | Emergency (ER) | payer MEDICARE ==
[~2020-10-07] VITALS: Ht 170.2 cm; Wt 86.2 kg
[~2020-10-07 14:59] MED LIST changes: +TYLENOL # 31 EA PO
[2020-10-07] MEDS ORDERED: SODIUM CHLORIDE 0.9% 1000ML 1,000 ML IV STA (15:40)
[2020-10-07 17:41] LABS: SALICYLATE < 5.0 mg/dL (0-30)
[2020-10-07 17:49] LABS: ALBUMIN 3.3 g/dL (3.5-5.0); ALBUMIN/GLOBULIN RATIO 0.8 (0.8-2.0); ANION GAP 20.1 mmol/L (8-16); CALCIUM 8.8 mg/dL (8.4-10.2); CREATININE, SERUM 0.66 mg/dL (0.57-1.11); POTASSIUM 4.1 mmol/L (3.5-5.1)
[2020-10-07 17:57] LABS: BASOPHILS % 0.2 % (0.0-1.0); EOSINOPHILS # (AUTO) 0.1 (0.0-0.4); EOSINOPHILS % 0.7 % (0.0-6.0); HEMATOCRIT 32.5 % (34.2-44.1); HEMOGLOBIN 9.3 g/dL (12.0-16.0); LYMPHOCYTES # (AUTO) 1.1 (1.0-3.2); LYMPHOCYTES % 12.1 % (18.0-39.1); MEAN CORPUSCULAR HEMOGLOBIN 21.6 pg (28-32); MEAN CORPUSCULAR HGB CONC 28.6 g/dL (31-35); MEAN CORPUSCULAR VOLUME 75.6 fL (81-99); MONOCYTES # (AUTO) 0.6 (0.2-0.8); MONOCYTES % 6.1 % (4.4-11.3); NEUTROPHILS # (AUTO) 7.6 (2.1-6.9); NEUTROPHILS % 80.2 % (38.7-80.0); PLATELET COUNT 564 x10e3/uL (140-360); RED CELL DISTRIBUTION WIDTH 19.2 % (11.7-14.4)
[2020-10-07 17:59] LABS: CREATINE KINASE MB 5.6 ng/mL (0-5.0)
[2020-10-07] MEDS ORDERED: NALOXONE HCL 2MG/2 ML SYRINGE ONE (19:58)
[2020-10-07] MEDS ORDERED: NALOXONE HCL 2MG/2 ML SYRINGE IM ONE ×2 (20:00)
== END 2020-10-07 20:30 | disposition home or self-care (01) ==
LOC: ER 15:45
DX: T40.1X1A Poisoning by heroin, accidental (unintentional), initial encounter (principal); U07.1 COVID-19; I10 Essential (primary) hypertension; G40.909 Epilepsy, unspecified, not intractable, without status epilepticus; F41.9 Anxiety disorder, unspecified; K21.9 Gastro-esophageal reflux disease without esophagitis; K50.90 Crohn's disease, unspecified, without complications
CPT/HCPCS: 36415; 70450; 71045; 72125; 80053; 80320; 80329 ×2; 82550; 82553; 83735; 84484; 85025; 93005; 99285; J2310; J7030

== ENCOUNTER 2024-04-05 04:24 | Emergency (ER) | payer MEDICAID, OTHER ==
[~2024-04-05] VITALS: Ht 177.8 cm; Wt 63.5 kg
[2024-04-05 04:26] VITALS: PULSE 102; RESP 20; TEMP 98.1; O2SAT 100
[2024-04-05] MEDS: SODIUM CHLORIDE 0.9% 1000ML 1,000 ML IV STA (04:49)
[2024-04-05 04:56] LABS: BASOPHILS # (AUTO) 0.1 (0.0-0.1); BASOPHILS % 0.3 % (0.0-1.0); EOSINOPHILS % 0.2 % (0.0-6.0); HEMATOCRIT 30.2 % (34.2-44.1); HEMOGLOBIN 8.7 g/dL (12.0-16.0); LYMPHOCYTES # (AUTO) 1.7 (1.0-3.2); MEAN CORPUSCULAR HEMOGLOBIN 20.2 pg (28-32); MEAN CORPUSCULAR HGB CONC 28.8 g/dL (31-35); MEAN CORPUSCULAR VOLUME 70.1 fL (81-99); MONOCYTES # (AUTO) 0.8 (0.2-0.8); MONOCYTES % 4.1 % (4.4-11.3); NEUTROPHILS # (AUTO) 15.9 (2.1-6.9); NEUTROPHILS % 85.4 % (38.7-80.0); PLATELET COUNT 338 x10e3/uL (140-360); RED BLOOD COUNT 4.31 x10e6/uL (3.6-5.1); RED CELL DISTRIBUTION WIDTH 19.6 % (11.7-14.4); WHITE BLOOD COUNT 18.59 x10e3/uL (4.8-10.8)
[2024-04-05 05:16] LABS: ALBUMIN 3.2 g/dL (3.5-5.0); ALBUMIN/GLOBULIN RATIO 0.7 (0.8-2.0); ANION GAP 11.8 mmol/L (8-16); BILIRUBIN,TOTAL 0.7 mg/dL (0.2-1.2); CALCIUM 9.8 mg/dL (8.4-10.2); CREATININE, SERUM 0.68 mg/dL (0.57-1.11); POTASSIUM 3.8 mmol/L (3.5-5.1)
== END 2024-04-05 05:38 | disposition left against medical advice (07) ==
LOC: ER 04:40
DX: R10.9 Unspecified abdominal pain (principal); R11.2 Nausea with vomiting, unspecified; I10 Essential (primary) hypertension; G40.909 Epilepsy, unspecified, not intractable, without status epilepticus; K21.9 Gastro-esophageal reflux disease without esophagitis; F41.9 Anxiety disorder, unspecified; Z87.19 Personal history of other diseases of the digestive system
CPT/HCPCS: 36415; 80053; 83690; 85025; 99283; J7030